=== PATIENT | male | born 1960 | race Caucasian/White ===

== ENCOUNTER 2017-08-21 12:56 | Observation (INO) | payer OTHER ==
[2017-08-21 13:23] LABS: Basophils % (A) 0 %; Eosinophils # (A) 0.1 k/uL (0-0.7); Eosinophils % (A) 1 %; HCT 38.6 % (39.0-53.0); HGB 12.7 gm/dL (13.0-17.5); Lymphocytes # (A) 1.1 k/uL (1.0-4.8); Lymphocytes % (A) 11 %; MCH 29.4 pg (25.0-35.0); MCHC 32.8 g/dL (31.0-37.0); MCV 89.6 fL (80.0-100.0); Mean Platelet Volume 7.3; Monocytes # (A) 0.5 k/uL (0-1.0); Monocytes % (A) 5 %; Neutrophils # (A) 7.8 k/uL (1.3-7.7); Neutrophils % (A) 81 %; Platelet Count 276 k/uL (150-450); RBC 4.31 m/uL (4.30-5.90); RDW 14.7 % (11.5-15.5); WBC 9.6 k/uL (3.8-10.6)
[2017-08-21 13:33] LABS: ALT 45 U/L (21-72); AST 25 U/L (17-59); Albumin 4.1 g/dL (3.5-5.0); Alkaline Phosphatase 114 U/L (38-126); Anion Gap 11 mmol/L; Blood Urea Nitrogen 10 mg/dL (9-20); Calcium 9.6 mg/dL (8.4-10.2); Carbon Dioxide 24 mmol/L (22-30); Chloride 95 mmol/L (98-107); Glucose 101 mg/dL (74-99); Lipase 78 U/L (23-300); Magnesium 1.8 mg/dL (1.6-2.3); Potassium 3.8 mmol/L (3.5-5.1); Sodium 130 mmol/L (137-145); Total Bilirubin 0.5 mg/dL (0.2-1.3); Total Protein 6.8 g/dL (6.3-8.2)
[2017-08-21 13:40] LABS: Partial Thromboplastin Time 24.8 sec (22.0-30.0); Prothrombin Time 9.8 sec (9.0-12.0)
[2017-08-21 13:42] LABS: Creatine Kinase 134 U/L (55-170)
[2017-08-21 13:55] LABS: Creatine Kinase MB 1.2 ng/mL (0.0-2.4); Troponin I <0.012 ng/mL (0.000-0.034)
--- NOTE | 2017-08-21 14:04 | XR ---
EXAMINATION TYPE: XR chest 2V DATE OF EXAM: 08/21/2017 COMPARISON: 12/06/2014 INDICATION: Chest pain TECHNIQUE: Frontal and lateral views of the chest are obtained. FINDINGS: The heart size is normal. The pulmonary vasculature is normal. The lungs are clear. There is an old lower left rib fracture. IMPRESSION: 1. No acute pulmonary process.
[2017-08-21] MEDS ORDERED: ASPIRIN 81 MG PO STA (14:38)
[2017-08-21] MEDS ORDERED: HEPARIN SODIUM,PORCINE 5,000 UNIT/ML 1 ML VIAL IV ONE (14:38)
[2017-08-21] MEDS ORDERED: NITROGLYCERIN SL TABS 0.4 MG TAB SUBLINGUAL PRN (14:38)
--- NOTE | 2017-08-21 14:41 | ED ---
General Adult HPI - General Chief complaint: Chest Pain Stated complaint: CHEST PAIN Time Seen by Provider: 08/21/17 12:57 Source: patient, EMS, RN notes reviewed, old records reviewed Mode of arrival: EMS Limitations: altered mental status - History of Present Illness Initial comments: -year-old male the ER for evasive chest pain. Patient states he's having chest pain just like prior heart attack. Patient admits to anterior heaviness and chest pain. Testing is pruritic. Patient has history of heart disease. Patient is denying any fever cough or congestion occasional shortness of breath shortness of breath with pain. No recent travel history no sick contacts - Related Data Home Medications Medication Instructions Recorded Confirmed Paliperidone IM [Invega Sustenna] 234 mg IM Q21D 01/20/16 08/21/17 Benztropine Mesylate [Cogentin] 1 mg PO BID 08/21/17 08/21/17 Ergocalciferol [Vitamin D2] 50,000 unit PO Q7D 08/21/17 08/21/17 Fluphenazine HCl [fluPHENAZine HCL] 2.5 mg PO BID 08/21/17 08/21/17 Lisinopril [Prinivil] 20 mg PO DAILY 08/21/17 08/21/17 clonazePAM [KlonoPIN] 0.5 mg PO DAILY PRN 08/21/17 08/21/17 clonazePAM [KlonoPIN] 2 mg PO HS 08/21/17 08/21/17 Previous Rx's Medication Instructions Recorded Atorvastatin [Lipitor] 10 mg PO DAILY #30 tab 01/27/16 Pantoprazole [Protonix] 40 mg PO AC-LUIS ALBERTOKFSPatito #30 tablet. 01/27/16 Allergies Allergy/AdvReac Type Severity Reaction Status Date / Time amoxicillin Allergy Unknown Verified 08/21/17 13:53 brompheniramine maleate Allergy Unknown Verified 08/21/17 13:53 [From Dimetapp Cold-Allergy (PE)] codeine Allergy Rash/Hives Verified 08/21/17 13:53 fluoxetine HCl [From Prozac] Allergy Unknown Verified 08/21/17 13:53 latex Allergy Unknown Verified 08/21/17 13:53 morphine Allergy Rash/Hives Verified 08/21/17 13:53 phenylephrine HCl Allergy Unknown Verified 08/21/17 13:53 [From Dimetapp Cold-Allergy (PE)] shellfish derived [Shellfish] Allergy Rash/Hives Verified 08/21/17 13:53 Review of Systems ROS Statement: Those systems with pertinent positive or pertinent negative responses have been documented in the HPI. ROS Other: All systems not noted in ROS Statement are negative. Past Medical History Past Medical History: COPD, Hyperlipidemia, Hypertension, Osteoarthritis (OA) Additional Past Medical History / Comment(s): prostate cancer, possible seizure disorder-last known seizure 12/07/14. History of Any Multi-Drug Resistant Organisms: None Reported Past Surgical History: Prostate Surgery Additional Past Surgical History / Comment(s): pt states he had prostate surgery , "eye surgery" and back surgery, pyloric stenosis as a child.. Past Anesthesia/Blood Transfusion Reactions: No Reported Reaction Past Psychological History: Bipolar, Depression, Schizophrenia Smoking Status: Never smoker Past Alcohol Use History: None Reported Past Drug Use History: None Reported - Past Family History Father Family Medical History: Cancer Additional Family Medical History / Comment(s): Father is alive at age 82 with history of prostate cancer. Mother Family Medical History: Cancer Additional Family Medical History / Comment(s): Mother at age 53 from bladder cancer Brother(s) Additional Family Medical History / Comment(s): Patient has 4 brothers and 2 sisters that are healthy with no major medical problems. Patient does not have any children. General Exam Limitations: altered mental status General appearance: alert, in no apparent distress Head exam: Present: atraumatic, normocephalic, normal inspection Eye exam: Present: normal appearance, PERRL, EOMI. Absent: scleral icterus, conjunctival injection, periorbital swelling ENT exam: Present: normal exam, mucous membranes moist Neck exam: Present: normal inspection. Absent: tenderness, meningismus, lymphadenopathy Respiratory exam: Present: normal lung sounds bilaterally. Absent: respiratory distress, wheezes, rales, rhonchi, stridor Cardiovascular Exam: Present: regular rate, normal rhythm, normal heart sounds. Absent: systolic murmur, diastolic murmur, rubs, gallop, clicks GI/Abdominal exam: Present: soft, normal bowel sounds. Absent: distended, tenderness, guarding, rebound, rigid Extremities exam: Present: normal inspection, full ROM, normal capillary refill. Absent: tenderness, pedal edema, joint swelling, calf tenderness Back exam: Present: normal inspection Neurological exam: Present: alert, oriented X3, CN II-XII intact Psychiatric exam: Present: normal affect, normal mood Skin exam: Present: warm, dry, intact, normal color. Absent: rash Course Vital Signs 08/21/17 13:05 Temperature 97 F L Pulse Rate 112 H Respiratory 16 Rate Blood Pressure 131/95 O2 Sat by Pulse 95 Oximetry - Reevaluation(s) Reevaluation #1: 08/21/17 14:40 Patient still has symptoms of chest pain Medical Decision Making - Medical Decision Making 57 male the ER prevention chest pain history of chest pain or heart disease. Patient will be admitted for cardiac observation - Lab Data Result diagrams: 08/21/17 13:10 08/21/17 13:10 Lab Results 08/21/17 08/21/17 08/21/17 Range/Units 13:10 13:10 13:10 WBC 9.6 (3.8-10.6) k/uL RBC 4.31 (4.30-5.90) m/uL Hgb 12.7 L (13.0-17.5) gm/dL Hct 38.6 L (39.0-53.0) % MCV 89.6 (80.0-100.0) fL MCH 29.4 (25.0-35.0) pg MCHC 32.8 (31.0-37.0) g/dL RDW 14.7 (11.5-15.5) % Plt Count 276 (150-450) k/uL Neutrophils % 81 % Lymphocytes % 11 % Monocytes % 5 % Eosinophils % 1 % Basophils % 0 % Neutrophils # 7.8 H (1.3-7.7) k/uL Lymphocytes # 1.1 (1.0-4.8) k/uL Monocytes # 0.5 (0-1.0) k/uL Eosinophils # 0.1 (0-0.7) k/uL Basophils # 0.0 (0-0.2) k/uL PT (9.0-12.0) sec INR (<1.2) APTT (22.0-30.0) sec Sodium 130 L (137-145) mmol/L Potassium 3.8 (3.5-5.1) mmol/L Chloride 95 L (98-107) mmol/L Carbon Dioxide 24 (22-30) mmol/L Anion Gap 11 mmol/L BUN 10 (9-20) mg/dL Creatinine 0.90 (0.66-1.25) mg/dL Est GFR (MDRD) Af Amer >60 (>60 ml/min/1.73 sqM) Est GFR (MDRD) Non-Af >60 (>60 ml/min/1.73 sqM) Glucose 101 H (74-99) mg/dL Calcium 9.6 (8.4-10.2) mg/dL Magnesium 1.8 (1.6-2.3) mg/dL Total Bilirubin 0.5 (0.2-1.3) mg/dL AST 25 (17-59) U/L ALT 45 (21-72) U/L Alkaline Phosphatase 114 (38-126) U/L Total Creatine Kinase 134 (55-170) U/L CK-MB (CK-2) 1.2 (0.0-2.4) ng/mL CK-MB (CK-2) Rel Index 0.9 Troponin I <0.012 (0.000-0.034) ng/mL Total Protein 6.8 (6.3-8.2) g/dL Albumin 4.1 (3.5-5.0) g/dL Lipase 78 (23-300) U/L 08/21/17 Range/Units 13:10 WBC (3.8-10.6) k/uL RBC (4.30-5.90) m/uL Hgb (13.0-17.5) gm/dL Hct (39.0-53.0) % MCV (80.0-100.0) fL MCH (25.0-35.0) pg MCHC (31.0-37.0) g/dL RDW (11.5-15.5) % Plt Count (150-450) k/uL Neutrophils % % Lymphocytes % % Monocytes % % Eosinophils % % Basophils % % Neutrophils # (1.3-7.7) k/uL Lymphocytes # (1.0-4.8) k/uL Monocytes # (0-1.0) k/uL Eosinophils # (0-0.7) k/uL Basophils # (0-0.2) k/uL PT 9.8 (9.0-12.0) sec INR 1.0 (<1.2) APTT 24.8 (22.0-30.0) sec Sodium (137-145) mmol/L Potassium (3.5-5.1) mmol/L Chloride (98-107) mmol/L Carbon Dioxide (22-30) mmol/L Anion Gap mmol/L BUN (9-20) mg/dL Creatinine (0.66-1.25) mg/dL Est GFR (MDRD) Af Amer (>60 ml/min/1.73 sqM) Est GFR (MDRD) Non-Af (>60 ml/min/1.73 sqM) Glucose (74-99) mg/dL Calcium (8.4-10.2) mg/dL Magnesium (1.6-2.3) mg/dL Total Bilirubin (0.2-1.3) mg/dL AST (17-59) U/L ALT (21-72) U/L Alkaline Phosphatase (38-126) U/L Total Creatine Kinase (55-170) U/L CK-MB (CK-2) (0.0-2.4) ng/mL CK-MB (CK-2) Rel Index Troponin I (0.000-0.034) ng/mL Total Protein (6.3-8.2) g/dL Albumin (3.5-5.0) g/dL Lipase (23-300) U/L - Radiology Data Radiology results: report reviewed (Chest x-rays negative), image reviewed Disposition Clinical Impression: Chest pain Disposition: ADMITTED IP TO THIS [facility] Condition: Undetermined Instructions: Chest Pain (ED) Referrals: Nathaniel Brooks DO [Primary Care Provider] - 1-2 days
[2017-08-21] MEDS ORDERED: HEPARIN SOD,PORK IN 0.45% NACL 25,000 UNIT in 0.45% NACL 1 500ML.BAG IV SCH (14:45)
[2017-08-21] MEDS ORDERED: clonazePAM 0.5 MG TAB PO PRN (17:42)
[2017-08-21] MEDS ORDERED: ERGOCALCIFEROL 50,000 UNIT CAP PO SCH (17:45)
[2017-08-21] MEDS: METOPROLOL TARTRATE 25 MG TAB PO SCH (20:20)
[2017-08-21] MEDS: BENZTROPINE MESYLATE 1 MG TAB PO SCH (20:20)
[2017-08-21] MEDS ORDERED: clonazePAM 1 MG TAB PO SCH (21:00)
[2017-08-21 21:30] LABS: Creatine Kinase 182 U/L (55-170)
[2017-08-21 21:43] LABS: Creatine Kinase MB 1.7 ng/mL (0.0-2.4); Troponin I <0.012 ng/mL (0.000-0.034)
[2017-08-21 22:32] VITALS: RESP 18
[2017-08-21] MEDS: HEPARIN SODIUM,PORCINE 5,000 UNIT/ML 1 ML VIAL IV PRN (22:32)
--- NOTE | 2017-08-21 23:01 | HP ---
HISTORY AND PHYSICAL DATE OF ADMISSION: August 21, 2017 PRESENTING COMPLAINT: Chest pain. HISTORY OF PRESENTING COMPLAINT: This is a pleasant 57 -year-old patient Dr. Nathaniel Brooks. Chronic stable medical conditions of GERD, hyperlipidemia, schizophrenia. Patient was having coffee in the morning, developed left anterior chest wall like a pressure, sharp pain there for about 10 minutes then went off, came back on again and went off again. The patient is very little short of breath if any. Denies any perspiration. No dizziness. No nausea. Symptoms did not come back subsequently. Patient did have a stress test at [facility] about 5 months ago, told it was negative. The patient normally able to get around the house. Denies any cardiac symptoms otherwise. No fever or cardiac history. REVIEW OF SYSTEMS: Constitutional: None. HEENT: None. Respiratory none. Cardiovascular as above. Gastrointestinal has heartburn. The patient felt the symptoms could be from his heartburn. Genitourinary none. Musculoskeletal none. Dermatologic, hematologic and lymphatics none. Psychiatry: Occasionally only hears voices. Otherwise symptoms controlled. Neurological none. PAST HISTORY: GERD, hyperlipidemia, schizophrenia, psychosis, some osteoarthritis, prostate cancer, PTSD. 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 SOCIAL HISTORY: Patient is disabled. Lives with his father. 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 No smoking. Drank alcohol in the past sometimes. FAMILY HISTORY: Father had prostate cancer. HOME MEDICATIONS: 1. Ventolin HFA 1 or 2 puffs q.6h p.r.n. 2. Klonopin 0.5 mg p.o. daily p.r.n. 3. Prinivil 20 mg p.o. daily. 4. Vitamin D2 50,000 units every 7 days. 5. Fluphenazine 2.5 p.o. b.i.d. 6. Lipitor 10 mg a day. 7. Klonopin 2 mg q.h.s. 8. Protonix 40 mg breakfast. 9. Invega 234 mg IM every 21 days. 10.Cogentin 1 mg p.o. b.i.d. ALLERGIES: TO AMOXICILLIN, DIMETAPP, CODEINE, PROZAC, LATEX, MORPHINE, SHELLFISH. PHYSICAL EXAMINATION: Temperature 97.6, pulse 102, respirations 16, blood pressure 130/85, pulse ox 95% on room air. General appearance: Well built, BMI 31.2, lying in bed. Comfortable. Eyes: Pupils equal. Conjunctivae normal. HEENT: Oral cavity normal. Neck: Short thick. JVD unable to assess. Mass not palpable. Respiratory effort normal. Lungs fair entry. Cardiovascular 1st and 2nd sounds normal. No edema. ABDOMEN: Soft, nontender. Liver and spleen not palpable. Lymphatics: No lymph nodes palpable in the neck and axillae. Psychiatry: Alert and oriented times three. Mood and affect slightly anxious- appearing. Neurological: Pupils equal. Cranial nerves grossly intact. Power and sensation grossly intact. INVESTIGATIONS: White count 9.6, hemoglobin 12.7, potassium 3.8, sodium 130, BUN 10, creatinine 0.90, troponin x2 less than 0.012. EKG shows sinus tachycardia 112 beats per minute, right ventricular hypertrophy. Chest x-ray reported nil acute. ASSESSMENT: 1. Left anterior chest wall pain with cardiac risk factors being obesity ex-smoker. No family history with some atypical features. The patient did have a stress test at [facility] five months ago. We will try to get the report for that. 2. We will check the patient's D-dimer and if positive, then proceed to do CT angio of the chest. 3. Gastroesophageal reflux disease. 4. Hyperlipidemia. 5. Obesity; BMI 31.2. 6. Schizophrenia controlled. PLAN: Home medications are resumed. Serial cardiac enzymes in place. D-dimer has been ordered. We will request stress test results from [facility] and consult Cardiology. Care was discussed with the patient. MMODL / IJN: [id number] /
[2017-08-22 03:59] LABS: Basophils % (A) 0 %; Eosinophils # (A) 0.2 k/uL (0-0.7); Eosinophils % (A) 2 %; HCT 39.1 % (39.0-53.0); HGB 12.7 gm/dL (13.0-17.5); Lymphocytes # (A) 1.2 k/uL (1.0-4.8); Lymphocytes % (A) 15 %; MCH 29.5 pg (25.0-35.0); MCHC 32.6 g/dL (31.0-37.0); MCV 90.5 fL (80.0-100.0); Monocytes # (A) 0.6 k/uL (0-1.0); Monocytes % (A) 8 %; Neutrophils # (A) 5.8 k/uL (1.3-7.7); Neutrophils % (A) 72 %; Platelet Count 270 k/uL (150-450); RBC 4.32 m/uL (4.30-5.90); RDW 13.6 % (11.5-15.5); WBC 8.1 k/uL (3.8-10.6)
[2017-08-22 04:24] LABS: Creatine Kinase 169 U/L (55-170)
[2017-08-22 04:37] LABS: Troponin I <0.012 ng/mL (0.000-0.034)
[2017-08-22 04:45] LABS: Creatine Kinase MB 1.5 ng/mL (0.0-2.4)
[2017-08-22 05:01] LABS: Anion Gap 10 mmol/L; Blood Urea Nitrogen 12 mg/dL (9-20); Calcium 9.8 mg/dL (8.4-10.2); Carbon Dioxide 28 mmol/L (22-30); Chloride 104 mmol/L (98-107); Cholesterol 141 mg/dL (<200); Glucose 115 mg/dL (74-99); HDL Cholesterol 71 mg/dL (40-60); LDL Cholesterol,Calculated 51 mg/dL (0-99); Potassium 4.7 mmol/L (3.5-5.1); Sodium 142 mmol/L (137-145); Triglycerides 95 mg/dL (<150)
[2017-08-22] MEDS: HEPARIN SODIUM,PORCINE 5,000 UNIT/ML 1 ML VIAL IV PRN (05:34)
[2017-08-22] MEDS: ALBUTEROL NEBULIZED 2.5 MG/3 ML INHALATION PRN ×2 (07:19→13:27)
[2017-08-22] MEDS ORDERED: PANTOPRAZOLE 40 MG TABLET PO SCH (07:30)
[2017-08-22] MEDS ORDERED: LISINOPRIL 20 MG TAB PO SCH (09:00)
[2017-08-22] MEDS ORDERED: ASPIRIN 325 MG TAB PO SCH (09:00)
[2017-08-22] MEDS ORDERED: ATORVASTATIN 10 MG TAB PO SCH (09:00)
--- NOTE | 2017-08-22 09:14 | P.CRDCN ---
History of Present Illness Consult date: 08/22/17 Chief complaint: Chest pain History of present illness: This is a pleasant 57-year-old gentleman with a past medical history significant for hypertension, dyslipidemia, and post traumatic stress disorder with possible schizophrenia as well, presented to the emergency room complaining of chest discomfort. He was in his usual state of health where he was at home yesterday drinking a cup of coffee when he started experiencing discomfort in the front of the chest as a dull kind of discomfort, without radiation to the arm or neck or shoulders and without any associated symptoms of shortness of breath. No sweating. No dizziness or lightheadedness. And no syncope. He is not aware of any prior cardiac history and never seen any process assistant in the past. No coronary artery disease or congestive heart failure or cardiac arrhythmia. The EKG showed sinus rhythm without any ST or T-wave abnormalities concerning for ischemia. 3 sets of cardiac enzymes were checked and came in to be unremarkable. The d-dimer came in to be normal. The chest x-ray did not show any acute abnormalities. The patient states that he underwent a stress test at [facility] about 3 months ago and that came in to be unremarkable. We are in process of getting a copy of the stress test from [facility]. Past Medical History Past Medical History: COPD, Hyperlipidemia, Hypertension, Osteoarthritis (OA) Additional Past Medical History / Comment(s): prostate cancer, possible seizure disorder-last known seizure 12/07/14.tinnitus, bipolar depression, ptsd, schizophrenia. 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 Smoking Status: Never smoker - Past Family History Father Family Medical History: Cancer Additional Family Medical History / Comment(s): Father is alive at age 82 with history of prostate cancer. Mother Family Medical History: Cancer Additional Family Medical History / Comment(s): Mother at age 53 from bladder cancer Brother(s) Additional Family Medical History / Comment(s): Patient has 4 brothers and 2 sisters that are healthy with no major medical problems. Patient does not have any children. Medications and Allergies Home Medications Medication Instructions Recorded Confirmed Type Paliperidone IM [Invega Sustenna] 234 mg IM Q21D 01/20/16 08/21/17 History Atorvastatin [Lipitor] 10 mg PO DAILY #30 tab 01/27/16 08/21/17 Rx Pantoprazole [Protonix] 40 mg PO AC-BRKFST #30 tablet. 01/27/16 08/21/17 Rx Albuterol Inhaler [Ventolin Hfa 1 - 2 puff INHALATION Q6HR PRN 08/21/17 History Inhaler] Benztropine Mesylate [Cogentin] 1 mg PO BID 08/21/17 08/21/17 History Ergocalciferol [Vitamin D2] 50,000 unit PO Q7D 08/21/17 08/21/17 History Fluphenazine HCl [fluPHENAZine HCL] 2.5 mg PO BID 08/21/17 08/21/17 History Lisinopril [Prinivil] 20 mg PO DAILY 08/21/17 08/21/17 History clonazePAM [KlonoPIN] 0.5 mg PO DAILY PRN 08/21/17 08/21/17 History clonazePAM [KlonoPIN] 2 mg PO HS 08/21/17 08/21/17 History Allergies Allergy/AdvReac Type Severity Reaction Status Date / Time amoxicillin Allergy Unknown Verified 08/21/17 13:53 brompheniramine maleate Allergy Unknown Verified 08/21/17 13:53 [From Dimetapp Cold-Allergy (PE)] codeine Allergy Rash/Hives Verified 08/21/17 13:53 fluoxetine HCl [From Prozac] Allergy Unknown Verified 08/21/17 13:53 latex Allergy Unknown Verified 08/21/17 13:53 morphine Allergy Rash/Hives Verified 08/21/17 13:53 phenylephrine HCl Allergy Unknown Verified 08/21/17 13:53 [From Dimetapp Cold-Allergy (PE)] shellfish derived [Shellfish] Allergy Rash/Hives Verified 08/21/17 13:53 Physical Exam Vitals: Vital Signs Temp Pulse Pulse Resp BP BP Pulse Ox 08/22/17 08:00 97.7 F 93 18 121/78 92 L 08/22/17 07:31 87 08/22/17 07:19 88 08/22/17 03:46 18 08/22/17 03:44 97.6 F 85 18 128/69 95 08/22/17 00:00 18 08/21/17 22:32 72 18 112/73 96 08/21/17 20:00 18 08/21/17 19:31 98.0 F 110 H 19 125/70 94 L 08/21/17 16:00 102 H 16 08/21/17 15:32 97.6 F 102 H 16 134/85 95 08/21/17 14:53 120 H 16 136/80 95 08/21/17 13:05 97 F L 112 H 16 131/95 95 Intake and Output 08/21/17 08/22/17 08/22/17 22:59 06:59 14:59 Intake Total 507.667 503.922 Balance 507.667 503.922 Intake: IV 315 0.9@20 140 Heparin Sod,Pork in 0.45% 175 NaCl 25,000 unit In 0.45 % NaCl 1 500ml.bag @ 9. 931 UNITS/KG/HR 20 mls/hr IV .Q24H [facility] Rx#: [id number] Intake, IV Titration 147.667 188.922 Amount Heparin Sod,Pork in 0.45% 147.667 188.922 NaCl 25,000 unit In 0.45 % NaCl 1 500ml.bag @ 9. 931 UNITS/KG/HR 20 mls/hr IV .Q24H [facility] Rx#: [id number] Oral 360 Other: Voiding Method Toilet Toilet # Voids 1 2 Weight 104.2 kg - Constitutional General appearance: no acute distress - Respiratory Respiratory: bilateral: CTA - Cardiovascular Rhythm: regular Heart sounds: normal: S1, S2 Results 08/22/17 03:43 08/22/17 03:43 Cardiac Enzymes 08/21/17 08/21/17 08/21/17 Range/Units 13:10 13:10 20:26 AST 25 (17-59) U/L CK-MB (CK-2) 1.2 1.7 (0.0-2.4) ng/mL Troponin I <0.012 <0.012 (0.000-0.034) ng/mL 08/22/17 Range/Units 03:43 AST (17-59) U/L CK-MB (CK-2) 1.5 (0.0-2.4) ng/mL Troponin I <0.012 (0.000-0.034) ng/mL Coagulation 08/21/17 08/21/17 08/22/17 Range/Units 13:10 20:26 03:43 PT 9.8 (9.0-12.0) sec APTT 24.8 29.7 36.1 H (22.0-30.0) sec Lipids 08/22/17 Range/Units 03:43 Triglycerides 95 (<150) mg/dL Cholesterol 141 (<200) mg/dL HDL Cholesterol 71 H (40-60) mg/dL CBC 08/21/17 08/22/17 Range/Units 13:10 03:43 WBC 9.6 8.1 (3.8-10.6) k/uL RBC 4.31 4.32 (4.30-5.90) m/uL Hgb 12.7 L 12.7 L (13.0-17.5) gm/dL Hct 38.6 L 39.1 (39.0-53.0) % Plt Count 276 270 (150-450) k/uL Comprehensive Metabolic Panel 08/21/17 08/22/17 Range/Units 13:10 03:43 Sodium 130 L 142 (137-145) mmol/L Potassium 3.8 4.7 (3.5-5.1) mmol/L Chloride 95 L 104 (98-107) mmol/L Carbon Dioxide 24 28 (22-30) mmol/L BUN 10 12 (9-20) mg/dL Creatinine 0.90 0.99 (0.66-1.25) mg/dL Glucose 101 H 115 H (74-99) mg/dL Calcium 9.6 9.8 (8.4-10.2) mg/dL AST 25 (17-59) U/L ALT 45 (21-72) U/L Alkaline Phosphatase 114 (38-126) U/L Total Protein 6.8 (6.3-8.2) g/dL Albumin 4.1 (3.5-5.0) g/dL Current Medications Generic Name Dose Route Start Last Admin Trade Name Freq PRN Reason Stop Dose Admin Albuterol Sulfate 2.5 mg 08/21/17 20:23 08/22/17 07:19 Ventolin Nebulized INHALATION 2.5 mg RT-Q6H PRN Administration Shortness Of Breath Aspirin 325 mg 08/22/17 09:00 Aspirin PO DAILY [facility] Atorvastatin Calcium 10 mg 08/22/17 09:00 Lipitor PO DAILY [facility] Benztropine Mesylate 1 mg 08/21/17 21:00 08/21/17 20:20 Cogentin PO 1 mg BID [facility] Administration Clonazepam 0.5 mg 08/21/17 17:42 Klonopin PO DAILY PRN Anxiety Clonazepam 2 mg 08/21/17 21:00 08/21/17 20:20 Klonopin PO 2 mg HS [facility] Administration Fluphenazine HCl 2.5 mg 08/21/17 21:00 08/21/17 20:21 Prolixin PO 2.5 mg BID [facility] Administration Heparin Sodium (Porcine) 0 unit 08/21/17 14:38 08/22/17 05:34 Heparin IV 4,000 unit Q6HR PRN Administration Low PTT Protocol Heparin Sodium/Sodium Chloride 500 mls @ 20 mls/hr 08/21/17 14:45 08/22/17 05 :31 25,000 unit/ Sodium Chloride IV 16.05 units/kg/hr .Q24H [facility] 32.32 mls/hr Protocol Titration 9.931 UNITS/KG/HR Lisinopril 20 mg 08/22/17 09:00 Zestril PO DAILY [facility] Metoprolol Tartrate 25 mg 08/21/17 21:00 08/21/17 20:20 Lopressor PO 25 mg BID [facility] Administration Nitroglycerin 0.4 mg 08/21/17 14:38 Nitrostat SUBLINGUAL Q5M PRN Chest Pain Paliperidone Palmitate 234 mg 08/30/17 09:00 Invega Sustenna IM Q21D [facility] Pantoprazole Sodium 40 mg 08/22/17 07:30 Protonix PO AC-BRKFST [facility] Intake and Output 08/21/17 08/22/17 08/22/17 22:59 06:59 14:59 Intake Total 507.667 503.922 Balance 507.667 503.922 Intake: IV 315 0.9@20 140 Heparin Sod,Pork in 0.45% 175 NaCl 25,000 unit In 0.45 % NaCl 1 500ml.bag @ 9. 931 UNITS/KG/HR 20 mls/hr IV .Q24H [facility] Rx#: [id number] Intake, IV Titration 147.667 188.922 Amount Heparin Sod,Pork in 0.45% 147.667 188.922 NaCl 25,000 unit In 0.45 % NaCl 1 500ml.bag @ 9. 931 UNITS/KG/HR 20 mls/hr IV .Q24H [facility] Rx#: [id number] Oral 360 Other: Voiding Method Toilet Toilet # Voids 1 2 Weight 104.2 kg 08/22/17 03:43 08/22/17 03:43 Assessment and Plan Assessment: Assessment #1 atypical chest discomfort #2 hypertension #3 dyslipidemia Plan #1 the patient was ruled out for acute coronary event #2 we will obtain a copy of the stress test from [facility] #3 further recommendation to follow that. Thank you for allowing us participate in his care
[2017-08-22] MEDS: BENZTROPINE MESYLATE 1 MG TAB PO SCH (10:33)
[2017-08-22] MEDS: METOPROLOL TARTRATE 25 MG TAB PO SCH (10:34)
[2017-08-22 11:49] VITALS: TEMP 97.5
[2017-08-22] MEDS: PNEUMOCOCCAL VACC-PNEUMOVAX 23 25 MCG/0.5 ML VIAL IM ONE ×2 (14:10→16:51)
[2017-08-22] MEDS: INFLUENZA VACCINE (6 MOS+) 60 MCG/0.5 ML SYRINGE IM ONE ×2 (14:10→16:53)
[2017-08-22 15:34] VITALS: BP 133/77; PULSE 94
--- NOTE | 2017-08-23 08:00 | DS ---
DISCHARGE SUMMARY DATE OF ADMISSION: August 21, 2017 DATE OF DISCHARGE: August 23, 2017. FINAL DIAGNOSES: 1. Left anterior chest wall pain could be musculoskeletal. 2. Gastroesophageal reflux disease. 3. Hyperlipidemia. 4. Obesity BMI 31.2. 5. Chronic schizophrenia. HOSPITAL COURSE: This patient presented with chest pain. Had a stress test 5 months ago at [facility]. The patient is seen by Dr. Lino from Cardiology, saw the patient, okay to be discharged. Will follow up the patient as an outpatient. Troponins were negative. EXAM: Lungs are clear. Cardiovascular 1st and 2nd sounds normal. DISCHARGE MEDICATIONS: 1. Invega Sustenna 234 mg IM every 21 days. 2. Lipitor 10 mg a day. 3. Protonix 40 mg p.o. daily. 4. Ventolin HFA 1 or 2 puffs q.6h p.r.n. 5. Cogentin 1 mg p.o. b.i.d. 6. Vitamin D2 50,000 units every 7 days. 7. Fluphenazine 2.5 mg p.o. b.i.d. 8. Prinivil 20 mg p.o. daily. 9. Klonopin 0.5 mg p.o. daily p.r.n. and 2 mg q.h.s. 10.Nitrostat 0.4 sublingual q.5 p.r[address]n. Follow with Dr. Lino in 2 weeks. Follow up with Dr. Nathaniel Brooks in 3 days. MMODL / IJN: [id number] /
[2017-08-30] MEDS ORDERED: PALIPERIDONE IM 234 MG/1.5 ML SYG IM SCH (09:00)
== END 2017-08-22 17:14 | disposition home or self-care (01) ==
LOC: EC 12:56 → 3OBS 14:38
PROVIDERS: ADMIT Hospitalist; ATTEND Hospitalist
DX: R07.89 Other chest pain (principal); K21.9 Gastro-esophageal reflux disease without esophagitis; I10 Essential (primary) hypertension; E78.5 Hyperlipidemia, unspecified; J44.9 Chronic obstructive pulmonary disease, unspecified; E66.9 Obesity, unspecified; M19.90 Unspecified osteoarthritis, unspecified site; Z68.31 Body mass index [BMI] 31.0-31.9, adult; F20.9 Schizophrenia, unspecified; F31.9 Bipolar disorder, unspecified; F43.10 Post-traumatic stress disorder, unspecified; Z23 Encounter for immunization; Z79.899 Other long term (current) drug therapy; Z91.040 Latex allergy status; Z88.0 Allergy status to penicillin; Z88.5 Allergy status to narcotic agent; Z88.8 Allergy status to other drugs, medicaments and biological substances; Z91.013 Allergy to seafood; Z85.46 Personal history of malignant neoplasm of prostate; Z80.52 Family history of malignant neoplasm of bladder
CPT/HCPCS: 99285 ×2; 96365 ×2; 96376 ×4; 96366 ×2; 36415; 94640 ×2; 93005; 85379; 80061; 80053; 80048; 82550 ×2; 82553 ×2; 83690; 83735; 84484 ×2; 85025 ×2; 85610; 85730 ×2; 71046; 90732; 90686; G0378 ×2; G0008; G0009; J1644 ×3

== ENCOUNTER 2017-10-08 06:46 | Inpatient (IN) | payer MEDICAID ==
[2017-10-08] MEDS ORDERED: ZIPRASIDONE 20 MG VIAL IM PRN (07:48)
[2017-10-08] MEDS ORDERED: MAGNESIUM HYDROXIDE 2,400 MG/10 ML CUP PO PRN (07:48)
[2017-10-08] MEDS ORDERED: MAG HYDROX/AL HYDROX/SIMETH 30 ML CUP PO PRN (07:48)
[2017-10-08] MEDS ORDERED: ACETAMINOPHEN TAB 325 MG TAB PO PRN (07:48)
[2017-10-08] MEDS ORDERED: LORazepam 1 MG TAB PO PRN (07:48)
[2017-10-08] MEDS ORDERED: LORazepam 2 MG/ML INJ IM PRN (07:51)
[2017-10-08] MEDS ORDERED: NITROGLYCERIN SL TABS 0.4 MG TAB SUBLINGUAL PRN (12:56)
[2017-10-08] MEDS ORDERED: clonazePAM 0.5 MG TAB PO PRN (12:56)
[2017-10-08] MEDS: NICOTINE 14MG/24HR PATCH TRANSDERM SCH (13:38)
--- NOTE | 2017-10-08 14:32 | P.HP ---
Psychiatric H&P - . H&P Date: 10/08/17 History & Physical: 10/08/17 14:26 IDENTIFYING DATA: 57-year-old single male patient HPI: Patient admitted to the inpatient psychiatric unit [facility] on a voluntary basis. He reports that he was feeling lonely and paranoid started to feel depressed and took 3 or 4 pills because he had some thoughts of suicide. He says that he call the ambulance himself. He went to [facility] was transferred to [facility] for psychiatric admission. He denies any really significant recent stressors. PAST PSYCHIATRIC HISTORY: He has had inpatient psychiatric admissions in the past. He currently sees a nurse practitioner through [facility]. He is most recently on Depakote 1000 more grams at bedtime, Klonopin 0.5 more grams daily when necessary, Klonopin 2 mg at at bedtime and Prolixin Decanoate every 2 weeks. He recently just got the Prolixin decanoate injection. He has history of schizoaffective disorder bipolar type. PMH: History of incontinence sometimes, hypertension, asthma, hypercholesterolemia ALLERGIES: amoxicillin, brompheniramine maleate, Prozac, latex, morphine, phenylephrine, shellfish MEDICATIONS: Tylenol when necessary, Maalox when necessary, Ventolin inhaler when necessary, Lipitor, Cogentin, Klonopin when necessary, Klonopin, Depakote, Prolixin decanoate, Zestril, Ativan when necessary, milk of magnesia when necessary, Habitrol patch, Nitrostat when necessary, Protonix, Geodon when necessary CHEMICAL DEPENDENCY HISTORY: None, alcohol in the past, some binge drinking. FAMILY PSYCHIATRIC HISTORY: Not known at this time. FAMILY CHEMICAL DEPENDENCY HISTORY: None known at this time. SOCIAL HISTORY: Currently lives by himself in a home. He has never been , no children. He has 3 brothers and 2 sisters. He is on disability. MENTAL STATUS EXAM: He is alert and cooperative with the interview. Speech is fluent, not rapid or pressured. His mood is described "up-and-down." He relays that his mood is leveling off. He denies any hallucinations. He denies any suicidal ideations and denies any thoughts of harm to others. I do not note any significant disorientation and memory disturbance. His insight Zydone , judgment shows evidence of recent impairment. STRENGTHS/WEAKNESSES: Strengths-seeking treatment; weaknesses- coping skills INTELLECTUAL FUNCTIONING: Average IMPRESSIONS: Schizoaffective disorder, bipolar type PLAN: Patient is admitted to the inpatient psychiatric unit [facility] on a voluntary basis. He will placed on SP 15 minute precautions. Baseline laboratory workup will be done the patient and medical consultation will be ordered. He'll participate in group and activity therapies. We will maintain Depakote 1000 norms at bedtime and get a Depakote level. We will maintain Klonopin and Cogentin as current. He just received a Prolixin Decanoate injection. We'll monitor for psychosis and mood symptoms. We'll continue to monitor regarding any suicidal ideations. We will look into any family supports. Estimated length of stay is 5-7 days. Prognosis is guarded.
--- NOTE | 2017-10-08 15:15 | P.CONS ---
History of Present Illness - Reason for Consult Hyponatremia - History of Present Illness Patient is a pleasant 57-year-old gentleman was admitted for schizophrenia and bipolar disorder transferred from [facility]. Patient denied any fever, chills, nausea, vomiting patient denied any excessive intake of water. Patient was hyponatremic I do not have much of the laboratory data available from [facility]. Will repeat basic metabolic profile here and if his sodium remains low further workup will be done accordingly. Review of Systems REVIEW OF SYSTEMS: CONSTITUTIONAL: No fever, no malaise, no fatigue. HEENT: No recent visual problems or hearing problems. Denied any sore throat. CARDIOVASCULAR: No chest pain, orthopnea, PND, no palpitations, no syncope. PULMONARY: No shortness of breath, no cough, no hemoptysis. GASTROINTESTINAL: No diarrhea, no nausea, no vomiting, no abdominal pain. Normoactive bowel sounds. NEUROLOGICAL: No headaches, no weakness, no numbness. HEMATOLOGICAL: Denies any bleeding or petechiae. GENITOURINARY: Denies any burning micturition, frequency, or urgency. MUSCULOSKELETAL/RHEUMATOLOGICAL: Denies any joint pain, swelling, or any muscle pain. ENDOCRINE: Denies any polyuria or polydipsia. The rest of the 14-point review of systems is negative. Past Medical History Past Medical History: COPD, Hyperlipidemia, Hypertension, Osteoarthritis (OA) Additional Past Medical History / Comment(s): prostate cancer, possible seizure disorder-last known seizure 12/07/14.tinnitus, bipolar depression, ptsd, schizophrenia. History of Any Multi-Drug Resistant Organisms: None Reported Past Surgical History: Prostate Surgery Additional Past Surgical History / Comment(s): protatectomy, "eye surgery to correct lazy eyes" and back surgery, Past Anesthesia/Blood Transfusion Reactions: Blood Transfusion Reaction Additional Past Anesthesia/Blood Transfusion Reaction / Comm: pt stated received blood in past and had a reaction to it-caused hives. Smoking Status: Never smoker - Past Family History Father Family Medical History: Cancer Additional Family Medical History / Comment(s): Father is alive at age 82 with history of prostate cancer. Mother Family Medical History: Cancer Additional Family Medical History / Comment(s): Mother at age 53 from bladder cancer Brother(s) Additional Family Medical History / Comment(s): Patient has 4 brothers and 2 sisters that are healthy with no major medical problems. Patient does not have any children. Medications and Allergies Home Medications Medication Instructions Recorded Confirmed Type Atorvastatin [Lipitor] 10 mg PO DAILY #30 tab 01/27/16 10/08/17 Rx Pantoprazole [Protonix] 40 mg PO AC-BRKFST #30 tablet. 01/27/16 10/08/17 Rx Albuterol Inhaler [Ventolin Hfa 1 - 2 puff INHALATION RT-Q6H PRN 08/21/17 History Inhaler] Benztropine Mesylate [Cogentin] 2 mg PO BID 08/21/17 10/08/17 History Lisinopril [Prinivil] 20 mg PO DAILY 08/21/17 10/08/17 History clonazePAM [KlonoPIN] 0.5 mg PO DAILY PRN 08/21/17 10/08/17 History clonazePAM [KlonoPIN] 2 mg PO HS 08/21/17 10/08/17 History Nitroglycerin Sl Tabs [Nitrostat] 0.4 mg SUBLINGUAL Q5M PRN #21 tab 08/22/17 Rx Divalproex Sodium [Depakote] 1,000 mg PO HS 10/08/17 10/08/17 History fluPHENAZine DECANOATE [Prolixin 25 mg IM [id number] 10/08/17 10/08/17 History Decanoate] Allergies Allergy/AdvReac Type Severity Reaction Status Date / Time amoxicillin Allergy Unknown Verified 10/08/17 12:35 brompheniramine maleate Allergy Unknown Verified 10/08/17 12:35 [From Dimetapp Cold-Allergy (PE)] codeine Allergy Rash/Hives Verified 10/08/17 12:35 fluoxetine HCl [From Prozac] Allergy Unknown Verified 10/08/17 12:35 latex Allergy Unknown Verified 10/08/17 12:35 morphine Allergy Rash/Hives Verified 10/08/17 12:35 phenylephrine HCl Allergy Unknown Verified 10/08/17 12:35 [From Dimetapp Cold-Allergy (PE)] shellfish derived [Shellfish] Allergy Rash/Hives Verified 10/08/17 12:35 Physical Exam Vitals: Vital Signs Temp Pulse Resp BP Pulse Ox 10/08/17 14:05 97.0 F L 97 18 133/80 97 Intake and Output 10/08/17 10/08/17 10/08/17 06:59 14:59 22:59 Other: Weight 104.02 kg PHYSICAL EXAMINATION: GENERAL: The patient is alert and oriented x3, not in any acute distress. Well developed, well nourished. HEENT: Pupils are round and equally reacting to light. EOMI. No scleral icterus. No conjunctival pallor. Normocephalic, atraumatic. No pharyngeal erythema. No thyromegaly. CARDIOVASCULAR: S1 and S2 present. No murmurs, rubs, or gallops. PULMONARY: Chest is clear to auscultation, no wheezing or crackles. ABDOMEN: Soft, nontender, nondistended, normoactive bowel sounds. No palpable organomegaly. MUSCULOSKELETAL: No joint swelling or deformity. EXTREMITIES: No cyanosis, clubbing, or pedal edema. NEUROLOGICAL: Gross neurological examination did not reveal any focal deficits. SKIN: No rashes. Assessment and Plan Plan: -Hyponatremia: Etiology is unknown we'll repeat sodium again depending on the serum sodium level will do further workup including serum muscularity urinalysis modality urinary random sodium urine random creatinine, TSH. -Schizophrenia and bipolar disorder: Management as per primary service -COPD without any acute exacerbation at 10-hyperlipidemia -Hypertension For above-mentioned chronic problems appropriate home medications were reviewed and reconciled
[2017-10-08 15:57] LABS: Anion Gap 13 mmol/L; Blood Urea Nitrogen 16 mg/dL (9-20); Calcium 9.7 mg/dL (8.4-10.2); Carbon Dioxide 25 mmol/L (22-30); Chloride 99 mmol/L (98-107); Glucose 108 mg/dL (74-99); Potassium 4.7 mmol/L (3.5-5.1); Sodium 137 mmol/L (137-145)
[2017-10-08 17:22] VITALS: BMI 31.1
[2017-10-08] MEDS: BENZTROPINE MESYLATE 1 MG TAB PO SCH (20:49)
[2017-10-08] MEDS: DIVALPROEX 500 MG TABLET.DR PO SCH (20:49)
[2017-10-08] MEDS: clonazePAM 1 MG TAB PO SCH (20:51)
[2017-10-08] MEDS: ALBUTEROL INHALER 60 PUFF/8 GM INHALER INHALATION PRN (21:51)
[2017-10-08 22:57] LABS: Hemoglobin A1C 5.8 % (4.0-6.0)
[2017-10-09] MEDS: LISINOPRIL 20 MG TAB PO SCH (08:13)
[2017-10-09] MEDS: ATORVASTATIN 10 MG TAB PO SCH (08:13)
[2017-10-09] MEDS: PANTOPRAZOLE 40 MG TABLET PO SCH (08:13)
[2017-10-09] MEDS: BENZTROPINE MESYLATE 1 MG TAB PO SCH ×2 (08:13→21:10)
[2017-10-09] MEDS: NICOTINE 14MG/24HR PATCH TRANSDERM SCH (08:14)
--- NOTE | 2017-10-09 08:58 | P.PN ---
Progress Note - Text Interval history: The patient is found at the manager service desk he follows me to an interview room. The admission note was reviewed. He has a long-standing diagnosis of schizoaffective disorder. The patient reportedly took 3 extra Depakote pills as he was feeling lonely and depressed. Afterwards he called for help and was brought to the hospital. The patient states he has been compliant with his psychotropic medications but he has been feeling lonely. Here he states he has been doing very well. He reports sleeping throughout the night staff recorded 6 hours. Appetite stable. He states that he showered yesterday. He reports attending groups. He has no questions or concerns regarding his medications. Depakote level was reviewed. Mental status exam: The patient is an overweight male dressed in his own clothing. Hygiene grooming adequate. He is pleasant and cooperative. He reports his mood is good today. He reports having no hopelessness thinking no suicidal ideation intent or plan. He is reporting auditory hallucinations but they are just mumbling and he cannot discern any words. He reports no command auditory hallucinations. He endorses no homicidal ideation. He feels safe here in the hospital. He demonstrates no psychomotor agitation or aggressiveness. Insight and judgment limited. Intellectually he may be lower than average. He is oriented to person place and date. Plan: The patient's seems to be stabilizing. We will continue his psychotropic medications as written. We will monitor him for another 24 hours. If he is clinically stable we will consider discharging him tomorrow. We will discuss his clinical progress during team meeting. It appears his sister would be the contact for a support meeting. We will monitor him for safety and encourage his participation in the milieu.
[2017-10-09] MEDS: ALBUTEROL INHALER 60 PUFF/8 GM INHALER INHALATION PRN (09:29)
[2017-10-09] MEDS: clonazePAM 1 MG TAB PO SCH (21:10)
[2017-10-09] MEDS: DIVALPROEX 500 MG TABLET.DR PO SCH (21:10)
[2017-10-10 06:33] VITALS: TEMP 97.8
[2017-10-10] MEDS: PANTOPRAZOLE 40 MG TABLET PO SCH (08:20)
[2017-10-10] MEDS: LISINOPRIL 20 MG TAB PO SCH (08:20)
[2017-10-10] MEDS: BENZTROPINE MESYLATE 1 MG TAB PO SCH (08:20)
[2017-10-10] MEDS: ATORVASTATIN 10 MG TAB PO SCH (08:20)
[2017-10-10] MEDS: NICOTINE 14MG/24HR PATCH TRANSDERM SCH (08:21)
[2017-10-10 09:46] VITALS: BP 123/70; PULSE 100; RESP 16
--- NOTE | 2017-10-10 10:17 | P.DS ---
Providers Date of admission: 10/08/17 09:10 Expected date of discharge: 10/10/17 Attending physician: Rick Castro Consults: 10/08/17 07:48 Consult Physician Routine Consulting Provider: Pallavi Cannon Consult Reason/Comments: follow up H & P Do you want consulting provider notified?: Yes Primary care physician: Nathaniel Brooks - Discharge Diagnosis(es) (1) Schizoaffective disorder Current Visit: Yes Status: Acute Priority: High Hospital Course: Brief summary of admission note: This patient is a 57-year-old single male who was admitted to the mental health unit from [facility]. He presented after he took 3 or 4 extra pills due to suicidal thoughts. He called the ambulance and was taken to [facility]. He was evaluated initially by Dr. Myers. The patient reported full compliance with his psychotropic medications. He felt he would do better being on the mental health unit in terms of getting help. For full details please refer to the psychiatric evaluation dated 10/08/2017. Summary of hospital course: The patient was admitted to the mental health unit voluntarily. His presenting symptoms were reviewed. He was continued on his psychotropic medications of Depakote Klonopin Cogentin. He had already been given his routine Prolixin Decanoate injection prior to the admission. The patient participated in groups. He demonstrated no agitated behavior. He reported a progressive improvement of symptoms while here. Basically it appears he responded to the milieu and supportive care. He was seen by internal medicine for routine history and physical exam. No changes to his other medicines were made. He feels that he has stabilized again and is appropriate for discharge back home. He wishes to continue following with [facility] upon discharge. Mental status exam: The patient is an overweight alert male appearing his stated age. His hair is thinning he wears eyeglasses. He seated calmly he' s pleasant and cooperative. He reports his mood is better he demonstrates a euthymic affect and demonstrates appropriate smiling and laughter. He is reporting no hopelessness thinking no suicidal or homicidal ideation intent or plan. He is reporting no visual hallucinations. He states he always has auditory hallucinations however they are mumbling and he cannot discern any specific words. He is endorsing no command auditory hallucinations. He reports feeling safe he describes having no paranoid or persecutory thoughts. He demonstrates no verbal or physical aggressiveness. Impressions 1. Schizoaffective disorder 2. Hyperlipidemia hypertension Plan: The patient will be discharged mental health unit he will return to his own residence. He will continue to follow with [facility] in [place]. He will continue on Depakote 1000 mg at bedtime, Klonopin 0.5 mg in the morning 2 mg at bedtime, Cogentin 2 mg twice daily, he is due for his next Prolixin Decanoate injection 25 mg tomorrow. There were no necessary changes that need to be made to his psychotropic medication. He indicates he has his medications at his home. There is no imminent safety risk is appropriate for transition back to outpatient care. He is instructed to return to the hospital with any acute safety concerns. Patient Condition at Discharge: Stable Plan - Discharge Summary Discharge Rx Participant: No New Discharge Prescriptions: Continue Atorvastatin [Lipitor] 10 mg PO DAILY #30 tab Pantoprazole [Protonix] 40 mg PO AC-BRKFST #30 tablet. clonazePAM [KlonoPIN] 0.5 mg PO DAILY PRN PRN Reason: Anxiety Lisinopril [Prinivil] 20 mg PO DAILY clonazePAM [KlonoPIN] 2 mg PO HS Benztropine Mesylate [Cogentin] 2 mg PO BID Albuterol Inhaler [Ventolin Hfa Inhaler] 1 - 2 puff INHALATION RT-Q6H PRN PRN Reason: Shortness Of Breath Nitroglycerin Sl Tabs [Nitrostat] 0.4 mg SUBLINGUAL Q5M PRN #21 tab PRN Reason: Chest Pain Divalproex Sodium [Depakote] 1,000 mg PO HS fluPHENAZine DECANOATE [Prolixin Decanoate] 25 mg IM [id number] #1 ml Discharge Medication List Atorvastatin [Lipitor] 10 mg PO DAILY #30 tab 01/27/16 [Rx] Pantoprazole [Protonix] 40 mg PO AC-BRKFST #30 tablet. 01/27/16 [Rx] Albuterol Inhaler [Ventolin Hfa Inhaler] 1 - 2 puff INHALATION RT-Q6H PRN [History] Benztropine Mesylate [Cogentin] 2 mg PO BID 08/21/17 [History] Lisinopril [Prinivil] 20 mg PO DAILY 08/21/17 [History] clonazePAM [KlonoPIN] 0.5 mg PO DAILY PRN 08/21/17 [History] clonazePAM [KlonoPIN] 2 mg PO HS 08/21/17 [History] Nitroglycerin Sl Tabs [Nitrostat] 0.4 mg SUBLINGUAL Q5M PRN #21 tab 08/22/17 [Rx ] Divalproex Sodium [Depakote] 1,000 mg PO HS 10/08/17 [History] fluPHENAZine DECANOATE [Prolixin Decanoate] 25 mg IM [id number] #1 ml 10/10/17 [Rx] Follow up Appointment(s)/Referral(s): [facility] [Outside] - 10/11/17 10:00 am (10-11-17 @ 10:[address] Rankin 10-11-17 with Nurses for [facility] box after Dr. Rankin 10-11-17 @ 11:30 with Sivakumar Ortega) Nathaniel Brooks, DO [Primary Care Provider] - As Needed Activity/Diet/Wound Care/Special Instructions: Activity and diet as tolerated. Avoid the use of street drugs and alcohol. Take all medications as prescribed. When you are in need of refills on your medications please contact your medical provider and/or outpatient psychiatrist to have this done. Please go to scheduled outpatient appointment for aftercare treatment. If symptoms return call the crisis line at and/or go to the nearest emergency room for an evaluation.
[2017-10-10] MEDS: ALBUTEROL INHALER 60 PUFF/8 GM INHALER INHALATION PRN (13:08)
[2017-10-22] MEDS ORDERED: fluPHENAZine DECANOATE 25 MG/ML 5ML MDV IM SCH (09:00)
== END 2017-10-10 13:42 | disposition home or self-care (01) | DRG 885 ==
LOC: 3MHU 09:10
PROVIDERS: ADMIT Psychiatry & Neurology Psychiatry; ATTEND Psychiatry & Neurology Psychiatry
DX: F25.0 Schizoaffective disorder, bipolar type (principal); E87.1 Hypo-osmolality and hyponatremia; R45.851 Suicidal ideations; E66.3 Overweight; E78.00 Pure hypercholesterolemia, unspecified; E78.5 Hyperlipidemia, unspecified; F43.10 Post-traumatic stress disorder, unspecified; I10 Essential (primary) hypertension; J44.9 Chronic obstructive pulmonary disease, unspecified; Z79.899 Other long term (current) drug therapy; Z80.52 Family history of malignant neoplasm of bladder; Z85.46 Personal history of malignant neoplasm of prostate; Z90.79 Acquired absence of other genital organ(s); Z80.42 Family history of malignant neoplasm of prostate; Z88.5 Allergy status to narcotic agent; Z88.0 Allergy status to penicillin; G40.909 Epilepsy, unspecified, not intractable, without status epilepticus
CPT/HCPCS: 80048; 80061; 80164; 83036; 84443; 94640

== ENCOUNTER 2018-11-23 19:35 | Inpatient (IN) | payer MEDICAID, OTHER ==
--- NOTE | 2018-11-23 20:09 | ED ---
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 Patient has known history of Schizophrenia and bipolar depression. He's been off his medication for approximately 3 weeks. He has been "ordered for psychiatric evaluation the emergency department. He has had previous admission for psychiatric evaluation and treatment. Patient denies any suicidal or homicidal ideation. He does state that his father is not feeling well and not understanding his current issue. He is unable to vocalize exactly what that issue is. He was ordered to stay at the [facility] but has refused. He was brought in by state police. Denies any physical complaints. - Related Data Home Medications Medication Instructions Recorded Confirmed Albuterol Inhaler [Ventolin Hfa 1 - 2 puff INHALATION RT-Q6H PRN 08/21/17 10/08/17 Inhaler] Benztropine Mesylate [Cogentin] 2 mg PO BID 08/21/17 10/08/17 Lisinopril [Prinivil] 20 mg PO DAILY 08/21/17 10/08/17 clonazePAM [KlonoPIN] 0.5 mg PO DAILY PRN 08/21/17 10/08/17 clonazePAM [KlonoPIN] 2 mg PO HS 08/21/17 10/08/17 Divalproex Sodium [Depakote] 1,000 mg PO HS 10/08/17 10/08/17 Previous Rx's Medication Instructions Recorded Atorvastatin [Lipitor] 10 mg PO DAILY #30 tab 01/27/16 Pantoprazole [Protonix] 40 mg PO AC-BRKFST #30 tablet. 01/27/16 Nitroglycerin Sl Tabs [Nitrostat] 0.4 mg SUBLINGUAL Q5M PRN #21 tab 08/22/17 fluPHENAZine DECANOATE [Prolixin 25 mg IM [id number] #1 ml 10/10/17 Decanoate] Allergies Allergy/AdvReac Type Severity Reaction Status Date / Time amoxicillin Allergy Unknown Verified 11/23/18 20:30 brompheniramine maleate Allergy Unknown Verified 11/23/18 20:30 [From Dimetapp Cold-Allergy (PE)] codeine Allergy Rash/Hives Verified 11/23/18 20:30 fluoxetine HCl [From Prozac] Allergy Unknown Verified 11/23/18 20:30 latex Allergy Unknown Verified 11/23/18 20:30 morphine Allergy Rash/Hives Verified 11/23/18 20:30 phenylephrine HCl Allergy Unknown Verified 11/23/18 20:30 [From Dimetapp Cold-Allergy (PE)] shellfish derived [Shellfish] Allergy Rash/Hives Verified 11/23/18 20:30 Review of Systems ROS Statement: Those systems with pertinent positive or pertinent negative responses have been documented in the HPI. ROS Other: All systems not noted in ROS Statement are negative. Past Medical History Past Medical History: COPD, Hyperlipidemia, Hypertension, Osteoarthritis (OA) Additional Past Medical History / Comment(s): prostate cancer, possible seizure disorder-last known seizure 12/07/14.tinnitus, bipolar depression, ptsd, schizophrenia. 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 Past Psychological History: Bipolar, Depression, PTSD, Schizophrenia Smoking Status: Never smoker Past Alcohol Use History: None Reported Past Drug Use History: None Reported - Past Family History Father Family Medical History: Cancer Additional Family Medical History / Comment(s): Father is alive at age 82 with history of prostate cancer. Mother Family Medical History: Cancer Additional Family Medical History / Comment(s): Mother at age 53 from bladder cancer Brother(s) Additional Family Medical History / Comment(s): Patient has 4 brothers and 2 sisters that are healthy with no major medical problems. Patient does not have any children. General Exam Limitations: no limitations General appearance: alert, in no apparent distress Head exam: Present: atraumatic, normocephalic Eye exam: Present: normal appearance, PERRL ENT exam: Present: normal exam Neck exam: Present: normal inspection. Absent: tenderness, meningismus Respiratory exam: Present: normal lung sounds bilaterally. Absent: respiratory distress, wheezes Cardiovascular Exam: Present: regular rate, normal rhythm GI/Abdominal exam: Present: soft. Absent: distended, tenderness Extremities exam: Present: normal inspection, normal capillary refill. Absent: pedal edema Back exam: Present: normal inspection Neurological exam: Present: alert. Absent: motor sensory deficit Psychiatric exam: Present: anxious, other (Paranoid, Delusional). Absent: homicidal ideation, suicidal ideation Skin exam: Present: warm, dry, intact. Absent: cyanosis, diaphoretic Course Vital Signs 11/23/18 19:41 Temperature 98.3 F Pulse Rate 106 H Respiratory 20 Rate Blood Pressure 133/75 O2 Sat by Pulse 96 Oximetry - Reevaluation(s) Reevaluation #1: 11/23/18 20:34 Patient medically cleared for psychiatric evaluation. Medical Decision Making - Medical Decision Making 58-year-old male presenting with paranoid schizophrenia and coronary petitioned for psychiatric evaluation. Patient is medically cleared emergency prompt. He was evaluated by EPS, will be admitted for further psychiatric evaluation and treatment. He will be admitted to this institution. I completed a clinical certification for this patient. - Lab Data Lab Results 11/23/18 Range/Units 19:59 Urine Opiates Screen Not Detected (NotDetected) Ur Oxycodone Screen Not Detected (NotDetected) Urine Methadone Screen Not Detected (NotDetected) Ur Propoxyphene Screen Not Detected (NotDetected) Ur Barbiturates Screen Not Detected (NotDetected) U Tricyclic Antidepress Not Detected (NotDetected) Ur Phencyclidine Scrn Not Detected (NotDetected) Ur Amphetamines Screen Not Detected (NotDetected) U Methamphetamines Scrn Not Detected (NotDetected) U Benzodiazepines Scrn Not Detected (NotDetected) Urine Cocaine Screen Not Detected (NotDetected) U Marijuana (THC) Screen Not Detected (NotDetected) Disposition Clinical Impression: Schizophrenia, Noncompliance by refusing service, Schizoaffective disorder Disposition: [facility] Condition: Stable Is patient prescribed a controlled substance at d/c from ED?: No Referrals: Nathaniel Brooks DO [Primary Care Provider] - 1-2 days Decision to Admit Reason: Admit from EC Decision Date: 11/23/18 Decision Time: 20:35
[2018-11-23 20:23] LABS: Amphetamine Screen,Urine Not Detected (NotDetected); Barbiturate Screen,Urine Not Detected (NotDetected); Benzodiazepines Screen,Urine Not Detected (NotDetected); Cocaine Screen,Urine Not Detected (NotDetected); Methadone Screen, Urine Not Detected (NotDetected); Opiate Screen,Urine Not Detected (NotDetected); Oxycodone Screen, Urine Not Detected (NotDetected); Phencyclidine Screen,Urine Not Detected (NotDetected); Tricyclic Antidepressant,Urine Not Detected (NotDetected); Urn Cannabinoid Scrn Not Detected (NotDetected)
[2018-11-23] MEDS ORDERED: ACETAMINOPHEN TAB 325 MG TAB PO STA (21:00)
[2018-11-23] MEDS ORDERED: MAGNESIUM HYDROXIDE 2,400 MG/10 ML CUP PO PRN (21:18)
[2018-11-23] MEDS ORDERED: NITROGLYCERIN SL TABS 0.4 MG TAB SUBLINGUAL PRN (21:23)
[2018-11-23] MEDS: LORazepam 1 MG TAB PO PRN (23:58)
--- NOTE | 2018-11-24 02:48 | P.HPMEDMHU ---
History of Present Illness H&P Date: 11/24/18 Chief Complaint: Consult for MHU HPI The patient is a 58-year-old male with a past medical history of schizophrenia, bipolar depression with PTSD, COPD essential hypertension who is admitted to the mental health unit after being brought in on a pickup order for noncompliance with his medications . Apparently has been off of them for about a week. Patient was apparently delusional, but denied any suicidal or homicidal ideation. The patient denies any chest pain denies any shortness of breath , does report a nonproductive cough and wheezes for the last week and reports that he does not have an inhaler. UDS performed in the ER is unremarkable, no other labs available Review of Systems Pertinent positives per HPI all other review of systems negative Past Medical History Past Medical History: COPD, Hyperlipidemia, Hypertension, Osteoarthritis (OA) Additional Past Medical History / Comment(s): prostate cancer, possible seizure disorder-last known seizure 12/07/14.tinnitus, bipolar depression, ptsd, schizophrenia. 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 Smoking Status: Never smoker - Past Family History Father Family Medical History: Cancer Additional Family Medical History / Comment(s): Father is alive at age 82 with history of prostate cancer. Mother Family Medical History: Cancer Additional Family Medical History / Comment(s): Mother at age 53 from bladder cancer Brother(s) Additional Family Medical History / Comment(s): Patient has 4 brothers and 2 sisters that are healthy with no major medical problems. Patient does not have any children. Medications and Allergies Home Medications Medication Instructions Recorded Confirmed Type Pantoprazole [Protonix] 40 mg PO SANGEETHA-BRKFST #30 tablet. 01/27/16 11/24/18 Rx Albuterol Inhaler [Ventolin Hfa 2 puff INHALATION RT-Q4H PRN 08/21/17 11/24/18 History Inhaler] Lisinopril [Prinivil] 20 mg PO DAILY 08/21/17 11/24/18 History clonazePAM [KlonoPIN] 0.5 mg PO BID 08/21/17 11/24/18 History Nitroglycerin Sl Tabs [Nitrostat] 0.4 mg SUBLINGUAL Q5M PRN #21 tab 08/22/17 11/24/18 Rx Divalproex Sodium [Depakote] 1,000 mg PO HS 10/08/17 11/24/18 History Atorvastatin [Lipitor] 10 mg PO HS 11/23/18 11/24/18 History Ergocalciferol (Vitamin D2) 50,000 unit PO Q7D 11/23/18 11/24/18 History [Vitamin D2] Ziprasidone [Geodon] 80 mg PO DAILY 11/23/18 11/24/18 History Allergies Allergy/AdvReac Type Severity Reaction Status Date / Time amoxicillin Allergy Unknown Verified 11/24/18 01:08 brompheniramine maleate Allergy Unknown Verified 11/24/18 01:08 [From Dimetapp Cold-Allergy (PE)] codeine Allergy Rash/Hives Verified 11/24/18 01:08 fluoxetine HCl [From Prozac] Allergy Unknown Verified 11/24/18 01:08 latex Allergy Unknown Verified 11/24/18 01:08 morphine Allergy Rash/Hives Verified 11/24/18 01:08 phenylephrine HCl Allergy Unknown Verified 11/24/18 01:08 [From Dimetapp Cold-Allergy (PE)] shellfish derived [Shellfish] Allergy Rash/Hives Verified 11/24/18 01:08 Physical Exam Vitals: Vital Signs Temp Pulse Pulse Resp BP BP Pulse Ox 11/24/18 00:27 97.6 F 92 16 107/65 11/23/18 21:30 97.1 F L 84 119/72 95 11/23/18 21:07 97.7 F 90 16 115/83 95 11/23/18 19:41 98.3 F 106 H 20 133/75 96 Intake and Output 11/23/18 11/23/18 11/24/18 14:59 22:59 06:59 Other: Weight 99.5 kg Constitutional: No acute distress, conversant, pleasant Eyes: Anicteric sclerae, moist conjunctiva, no lid-lag, PERRLA ENMT: NC/AT,Oropharynx clear, no erythema, exudates Neck:Supple, FROM, no masses, or JVD, No carotid bruits; No thyromegaly Lungs: Clear to auscultation, Clear to percussion, Normal respiratory effort, no accessory muscle use Cardiovascular: Heart regular in rate and rhythm, No murmurs, gallops, or rubs no peripheral edema Abdominal: Soft Nontender, nom distended, no guarding, no rebound or rigidity, Normoactive bowel sounds No hepatomegaly, No splenomegaly, No palpable mass No abdominal wall hernia noted Skin: Normal temperature, tone, texture, turgor, No induration No subcutaneous nodules, No rash, lesions, No ulcers Extremities:No digital cyanosis No clubbing, Pedal pulses intact and symmetrical Radial pulses intact and symmetrical Normal gait and station, No calf tenderness Psychiatric: Alert and oriented to person, place and time, appears calm and appropriate Neuro: Muscles Strength 5/5 in all 4 extremities, Sensation to light touch grossly present throughout, Cranial nerves II-XII grossly intact. No focal sensory deficits Cranial Nerve Examination - Cranial Nerves Cranial Nerve II- Optic: Intact Cranial Nerve III- Oculomotor: Intact Cranial Nerve IV- Trochlear: Intact Cranial Nerve V- Trigeminal: Intact Cranial Nerve - Abducens: Intact Cranial Nerve VII- Facial: Intact Cranial Nerve VIII- Auditory: Intact Cranial Nerve IX- Glossopharyngeal: Intact Cranial Nerve X- Vagus: Intact Cranial Nerve XI- Accessory: Intact Cranial Nerve XII- Hypoglossal: Intact Assessment and Plan (1) COPD (chronic obstructive pulmonary disease) Current Visit: Yes Status: Acute Code(s): J44.9 - CHRONIC OBSTRUCTIVE PULMONARY DISEASE, UNSPECIFIED SNOMED Code(s): 60381779 (2) Essential hypertension Current Visit: Yes Status: Acute Code(s): I10 - ESSENTIAL (PRIMARY) HYPERTENSION SNOMED Code(s): 68327023 (3) Hyperlipidemia Current Visit: Yes Status: Acute Code(s): E78.5 - HYPERLIPIDEMIA, UNSPECIFIED SNOMED Code(s): 69742110 (4) Schizoaffective disorder Current Visit: Yes Status: Acute Priority: High Code(s): F25.9 - SCHIZOAFFECTIVE DISORDER, UNSPECIFIED SNOMED Code(s): 03466059 Plan: The patient is admitted to the mental health unit we'll defer to patient's psychiatry team regarding ongoing psychotropic and cognitive behavioral therapy treatments. Clinically the patient is seen on echo stable he had complaints of cough and wheezes has a clear respiratory exam and is not in any acute COPD exacerbation of this time. We'll resume all his home nonpsychiatric medications. We'll plan to sign off pending normal admission labs. We appreciate this consult for further questions or concerns please not hesitate to contact us on inpatient team
[2018-11-24] MEDS: PANTOPRAZOLE 40 MG TABLET PO SCH (08:07)
[2018-11-24] MEDS: LISINOPRIL 20 MG TAB PO SCH (08:08)
[2018-11-24] MEDS: ALBUTEROL INHALER 60 PUFF/8 GM INHALER INHALATION PRN ×3 (08:56→16:34)
[2018-11-24 08:58] LABS: Basophils % (A) 0 %; Eosinophils # (A) 0.1 k/uL (0-0.7); Eosinophils % (A) 2 %; HCT 41.5 % (39.0-53.0); HGB 13.4 gm/dL (13.0-17.5); Lymphocytes # (A) 1.3 k/uL (1.0-4.8); Lymphocytes % (A) 22 %; MCH 29.1 pg (25.0-35.0); MCHC 32.3 g/dL (31.0-37.0); MCV 90.1 fL (80.0-100.0); Mean Platelet Volume 6.9; Monocytes # (A) 0.5 k/uL (0-1.0); Monocytes % (A) 7 %; Neutrophils % (A) 66 %; Platelet Count 290 k/uL (150-450); RBC 4.61 m/uL (4.30-5.90); RDW 13.5 % (11.5-15.5); WBC 6.1 k/uL (3.8-10.6)
[2018-11-24 08:59] LABS: ALT 51 U/L (21-72); AST 34 U/L (17-59); Albumin 4.2 g/dL (3.5-5.0); Alkaline Phosphatase 65 U/L (38-126); Anion Gap 12 mmol/L; Blood Urea Nitrogen 14 mg/dL (9-20); Calcium 9.8 mg/dL (8.4-10.2); Carbon Dioxide 25 mmol/L (22-30); Chloride 101 mmol/L (98-107); Cholesterol 115 mg/dL (<200); Glucose 147 mg/dL (74-99); HDL Cholesterol 53 mg/dL (40-60); LDL Cholesterol,Calculated 44 mg/dL (0-99); Potassium 4.2 mmol/L (3.5-5.1); Sodium 138 mmol/L (137-145); Total Bilirubin 0.9 mg/dL (0.2-1.3); Total Protein 6.7 g/dL (6.3-8.2); Triglycerides 92 mg/dL (<150)
[2018-11-24] MEDS: LORazepam 1 MG TAB PO PRN (15:24)
--- NOTE | 2018-11-24 17:53 | P.HP ---
Psychiatric H&P - . H&P Date: 11/24/18 History & Physical: Allergies Allergy/AdvReac Type Severity Reaction Status Date / Time amoxicillin Allergy Unknown Verified 11/24/18 01:08 brompheniramine maleate Allergy Unknown Verified 11/24/18 01:08 [From Dimetapp Cold-Allergy (PE)] codeine Allergy Rash/Hives Verified 11/24/18 01:08 fluoxetine HCl [From Prozac] Allergy Unknown Verified 11/24/18 01:08 latex Allergy Unknown Verified 11/24/18 01:08 morphine Allergy Rash/Hives Verified 11/24/18 01:08 phenylephrine HCl Allergy Unknown Verified 11/24/18 01:08 [From Dimetapp Cold-Allergy (PE)] shellfish derived [Shellfish] Allergy Rash/Hives Verified 11/24/18 01:08 Vital Signs Temp 97.6 F 11/24/18 00:27 Pulse 89 11/24/18 15:31 Resp 18 11/24/18 15:31 BP 111/68 11/24/18 15:31 Pulse Ox 95 11/23/18 21:30 Intake & Output 11/23/18 11/24/18 11/24/18 18:59 06:59 18:59 Weight 99.5 kg Laboratory Last Values WBC 6.1 k/uL (3.8-10.6) 11/24/18 08:28 RBC 4.61 m/uL (4.30-5.90) 11/24/18 08:28 Hgb 13.4 gm/dL (13.0-17.5) 11/24/18 08:28 Hct 41.5 % (39.0-53.0) 11/24/18 08:28 MCV 90.1 fL (80.0-100.0) 11/24/18 08:28 MCH 29.1 pg (25.0-35.0) 11/24/18 08:28 MCHC 32.3 g/dL (31.0-37.0) 11/24/18 08:28 RDW 13.5 % (11.5-15.5) 11/24/18 08:28 Plt Count 290 k/uL (150-450) 11/24/18 08:28 Neutrophils % 66 % 11/24/18 08:28 Lymphocytes % 22 % 11/24/18 08:28 Monocytes % 7 % 11/24/18 08:28 Eosinophils % 2 % 11/24/18 08:28 Basophils % 0 % 11/24/18 08:28 Neutrophils # 4.0 k/uL (1.3-7.7) 11/24/18 08:28 Lymphocytes # 1.3 k/uL (1.0-4.8) 11/24/18 08:28 Monocytes # 0.5 k/uL (0-1.0) 11/24/18 08:28 Eosinophils # 0.1 k/uL (0-0.7) 11/24/18 08:28 Basophils # 0.0 k/uL (0-0.2) 11/24/18 08:28 Sodium 138 mmol/L (137-145) 11/24/18 08:28 Potassium 4.2 mmol/L (3.5-5.1) 11/24/18 08:28 Chloride 101 mmol/L (98-107) 11/24/18 08:28 Carbon Dioxide 25 mmol/L (22-30) 11/24/18 08:28 Anion Gap 12 mmol/L 11/24/18 08:28 BUN 14 mg/dL (9-20) 11/24/18 08:28 Creatinine 0.90 mg/dL (0.66-1.25) 11/24/18 08:28 Est GFR (CKD-EPI)AfAm >90 (>60 ml/min/1.73 sqM) 11/24/18 08:28 Est GFR (CKD-EPI)NonAf >90 (>60 ml/min/1.73 sqM) 11/24/18 08:28 Glucose 147 mg/dL (74-99) H 11/24/18 08:28 Calcium 9.8 mg/dL (8.4-10.2) 11/24/18 08:28 Total Bilirubin 0.9 mg/dL (0.2-1.3) 11/24/18 08:28 AST 34 U/L (17-59) 11/24/18 08:28 ALT 51 U/L (21-72) 11/24/18 08:28 Alkaline Phosphatase 65 U/L (38-126) 11/24/18 08:28 Total Protein 6.7 g/dL (6.3-8.2) 11/24/18 08:28 Albumin 4.2 g/dL (3.5-5.0) 11/24/18 08:28 Triglycerides 92 mg/dL (<150) 11/24/18 08:28 Cholesterol 115 mg/dL (<200) 11/24/18 08:28 LDL Cholesterol, Calc 44 mg/dL (0-99) 11/24/18 08:28 HDL Cholesterol 53 mg/dL (40-60) 11/24/18 08:28 TSH 2.150 mIU/L (0.465-4.680) 11/24/18 08:28 Urine Opiates Screen Not Detected (NotDetected) 11/23/18 19:59 Ur Oxycodone Screen Not Detected (NotDetected) 11/23/18 19:59 Urine Methadone Screen Not Detected (NotDetected) 11/23/18 19:59 Ur Propoxyphene Screen Not Detected (NotDetected) 11/23/18 19:59 Ur Barbiturates Screen Not Detected (NotDetected) 11/23/18 19:59 U Tricyclic Antidepress Not Detected (NotDetected) 11/23/18 19:59 Ur Phencyclidine Scrn Not Detected (NotDetected) 11/23/18 19:59 Ur Amphetamines Screen Not Detected (NotDetected) 11/23/18 19:59 U Methamphetamines Scrn Not Detected (NotDetected) 11/23/18 19:59 U Benzodiazepines Scrn Not Detected (NotDetected) 11/23/18 19:59 Urine Cocaine Screen Not Detected (NotDetected) 11/23/18 19:59 U Marijuana (THC) Screen Not Detected (NotDetected) 11/23/18 19:59 11/24/18 17:48 Chief Complaint : Worsening psychoses HPI: Mr. Jac Santillan is 58 yo single male with h/o mod disorder, PTSD and psychoses admitted here secondary to worsening psychoses. Reportedly he has been off his medications for last one week. He was getting extremely paranoid delusional. He was holding wrench to protect his and his father assets. Past Medical Hx: Hypertension. past Psych Hx: Schizoaffective Disorder Allergies : see HPI Review of systems; Non contributory Mental status Exam : MSE: Alert, awake, oriented in all spheres. Poor eye contact. Some what guarded approach. Mood anxious and depressed with flat affect. Has suicidal ideation. Has psychoses. Insight and judgment limited A/P : Schizoaffective Disorder, Depressed type Will start Rexulti as he does not like taking geodon
[2018-11-24 18:19] LABS: Hemoglobin A1C 6.3 % (4.0-6.0)
[2018-11-24] MEDS: OLANZapine 5 MG TAB PO SCH (18:35)
[2018-11-24] MEDS: ATORVASTATIN 10 MG TAB PO SCH (20:58)
[2018-11-24] MEDS: DIVALPROEX 500 MG TABLET.DR PO SCH (20:58)
[2018-11-25] MEDS: LORazepam 1 MG TAB PO PRN ×2 (03:25→22:30)
[2018-11-25] MEDS: ALBUTEROL INHALER 60 PUFF/8 GM INHALER INHALATION PRN ×4 (07:34→21:19)
[2018-11-25] MEDS: OLANZapine 5 MG TAB PO SCH (07:58)
[2018-11-25] MEDS: PANTOPRAZOLE 40 MG TABLET PO SCH (07:58)
[2018-11-25] MEDS: LISINOPRIL 20 MG TAB PO SCH (07:58)
--- NOTE | 2018-11-25 14:19 | P.PN ---
Subjective Progress Note Date: 11/25/18 Principal diagnosis: Schizoaffective Disorder Found him still paranoid delusional. He is very anxious and wants to be back on Geodon though family states that it does not work for him. Did sleep better last night MSE: Alert, awake, oriented in all spheres. Poor eye contact. Some what guarded approach. Mood anxious and depressed with flat affect. Has suicidal ideation. Has psychoses. Insight and judgment limited A/P : Schizoaffective Disorder, Depressed type Will continue with Zyprexa Objective - Vital Signs Vital signs: Vital Signs Temp 97.7 F 11/25/18 06:00 Pulse 82 11/25/18 06:00 Resp 16 11/25/18 06:00 BP 114/59 11/25/18 06:00 Pulse Ox 95 11/23/18 21:30 Intake & Output 11/24/18 11/25/18 11/25/18 18:59 06:59 18:59 Weight 100.3 kg - Labs CBC & Chem 7: 11/24/18 08:28 11/24/18 08:28 Labs: Abnormal Lab Results - Last 24 Hours (Table) 11/24/18 Range/Units 08:28 Hemoglobin A1c 6.3 H (4.0-6.0) %
[2018-11-25] MEDS: DIVALPROEX 500 MG TABLET.DR PO SCH (20:02)
[2018-11-25] MEDS: ATORVASTATIN 10 MG TAB PO SCH (20:02)
[2018-11-25] MEDS: ACETAMINOPHEN TAB 325 MG TAB PO PRN (20:46)
[2018-11-26] MEDS: MAG HYDROX/AL HYDROX/SIMETH 30 ML CUP PO PRN ×3 (01:49→16:26)
[2018-11-26] MEDS: LISINOPRIL 20 MG TAB PO SCH (08:02)
[2018-11-26] MEDS: PANTOPRAZOLE 40 MG TABLET PO SCH (08:02)
[2018-11-26] MEDS: OLANZapine 5 MG TAB PO SCH (08:02)
[2018-11-26] MEDS ORDERED: ERGOCALCIFEROL 50,000 UNIT CAP PO SCH (09:00)
[2018-11-26] MEDS: LORazepam 1 MG TAB PO PRN (09:23)
[2018-11-26] MEDS: ALBUTEROL INHALER 60 PUFF/8 GM INHALER INHALATION PRN ×2 (09:26→13:47)
--- NOTE | 2018-11-26 14:09 | P.PN ---
Subjective Progress Note Date: 11/26/18 Principal diagnosis: Schizoaffective disorder bipolar type 11/26/2018: Willie reviewed, discussed with nursing staff this morning and discussed in detail and team meeting. Interview patient and he appears hypomanic and presentation and has tried numerous medications. Difficulty sleeping depressed manic and irritable. Still admits to some suicidal thoughts but no homicidal thoughts. He does have auditory hallucinations which are difficult for him to sleep as well as he has restless leg syndrome at night. Objective - Vital Signs Vital signs: Vital Signs Temp 97.7 F 11/26/18 01:16 Pulse 84 11/26/18 01:16 Resp 16 11/26/18 01:16 BP 119/58 11/26/18 01:16 Pulse Ox 97 11/25/18 20:04 Intake & Output 11/25/18 11/26/18 11/26/18 18:59 06:59 18:59 Weight 100.3 kg - Labs CBC & Chem 7: 11/24/18 08:28 11/24/18 08:28 Assessment and Plan Assessment: 58-year-old male presenting for psychiatric evaluation. Patient has known history of Schizophrenia and bipolar depression. He's been off his medication for approximately 3 weeks. He has been "ordered for psychiatric evaluation the emergency department. He has had previous admission for psychiatric evaluation and treatment. Patient denies any suicidal or homicidal ideation. He does state that his father is not feeling well and not understanding his current issue. He is unable to vocalize exactly what that issue is. He was ordered to stay at the [facility] but has refused. He was brought in by state police. Denies any physical complaints. - Related Data Home Medications Medication Instructions Recorded Confirmed Albuterol Inhaler [Ventolin Hfa 1 - 2 puff INHALATION RT-Q6H PRN 08/21/17 10/08/17 Inhaler] Benztropine Mesylate [Cogentin] 2 mg PO BID 08/21/17 10/08/17 Lisinopril [Prinivil] 20 mg PO DAILY 08/21/17 10/08/17 clonazePAM [KlonoPIN] 0.5 mg PO DAILY PRN 08/21/17 10/08/17 clonazePAM [KlonoPIN] 2 mg PO HS 08/21/17 10/08/17 Divalproex Sodium [Depakote] 1,000 mg PO HS 10/08/17 10/08/17 Previous Rx's Medication Instructions Recorded Atorvastatin [Lipitor] 10 mg PO DAILY #30 tab 01/27/16 Pantoprazole [Protonix] 40 mg PO AC-BRKFST #30 tablet. 01/27/16 Nitroglycerin Sl Tabs [Nitrostat] 0.4 mg SUBLINGUAL Q5M PRN #21 tab 08/22/17 fluPHENAZine DECANOATE [Prolixin 25 mg IM [id number] #1 ml 10/10/17 Decanoate] Allergies Allergy/AdvReac Type Severity Reaction Status Date / Time amoxicillin Allergy Unknown Verified 11/23/18 20:30 brompheniramine maleate Allergy Unknown Verified 11/23/18 20:30 [From Dimetapp Cold-Allergy (PE)] codeine Allergy Rash/Hives Verified 11/23/18 20:30 fluoxetine HCl [From Prozac] Allergy Unknown Verified 11/23/18 20:30 latex Allergy Unknown Verified 11/23/18 20:30 morphine Allergy Rash/Hives Verified 11/23/18 20:30 phenylephrine HCl Allergy Unknown Verified 11/23/18 20:30 [From Dimetapp Cold-Allergy (PE)] shellfish derived [Shellfish] Allergy Rash/Hives Verified 11/23/18 20:30 Past Medical History Past Medical History: COPD, Hyperlipidemia, Hypertension, Osteoarthritis (OA) Additional Past Medical History / Comment(s): prostate cancer, possible seizure disorder-last known seizure 12/07/14.tinnitus, bipolar depression, ptsd, schizophrenia. 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 Past Psychological History: Bipolar, Depression, PTSD, Schizophrenia Smoking Status: Never smoker Past Alcohol Use History: None Reported Past Drug Use History: None Reported - Past Family History Father Family Medical History: Cancer Additional Family Medical History / Comment(s): Father is alive at age 82 with history of prostate cancer. Mother Family Medical History: Cancer Additional Family Medical History / Comment(s): Mother at age 53 from bladder cancer Brother(s) Additional Family Medical History / Comment(s): Patient has 4 brothers and 2 sisters that are healthy with no major medical problems. Patient does not have any children. Mental status examination: This is a 58-year-old male who looks older than his stated age. Speech and language is rapid expressive loud. Attitude and behaviors cooperative. Mood is euphoric elated irritable. Affect is lively and labile. Orientation person place and time and situation. Thought content within normal. Risk factor he does admit to suicidal ideation. Perception does have auditory hallucinations. Thought process is concrete in nature. Concentration is impaired. Recent and remote memory within normal. Intelligence below average. Insight and judgment are poor. Plan: We'll increase his Geodon to 40 mg by mouth twice a day and add Mirapex 0.5 mg 3 times a day for his restless leg. Remain on 15 minute checks usual for [facility] and expect him to go to groups and interact in a positive manner while on the psychiatric unit. (1) Schizoaffective disorder Current Visit: Yes Status: Acute Priority: High Code(s): F25.9 - SCHIZOAFFECTIVE DISORDER, UNSPECIFIED SNOMED Code(s): 30818235 Time with Patient: Less than 30
[2018-11-26] MEDS: PRAMIPEXOLE 0.25 MG TAB PO SCH ×2 (16:25→21:08)
[2018-11-26] MEDS: ACETAMINOPHEN TAB 325 MG TAB PO PRN (18:36)
[2018-11-26] MEDS: DIVALPROEX 500 MG TABLET.DR PO SCH (21:08)
[2018-11-26] MEDS: ATORVASTATIN 10 MG TAB PO SCH (21:08)
[2018-11-26] MEDS: ZIPRASIDONE 40 MG CAP PO SCH (21:08)
[2018-11-27] MEDS: PANTOPRAZOLE 40 MG TABLET PO SCH (05:47)
[2018-11-27] MEDS: ZIPRASIDONE 40 MG CAP PO SCH ×3 (07:55→22:16)
[2018-11-27] MEDS: PRAMIPEXOLE 0.25 MG TAB PO SCH (07:55)
[2018-11-27] MEDS: LISINOPRIL 20 MG TAB PO SCH (07:55)
[2018-11-27] MEDS: ALBUTEROL INHALER 60 PUFF/8 GM INHALER INHALATION PRN ×2 (09:46→17:02)
--- NOTE | 2018-11-27 12:02 | P.PN ---
Subjective Progress Note Date: 11/27/18 Principal diagnosis: Schizoaffective disorder bipolar type 11/26/2018: Chart reviewed reviewed, discussed with nursing staff this morning and discussed in detail and team meeting. Interview patient and he appears hypomanic and presentation and has tried numerous medications. Difficulty sleeping depressed manic and irritable. Still admits to some suicidal thoughts but no homicidal thoughts. He does have auditory hallucinations which are difficult for him to sleep as well as he has restless leg syndrome at night. 11/27/2018: Chart reviewed, discussed with nursing staff and this morning's team meeting regarding patient and disposition and progress. Patient came to my office and we had an interview one-on-one. He was confused daily thought it was only getting once a day Geodon and explained to him yesterday we just started the twice a day in the afternoon and he would miss the morning dose. He is getting it 9 AM and 8 PM daily. Denies any suicidal or homicidal ideation sleep is a major factor for him and agitation. Objective - Vital Signs Vital signs: Vital Signs Temp 97.7 F 11/26/18 01:16 Pulse 92 11/27/18 04:33 Resp 18 11/27/18 04:33 BP 155/78 11/27/18 04:33 Pulse Ox 97 11/25/18 20:04 - Labs CBC & Chem 7: 11/24/18 08:28 11/24/18 08:28 Assessment and Plan Assessment: 58-year-old male presenting for psychiatric evaluation. Patient has known history of Schizophrenia and bipolar depression. He's been off his medication for approximately 3 weeks. He has been "ordered for psychiatric evaluation the emergency department. He has had previous admission for psychiatric evaluation and treatment. Patient denies any suicidal or homicidal ideation. He does state that his father is not feeling well and not understanding his current iss ue. He is unable to vocalize exactly what that issue is. He was ordered to stay at the [facility] but has refused. He was brought in by state police. Denies any physical complaints. - Related Data Home Medications Medication Instructions Recorded Confirmed Albuterol Inhaler [Ventolin Hfa 1 - 2 puff INHALATION RT-Q6H PRN 08/21/17 10/08/17 Inhaler] Benztropine Mesylate [Cogentin] 2 mg PO BID 08/21/17 10/08/17 Lisinopril [Prinivil] 20 mg PO DAILY 08/21/17 10/08/17 clonazePAM [KlonoPIN] 0.5 mg PO DAILY PRN 08/21/17 10/08/17 clonazePAM [KlonoPIN] 2 mg PO HS 08/21/17 10/08/17 Divalproex Sodium [Depakote] 1,000 mg PO HS 10/08/17 10/08/17 Previous Rx's Medication Instructions Recorded Atorvastatin [Lipitor] 10 mg PO DAILY #30 tab 01/27/16 Pantoprazole [Protonix] 40 mg PO AC-BRKFST #30 tablet. 01/27/16 Nitroglycerin Sl Tabs [Nitrostat] 0.4 mg SUBLINGUAL Q5M PRN #21 tab 08/22/17 fluPHENAZine DECANOATE [Prolixin 25 mg IM [id number] #1 ml 10/10/17 Decanoate] Allergies Allergy/AdvReac Type Severity Reaction Status Date / Time amoxicillin Allergy Unknown Verified 11/23/18 20:30 brompheniramine maleate Allergy Unknown Verified 11/23/18 20:30 [From Dimetapp Cold-Allergy (PE)] codeine Allergy Rash/Hives Verified 11/23/18 20:30 fluoxetine HCl [From Prozac] Allergy Unknown Verified 11/23/18 20:30 latex Allergy Unknown Verified 11/23/18 20:30 morphine Allergy Rash/Hives Verified 11/23/18 20:30 phenylephrine HCl Allergy Unknown Verified 11/23/18 20:30 [From Dimetapp Cold-Allergy (PE)] shellfish derived [Shellfish] Allergy Rash/Hives Verified 11/23/18 20:30 Past Medical History Past Medical History: COPD, Hyperlipidemia, Hypertension, Osteoarthritis (OA) Additional Past Medical History / Comment(s): prostate cancer, possible seizure disorder-last known seizure 12/07/14.tinnitus, bipolar depression, ptsd, schizophrenia. 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 Past Psychological History: Bipolar, Depression, PTSD, Schizophrenia Smoking Status: Never smoker Past Alcohol Use History: None Reported Past Drug Use History: None Reported - Past Family History Father Family Medical History: Cancer Additional Family Medical History / Comment(s): Father is alive at age 82 with history of prostate cancer. Mother Family Medical History: Cancer Additional Family Medical History / Comment(s): Mother at age 53 from bladder cancer Brother(s) Additional Family Medical History / Comment(s): Patient has 4 brothers and 2 sisters that are healthy with no major medical problems. Patient does not have any children. Mental status examination: This is a 58-year-old male who looks older than his stated age. Speech and language is rapid expressive loud. Attitude and behaviors cooperative. Mood is euphoric elated irritable. Affect is lively and labile. Orientation person place and time and situation. Thought content within normal. Risk factor he does admit to suicidal ideation. Perception does have auditory hallucinations. Thought process is concrete in nature. Concentration is impaired. Recent and remote memory within normal. Intelligence below average. Insight and judgment are poor. Plan: We'll increase his Geodon to 40 mg by mouth twice a day and add Mirapex 0.5 mg 3 times a day for his restless leg. Remain on 15 minute checks usual for [facility] and expect him to go to groups and interact in a positive manner while on the psychiatric unit. 11/27/2018: We'll increase his Mirapex to 1 mg 3 times a day for his restless leg. Geodon instead 40 mg twice a day with Depakote thousand milligrams a day. He'll remain on 15 minute checks. He is integrated within the [facility] and attend groups and take his medications. (1) Schizoaffective disorder Current Visit: Yes Status: Acute Priority: Medium Code(s): F25.9 - SCHIZ OAFFECTIVE DISORDER, UNSPECIFIED SNOMED Code(s): 19916972 Time with Patient: Less than 30
[2018-11-27] MEDS ORDERED: clonazePAM 0.5 MG TAB PO SCH ×2 (18:30→22:00)
[2018-11-27] MEDS: PRAMIPEXOLE 1 MG TAB PO SCH ×2 (18:43→20:59)
[2018-11-27] MEDS: clonazePAM 0.5 MG TAB PO SCH ×2 (18:49→22:16)
[2018-11-27] MEDS: DIVALPROEX ER 500 MG TAB.ER.24H PO SCH (21:01)
[2018-11-27] MEDS: ATORVASTATIN 10 MG TAB PO SCH (21:02)
[2018-11-27] MEDS ORDERED: ZIPRASIDONE 40 MG CAP PO SCH (22:00)
[2018-11-28] MEDS: ZIPRASIDONE 20 MG VIAL IM PRN ×2 (03:54→10:20)
[2018-11-28] MEDS: PANTOPRAZOLE 40 MG TABLET PO SCH (07:55)
[2018-11-28] MEDS: PRAMIPEXOLE 1 MG TAB PO SCH ×3 (07:55→21:00)
[2018-11-28] MEDS: clonazePAM 0.5 MG TAB PO SCH ×3 (07:55→21:00)
[2018-11-28] MEDS: LISINOPRIL 20 MG TAB PO SCH (07:55)
[2018-11-28] MEDS: ALBUTEROL INHALER 60 PUFF/8 GM INHALER INHALATION PRN ×2 (09:01→18:56)
[2018-11-28] MEDS: ZIPRASIDONE 40 MG CAP PO SCH ×3 (09:29→21:00)
[2018-11-28] MEDS ORDERED: diphenhydrAMINE 50 MG/ML 1 ML VIAL IM STA (10:14)
[2018-11-28] MEDS ORDERED: BENZTROPINE 2 MG/2 ML AMP IM SCH (10:15)
--- NOTE | 2018-11-28 11:26 | P.PN ---
Subjective Progress Note Date: 11/28/18 Principal diagnosis: Schizoaffective disorder bipolar type 11/26/2018: Chart reviewed reviewed, discussed with nursing staff this morning and discussed in detail and team meeting. Interview patient and he appears hypomanic and presentation and has tried numerous medications. Difficulty sleeping depressed manic and irritable. Still admits to some suicidal thoughts but no homicidal thoughts. He does have auditory hallucinations which are difficult for him to sleep as well as he has restless leg syndrome at night. 11/27/2018: Chart reviewed, discussed with nursing staff and this morning's team meeting regarding patient and disposition and progress. Patient came to my office and we had an interview one-on-one. He was confused daily thought it was only getting once a day Geodon and explained to him yesterday we just started the twice a day in the afternoon and he would miss the morning dose. He is getting it 9 AM and 8 PM daily. Denies any suicidal or homicidal ideation sleep is a major factor for him and agitation. 11/28/2018: Chart reviewed and discussed with nursing staff were concerned that the patient was anxious irritable and so the patient immediately. He looks like he is responding to antipsychotics with tardive dyskinesia and ordered Cogentin and Benadryl. States he had bad sausages morning and started go tangential tho ught and redirected him towards his anxiety and reaction to the Geodon. Denies any suicidal homicidal ideation he remains on 15 minute checks. Objective - Vital Signs Vital signs: Vital Signs Temp 97.9 F 11/28/18 00:10 Pulse 126 H 11/28/18 10:09 Resp 18 11/28/18 00:10 BP 148/87 11/28/18 10:09 Pulse Ox 94 L 11/28/18 10:09 - Labs CBC & Chem 7: 11/24/18 08:28 11/24/18 08:28 Assessment and Plan Assessment: 58-year-old male presenting for psychiatric evaluation. Patient has known history of Schizophrenia and bipolar depression. He's been off his medication for approximately 3 weeks. He has been "ordered for psychiatric evaluation the emergency department. He has had previous admission for psychiatric evaluation and treatment. Patient denies any suicidal or homicidal ideation. He does state that his father is not feeling well and not understanding his current issue. He is unable to vocalize exactly what that issue is. He was ordered to stay at the [facility] but has refused. He was brought in by state police. Denies any physical complaints. - Related Data Home Medications Medication Instructions Recorded Confirmed Albuterol Inhaler [Ventolin Hfa 1 - 2 puff INHALATION RT-Q6H PRN 08/21/17 10/08/17 Inhaler] Benztropine Mesylate [Cogentin] 2 mg PO BID 08/21/17 10/08/17 Lisinopril [Prinivil] 20 mg PO DAILY 08/21/17 10/08/17 clonazePAM [KlonoPIN] 0.5 mg PO DAILY PRN 08/21/17 10/08/17 clonazePAM [KlonoPIN] 2 mg PO HS 08/21/17 10/08/17 Divalproex Sodium [Depakote] 1,000 mg PO HS 10/08/17 10/08/17 Previous Rx's Medication Instructions Recorded Atorvastatin [Lipitor] 10 mg PO DAILY #30 tab 01/27/16 Pantoprazole [Protonix] 40 mg PO AC-BRKFST #30 tablet. 01/27/16 Nitroglycerin Sl Tabs [Nitrostat] 0.4 mg SUBLINGUAL Q5M PRN #21 tab 08/22/17 fluPHENAZine DECANOATE [Prolixin 25 mg IM [id number] #1 ml 10/10/17 Decanoate] Allergies Allergy/AdvReac Type Severity Reaction Status Date / Time amoxicillin Allergy Unknown Verified 11/23/18 20:30 brompheniramine maleate Allergy Unknown Verified 11/23/18 20:30 [From Dimetapp Cold-Allergy (PE)] codeine Allergy Rash/Hives Verified 11/23/18 20:30 fluoxetine HCl [From Prozac] Allergy Unknown Verified 11/23/18 20:30 latex Allergy Unknown Verified 11/23/18 20:30 morphine Allergy Rash/Hives Verified 11/23/18 20:30 phenylephrine HCl Allergy Unknown Verified 11/23/18 20:30 [From Dimetapp Cold-Allergy (PE)] shellfish derived [Shellfish] Allergy Rash/Hives Verified 11/23/18 20:30 Past Medical History Past Medical History: COPD, Hyperlipidemia, Hypertension, Osteoarthritis (OA) Additional Past Medical History / Comment(s): prostate cancer, possible seizure disorder-last known seizure 12/07/14.tinnitus, bipolar depression, ptsd, schizophrenia. 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 Past Psychological History: Bipolar, Depression, PTSD, Schizophrenia Smoking Status: Never smoker Past Alcohol Use History: None Reported Past Drug Use History: None Reported - Past Family History Father Family Medical History: Cancer Additional Family Medical History / Comment(s): Father is alive at age 82 with history of prostate cancer. Mother Family Medical History: Cancer Additional Family Medical History / Comment(s): Mother at age 53 from bladder cancer Brother(s) Additional Family Medical History / Comment(s): Patient has 4 brothers and 2 sisters that are healthy with no major medical problems. Patient does not have any children. Mental status examination: This is a 58-year-old male who looks older than his stated age. Speech and language is rapid expressive loud. Attitude and behaviors cooperative. Mood is euphoric elated irritable. Affect is lively and labile. Orientation person place and time and situation. Thought content within normal. Risk factor he does admit to suicidal ideation. Perception does have auditory hallucinations. Thought process is concrete in nature. Concentration is impaired. Recent and remote memory within normal. Intelligence below average. Insight and judgment are poor. Plan: We'll increase his Geodon to 40 mg by mouth twice a day and add Mirapex 0.5 mg 3 times a day for his restless leg. Remain on 15 minute checks usual for [facility] and expect him to go to groups and interact in a positive manner while on the psychiatric unit. 11/27/2018: We'll increase his Mirapex to 1 mg 3 times a day for his restless leg. Geodon instead 40 mg twice a day with Depakote thousand milligrams a day. He'll remain on 15 minute checks. He is integrated within the [facility] and attend groups and take his medications. 11/28/2018: He was anxious today and was honest 15 minute checks when the nurse noticed that it was intense irritable and agitated and didn't believe that he was having anxiety which in reality looked to be tardive dyskinesia nature. He is given 2 mg Cogentin IM along with 25 mg of Benadryl IM. (1) Schizoaffective disorder Current Visit: Yes Status: Acute Priority: Medium Code(s): F25.9 - SCHIZOAFFECTIVE DISORDER, UNSPECIFIED SNOMED Code(s): 93291803 Time with Patient: Less than 30
[2018-11-28] MEDS: MAG HYDROX/AL HYDROX/SIMETH 30 ML CUP PO PRN (14:38)
[2018-11-28] MEDS: BENZTROPINE MESYLATE 1 MG TAB PO SCH (21:00)
[2018-11-28] MEDS: ATORVASTATIN 10 MG TAB PO SCH (21:00)
[2018-11-28] MEDS: DIVALPROEX ER 500 MG TAB.ER.24H PO SCH (21:00)
[2018-11-29] MEDS: PANTOPRAZOLE 40 MG TABLET PO SCH (08:45)
[2018-11-29] MEDS: BENZTROPINE MESYLATE 1 MG TAB PO SCH ×2 (08:45→20:39)
[2018-11-29] MEDS: clonazePAM 0.5 MG TAB PO SCH ×3 (08:45→20:38)
[2018-11-29] MEDS: PRAMIPEXOLE 1 MG TAB PO SCH ×3 (08:46→20:39)
[2018-11-29] MEDS: LISINOPRIL 20 MG TAB PO SCH (08:46)
[2018-11-29] MEDS: ZIPRASIDONE 40 MG CAP PO SCH ×3 (08:47→20:39)
[2018-11-29] MEDS: ALBUTEROL INHALER 60 PUFF/8 GM INHALER INHALATION PRN (09:15)
--- NOTE | 2018-11-29 09:59 | US ---
EXAMINATION TYPE: US abdomen limited DATE OF EXAM: 11/29/2018 COMPARISON: None CLINICAL HISTORY: 58-year-old male right upper quadrant pain, eval for gallstones. TECHNIQUE: Multiple sonographic images of the right upper quadrant are obtained. FINDINGS: EXAM MEASUREMENTS: Liver Length: 13.2 cm Gallbladder Wall: 0.2 cm CBD: 0.5 cm Right Kidney: 10.7 x 4.1 x 5.2 cm WHEEL BORER NOTES: Severe overlying midline bowel gas making exam technically difficult. Pancreas: Obscured by bowel gas Liver echogenic with slightly coarsened echotexture. No focal lesion seen. Gallbladder: portions visualized wnl, fundal portion obscured by bowel gas. Evidence for sonographic Tee's sign: No CBD: wnl as seen, very limited visualization Right Kidney: Inferior portion obscured by overlying bowel gas . No hydronephrosis. IMPRESSION: Technically limited exam due to extensive overlying bowel gas. Suspect underlying hepatic steatosis. The fundal portion of the gallbladder is obscured. No visualized gallstones.
--- NOTE | 2018-11-29 12:23 | P.PN ---
Subjective Progress Note Date: 11/29/18 Principal diagnosis: Schizoaffective disorder bipolar type 11/26/2018: Chart reviewed reviewed, discussed with nursing staff this morning and discussed in detail and team meeting. Interview patient and he appears hypomanic and presentation and has tried numerous medications. Difficulty sleeping depressed manic and irritable. Still admits to some suicidal thoughts but no homicidal thoughts. He does have auditory hallucinations which are difficult for him to sleep as well as he has restless leg syndrome at night. 11/27/2018: Chart reviewed, discussed with nursing staff and this morning's team meeting regarding patient and disposition and progress. Patient came to my office and we had an interview one-on-one. He was confused daily thought it was only getting once a day Geodon and explained to him yesterday we just started the twice a day in the afternoon and he would miss the morning dose. He is getting it 9 AM and 8 PM daily. Denies any suicidal or homicidal ideation sleep is a major factor for him and agitation. 11/28/2018: Chart reviewed and discussed with nursing staff were concerned that the patient was anxious irritable and so the patient immediately. He looks like he is responding to antipsychotics with tardive dyskinesia and ordered Cogentin and Benadryl. States he had bad sausages morning and started go tangential tho ught and redirected him towards his anxiety and reaction to the Geodon. Denies any suicidal homicidal ideation he remains on 15 minute checks. 11/29/2018: Chart reviewed and discussed with nursing staff. He seems less irritable and anxious today has somewhat pressured speech but able to communica te without any hysterics. Denies any suicidal homicidal ideation. He denies any auditory hallucinations. Objective - Vital Signs Vital signs: Vital Signs Temp 97.9 F 11/29/18 05:10 Pulse 81 11/29/18 05:10 Resp 17 11/29/18 05:10 BP 116/69 11/29/18 05:10 Pulse Ox 94 L 11/28/18 10:09 - Labs CBC & Chem 7: 11/24/18 08:28 11/24/18 08:28 Assessment and Plan Assessment: 58-year-old male presenting for psychiatric evaluation. Patient has known history of Schizophrenia and bipolar depression. He's been off his medication for approximately 3 weeks. He has been "ordered for psychiatric evaluation the emergency department. He has had previous admission for psychiatric evaluation and treatment. Patient denies any suicidal or homicidal ideation. He does state that his father is not feeling well and not understanding his current issue. He is unable to vocalize exactly what that issue is. He was ordered to stay at the [facility] but has refused. He was brought in by state police. Denies any physical complaints. - Related Data Home Medications Medication Instructions Recorded Confirmed Albuterol Inhaler [Ventolin Hfa 1 - 2 puff INHALATION RT-Q6H PRN 08/21/17 10/08/17 Inhaler] Benztropine Mesylate [Cogentin] 2 mg PO BID 08/21/17 10/08/17 Lisinopril [Prinivil] 20 mg PO DAILY 08/21/17 10/08/17 clonazePAM [KlonoPIN] 0.5 mg PO DAILY PRN 08/21/17 10/08/17 clonazePAM [KlonoPIN] 2 mg PO HS 08/21/17 10/08/17 Divalproex Sodium [Depakote] 1,000 mg PO HS 10/08/17 10/08/17 Previous Rx's Medication Instructions Recorded Atorvastatin [Lipitor] 10 mg PO DAILY #30 tab 01/27/16 Pantoprazole [Protonix] 40 mg PO AC-BRKFST #30 tablet. 01/27/16 Nitroglycerin Sl Tabs [Nitrostat] 0.4 mg SUBLINGUAL Q5M PRN #21 tab 08/22/17 fluPHENAZine DECANOATE [Prolixin 25 mg IM [id number] #1 ml 10/10/17 Decanoate] Allergies Allergy/AdvReac Type Severity Reaction Status Date / Time amoxicillin Allergy Unknown Verified 11/23/18 20:30 brompheniramine maleate Allergy Unknown Verified 11/23/18 20:30 [From Dimetapp Cold-Allergy (PE)] codeine Allergy Rash/Hives Verified 11/23/18 20:30 fluoxetine HCl [From Prozac] Allergy Unknown Verified 11/23/18 20:30 latex Allergy Unknown Verified 11/23/18 20:30 morphine Allergy Rash/Hives Verified 11/23/18 20:30 phenylephrine HCl Allergy Unknown Verified 11/23/18 20:30 [From Dimetapp Cold-Allergy (PE)] shellfish derived [Shellfish] Allergy Rash/Hives Verified 11/23/18 20:30 Past Medical History Past Medical History: COPD, Hyperlipidemia, Hypertension, Osteoarthritis (OA) Additional Past Medical History / Comment(s): prostate cancer, possible seizure disorder-last known seizure 12/07/14.tinnitus, bipolar depression, ptsd, schizophrenia. 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 Past Psychological History: Bipolar, Depression, PTSD, Schizophrenia Smoking Status: Never smoker Past Alcohol Use History: None Reported Past Drug Use History: None Reported - Past Family History Father Family Medical History: Cancer Additional Family Medical History / Comment(s): Father is alive at age 82 with history of prostate cancer. Mother Family Medical History: Cancer Additional Family Medical History / Comment(s): Mother at age 53 from bladder cancer Brother(s) Additional Family Medical History / Comment(s): Patient has 4 brothers and 2 sisters that are healthy with no major medical problems. Patient does not have any children. Mental status examination: This is a 58-year-old male who looks older than his stated age. Speech and language is rapid expressive loud. Attitude and behaviors cooperative. Mood is euphoric elated irritable. Affect is lively and labile. Orientation person place and time and situation. Thought content within normal. Risk factor he does admit to suicidal ideation. Perception does have auditory hallucinations. Thought process is concrete in nature. Concentration is impaired. Recent and remote memory within normal. Intelligence below average. Insight and judgment are poor. Plan: We'll increase his Geodon to 40 mg by mouth twice a day and add Mirapex 0.5 mg 3 times a day for his restless leg. Remain on 15 minute checks usual for [facility] and expect him to go to groups and interact in a positive manner while on the psychiatric unit. 11/27/2018: We'll increase his Mirapex to 1 mg 3 times a day for his restless leg. Geodon instead 40 mg twice a day with Depakote thousand milligrams a day. He'll remain on 15 minute checks. He is integrated within the [facility] and attend groups and take his medications. 11/28/2018: He was anxious today and was honest 15 minute checks when the nurse noticed that it was intense irritable and agitated and didn't believe that he was having anxiety which in reality looked to be tardive dyskinesia nature. He is given 2 mg Cogentin IM along with 25 mg of Benadryl IM. 11/29/2018: He is less anxious today and was able to talk about the goals of treatment which is to be decreases dependence and Klonopin and more stable on Depakote and Geodon. He remains on 15 minute checks while he is on the unit. He feels that his tardive dyskinesias extremely less and still complains of some sleep difficulty. (1) Schizoaffective disorder Current Visit: Yes Status: Acute Priority: Medium Code(s): F25.9 - SCHIZOAFFECTIVE DISORDER, UNSPECIFIED SNOMED Code(s): 13871486 Time with Patient: Less than 30
[2018-11-29 14:57] VITALS: BMI 29.7
[2018-11-29] MEDS: ATORVASTATIN 10 MG TAB PO SCH (20:39)
[2018-11-29] MEDS: DIVALPROEX ER 500 MG TAB.ER.24H PO SCH (20:39)
[2018-11-30] MEDS: PANTOPRAZOLE 40 MG TABLET PO SCH (07:30)
[2018-11-30] MEDS: ALBUTEROL INHALER 60 PUFF/8 GM INHALER INHALATION PRN ×3 (08:16→19:40)
[2018-11-30] MEDS: PRAMIPEXOLE 1 MG TAB PO SCH ×3 (08:41→21:35)
[2018-11-30] MEDS: ZIPRASIDONE 40 MG CAP PO SCH ×3 (08:42→21:35)
[2018-11-30] MEDS: LISINOPRIL 20 MG TAB PO SCH (08:42)
[2018-11-30] MEDS: BENZTROPINE MESYLATE 1 MG TAB PO SCH ×2 (08:42→21:35)
[2018-11-30] MEDS: clonazePAM 0.5 MG TAB PO SCH ×3 (08:42→21:34)
--- NOTE | 2018-11-30 11:24 | P.DS ---
Providers Date of admission: 11/23/18 21:04 Expected date of discharge: 11/30/18 Attending physician: Ike Decker DO Consults: 11/23/18 21:18 Consult Physician Routine Consulting Provider: Maury Benoit Consult Reason/Comments: medical management Do you want consulting provider notified?: Yes Primary care physician: Nathaniel Brooks - Discharge Diagnosis(es) (1) Schizoaffective disorder 58-year-old male presenting for psychiatric evaluation. Patient has known history of Schizophrenia and bipolar depression. He's been off his medication for approximately 3 weeks. He has been "ordered for psychiatric evaluation the emergency department. He has had previous admission for psychiatric evaluation and treatment. Patient denies any suicidal or homicidal ideation. He does state that his father is not feeling well and not understanding his current issue. He is unable to vocalize exactly what that issue is. He was ordered to stay at the [facility] but has refused. He was brought in by state police. Denies any physical complaints. - Related Data Home Medications Medication Instructions Recorded Confirmed Albuterol Inhaler [Ventolin Hfa 1 - 2 puff INHALATION RT-Q6H PRN 08/21/17 10/08/17 Inhaler] Benztropine Mesylate [Cogentin] 2 mg PO BID 08/21/17 10/08/17 Lisinopril [Prinivil] 20 mg PO DAILY 08/21/17 10/08/17 clonazePAM [KlonoPIN] 0.5 mg PO DAILY PRN 08/21/17 10/08/17 clonazePAM [KlonoPIN] 2 mg PO HS 08/21/17 10/08/17 Divalproex Sodium [Depakote] 1,000 mg PO HS 10/08/17 10/08/17 Previous Rx's Medication Instructions Recorded Atorvastatin [Lipitor] 10 mg PO DAILY #30 tab 01/27/16 Pantoprazole [Protonix] 40 mg PO AC-BRKFST #30 tablet. 01/27/16 Nitroglycerin Sl Tabs [Nitrostat] 0.4 mg SUBLINGUAL Q5M PRN #21 tab 08/22/17 fluPHENAZine DECANOATE [Prolixin 25 mg IM [id number] #1 ml 10/10/17 Decanoate] Allergies Allergy/AdvReac Type Severity Reaction Status Date / Time amoxicillin Allergy Unknown Verified 05/03/19 20:30 brompheniramine maleate Allergy Unknown Verified 11/23/18 20:30 [From Dimetapp Cold-Allergy (PE)] codeine Allergy Rash/Hives Verified 11/23/18 20:30 fluoxetine HCl [From Prozac] Allergy Unknown Verified 11/23/18 20:30 latex Allergy Unknown Verified 11/23/18 20:30 morphine Allergy Rash/Hives Verified 11/23/18 20:30 phenylephrine HCl Allergy Unknown Verified 11/23/18 20:30 [From Dimetapp Cold-Allergy (PE)] shellfish derived [Shellfish] Allergy Rash/Hives Verified 11/23/18 20:30 Intake & Output 11/23/18 11/24/18 11/24/18 18:59 06:59 18:59 Weight 99.5 kg Laboratory Last Values WBC 6.1 k/uL (3.8-10.6) 11/24/18 08:28 RBC 4.61 m/uL (4.30-5.90) 11/24/18 08:28 Hgb 13.4 gm/dL (13.0-17.5) 11/24/18 08:28 Hct 41.5 % (39.0-53.0) 11/24/18 08:28 MCV 90.1 fL (80.0-100.0) 11/24/18 08:28 MCH 29.1 pg (25.0-35.0) 11/24/18 08:28 MCHC 32.3 g/dL (31.0-37.0) 11/24/18 08:28 RDW 13.5 % (11.5-15.5) 11/24/18 08:28 Plt Count 290 k/uL (150-450) 11/24/18 08:28 Neutrophils % 66 % 11/24/18 08:28 Lymphocytes % 22 % 11/24/18 08:28 Monocytes % 7 % 11/24/18 08:28 Eosinophils % 2 % 11/24/18 08:28 Basophils % 0 % 11/24/18 08:28 Neutrophils # 4.0 k/uL (1.3-7.7) 11/24/18 08:28 Lymphocytes # 1.3 k/uL (1.0-4.8) 11/24/18 08:28 Monocytes # 0.5 k/uL (0-1.0) 11/24/18 08:28 Eosinophils # 0.1 k/uL (0-0.7) 11/24/18 08:28 Basophils # 0.0 k/uL (0-0.2) 11/24/18 08:28 Sodium 138 mmol/L (137-145) 11/24/18 08:28 Potassium 4.2 mmol/L (3.5-5.1) 11/24/18 08:28 Chloride 101 mmol/L (98-107) 11/24/18 08:28 Carbon Dioxide 25 mmol/L (22-30) 11/24/18 08:28 Anion Gap 12 mmol/L 11/24/18 08:28 BUN 14 mg/dL (9-20) 11/24/18 08:28 Creatinine 0.90 mg/dL (0.66-1.25) 11/24/18 08:28 Est GFR (CKD-EPI)AfAm >90 (>60 ml/min/1.73 sqM) 11/24/18 08:28 Est GFR (CKD-EPI)NonAf >90 (>60 ml/min/1.73 sqM) 11/24/18 08:28 Glucose 147 mg/dL (74-99) H 11/24/18 08:28 Calcium 9.8 mg/dL (8.4-10.2) 11/24/18 08:28 Total Bilirubin 0.9 mg/dL (0.2-1.3) 11/24/18 08:28 AST 34 U/L (17-59) 11/24/18 08:28 ALT 51 U/L (21-72) 11/24/18 08:28 Alkaline Phosphatase 65 U/L (38-126) 11/24/18 08:28 Total Protein 6.7 g/dL (6.3-8.2) 11/24/18 08:28 Albumin 4.2 g/dL (3.5-5.0) 11/24/18 08:28 Triglycerides 92 mg/dL (<150) 11/24/18 08:28 Cholesterol 115 mg/dL (<200) 11/24/18 08:28 LDL Cholesterol, Calc 44 mg/dL (0-99) 11/24/18 08:28 HDL Cholesterol 53 mg/dL (40-60) 11/24/18 08:28 TSH 2.150 mIU/L (0.465-4.680) 11/24/18 08:28 Urine Opiates Screen Not Detected (NotDetected) 11/23/18 19:59 Ur Oxycodone Screen Not Detected (NotDetected) 11/23/18 19:59 Urine Methadone Screen Not Detected (NotDetected) 11/23/18 19:59 Ur Propoxyphene Screen Not Detected (NotDetected) 11/23/18 19:59 Ur Barbiturates Screen Not Detected (NotDetected) 11/23/18 19:59 U Tricyclic Antidepress Not Detected (NotDetected) 11/23/18 19:59 Ur Phencyclidine Scrn Not Detected (NotDetected) 11/23/18 19:59 Ur Amphetamines Screen Not Detected (NotDetected) 11/23/18 19:59 U Methamphetamines Scrn Not Detected (NotDetected) 11/23/18 19:59 U Benzodiazepines Scrn Not Detected (NotDetected) 11/23/18 19:59 Urine Cocaine Screen Not Detected (NotDetected) 11/23/18 19:59 U Marijuana (THC) Screen Not Detected (NotDetected) 11/23/18 19:59 Past Medical History Past Medical History: COPD, Hyperlipidemia, Hypertension, Osteoarthritis (OA) Additional Past Medical History / Comment(s): prostate cancer, possible seizure disorder-last known seizure 12/07/14.tinnitus, bipolar depression, ptsd, schizophrenia. 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 Past Psychological History: Bipolar, Depression, PTSD, Schizophrenia Smoking Status: Never smoker Past Alcohol Use History: None Reported Past Drug Use History: None Reported - Past Family History Father Family Medical History: Cancer Additional Family Medical History / Comment(s): Father is alive at age 82 with history of prostate cancer. Mother Family Medical History: Cancer Additional Family Medical History / Comment(s): Mother at age 53 from bladder cancer Brother(s) Additional Family Medical History / Comment(s): Patient has 4 brothers and 2 sisters that are healthy with no major medical problems. Patient does not have any children. Mental status examination: This is a 58-year-old male who looks older than his stated age. Speech and language is rapid expressive loud. Attitude and behaviors cooperative. Mood is euphoric elated irritable. Affect is lively and labile. Orientation person place and time and situation. Thought content within normal. Risk factor he does admit to suicidal ideation. Perception does have auditory hallucinations. Thought process is concrete in nature. Concentration is impaired. Recent and remote memory within normal. Intelligence below average. Insight and judgment are poor. Current Visit: Yes Status: Acute Priority: Low Hospital Course: Plan: We'll increase his Geodon to 40 mg by mouth twice a day and add Mirapex 0.5 mg 3 times a day for his restless leg. Remain on 15 minute checks usual for [facility] and expect him to go to groups and interact in a positive manner while on the psychiatric unit. 11/27/2018: We'll increase his Mirapex to 1 mg 3 times a day for his restless leg. Geodon instead 40 mg twice a day with Depakote thousand milligrams a day. He'll remain on 15 minute checks. He is integrated within the [facility] and attend groups and take his medications. 11/28/2018: He was anxious today and was honest 15 minute checks when the nurse noticed that it was intense irritable and agitated and didn't believe that he was having anxiety which in reality looked to be tardive dyskinesia nature. He is given 2 mg Cogentin IM along with 25 mg of Benadryl IM. 11/29/2018: He is less anxious today and was able to talk about the goals of treatment which is to be decreases dependence and Klonopin and more stable on Depakote and Geodon. He remains on 15 minute checks while he is on the unit. He feels that his tardive dyskinesias extremely less and still complains of some sleep difficulty. Mental status examination time of discharge 11/30/2018 11:23 AM The patient presents alert, pleasant, and cooperative. There calmly seated without any agitated behavior. [He] reports that [his] mood is good. Affect is congruent and euthymic. [He] deny having any suicidal or homicidal ideation intent or plan. [He] denies any auditory or visual hallucinations. There is no evidence of any delusional thought content. [His] thought process is linear and goal-directed. [His] speech is fluent and nonpressured. [His] memory and concentration is grossly intact for the purposes of this session. Patient Condition at Discharge: Stable Plan - Discharge Summary Discharge Rx Participant: Yes New Discharge Prescriptions: New Benztropine Mesylate [Cogentin] 1 mg PO BID 30 Days #60 tab Divalproex ER [Depakote ER] 1,500 mg PO 2100 30 Days #90 tab.er.24h Ziprasidone [Geodon] 40 mg PO TID 30 Days #90 cap Pramipexole [Mirapex] 1 mg PO TID 30 Days #90 tab Acetaminophen Tab [Tylenol] 650 mg PO Q4HR PRN tab PRN Reason: Pain/Discomfort Continue Pantoprazole [Protonix] 40 mg PO AC-BRKFST #30 tablet. Ergocalciferol (Vitamin D2) [Vitamin D2] 50,000 unit PO Q7D Atorvastatin [Lipitor] 10 mg PO HS 30 Days #30 tab Nitroglycerin Sl Tabs [Nitrostat] 0.4 mg SUBLINGUAL Q5M PRN #21 tab PRN Reason: Chest Pain Lisinopril [Prinivil] 20 mg PO DAILY 30 Days #30 tablet Albuterol Inhaler [Ventolin Hfa Inhaler] 2 puff INHALATION RT-Q4H PRN 30 Days #1 puff PRN Reason: Shortness Of Breath Discontinued clonazePAM [KlonoPIN] 0.5 mg PO BID Divalproex Sodium [Depakote] 1,000 mg PO HS Ziprasidone [Geodon] 80 mg PO DAILY Discharge Medication List Pantoprazole [Protonix] 40 mg PO AC-BRKFST #30 tablet. 01/27/16 [Rx] Ergocalciferol (Vitamin D2) [Vitamin D2] 50,000 unit PO Q7D 11/23/18 [History] Acetaminophen Tab [Tylenol] 650 mg PO Q4HR PRN tab 11/30/18 [Rx] Albuterol Inhaler [Ventolin Hfa Inhaler] 2 puff INHALATION RT-Q4H PRN 30 Days #1 puff 11/30/18 [Rx] Atorvastatin [Lipitor] 10 mg PO HS 30 Days #30 tab 11/30/18 [Rx] Benztropine Mesylate [Cogentin] 1 mg PO BID 30 Days #60 tab 11/30/18 [Rx] Divalproex ER [Depakote ER] 1,500 mg PO 2100 30 Days #90 tab.er.24h 11/30/18 [Rx] Lisinopril [Prinivil] 20 mg PO DAILY 30 Days #30 tablet 11/30/18 [Rx] Nitroglycerin Sl Tabs [Nitrostat] 0.4 mg SUBLINGUAL Q5M PRN #21 tab 11/30/18 [Rx] Pramipexole [Mirapex] 1 mg PO TID 30 Days #90 tab 11/30/18 [Rx] Ziprasidone [Geodon] 40 mg PO TID 30 Days #90 cap 11/30/18 [Rx] Follow up Appointment(s)/Referral(s): Nathaniel Brooks DO [Primary Care Provider] - 1-2 days Patient Instructions/Handouts: Schizophrenia (DC) Activity/Diet/Wound Care/Special Instructions: Activity and Diet as tolerated. Avoid the use of street drugs and alcohol. Take all medications as prescribed, when you are in need of refills contact your medical doctor or psychiatrist. Please go to all scheduled outpatient appointments for aftercare treatment. If symptoms return or worsen you can call the crisis line @ and/or return to the nearest emergency room for evaluation. Discharge Disposition: HOME SELF-CARE
[2018-11-30] MEDS: ACETAMINOPHEN TAB 325 MG TAB PO PRN (19:03)
[2018-11-30] MEDS: DIVALPROEX ER 500 MG TAB.ER.24H PO SCH (21:35)
[2018-11-30] MEDS: ATORVASTATIN 10 MG TAB PO SCH (21:35)
[2018-12-01 07:17] VITALS: BP 107/67; PULSE 78; RESP 16; TEMP 97.7
[2018-12-01] MEDS: clonazePAM 0.5 MG TAB PO SCH (08:42)
[2018-12-01] MEDS: BENZTROPINE MESYLATE 1 MG TAB PO SCH (08:42)
[2018-12-01] MEDS: LISINOPRIL 20 MG TAB PO SCH (08:42)
[2018-12-01] MEDS: PANTOPRAZOLE 40 MG TABLET PO SCH (08:42)
[2018-12-01] MEDS: PRAMIPEXOLE 1 MG TAB PO SCH (08:42)
[2018-12-01] MEDS: ZIPRASIDONE 40 MG CAP PO SCH (08:42)
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
== END 2018-12-01 11:03 | disposition home or self-care (01) | DRG 885 ==
LOC: EC 19:35 → 3MHU 21:04
PROVIDERS: ADMIT Psychiatry & Neurology Psychiatry; ATTEND Psychiatry & Neurology Psychiatry
DX: F20.0 Paranoid schizophrenia (principal); R45.851 Suicidal ideations; E78.5 Hyperlipidemia, unspecified; F43.10 Post-traumatic stress disorder, unspecified; F31.9 Bipolar disorder, unspecified; J44.9 Chronic obstructive pulmonary disease, unspecified; I10 Essential (primary) hypertension; M19.90 Unspecified osteoarthritis, unspecified site; G25.81 Restless legs syndrome; G24.01 Drug induced subacute dyskinesia; Z88.5 Allergy status to narcotic agent; Z91.040 Latex allergy status; Z88.8 Allergy status to other drugs, medicaments and biological substances; Z91.013 Allergy to seafood; Z85.46 Personal history of malignant neoplasm of prostate; Z98.890 Other specified postprocedural states; Z80.52 Family history of malignant neoplasm of bladder; Z80.42 Family history of malignant neoplasm of prostate; Z88.0 Allergy status to penicillin; Z79.899 Other long term (current) drug therapy; Z91.19 Patient's noncompliance with other medical treatment and regimen; Z86.69 Personal history of other diseases of the nervous system and sense organs
CPT/HCPCS: 76705; 80053; 80061; 80164; 80165; 80306; 83036; 84443; 85025; 94640; 99285

== ENCOUNTER 2018-12-10 15:23 | Inpatient (IN) | payer MEDICAID, OTHER ==
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
[2018-12-10 17:20] LABS: Amphetamine Screen,Urine Not Detected (NotDetected); Barbiturate Screen,Urine Not Detected (NotDetected); Benzodiazepines Screen,Urine Not Detected (NotDetected); Cocaine Screen,Urine Not Detected (NotDetected); Methadone Screen, Urine Not Detected (NotDetected); Opiate Screen,Urine Not Detected (NotDetected); Oxycodone Screen, Urine Not Detected (NotDetected); Phencyclidine Screen,Urine Not Detected (NotDetected); Tricyclic Antidepressant,Urine Not Detected (NotDetected); Urn Cannabinoid Scrn Not Detected (NotDetected)
[2018-12-10] MEDS ORDERED: ALBUTEROL INHALER 60 PUFF/8 GM INHALER INHALATION PRN (18:15)
[2018-12-10] MEDS ORDERED: NITROGLYCERIN SL TABS 0.4 MG TAB SUBLINGUAL PRN (18:15)
[2018-12-10] MEDS ORDERED: MAGNESIUM HYDROXIDE 2,400 MG/10 ML CUP PO PRN (18:17)
[2018-12-10] MEDS ORDERED: LORazepam 1 MG TAB PO PRN (18:17)
[2018-12-10] MEDS ORDERED: LORazepam 2 MG/ML INJ IM PRN (18:20)
[2018-12-10] MEDS: BENZTROPINE MESYLATE 1 MG TAB PO SCH (20:00)
[2018-12-10] MEDS: PRAMIPEXOLE 1 MG TAB PO SCH (20:00)
[2018-12-10] MEDS: DIVALPROEX 500 MG TABLET.DR PO SCH (20:00)
[2018-12-10] MEDS: ZIPRASIDONE 60 MG CAP PO SCH (20:00)
[2018-12-10] MEDS: ATORVASTATIN 10 MG TAB PO SCH (20:00)
[2018-12-11 05:12] LABS: Appearance,Urine Clear (Clear); Bilirubin,Urine Negative (Negative); Blood,Urine Negative (Negative); Color,Urine Yellow; Glucose,Urine (UA) Negative (Negative); Ketones,Urine Trace (Negative); Leukocyte Esterase,Urine Negative (Negative); Nitrite,Urine Negative (Negative); Protein,Urine Negative (Negative); Specific Gravity,Urine 1.011 (1.001-1.035); Urobilinogen,Urine <2.0 mg/dL (<2.0)
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
[2018-12-11] MEDS: PANTOPRAZOLE 40 MG TABLET PO SCH (08:27)
[2018-12-11] MEDS: ERGOCALCIFEROL 50,000 UNIT CAP PO SCH (08:28)
[2018-12-11] MEDS: ZIPRASIDONE 60 MG CAP PO SCH ×2 (08:28→20:43)
[2018-12-11] MEDS: BENZTROPINE MESYLATE 1 MG TAB PO SCH ×2 (08:28→20:43)
[2018-12-11] MEDS: PRAMIPEXOLE 1 MG TAB PO SCH ×3 (08:28→20:43)
[2018-12-11] MEDS: LISINOPRIL 20 MG TAB PO SCH (08:28)
[2018-12-11 09:39] LABS: Basophils % (A) 0 %; Eosinophils # (A) 0.1 k/uL (0-0.7); Eosinophils % (A) 1 %; HCT 41.2 % (39.0-53.0); HGB 13.1 gm/dL (13.0-17.5); Lymphocytes # (A) 1.6 k/uL (1.0-4.8); Lymphocytes % (A) 19 %; MCH 28.3 pg (25.0-35.0); MCHC 31.8 g/dL (31.0-37.0); MCV 88.8 fL (80.0-100.0); Mean Platelet Volume 6.9; Monocytes # (A) 0.5 k/uL (0-1.0); Monocytes % (A) 6 %; Neutrophils # (A) 5.9 k/uL (1.3-7.7); Neutrophils % (A) 72 %; Platelet Count 259 k/uL (150-450); RBC 4.64 m/uL (4.30-5.90); RDW 14.3 % (11.5-15.5); WBC 8.2 k/uL (3.8-10.6)
[2018-12-11 09:50] LABS: ALT 43 U/L (21-72); AST 28 U/L (17-59); Albumin 4.3 g/dL (3.5-5.0); Alkaline Phosphatase 76 U/L (38-126); Anion Gap 9 mmol/L; Blood Urea Nitrogen 13 mg/dL (9-20); Calcium 9.5 mg/dL (8.4-10.2); Carbon Dioxide 29 mmol/L (22-30); Chloride 99 mmol/L (98-107); Cholesterol 151 mg/dL (<200); Glucose 102 mg/dL (74-99); HDL Cholesterol 44 mg/dL (40-60); LDL Cholesterol,Calculated 73 mg/dL (0-99); Potassium 4.6 mmol/L (3.5-5.1); Sodium 137 mmol/L (137-145); Total Bilirubin 0.8 mg/dL (0.2-1.3); Triglycerides 169 mg/dL (<150)
[2018-12-11 10:59] LABS: Valproic Acid (Depakene) 62.2 ug/mL
--- NOTE | 2018-12-11 11:22 | P.HP ---
Psychiatric H&P - . H&P Date: 12/11/18 History & Physical: Allergies Allergy/AdvReac Type Severity Reaction Status Date / Time amoxicillin Allergy Unknown Verified 12/10/18 15:55 brompheniramine maleate Allergy Unknown Verified 12/10/18 15:55 [From Dimetapp Cold-Allergy (PE)] codeine Allergy Rash/Hives Verified 12/10/18 15:55 fluoxetine HCl [From Prozac] Allergy Unknown Verified 12/10/18 15:55 latex Allergy Unknown Verified 12/10/18 15:55 morphine Allergy Rash/Hives Verified 12/10/18 15:55 phenylephrine HCl Allergy Unknown Verified 12/10/18 15:55 [From Dimetapp Cold-Allergy (PE)] shellfish derived [Shellfish] Allergy Rash/Hives Verified 12/10/18 15:55 Vital Signs Temp 97.9 F 12/11/18 01:20 Pulse 75 12/11/18 01:20 Resp 12 12/11/18 01:20 BP 116/57 12/11/18 01:20 Pulse Ox 98 12/10/18 18:45 Intake & Output 12/10/18 12/11/18 12/11/18 18:59 06:59 18:59 Weight 102.965 kg 97.3 kg Laboratory Last Values WBC 8.2 k/uL (3.8-10.6) 12/11/18 09:10 RBC 4.64 m/uL (4.30-5.90) 12/11/18 09:10 Hgb 13.1 gm/dL (13.0-17.5) 12/11/18 09:10 Hct 41.2 % (39.0-53.0) 12/11/18 09:10 MCV 88.8 fL (80.0-100.0) 12/11/18 09:10 MCH 28.3 pg (25.0-35.0) 12/11/18 09:10 MCHC 31.8 g/dL (31.0-37.0) 12/11/18 09:10 RDW 14.3 % (11.5-15.5) 12/11/18 09:10 Plt Count 259 k/uL (150-450) 12/11/18 09:10 Neutrophils % 72 % 12/11/18 09:10 Lymphocytes % 19 % 12/11/18 09:10 Monocytes % 6 % 12/11/18 09:10 Eosinophils % 1 % 12/11/18 09:10 Basophils % 0 % 12/11/18 09:10 Neutrophils # 5.9 k/uL (1.3-7.7) 12/11/18 09:10 Lymphocytes # 1.6 k/uL (1.0-4.8) 12/11/18 09:10 Monocytes # 0.5 k/uL (0-1.0) 12/11/18 09:10 Eosinophils # 0.1 k/uL (0-0.7) 12/11/18 09:10 Basophils # 0.0 k/uL (0-0.2) 12/11/18 09:10 Urine Color Yellow 12/11/18 05:00 Urine Appearance Clear (Clear) 12/11/18 05:00 Urine pH 6.0 (5.0-8.0) 12/11/18 05:00 Ur Specific [place] 1.011 (1.001-1.035) 12/11/18 05:00 Urine Protein Negative (Negative) 12/11/18 05:00 Urine Glucose (UA) Negative (Negative) 12/11/18 05:00 Urine Ketones Trace (Negative) H 12/11/18 05:00 Urine Blood Negative (Negative) 12/11/18 05:00 Urine Nitrite Negative (Negative) 12/11/18 05:00 Urine Bilirubin Negative (Negative) 12/11/18 05:00 Urine Urobilinogen <2.0 mg/dL (<2.0) 12/11/18 05:00 Ur Leukocyte Esterase Negative (Negative) 12/11/18 05:00 Urine Opiates Screen Not Detected (NotDetected) 12/10/18 17:05 Ur Oxycodone Screen Not Detected (NotDetected) 12/10/18 17:05 Urine Methadone Screen Not Detected (NotDetected) 12/10/18 17:05 Ur Propoxyphene Screen Not Detected (NotDetected) 12/10/18 17:05 Ur Barbiturates Screen Not Detected (NotDetected) 12/10/18 17:05 U Tricyclic Antidepress Not Detected (NotDetected) 12/10/18 17:05 Ur Phencyclidine Scrn Not Detected (NotDetected) 12/10/18 17:05 Ur Amphetamines Screen Not Detected (NotDetected) 12/10/18 17:05 U Methamphetamines Scrn Not Detected (NotDetected) 12/10/18 17:05 U Benzodiazepines Scrn Not Detected (NotDetected) 12/10/18 17:05 Urine Cocaine Screen Not Detected (NotDetected) 12/10/18 17:05 U Marijuana (THC) Screen Not Detected (NotDetected) 12/10/18 17:05 Assessment and Plan (1) Schizoaffective disorder Narrative/Plan: He patient is a 58 yo M with a PMH of schizophrenia, HLD, HTN, and COPD who was brought in to the ED for a court ordered psychiatric treatment. The patient notes that earlier today his water heater leaked in his home and that his eyes feel somewhat watery. He otherwise denied any additional complaints. He had expressed some homicidal ideation while in the ED though currently denying any homicidal or suicidal ideation. He is denying chest pain, SOB, nausea, vomiting, diaphoresis, or palpitations. Further denying fever, chills, cough, abdominal pain, or diarrhea. Past Medical History Past Medical History: COPD, Hyperlipidemia, Hypertension, Osteoarthritis (OA) Additional Past Medical History / Comment(s): prostate cancer, possible seizure disorder-last known seizure 12/07/14.tinnitus, bipolar depression, ptsd, schizophrenia. History of Any Multi-Drug Resistant Organisms: None Reported Past Surgical History: Prostate Surgery Additional Past Surgical History / Comment(s): protatectomy, "eye surgery to correct lazy eyes" and back surgery, Past Anesthesia/Blood Transfusion Reactions: Blood Transfusion Reaction Additional Past Anesthesia/Blood Transfusion Reaction / Comm: pt stated received blood in past and had a reaction to it-caused hives. Smoking Status: Never smoker - Past Family History Father Family Medical History: Cancer Additional Family Medical History / Comment(s): Father is alive at age 82 with history of prostate cancer. Mother Family Medical History: Cancer Additional Family Medical History / Comment(s): Mother at age 53 from bladder cancer Brother(s) Additional Family Medical History / Comment(s): Patient has 4 brothers and 2 sisters that are healthy with no major medical problems. Patient does not have any children. Medications and Allergies Home Medications Medication Instructions Recorded Confirmed Type Pantoprazole [Protonix] 40 mg PO AC-BRKFST #30 tablet. 01/27/16 12/10/18 Rx Ergocalciferol (Vitamin D2) 50,000 unit PO Q7D 11/23/18 12/10/18 History [Vitamin D2] Acetaminophen Tab [Tylenol] 650 mg PO Q4HR PRN tab 11/30/18 12/10/18 Rx Albuterol Inhaler [Ventolin Hfa 2 puff INHALATION RT-Q4H PRN 30 11/30/18 12/10/18 Rx Inhaler] Days #1 puff Atorvastatin [Lipitor] 10 mg PO HS 30 Days #30 tab 11/30/18 12/10/18 Rx Benztropine Mesylate [Cogentin] 1 mg PO BID 30 Days #60 tab 11/30/18 12/10/18 Rx Lisinopril [Prinivil] 20 mg PO DAILY 30 Days #30 tablet 11/30/18 12/10/18 Rx Nitroglycerin Sl Tabs [Nitrostat] 0.4 mg SUBLINGUAL Q5M PRN #21 tab 11/30/18 12/10/18 Rx Pramipexole [Mirapex] 1 mg PO TID 30 Days #90 tab 11/30/18 12/10/18 Rx Divalproex Sodium [Depakote] 1,000 mg PO HS 12/10/18 12/10/18 History Ziprasidone [Geodon] 60 mg PO BID 12/10/18 12/10/18 History Allergies Allergy/AdvReac Type Severity Reaction Status Date / Time amoxicillin Allergy Unknown Verified 12/10/18 15:55 brompheniramine maleate Allergy Unknown Verified 12/10/18 15:55 [From Dimetapp Cold-Allergy (PE)] codeine Allergy Rash/Hives Verified 12/10/18 15:55 fluoxetine HCl [From Prozac] Allergy Unknown Verified 12/10/18 15:55 latex Allergy Unknown Verified 12/10/18 15:55 morphine Allergy Rash/Hives Verified 12/10/18 15:55 phenylephrine HCl Allergy Unknown Verified 12/10/18 15:55 [From Dimetapp Cold-Allergy (PE)] shellfish derived [Shellfish] Allergy Rash/Hives Verified 12/10/18 15:55 Mental status examination: This is a 58-year-old male who looks older than his stated age. Speech and language is rapid expressive loud. Attitude and behaviors cooperative. Mood is euphoric elated irritable. Affect is lively and labile. Orientation person place and time and situation. Thought content within normal. Risk factor he does admit to suicidal ideation. Perception does have auditory hallucinations. Thought process is concrete in nature. Concentration is impaired. Recent and remote memory within normal. Intelligence below average. Insight and judgment are poor. Plan: We'll increase his Geodon to 40 mg by mouth twice a day and add Mirapex 0.5 mg 3 times a day for his restless leg. Remain on 15 minute checks usual for [facility] and expect him to go to groups and interact in a positive manner while on the psychiatric unit. Current Visit: Yes Status: Acute Priority: Low Code(s): F25.9 - SCHIZOAFFECTIVE DISORDER, UNSPECIFIED SNOMED Code(s): 44852201
[2018-12-11 15:55] LABS: Hemoglobin A1C 6.3 % (4.0-6.0)
[2018-12-11] MEDS: DIVALPROEX 500 MG TABLET.DR PO SCH (20:43)
[2018-12-11] MEDS: ATORVASTATIN 10 MG TAB PO SCH (20:43)
[2018-12-12] MEDS: ZIPRASIDONE 60 MG CAP PO SCH ×2 (08:46→21:31)
[2018-12-12] MEDS: BENZTROPINE MESYLATE 1 MG TAB PO SCH ×2 (08:46→21:31)
[2018-12-12] MEDS: LISINOPRIL 20 MG TAB PO SCH (08:46)
[2018-12-12] MEDS: PRAMIPEXOLE 1 MG TAB PO SCH ×3 (08:46→21:31)
[2018-12-12] MEDS: PANTOPRAZOLE 40 MG TABLET PO SCH (08:46)
--- NOTE | 2018-12-12 12:11 | P.PN ---
Subjective Progress Note Date: 12/12/18 Principal diagnosis: schizoaffective 12/12/2018: Chart reviewed and discussed nursing staff and team this morning discussing disposition and discharge. He does not claim to be suicidal homicidal, has not auditory visual hallucinations. He is interacting appropriately in groups in [facility]. Objective - Vital Signs Vital signs: Vital Signs Temp 97.8 F 12/12/18 06:34 Pulse 90 12/12/18 06:34 Resp 16 12/12/18 06:34 BP 137/67 12/12/18 06:34 Pulse Ox 98 12/10/18 18:45 - Labs CBC & Chem 7: 12/11/18 09:10 12/11/18 09:10 Labs: Abnormal Lab Results - Last 24 Hours (Table) 12/11/18 Range/Units 09:10 Hemoglobin A1c 6.3 H (4.0-6.0) % Assessment and Plan (1) Schizoaffective disorder Narrative/Plan: He patient is a 58 yo M with a PMH of schizophrenia, HLD, HTN, and COPD who was brought in to the ED for a court ordered psychiatric treatment. The patient notes that earlier today his water heater leaked in his home and that his eyes feel somewhat watery. He otherwise denied any additional complaints. He had expressed some homicidal ideation while in the ED though currently denying any homicidal or suicidal ideation. He is denying chest pain, SOB, nausea, vomiting, diaphoresis, or palpitations. Further denying fever, chills, cough, abdominal pain, or diarrhea. Past Medical History Past Medical History: COPD, Hyperlipidemia, Hypertension, Osteoarthritis (OA) Additional Past Medical History / Comment(s): prostate cancer, possible seizure disorder-last known seizure 12/07/14.tinnitus, bipolar depression, ptsd, schizophrenia. History of Any Multi-Drug Resistant Organisms: None Reported Past Surgical History: Prostate Surgery Additional Past Surgical History / Comment(s): protatectomy, "eye surgery to correct lazy eyes" and back surgery, Past Anesthesia/Blood Transfusion Reactions: Blood Transfusion Reaction Additional Past Anesthesia/Blood Transfusion Reaction / Comm: pt stated received blood in past and had a reaction to it-caused hives. Smoking Status: Never smoker - Past Family History Father Family Medical History: Cancer Additional Family Medical History / Comment(s): Father is alive at age 82 with history of prostate cancer. Mother Family Medical History: Cancer Additional Family Medical History / Comment(s): Mother at age 53 from b ladder cancer Brother(s) Additional Family Medical History / Comment(s): Patient has 4 brothers and 2 sisters that are healthy with no major medical problems. Patient does not have any children. Medications and Allergies Home Medications Medication Instructions Recorded Confirmed Type Pantoprazole [Protonix] 40 mg PO AC-BRKFST #30 tablet. 01/27/16 12/10/18 Rx Ergocalciferol (Vitamin D2) 50,000 unit PO Q7D 11/23/18 12/10/18 History [Vitamin D2] Acetaminophen Tab [Tylenol] 650 mg PO Q4HR PRN tab 11/30/18 12/10/18 Rx Albuterol Inhaler [Ventolin Hfa 2 puff INHALATION RT-Q4H PRN 30 11/30/18 12/10/18 Rx Inhaler] Days #1 puff Atorvastatin [Lipitor] 10 mg PO HS 30 Days #30 tab 11/30/18 12/10/18 Rx Benztropine Mesylate [Cogentin] 1 mg PO BID 30 Days #60 tab 11/30/18 12/10/18 Rx Lisinopril [Prinivil] 20 mg PO DAILY 30 Days #30 tablet 11/30/18 12/10/18 Rx Nitroglycerin Sl Tabs [Nitrostat] 0.4 mg SUBLINGUAL Q5M PRN #21 tab 11/30/18 12/10/18 Rx Pramipexole [Mirapex] 1 mg PO TID 30 Days #90 tab 11/30/18 12/10/18 Rx Divalproex Sodium [Depakote] 1,000 mg PO HS 12/10/18 12/10/18 History Ziprasidone [Geodon] 60 mg PO BID 12/10/18 12/10/18 History Allergies Allergy/AdvReac Type Severity Reaction Status Date / Time amoxicillin Allergy Unknown Verified 12/10/18 15:55 brompheniramine maleate Allergy Unknown Verified 12/10/18 15:55 [From Dimetapp Cold-Allergy (PE)] codeine Allergy Rash/Hives Verified 12/10/18 15:55 fluoxetine HCl [From Prozac] Allergy Unknown Verified 05/20/19 15:55 latex Allergy Unknown Verified 12/10/18 15:55 morphine Allergy Rash/Hives Verified 12/10/18 15:55 phenylephrine HCl Allergy Unknown Verified 12/10/18 15:55 [From Dimetapp Cold-Allergy (PE)] shellfish derived [Shellfish] Allergy Rash/Hives Verified 12/10/18 15:55 Mental status examination: This is a 58-year-old male who looks older than his stated age. Speech and language is rapid expressive loud. Attitude and behaviors cooperative. Mood is euphoric elated irritable. Affect is lively and labile. Orientation person place and time and situation. Thought content within normal. Risk factor he does admit to suicidal ideation. Perception does have auditory hallucinations. Thought process is concrete in nature. Concentration is impaired. Recent and remote memory within normal. Intelligence below average. Insight and judgment are poor. Plan: We'll increase his Geodon to 40 mg by mouth twice a day and add Mirapex 0.5 mg 3 times a day for his restless leg. Remain on 15 minute checks usual for [facility] and expect him to go to groups and interact in a positive manner while on the psychiatric unit. 12/12/2018: He remains on the above medications without any altercations on the unit with either staff or peers. He will remain on 15 minute checks. Current Visit: Yes Status: Acute Priority: Low Code(s): F25.9 - SCHIZOAFFECTIVE DISORDER, UNSPECIFIED SNOMED Code(s): 91722690
[2018-12-12] MEDS: ACETAMINOPHEN TAB 325 MG TAB PO PRN (12:52)
[2018-12-12] MEDS: ATORVASTATIN 10 MG TAB PO SCH (21:31)
[2018-12-12] MEDS: DIVALPROEX 500 MG TABLET.DR PO SCH (21:31)
[2018-12-13] MEDS: ACETAMINOPHEN TAB 325 MG TAB PO PRN (08:33)
[2018-12-13] MEDS: PRAMIPEXOLE 1 MG TAB PO SCH ×3 (08:34→20:44)
[2018-12-13] MEDS: BENZTROPINE MESYLATE 1 MG TAB PO SCH ×2 (08:34→20:44)
[2018-12-13] MEDS: PANTOPRAZOLE 40 MG TABLET PO SCH (08:34)
[2018-12-13] MEDS: ZIPRASIDONE 60 MG CAP PO SCH ×2 (08:34→20:44)
[2018-12-13] MEDS: LISINOPRIL 20 MG TAB PO SCH (08:34)
--- NOTE | 2018-12-13 14:13 | P.PN ---
Subjective Progress Note Date: 12/13/18 Principal diagnosis: schizoaffective 12/12/2018: Chart reviewed and discussed nursing staff and team this morning discussing disposition and discharge. He does not claim to be suicidal homicidal, has not auditory visual hallucinations. He is interacting appropriately in groups in [facility]. 12/13/2018: Chart reviewed and discussed with nursing staff, and team meeting regarding disposition and discharge. I attempted to call the father on the phone was not answered. The patient denies any suicidal or homicidal ideation. Denies any auditory or visual hallucinations at the current time. He does like talking about going home and he is not at all wanting to go to a halfway because he does not feel safe there. When interviewed he is moving constantly in his chair and his feet and is able to list her direct discussion to wanting to go home numerous times during the interview. Objective - Vital Signs Vital signs: Vital Signs Temp 98 F 12/13/18 06:50 Pulse 98 12/13/18 06:50 Resp 16 12/13/18 06:50 BP 127/71 12/13/18 06:50 Pulse Ox 98 12/10/18 18:45 - Labs CBC & Chem 7: 12/11/18 09:10 12/11/18 09:10 Assessment and Plan (1) Schizoaffective disorder Narrative/Plan: He patient is a 58 yo M with a PMH of schizophrenia, HLD, HTN, and COPD who was brought in to the ED for a court ordered psychiatric treatment. The patient notes that earlier today his water heater leaked in his home and that his eyes feel somewhat watery. He otherwise denied any additional complaints. He had expressed some homicidal ideation while in the ED though currently denying any homicidal or suicidal ideation. He is denying chest pain, SOB, nausea, vomiting, diaphoresis, or palpitations. Further denying fever, chills, cough, abdominal pain, or diarrhea. Past Medical History Past Medical History: COPD, Hyperlipidemia, Hypertension, Osteoarthritis (OA) Additional Past Medical History / Comment(s): prostate cancer, possible seizure disorder-last known seizure 12/07/14.tinnitus, bipolar depression, ptsd, schizophrenia. History of Any Multi-Drug Resistant Organisms: None Reported Past Surgical History: Prostate Surgery Additional Past Surgical History / Comment(s): protatectomy, "eye surgery to correct lazy eyes" and back surgery, Past Anesthesia/Blood Transfusion Reactions: Blood Transfusion Reaction Additional Past Anesthesia/Blood Transfusion Reaction / Comm: pt stated received blood in past and had a reaction to it-caused hives. Smoking Status: Never smoker - Past Family History Father Family Medical History: Cancer Additional Family Medical History / Comment(s): Father is alive at age 82 with history of prostate cancer. Mother Family Medical History: Cancer Additional Family Medical History / Comment(s): Mother at age 53 from bladder cancer Brother(s) Additional Family Medical History / Comment(s): Patient has 4 brothers and 2 sisters that are healthy with no major medical problems. Patient does not have any children. Medications and Allergies Home Medications Medication Instructions Recorded Confirmed Type Pantoprazole [Protonix] 40 mg PO SANGEETHA-MALFSPatito #30 tablet. 01/27/16 12/10/18 Rx Ergocalciferol (Vitamin D2) 50,000 unit PO Q7D 11/23/18 12/10/18 History [Vitamin D2] Acetaminophen Tab [Tylenol] 650 mg PO Q4HR PRN tab 11/30/18 12/10/18 Rx Albuterol Inhaler [Ventolin Hfa 2 puff INHALATION RT-Q4H PRN 30 11/30/18 12/10/18 Rx Inhaler] Days #1 puff Atorvastatin [Lipitor] 10 mg PO HS 30 Days #30 tab 11/30/18 12/10/18 Rx Benztropine Mesylate [Cogentin] 1 mg PO BID 30 Days #60 tab 11/30/18 12/10/18 Rx Lisinopril [Prinivil] 20 mg PO DAILY 30 Days #30 tablet 11/30/18 12/10/18 Rx Nitroglycerin Sl Tabs [Nitrostat] 0.4 mg SUBLINGUAL Q5M PRN #21 tab 11/30/18 12/10/18 Rx Pramipexole [Mirapex] 1 mg PO TID 30 Days #90 tab 11/30/18 12/10/18 Rx Divalproex Sodium [Depakote] 1,000 mg PO HS 12/10/18 12/10/18 History Ziprasidone [Geodon] 60 mg PO BID 12/10/18 12/10/18 History Allergies Allergy/AdvReac Type Severity Reaction Status Date / Time amoxicillin Allergy Unknown Verified 12/10/18 15:55 brompheniramine maleate Allergy Unknown Verified 12/10/18 15:55 [From Dimetapp Cold-Allergy (PE)] codeine Allergy Rash/Hives Verified 12/10/18 15:55 fluoxetine HCl [From Prozac] Allergy Unknown Verified 12/10/18 15:55 latex Allergy Unknown Verified 12/10/18 15:55 morphine Allergy Rash/Hives Verified 12/10/18 15:55 phenylephrine HCl Allergy Unknown Verified 12/10/18 15:55 [From Dimetapp Cold-Allergy (PE)] shellfish derived [Shellfish] Allergy Rash/Hives Verified 12/10/18 15:55 Mental status examination: This is a 58-year-old male who looks older than his stated age. Speech and language is rapid expressive loud. Attitude and behaviors cooperative. Mood is euphoric elated irritable. Affect is lively and labile. Orientation person place and time and situation. Thought content within normal. Risk factor he does admit to suicidal ideation. Perception does have auditory hallucinations. Thought process is concrete in nature. Concentration is impaired. Recent and remote memory within normal. Intelligence below average. Insight and judgment are poor. Plan: We'll increase his Geodon to 40 mg by mouth twice a day and add Mirapex 0.5 mg 3 times a day for his restless leg. Remain on 15 minute checks usual for [facility] and expect him to go to groups and interact in a positive manner while on the psychiatric unit. 12/12/2018: He remains on the above medications without any altercations on the unit with either staff or peers. He will remain on 15 minute checks. 12/13/2018: He remains on the above medications without any further adjustments. He remains on 15 minute checks for safety protocol on the [address] [place] [address]. He is tolerating the Geodon by mouth twice a day and remains on Mirapex 3 times a day for his restless leg. Discharge planning in process when available to talk to sister or father regarding discharge. In team this morning and discussed that the ACT team will be involved upon discharge. He is denying any auditory or visual hallucinations, denies suicidal or homicidal ideation but ruminates about going home Current Visit: Yes Status: Acute Priority: Low Code(s): F25.9 - S CHIZOAFFECTIVE DISORDER, UNSPECIFIED SNOMED Code(s): 13305521 Time with Patient: Less than 30
[2018-12-13] MEDS: DIVALPROEX 500 MG TABLET.DR PO SCH (20:44)
[2018-12-13] MEDS: ATORVASTATIN 10 MG TAB PO SCH (20:44)
[2018-12-14] MEDS: BENZTROPINE MESYLATE 1 MG TAB PO SCH ×2 (08:33→21:03)
[2018-12-14] MEDS: PANTOPRAZOLE 40 MG TABLET PO SCH (08:33)
[2018-12-14] MEDS: ZIPRASIDONE 60 MG CAP PO SCH ×2 (08:33→21:03)
[2018-12-14] MEDS: LISINOPRIL 20 MG TAB PO SCH (08:33)
[2018-12-14] MEDS: PRAMIPEXOLE 1 MG TAB PO SCH (08:33)
[2018-12-14] MEDS: PRAMIPEXOLE 0.5 MG TAB PO SCH ×2 (15:59→21:03)
[2018-12-14] MEDS: ATORVASTATIN 10 MG TAB PO SCH (21:03)
[2018-12-14] MEDS: DIVALPROEX 500 MG TABLET.DR PO SCH (21:03)
--- NOTE | 2018-12-14 22:31 | PN ---
PROGRESS NOTE DATE OF SERVICE: 12/14/2018 CHIEF COMPLAINT: The patient was admitted on court-ordered treatment. He apparently was delusional in making some statements of harm towards others. INTERVAL HISTORY: Patient has been doing fair. He had a quiet evening last night. He attended groups yesterday. He slept fairly well. Today he has been up. He comes out in the day area, tends to wander about the unit. He will interact with others. He attends groups. He has been appropriate in groups. He minimizes any problems that he has been having. He talked at length about how the documentation for his problems is inaccurate. He has been cooperative with care. He has been taking his medication. He reports no problems or side effects relating to his medications. MENTAL STATUS: Patient gave good eye contact. He was fairly restless. He answered questions with brief responses. He often would veer off into tangential comments. He was somewhat hyperverbal at times. He had a broad if not intense affect. He would smile some in a superficial way. He tended to minimize any problems. His mood was reserved. It was difficult to assess if he was distressed in any way. It was difficult to make a clear assessment of thought disorder. Cognition was clear. ASSESSMENT: I will continue the current diagnosis and treatment plan. I will continue psychotropic medications the same. The patient will continue Depakote 1000 mg a day, Geodon 60 mg twice a day and Cogentin 1 mg twice a day. I reviewed medications issues with the patient in regards to indications, side effects and potential of metabolics. We will continue to focus on stabilization and discharge planning. ARMANDO / JTN: [id number] /
[2018-12-15] MEDS: PRAMIPEXOLE 0.5 MG TAB PO SCH ×3 (08:25→20:43)
[2018-12-15] MEDS: ZIPRASIDONE 60 MG CAP PO SCH ×2 (08:25→20:43)
[2018-12-15] MEDS: PANTOPRAZOLE 40 MG TABLET PO SCH (08:25)
[2018-12-15] MEDS: BENZTROPINE MESYLATE 1 MG TAB PO SCH ×2 (08:25→17:55)
[2018-12-15] MEDS: LISINOPRIL 20 MG TAB PO SCH (08:25)
--- NOTE | 2018-12-15 12:02 | PN ---
PROGRESS NOTE DATE OF SERVICE: 12/15/2018 CHIEF COMPLAINT: The patient was admitted on court-ordered treatment. He apparently was making delusional statements, statements of harm toward others. INTERVAL HISTORY: Patient has been doing fairly well fairly well. He had a quiet evening last night. He attended groups. He comes out in the day area. He generally is social. He said he slept fair last night. He says he wakes up frequently because he hears movement and noise on the unit. Today he has been up. He attended groups. He has been appropriate. He has been cooperative with care. He says that he continues to have some tremors, especially in his feet. He notices it all day, though it is more bothersome towards the evening time when he is going to bed. He continues to make delusional statements, including an idea that he believes Dr. Torrez, whom he sees at [facility], was coming into his house and turning his faucet on and off. When I challenged him on this notion, he did seem to back away from the idea and suggested maybe it was more of a coincidence than anything else. He was able to discuss issues relating to his home situation. My understanding is that there may be family encouragement towards father moving out of the house because the father is 88 and it is not clear how well he is able to manage in that home. The patient said he was unaware of any of those issues but was willing to talk about it. He understands that on Monday, Mental Health would be working with him on some discharge planning which might include moving to a different living situation. He appears to tolerate his psychotropic medication. When I talked him about a possible sleep aid, he said that he had a problem in the past with trazodone, which caused a rash on his back, and also problems with Remeron. MENTAL STATUS: Patient gave fairly good eye contact. He was somewhat restless. He moved his feet and legs some. He answered questions appropriately. His thoughts were clear, coherent and goal-directed. His affect was in a reasonable range. He smiled some. He had a friendly manner. His mood was somewhat elevated. He did not appear to be distressed. He continues to show signs of paranoid delusions. Cognition was clear. ASSESSMENT: I will continue the current diagnosis and treatment plan. I will increase Cogentin to 1 mg in the morning and 2 mg at 6 p.m. I will add Tofranil 25 mg at bedtime, targeting sleep. I reviewed discharge planning issues. We will continue to focus on stabilization and discharge planning. ARMANDO / JTN: [id number] / MTDD
[2018-12-15] MEDS: IMIPRAMINE 25 MG TAB PO SCH (20:43)
[2018-12-15] MEDS: ATORVASTATIN 10 MG TAB PO SCH (20:43)
[2018-12-15] MEDS: DIVALPROEX SPRINKLE 125 MG CAP.SPRINK PO SCH (20:43)
[2018-12-15] MEDS ORDERED: BENZTROPINE MESYLATE 1 MG TAB PO SCH (21:00)
[2018-12-16] MEDS: ACETAMINOPHEN TAB 325 MG TAB PO PRN (06:26)
[2018-12-16] MEDS: LISINOPRIL 20 MG TAB PO SCH (08:55)
[2018-12-16] MEDS: BENZTROPINE MESYLATE 1 MG TAB PO SCH ×2 (08:55→18:42)
[2018-12-16] MEDS: PANTOPRAZOLE 40 MG TABLET PO SCH (08:55)
[2018-12-16] MEDS: ZIPRASIDONE 60 MG CAP PO SCH ×2 (08:56→21:28)
[2018-12-16] MEDS ORDERED: BENZTROPINE MESYLATE 1 MG TAB PO SCH (09:00)
[2018-12-16] MEDS: PRAMIPEXOLE 0.5 MG TAB PO SCH ×3 (09:40→23:38)
--- NOTE | 2018-12-16 20:52 | PN ---
PROGRESS NOTE DATE OF SERVICE: 12/16/2018 CHIEF COMPLAINT: The patient was admitted on court-ordered treatment. He apparently was making delusional statements including statements of harm towards others. INTERVAL HISTORY: Patient has been doing fair. He had a quiet evening last night. He comes out in the day area. He will wonder about the unit. He interacts some with others. He slept well last night. Today he has been up. He continues to be out in the day area. He attends groups. It is noteworthy that in group settings he seems to be fairly appropriate in how he interacts. His thinking is noted to be concrete, though he seems to make an effort to engage appropriately in the activities. He talks some about his family situation. There were some issues raised about the idea that his father might not be able to live independently in his current home situation. His sister may also have suggested that it may be problematic for the patient himself to return to live with the father. When I discussed this with the patient he did not seem to have any clear ideas about it one way or another. He did make comments that his sister can tend to take too much control of family issues. The patient's thinking seems to be a little clearer overall though he can show regressions into delusional thinking. He tolerates his psychotropic medications. MENTAL STATUS: Patient gave fair eye contact. Psychomotor activity was a little restless. He answered questions appropriately. His thoughts were clear for the most part. Some of the time he would veer off from the subject at hand. He might make comments about some of his abilities that outweigh abilities of others. He can be tangential at times. His affect was in the reasonable range. His mood was reserved. He did not appear to be significantly distressed. He continues to show signs of disorganized thoughts and possibly grandiose and delusional thoughts. His cognition was clear. ASSESSMENT: I will continue the current diagnosis and treatment plan. He will continue psychotropic medications the same. Patient appears to be making progress. I will order a Depakote level for Monday. We will focus on stabilization and discharge planning. ARMANDO / CLINT: [id number] /
[2018-12-16] MEDS: IMIPRAMINE 25 MG TAB PO SCH (21:28)
[2018-12-16] MEDS: ATORVASTATIN 10 MG TAB PO SCH (21:28)
[2018-12-16] MEDS: DIVALPROEX SPRINKLE 125 MG CAP.SPRINK PO SCH (23:38)
[2018-12-17] MEDS: ZIPRASIDONE 60 MG CAP PO SCH ×2 (08:42→19:39)
[2018-12-17] MEDS: PANTOPRAZOLE 40 MG TABLET PO SCH (08:42)
[2018-12-17] MEDS: PRAMIPEXOLE 0.5 MG TAB PO SCH ×3 (08:42→19:39)
[2018-12-17] MEDS: BENZTROPINE MESYLATE 1 MG TAB PO SCH ×2 (08:43→17:20)
[2018-12-17] MEDS: LISINOPRIL 20 MG TAB PO SCH (08:43)
[2018-12-17] MEDS: IMIPRAMINE 25 MG TAB PO SCH (19:39)
[2018-12-17] MEDS: ATORVASTATIN 10 MG TAB PO SCH (19:39)
[2018-12-17] MEDS: DIVALPROEX ER 500 MG TAB.ER.24H PO SCH (19:39)
[2018-12-18 04:12] LABS: Glucose,Whole Blood 119 mg/dL (75-99)
[2018-12-18] MEDS ORDERED: LORazepam 1 MG TAB PO STA (04:18)
[2018-12-18 08:35] LABS: Anion Gap 8 mmol/L; Blood Urea Nitrogen 20 mg/dL (9-20); Calcium 9.8 mg/dL (8.4-10.2); Carbon Dioxide 29 mmol/L (22-30); Chloride 100 mmol/L (98-107); Glucose 103 mg/dL (74-99); Potassium 5.2 mmol/L (3.5-5.1); Sodium 137 mmol/L (137-145)
[2018-12-18] MEDS: LISINOPRIL 20 MG TAB PO SCH (10:32)
[2018-12-18] MEDS: PANTOPRAZOLE 40 MG TABLET PO SCH (10:32)
[2018-12-18] MEDS: ZIPRASIDONE 60 MG CAP PO SCH ×2 (10:32→20:00)
[2018-12-18] MEDS: ERGOCALCIFEROL 50,000 UNIT CAP PO SCH (10:33)
[2018-12-18] MEDS: BENZTROPINE MESYLATE 1 MG TAB PO SCH ×2 (10:33→17:55)
[2018-12-18] MEDS: PRAMIPEXOLE 0.5 MG TAB PO SCH ×3 (10:33→21:17)
--- NOTE | 2018-12-18 14:19 | P.PN ---
Subjective Progress Note Date: 12/18/18 Principal diagnosis: schizoaffective 12/12/2018: Chart reviewed and discussed nursing staff and team this morning discussing disposition and discharge. He does not claim to be suicidal homicidal, has not auditory visual hallucinations. He is interacting appropriately in groups in [facility]. 12/13/2018: Chart reviewed and discussed with nursing staff, and team meeting regarding disposition and discharge. I attempted to call the father on the phone was not answered. The patient denies any suicidal or homicidal ideation. Denies any auditory or visual hallucinations at the current time. He does like talking about going home and he is not at all wanting to go to a long-term because he does not feel safe there. When interviewed he is moving constantly in his chair and his feet and is able to list her direct discussion to wanting to go home numerous times during the interview. 12/18/2018: Chart reviewed, discussed in treatment team and with any mental health. He does not want to go to long-term. He does not want to take his Invega. He is currently on Geodon 60 mg twice a day. He is going to get a guardian 12/26/2018. Patient is very childlike and is difficult to redirect. He denies suicidal or homicidal ideation. He is tense irritable and agitated with inappropriate responses. He refused taking his Invega. Objective - Vital Signs Vital signs: Vital Signs Temp 97.6 F 12/18/18 04:10 Pulse 112 H 12/18/18 10:36 Resp 18 12/18/18 10:36 BP 103/70 12/18/18 10:36 Pulse Ox 96 12/18/18 04:10 - Labs CBC & Chem 7: 12/11/18 09:10 12/18/18 07:35 Labs: Abnormal Lab Results - Last 24 Hours (Table) 12/18/18 12/18/18 Range/Units 04:10 07:35 Potassium 5.2 H (3.5-5.1) mmol/L Glucose 103 H (74-99) mg/dL POC Glucose (mg/dL) 119 H (75-99) mg/dL Assessment and Plan (1) Schizoaffective disorder Narrative/Plan: He patient is a 58 yo M with a PMH of schizophrenia, HLD, HTN, and COPD who was brought in to the ED for a court ordered psychiatric treatment. The patient notes that earlier today his water heater leaked in his home and that his eyes feel somewhat watery. He otherwise denied any additional complaints. He had expressed some homicidal ideation while in the ED though currently denying any homicidal or suicidal ideation. He is denying chest pain, SOB, nausea, vomiting, diaphoresis, or palpitations. Further denying fever, chills, cough, abdominal pain, or diarrhea. Past Medical History Past Medical History: COPD, Hyperlipidemia, Hypertension, Osteoarthritis (OA) Additional Past Medical History / Comment(s): prostate cancer, possible seizure disorder-last known seizure 12/07/14.tinnitus, bipolar depression, ptsd, schizophrenia. History of Any Multi-Drug Resistant Organisms: None Reported Past Surgical History: Prostate Surgery Additional Past Surgical History / Comment(s): protatectomy, "eye surgery to correct lazy eyes" and back surgery, Past Anesthesia/Blood Transfusion Reactions: Blood Transfusion Reaction Additional Past Anesthesia/Blood Transfusion Reaction / Comm: pt stated received blood in past and had a reaction to it-caused hives. Smoking Status: Never smoker - Past Family History Father Family Medical History: Cancer Additional Family Medical History / Comment(s): Father is alive at age 82 with history of prostate cancer. Mother Family Medical History: Cancer Additional Family Medical History / Comment(s): Mother at age 53 from bladder cancer Brother(s) Additional Family Medical History / Comment(s): Patient has 4 brothers and 2 sisters that are healthy with no major medical problems. Patient does not have any children. Medications and Allergies Home Medications Medication Instructions Recorded Confirmed Type Pantoprazole [Protonix] 40 mg PO SANGEETHA-BRKFST #30 tablet. 01/27/16 12/10/18 Rx Ergocalciferol (Vitamin D2) 50,000 unit PO Q7D 11/23/18 12/10/18 History [Vitamin D2] Acetaminophen Tab [Tylenol] 650 mg PO Q4HR PRN tab 11/30/18 12/10/18 Rx Albuterol Inhaler [Ventolin Hfa 2 puff INHALATION RT-Q4H PRN 30 11/30/18 12/10/18 Rx Inhaler] Days #1 puff Atorvastatin [Lipitor] 10 mg PO HS 30 Days #30 tab 11/30/18 12/10/18 Rx Benztropine Mesylate [Cogentin] 1 mg PO BID 30 Days #60 tab 11/30/18 12/10/18 Rx Lisinopril [Prinivil] 20 mg PO DAILY 30 Days #30 tablet 11/30/18 12/10/18 Rx Nitroglycerin Sl Tabs [Nitrostat] 0.4 mg SUBLINGUAL Q5M PRN #21 tab 11/30/18 12/10/18 Rx Pramipexole [Mirapex] 1 mg PO TID 30 Days #90 tab 11/30/18 12/10/18 Rx Divalproex Sodium [Depakote] 1,000 mg PO HS 12/10/18 12/10/18 History Ziprasidone [Geodon] 60 mg PO BID 12/10/18 12/10/18 History Allergies Allergy/AdvReac Type Severity Reaction Status Date / Time amoxicillin Allergy Unknown Verified 12/10/18 15:55 brompheniramine maleate Allergy Unknown Verified 12/10/18 15:55 [From Dimetapp Cold-Allergy (PE)] codeine Allergy Rash/Hives Verified 12/10/18 15:55 fluoxetine HCl [From Prozac] Allergy Unknown Verified 12/10/18 15:55 latex Allergy Unknown Verified 12/10/18 15:55 morphine Allergy Rash/Hives Verified 12/10/18 15:55 phenylephrine HCl Allergy Unknown Verified 12/10/18 15:55 [From Dimetapp Cold-Allergy (PE)] shellfish derived [Shellfish] Allergy Rash/Hives Verified 12/10/18 15:55 Mental status examination: This is a 58-year-old male who looks older than his stated age. Speech and language is rapid expressive loud. Attitude and behaviors cooperative. Mood is euphoric elated irritable. Affect is lively and labile. Orientation person place and time and situation. Thought content within normal. Risk factor he does admit to suicidal ideation. Perception does have auditory hallucinations. Thought process is concrete in nature. Concentration is impaired. Recent and remote memory within normal. Intelligence below average. Insight and judgment are poor. Plan: We'll increase his Geodon to 40 mg by mouth twice a day and add Mirapex 0.5 mg 3 times a day for his restless leg. Remain on 15 minute checks usual for [facility] and expect him to go to groups and interact in a positive manner while on the psychiatric unit. 12/12/2018: He remains on the above medications without any altercations on the unit with either staff or peers. He will remain on 15 minute checks. 12/13/2018: He remains on the above medications without any further adjustments. He remains on 15 minute checks for safety protocol on the [address] [place] [address]. He is tolerating the Geodon by mouth twice a day and remains on Mirapex 3 times a day for his restless leg. Discharge planning in process when available to talk to sister or father regarding discharge. In team this morning and discussed that the ACT team will be involved upon discharge. He is denying any auditory or visual hallucinations, denies suicidal or homicidal ideation but ruminates about going home 12/18/2018: He remains on above medications without any further adjustments. He did complain to the on-call doctor and was Tofranil for sleep. He remains on 15 minute checks her safety. Awaiting placement and guardianship. Current Visit: Yes Status: Acute Priority: Low Code(s): F25.9 - SCHIZOAFFECTIVE DISORDER, UNSPECIFIED SNOMED Code(s): 76718003 Time with Patient: Less than 30
[2018-12-18] MEDS: ATORVASTATIN 10 MG TAB PO SCH (20:00)
[2018-12-18] MEDS: DIVALPROEX ER 500 MG TAB.ER.24H PO SCH (20:00)
[2018-12-18] MEDS: IMIPRAMINE 25 MG TAB PO SCH (20:00)
[2018-12-19] MEDS: PANTOPRAZOLE 40 MG TABLET PO SCH (08:30)
[2018-12-19] MEDS: BENZTROPINE MESYLATE 1 MG TAB PO SCH ×2 (08:30→20:59)
[2018-12-19] MEDS: PRAMIPEXOLE 0.5 MG TAB PO SCH ×3 (08:30→21:00)
[2018-12-19] MEDS: ZIPRASIDONE 60 MG CAP PO SCH ×2 (08:30→21:00)
[2018-12-19] MEDS: LISINOPRIL 20 MG TAB PO SCH (08:30)
--- NOTE | 2018-12-19 14:46 | P.PN ---
Subjective Progress Note Date: 12/19/18 Principal diagnosis: schizoaffective 12/12/2018: Chart reviewed and discussed nursing staff and team this morning discussing disposition and discharge. He does not claim to be suicidal homicidal, has not auditory visual hallucinations. He is interacting appropriately in groups in [facility]. 12/13/2018: Chart reviewed and discussed with nursing staff, and team meeting regarding disposition and discharge. I attempted to call the father on the phone was not answered. The patient denies any suicidal or homicidal ideation. Denies any auditory or visual hallucinations at the current time. He does like talking about going home and he is not at all wanting to go to a nursing home because he does not feel safe there. When interviewed he is moving constantly in his chair and his feet and is able to list her direct discussion to wanting to go home numerous times during the interview. 12/18/2018: Chart reviewed, discussed in treatment team and with any mental health. He does not want to go to nursing home. He is going to get a guardian 12/26/2018. Patient is very childlike and is difficult to redirect. He denies suicidal or homicidal ideation. He is tense irritable and agitated with inappropriate responses. 12/19/2018: Chart reviewed and discussed in treatment team and disposition will be a guardian 12/26/2018. He remains on his medication and stable and no altercation with staff or other peers. He deny suicidal homicidal ideation. He has no apparent psychosis at this time but is childlike in presentation. He states that his depression is stable and has anxiety but is able to cope with the anxiety. Objective - Vital Signs Vital signs: Vital Signs Temp 98.8 F 12/19/18 05:53 Pulse 87 12/19/18 08:30 Resp 18 12/19/18 05:53 BP 121/63 12/19/18 08:30 Pulse Ox 94 L 12/19/18 05:53 - Labs CBC & Chem 7: 12/11/18 09:10 12/18/18 07:35 Assessment and Plan (1) Schizoaffective disorder Narrative/Plan: He patient is a 58 yo M with a PMH of schizophrenia, HLD, HTN, and COPD who was brought in to the ED for a court ordered psychiatric treatment. The patient notes that earlier today his water heater leaked in his home and that his eyes f eel somewhat watery. He otherwise denied any additional complaints. He had expressed some homicidal ideation while in the ED though currently denying any homicidal or suicidal ideation. He is denying chest pain, SOB, nausea, vomiting, diaphoresis, or palpitations. Further denying fever, chills, cough, abdominal pain, or diarrhea. Past Medical History Past Medical History: COPD, Hyperlipidemia, Hypertension, Osteoarthritis (OA) Additional Past Medical History / Comment(s): prostate cancer, possible seizure disorder-last known seizure 12/07/14.tinnitus, bipolar depression, ptsd, schizophrenia. History of Any Multi-Drug Resistant Organisms: None Reported Past Surgical History: Prostate Surgery Additional Past Surgical History / Comment(s): protatectomy, "eye surgery to correct lazy eyes" and back surgery, Past Anesthesia/Blood Transfusion Reactions: Blood Transfusion Reaction Additional Past Anesthesia/Blood Transfusion Reaction / Comm: pt stated received blood in past and had a reaction to it-caused hives. Smoking Status: Never smoker - Past Family History Father Family Medical History: Cancer Additional Family Medical History / Comment(s): Father is alive at age 82 with history of prostate cancer. Mother Family Medical History: Cancer Additional Family Medical History / Comment(s): Mother at age 53 from bladder cancer Brother(s) Additional Family Medical History / Comment(s): Patient has 4 brothers and 2 sisters that are healthy with no major medical problems. Patient does not have any children. Medications and Allergies Home Medications Medication Instructions Recorded Confirmed Type Pantoprazole [Protonix] 40 mg PO AC-BRKFST #30 tablet. 01/27/16 12/10/18 Rx Ergocalciferol (Vitamin D2) 50,000 unit PO Q7D 11/23/18 12/10/18 History [Vitamin D2] Acetaminophen Tab [Tylenol] 650 mg PO Q4HR PRN tab 11/30/18 12/10/18 Rx Albuterol Inhaler [Ventolin Hfa 2 puff INHALATION RT-Q4H PRN 30 11/30/18 12/10/18 Rx Inhaler] Days #1 puff Atorvastatin [Lipitor] 10 mg PO HS 30 Days #30 tab 11/30/18 12/10/18 Rx Benztropine Mesylate [Cogentin] 1 mg PO BID 30 Days #60 tab 11/30/18 12/10/18 Rx Lisinopril [Prinivil] 20 mg PO DAILY 30 Days #30 tablet 11/30/18 12/10/18 Rx Nitroglycerin Sl Tabs [Nitrostat] 0.4 mg SUBLINGUAL Q5M PRN #21 tab 11/30/18 12/10/18 Rx Pramipexole [Mirapex] 1 mg PO TID 30 Days #90 tab 11/30/18 12/10/18 Rx Divalproex Sodium [Depakote] 1,000 mg PO HS 12/10/18 12/10/18 History Ziprasidone [Geodon] 60 mg PO BID 12/10/18 12/10/18 History Allergies Allergy/AdvReac Type Severity Reaction Status Date / Time amoxicillin Allergy Unknown Verified 12/10/18 15:55 brompheniramine maleate Allergy Unknown Verified 12/10/18 15:55 [From Dimetapp Cold-Allergy (PE)] codeine Allergy Rash/Hives Verified 12/10/18 15:55 fluoxetine HCl [From Prozac] Allergy Unknown Verified 12/10/18 15:55 latex Allergy Unknown Verified 12/10/18 15:55 morphine Allergy Rash/Hives Verified 12/10/18 15:55 phenylephrine HCl Allergy Unknown Verified 12/10/18 15:55 [From Dimetapp Cold-Allergy (PE)] shellfish derived [Shellfish] Allergy Rash/Hives Verified 12/10/18 15:55 Mental status examination: This is a 58-year-old male who looks older than his stated age. Speech and language is rapid expressive loud. Attitude and behaviors cooperative. Mood is euphoric elated irritable. Affect is lively and labile. Orientation person place and time and situation. Thought content within normal. Risk factor he does admit to suicidal ideation. Perception does have auditory hallucinations. Thought process is concrete in nature. Concentration is impaired. Recent and remote memory within normal. Intelligence below average. Insight and judgment are poor. Plan: We'll increase his Geodon to 40 mg by mouth twice a day and add Mirapex 0.5 mg 3 times a day for his restless leg. Remain on 15 minute checks usual for [facility] and expect him to go to groups and interact in a positive manner while on the psychiatric unit. 12/12/2018: He remains on the above medications without any altercations on the unit with either staff or peers. He will remain on 15 minute checks. 12/13/2018: He remains on the above medications without any further adjustments. He remains on 15 minute checks for safety protocol on the [address] [place] [address] Shayan Romo. He is tolerating the Geodon by mouth twice a day and remains on Mirapex 3 times a day for his restless leg. Discharge planning in process when available to talk to sister or father regarding discharge. In team this morning and discussed that the ACT team will be involved upon discharge. He is denying any auditory or visual hallucinations, denies suicidal or homicidal ideation but ruminates about going home 12/18/2018: He remains on above medications without any further adjustments. He did complain to the on-call doctor and was Tofranil for sleep. He remains on 15 minute checks her safety. Awaiting placement and guardianship. 12/19/2018 remains on the medications without any further adjustments. He is on 15 minute observation for safety. I increased his Cogentin to 2 mg twice a day for extrapyramidal side effects. He denied any suicidal homicidal ideation, denies any auditory or visual hallucinations, and is coping well with the situation of awaiting for a guardian. Current Visit: Yes Status: Acute Priority: Low Code(s): F25.9 - SCHIZOAFFECTIVE DISORDER, UNSPECIFIED SNOMED Code(s): 63895997 Time with Patient: Less than 30
[2018-12-19] MEDS: DIVALPROEX ER 500 MG TAB.ER.24H PO SCH (20:59)
[2018-12-19] MEDS: ATORVASTATIN 10 MG TAB PO SCH (20:59)
[2018-12-19] MEDS: IMIPRAMINE 25 MG TAB PO SCH (21:00)
[2018-12-20] MEDS: MAG HYDROX/AL HYDROX/SIMETH 30 ML CUP PO PRN (06:24)
[2018-12-20] MEDS: ZIPRASIDONE 60 MG CAP PO SCH ×2 (08:44→21:00)
[2018-12-20] MEDS: LISINOPRIL 20 MG TAB PO SCH (08:44)
[2018-12-20] MEDS: PANTOPRAZOLE 40 MG TABLET PO SCH (08:44)
[2018-12-20] MEDS: PRAMIPEXOLE 0.5 MG TAB PO SCH ×3 (08:44→21:00)
[2018-12-20] MEDS: BENZTROPINE MESYLATE 1 MG TAB PO SCH ×2 (08:46→21:00)
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
[2018-12-20] MEDS: DIVALPROEX ER 500 MG TAB.ER.24H PO SCH (21:00)
[2018-12-20] MEDS: IMIPRAMINE 25 MG TAB PO SCH (21:00)
[2018-12-20] MEDS: ATORVASTATIN 10 MG TAB PO SCH (21:00)
[2018-12-21] MEDS: PANTOPRAZOLE 40 MG TABLET PO SCH (07:51)
[2018-12-21] MEDS: LISINOPRIL 20 MG TAB PO SCH (08:43)
[2018-12-21] MEDS: ZIPRASIDONE 60 MG CAP PO SCH ×2 (08:43→20:11)
[2018-12-21] MEDS: BENZTROPINE MESYLATE 1 MG TAB PO SCH ×2 (08:43→20:11)
[2018-12-21] MEDS: PRAMIPEXOLE 0.5 MG TAB PO SCH ×3 (10:32→20:11)
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
[2018-12-21] MEDS: DIVALPROEX ER 500 MG TAB.ER.24H PO SCH (20:11)
[2018-12-21] MEDS: IMIPRAMINE 25 MG TAB PO SCH (20:11)
[2018-12-21] MEDS: ATORVASTATIN 10 MG TAB PO SCH (20:11)
[2018-12-22] MEDS: ACETAMINOPHEN TAB 325 MG TAB PO PRN ×2 (06:04→22:53)
[2018-12-22] MEDS: PANTOPRAZOLE 40 MG TABLET PO SCH (07:47)
[2018-12-22] MEDS: PRAMIPEXOLE 0.5 MG TAB PO SCH ×2 (08:42→16:20)
[2018-12-22] MEDS: BENZTROPINE MESYLATE 1 MG TAB PO SCH ×2 (08:43→20:49)
[2018-12-22] MEDS: LISINOPRIL 20 MG TAB PO SCH (08:43)
[2018-12-22] MEDS: ZIPRASIDONE 60 MG CAP PO SCH ×2 (08:43→20:50)
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
[2018-12-22] MEDS: ATORVASTATIN 10 MG TAB PO SCH (20:49)
[2018-12-22] MEDS: IMIPRAMINE 25 MG TAB PO SCH (20:50)
[2018-12-22] MEDS: DIVALPROEX ER 500 MG TAB.ER.24H PO SCH (20:50)
[2018-12-23] MEDS: BENZTROPINE MESYLATE 1 MG TAB PO SCH (08:30)
[2018-12-23] MEDS: ZIPRASIDONE 60 MG CAP PO SCH ×2 (08:30→20:55)
[2018-12-23] MEDS: LISINOPRIL 20 MG TAB PO SCH (08:30)
[2018-12-23] MEDS: PANTOPRAZOLE 40 MG TABLET PO SCH (08:30)
[2018-12-23] MEDS: ACETAMINOPHEN TAB 325 MG TAB PO PRN (11:17)
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
[2018-12-23] MEDS: ATORVASTATIN 10 MG TAB PO SCH (20:55)
[2018-12-23] MEDS: IMIPRAMINE 25 MG TAB PO SCH (20:55)
[2018-12-23] MEDS: DIVALPROEX ER 500 MG TAB.ER.24H PO SCH (20:56)
[2018-12-24] MEDS: PANTOPRAZOLE 40 MG TABLET PO SCH (06:50)
[2018-12-24] MEDS: ACETAMINOPHEN TAB 325 MG TAB PO PRN ×2 (06:50→14:35)
[2018-12-24] MEDS: LISINOPRIL 20 MG TAB PO SCH (09:22)
[2018-12-24] MEDS: ZIPRASIDONE 60 MG CAP PO SCH ×2 (09:22→20:59)
--- NOTE | 2018-12-24 14:57 | P.PN ---
Progress Note - Text Progress Note Date: 12/24/18 Interval History: Patient is a 58-year-old male who is being seen, patient reports that he is been doing fine and states that he is sleeping and eating well. He states he's been attending groups and activities. He discussed his wish to not go to a penitentiary after discharge because he has been in them in the past and he disliked the people he was with as well as the fact that he had nothing to do. Patient states he understands there is a guardianship hearing on Monday. Patient reports no side effects from his current medications. Mental Status: Appearance/Attitude: Patient is appropriately and neatly dressed and makes intermittent eye contact and was cooperative. Behavior: Patient did not exhibit any psychomotor agitation or retardation. Speech/Language: Patient's speech was spontaneous of normal volume and rhythm and he was coherent. Thought Process: Patient was goal-directed no evidence of loose association or flight of ideas. Thought Content: She denied any auditory or visual hallucinations and no delusions or paranoid ideation were elicited. Patient continued to voice his dislike of group homes and not wishing to go to live in one after discharge, wanting instead to return home. Patient was aware of the guardianship hearing on Monday. Patient reported no side effects from his medicine but does state that he still continues to have some involuntary movement of his feet and states that medication that he was on for this was not helpful. Suicidal/Homicidal Ideation: Patient denies any current suicidal or homicidal ideation Sensorium/Cognition: Patient is alert and oriented to person, place and time Mood/Affect: Patient's mood was pleasant and his affect was appropriate Insight/Judgment: Insight and judgment are limited Assessment: Patient presents stating that he wishes to return home and not go to a penitentiary as he has been on them in the past and disliked his peers. He added some understanding of guardianship, stating that he knows that this will affect his discharge placement. Patient states that he hadn't been taking his medications as prescribed because they had been changed and he got frustrated with the changes in his medication as well as with his Klonopin being discontinued. Patient has been attending groups and activities and states that he is not having any side effects from his medications. Plan: Patient will continue on Depakote 1000 mg extended release at bedtime, Tofranil 25 mg at bedtime and Geodon 60 mg twice a day. A Depakote level will be obtained tomorrow morning. Patient is awaiting a guardianship hearing on Monday. Discharge plans are for a penitentiary.
[2018-12-24 15:05] VITALS: BMI 30.1
[2018-12-24] MEDS: DIVALPROEX ER 500 MG TAB.ER.24H PO SCH (20:59)
[2018-12-24] MEDS: IMIPRAMINE 25 MG TAB PO SCH (20:59)
[2018-12-24] MEDS: ATORVASTATIN 10 MG TAB PO SCH (20:59)
[2018-12-25] MEDS: LISINOPRIL 20 MG TAB PO SCH (07:59)
[2018-12-25] MEDS: ERGOCALCIFEROL 50,000 UNIT CAP PO SCH (07:59)
[2018-12-25] MEDS: ZIPRASIDONE 60 MG CAP PO SCH ×2 (07:59→21:05)
[2018-12-25] MEDS: PANTOPRAZOLE 40 MG TABLET PO SCH (07:59)
--- NOTE | 2018-12-25 14:10 | P.PN ---
Progress Note - Text Progress Note Date: 12/25/18 Interval History: Patient is a 58-year-old male who was seen today after being admitted for psychotic symptoms and him being unable to care for himself. Patient states that he is anxious about the hearing tomorrow, states that he still not happy about going to a assisted. He reports that he has been sleeping and eating well and attending groups. He reported no side effects from medication. Mental Status: Appearance/Attitude: Patient is appropriately dressed, makes intermittent eye contact and was cooperative Behavior: Patient did not display any psychomotor agitation or retardation. Speech/Language: Patient responded to questions, spoke in a normal volume and rhythm and was coherent Thought Process: Patient was goal-directed there is no evidence of loose association or flight of ideas Thought Content: Patient denied any auditory or visual hallucinations and no delusions or paranoid ideation were elicited. Patient states that he would prefer to go back home versus going to a assisted after discharge. Patient states that he is slightly anxious about the hearing and wonders when his energy attorney will come to speak with him. He states that he is sleeping and eating well. Suicidal/Homicidal Ideation: Patient denied any current suicidal or homicidal ideation. Sensorium/Cognition: Patient is alert and oriented to person, place and time and further cognitive testing was not performed Mood/Affect: Patient's mood is pleasant and his affect is slightly blunted Insight/Judgment: Patient's insight and judgment are limited Assessment: Patient continues to be concerned about being discharged to a assisted but voiced a group therapy today that he is coming to terms with that to some degree. Patient reported to me that he slightly anxious about his guardianship hearing tomorrow. He reported no side effects from his medication and states that he is eating and sleeping well. No psychotic symptoms were elicited from the patient. He is not reporting any side effects from the medication. Patient's Depakote level was 71.5 on a dosage of 1000 mg at bedtime. Plan: Patient will continue on Depakote 1000 mg daily at bedtime, Tofranil 25 mg daily at bedtime and Geodon 60 mg twice a day. Patient is to have guardianship hearing tomorrow with a plan to arrange for discharge to a assisted. Patient continues to require hospitalization to achieve the guardianship as well as placement in a assisted.
[2018-12-25] MEDS: ACETAMINOPHEN TAB 325 MG TAB PO PRN (16:31)
[2018-12-25] MEDS: DIVALPROEX ER 500 MG TAB.ER.24H PO SCH (21:05)
[2018-12-25] MEDS: ATORVASTATIN 10 MG TAB PO SCH (21:05)
[2018-12-25] MEDS: IMIPRAMINE 25 MG TAB PO SCH (21:05)
[2018-12-26] MEDS: MAG HYDROX/AL HYDROX/SIMETH 30 ML CUP PO PRN ×2 (00:13→08:41)
[2018-12-26] MEDS: ACETAMINOPHEN TAB 325 MG TAB PO PRN (00:13)
[2018-12-26] MEDS: ZIPRASIDONE 60 MG CAP PO SCH ×2 (07:59→21:19)
[2018-12-26] MEDS: LISINOPRIL 20 MG TAB PO SCH (07:59)
[2018-12-26] MEDS: PANTOPRAZOLE 40 MG TABLET PO SCH (07:59)
--- NOTE | 2018-12-26 12:56 | P.PN ---
Progress Note - Text Progress Note Date: 12/26/18 Interval History: Patient is a 58-year-old male who was seen today and he states that he is worried about going to custodial as he would prefer to go home because he is a private person. He has declined going to the hearing and states that he spoke with the seating and mobility technologist who did answer his questions but states that he was still anxious last night about the hearing today. Patient reported that his stomach was upset this morning after eating some pineapple. He states that he is not having any side effects from the medication. Patient has been attending groups and activities. Mental Status: Appearance/Attitude: Patient is neatly dressed, makes intermittent eye contact and was cooperative Behavior: Patient did not display any psychomotor agitation or retardation. Speech/Language: Patient's speech was spontaneous with encouragement, normal volume and rhythm and he was coherent Thought Process: Patient was goal-directed there is no evidence of loose association or flight of ideas Thought Content: Patient denied any auditory or visual hallucinations no delusions or paranoid ideation were elicited. Patient states that he is anxious about the hearing today, does not want to go to a custodial because he states that he wants to live in his own home in his own room and have privacy. Patient states that he didn't sleep well last night because he was anxious about the hearing. Suicidal/Homicidal Ideation: Patient denies any current suicidal or homicidal ideation Sensorium/Cognition: Patient is alert and oriented to person, place, and time and his recent and remote memory are grossly intact Mood/Affect: Patient's mood is stable and his affect is slightly blunted Insight/Judgment: Patient's insight and judgment are limited Assessment: patient has been cooperative on the unit, attending groups and activities and compliant with his medications. Patient expressed his anxiety a bout the hearing today as well as his continued dislike of group homes due to the lack of privacy and wish to return to his own home. Patient's hearing is today at 11 AM and he has declined to attend the hearing. Patient reports no side effects from the medication, did state that he was slightly anxious and didn't sleep as well last evening. Plan: patient will continue on Tofranil 25 mg at bedtime, Geodon 60 mg twice a day and Depakote 1000 mg extended release to target his mood and psychotic symptoms. Patient's hearing is today for appointment of a public guardian and in the team treatment meeting his discharge plans were discussed which would be to a custodial when an opening is available. Patient will remain in the hospital until appropriate discharge plans have been arranged and at that time he will be discharged.
[2018-12-26] MEDS ORDERED: LORazepam 1 MG TAB PO STA (15:50)
[2018-12-26] MEDS: DIVALPROEX ER 500 MG TAB.ER.24H PO SCH (21:19)
[2018-12-26] MEDS: IMIPRAMINE 25 MG TAB PO SCH (21:19)
[2018-12-26] MEDS: ATORVASTATIN 10 MG TAB PO SCH (21:19)
[2018-12-27] MEDS: ACETAMINOPHEN TAB 325 MG TAB PO PRN ×2 (00:55→13:57)
[2018-12-27 06:34] VITALS: BP 120/64; PULSE 73; RESP 16; TEMP 97.6
[2018-12-27] MEDS: PANTOPRAZOLE 40 MG TABLET PO SCH (08:04)
[2018-12-27] MEDS: ZIPRASIDONE 60 MG CAP PO SCH (08:04)
[2018-12-27] MEDS: LISINOPRIL 20 MG TAB PO SCH (08:04)
[2018-12-27] MEDS: MAG HYDROX/AL HYDROX/SIMETH 30 ML CUP PO PRN (08:05)
[2018-12-27] MEDS ORDERED: LORazepam 1 MG TAB PO STA (13:59)
--- NOTE | 2018-12-27 15:41 | P.DS ---
Providers Date of admission: 12/10/18 17:57 Expected date of discharge: 12/27/18 Attending physician: Ike Decker DO Consults: 12/10/18 18:17 Consult Physician Routine Consulting Provider: Maury Benoit Consult Reason/Comments: H&P and medical Do you want consulting provider notified?: Yes Primary care physician: [facility] [facility] Course: Discharge Diagnosis: Schizoaffective disorder, bipolar type Reason for Admission: patient is a 58 yo M with a PMH of schizophrenia, HLD, HTN, and COPD who was brought in to the ED. The patient notes that earlier today his water heater leaked in his home and that his eyes feel somewhat watery. He otherwise denied any additional complaints. He had expressed some homicidal ideation while in the ED though currently denying any homicidal or suicidal ideation. He is denying chest pain, SOB, nausea, vomiting, diaphoresis, or palpitations. Further denying fever, chills, cough, abdominal pain, or diarrhea. Patient had recently been discharged from a prior admission in November 2018. Mental status examination on admission: This is a 58-year-old male who looks older than his stated age. Speech and language is rapid expressive loud. Attitude and behaviors cooperative. Mood is euphoric elated irritable. Affect is lively and labile. Orientation person place and time and situation. Thought content within normal. Risk factor he does admit to suicidal ideation. Perception does have auditory hallucinations. Thought process is concrete in nature. Concentration is impaired. Recent and remote memory within normal. Intelligence below average. Insight and judgment are poor. Hospital Course: Patient was admitted on a voluntary basis, routine observation was ordered as well as group and activity therapy. Patient had a medical consultation and routine laboratory studies were also performed. Patient was continued on his medications of proton X, Nitrostat lisinopril vitamin D and Lipitor. Patient was also continued on his Ventolin inhaler. Patient's Geodon was adjusted to a dose of 60 mg twice a day during his hospital stay, patient's Depakote was maintained at 1000 mg at bedtime. Patient's Mirapex was discontinued and the patient was placed on Tofranil 25 mg at bedtime to assist with sleep. Patient on medication continued to improve, was cooperative on the unit, sleeping and eating well and attending groups and activities. While the patient was in the hospital it was decided to apply for guardianship and guardianship hearing was held on December 26 and the patient now has a public [facility] rdian. It was felt that the patient would be better served by being placed in a halfway rather than returning to his home. Patient was ready for discharge when a bed became available at [facility] and his guardian approved the plan. Patient's Depakote level was within the therapeutic range. Patient was reluctant to go to a halfway but he was encouraged to be more positive in his outlook. He did not report any psychotic symptoms and there were no current suicidal or homicidal ideation. Patient had been cooperative on the unit and was felt to be ready for discharge. Allergies amoxicillin Allergy (Verified 12/10/18 15:55) Unknown brompheniramine maleate [From Dimetapp Cold-Allergy (PE)] Allergy (Verified 12/10/18 15:55) Unknown codeine Allergy (Verified 12/10/18 15:55) Rash/Hives fluoxetine HCl [From Prozac] Allergy (Verified 12/10/18 15:55) Unknown latex Allergy (Verified 12/10/18 15:55) Unknown morphine Allergy (Verified 12/10/18 15:55) Rash/Hives phenylephrine HCl [From Dimetapp Cold-Allergy (PE)] Allergy (Verified 12/10/18 15:55) Unknown shellfish derived [Shellfish] Allergy (Verified 12/10/18 15:55) Rash/Hives Laboratory Last Values WBC 8.2 k/uL (3.8-10.6) 12/11/18 09:10 RBC 4.64 m/uL (4.30-5.90) 12/11/18 09:10 Hgb 13.1 gm/dL (13.0-17.5) 12/11/18 09:10 Hct 41.2 % (39.0-53.0) 12/11/18 09:10 MCV 88.8 fL (80.0-100.0) 12/11/18 09:10 MCH 28.3 pg (25.0-35.0) 12/11/18 09:10 MCHC 31.8 g/dL (31.0-37.0) 12/11/18 09:10 RDW 14.3 % (11.5-15.5) 12/11/18 09:10 Plt Count 259 k/uL (150-450) 12/11/18 09:10 Neutrophils % 72 % 12/11/18 09:10 Lymphocytes % 19 % 12/11/18 09:10 Monocytes % 6 % 12/11/18 09:10 Eosinophils % 1 % 12/11/18 09:10 Basophils % 0 % 12/11/18 09:10 Neutrophils # 5.9 k/uL (1.3-7.7) 12/11/18 09:10 Lymphocytes # 1.6 k/uL (1.0-4.8) 12/11/18 09:10 Monocytes # 0.5 k/uL (0-1.0) 12/11/18 09:10 Eosinophils # 0.1 k/uL (0-0.7) 12/11/18 09:10 Basophils # 0.0 k/uL (0-0.2) 12/11/18 09:10 Sodium 137 mmol/L (137-145) 12/18/18 07:35 Potassium 5.2 mmol/L (3.5-5.1) H 12/18/18 07:35 Chloride 100 mmol/L (98-107) 12/18/18 07:35 Carbon Dioxide 29 mmol/L (22-30) 12/18/18 07:35 Anion Gap 8 mmol/L 12/18/18 07:35 BUN 20 mg/dL (9-20) 12/18/18 07:35 Creatinine 1.01 mg/dL (0.66-1.25) 12/18/18 07:35 Est GFR (CKD-EPI)AfAm >90 (>60 ml/min/1.73 sqM) 12/18/18 07:35 Est GFR (CKD-EPI)NonAf 83 (>60 ml/min/1.73 sqM) 12/18/18 07:35 Glucose 103 mg/dL (74-99) H 12/18/18 07:35 POC Glucose (mg/dL) 119 mg/dL (75-99) H 12/18/18 04:10 POC Glu Research Staff Member ID Martin Masterson 12/18/18 04:[address] Glu mg/dL 134 12/11/18 09:10 Hemoglobin A1c 6.3 % (4.0-6.0) H 12/11/18 09:10 Calcium 9.8 mg/dL (8.4-10.2) 12/18/18 07:35 Total Bilirubin 0.8 mg/dL (0.2-1.3) 12/11/18 09:10 AST 28 U/L (17-59) 12/11/18 09:10 ALT 43 U/L (21-72) 12/11/18 09:10 Alkaline Phosphatase 76 U/L (38-126) 12/11/18 09:10 Total Protein 7.0 g/dL (6.3-8.2) 12/11/18 09:10 Albumin 4.3 g/dL (3.5-5.0) 12/11/18 09:10 Triglycerides 169 mg/dL (<150) H 12/11/18 09:10 Cholesterol 151 mg/dL (<200) 12/11/18 09:10 LDL Cholesterol, Calc 73 mg/dL (0-99) 12/11/18 09:10 HDL Cholesterol 44 mg/dL (40-60) 12/11/18 09:10 TSH 1.390 mIU/L (0.465-4.680) 12/11/18 09:10 Urine Color Yellow 12/11/18 05:00 Urine Appearance Clear (Clear) 12/11/18 05:00 Urine pH 6.0 (5.0-8.0) 12/11/18 05:00 Ur Specific Kramer 1.011 (1.001-1.035) 12/11/18 05:00 Urine Protein Negative (Negative) 12/11/18 05:00 Urine Glucose (UA) Negative (Negative) 12/11/18 05:00 Urine Ketones Trace (Negative) H 12/11/18 05:00 Urine Blood Negative (Negative) 12/11/18 05:00 Urine Nitrite Negative (Negative) 12/11/18 05:00 Urine Bilirubin Negative (Negative) 12/11/18 05:00 Urine Urobilinogen <2.0 mg/dL (<2.0) 12/11/18 05:00 Ur Leukocyte Esterase Negative (Negative) 12/11/18 05:00 Urine Opiates Screen Not Detected (NotDetected) 12/10/18 17:05 Ur Oxycodone Screen Not Detected (NotDetected) 12/10/18 17:05 Urine Methadone Screen Not Detected (NotDetected) 12/10/18 17:05 Ur Propoxyphene Screen Not Detected (NotDetected) 12/10/18 17:05 Ur Barbiturates Screen Not Detected (NotDetected) 12/10/18 17:05 Valproic Acid 71.5 ug/mL 12/25/18 08:33 Free Valproic Acid 3.1 mg/L (4.8-17.3) L 12/18/18 07:35 U Tricyclic Antidepress Not Detected (NotDetected) 12/10/18 17:05 Ur Phencyclidine Scrn Not Detected (NotDetected) 12/10/18 17:05 Ur Amphetamines Screen Not Detected (NotDetected) 12/10/18 17:05 U Methamphetamines Scrn Not Detected (NotDetected) 12/10/18 17:05 U Benzodiazepines Scrn Not Detected (NotDetected) 12/10/18 17:05 Urine Cocaine Screen Not Detected (NotDetected) 12/10/18 17:05 U Marijuana (THC) Screen Not Detected (NotDetected) 12/10/18 17:05 Discharge Mental Status: Appearance/Attitude: Patient is neatly dressed and groomed, makes intermittent eye contact and is cooperative. Behavior: Patient does not exhibit any psychomotor agitation or retardation. Speech/Language: Patient responds to questions, needs encouragement to elaborate and is coherent and speaks in a normal volume and rhythm. Thought Process: Patient is goal-directed there is no evidence of loose association or flight of ideas Thought Content: Patient denies any auditory or visual hallucinations no delusions or paranoid ideation were elicited. Patient states he is sleeping and eating well although reluctant to go to a halfway he is cooperative with placement. Patient states that his mood is stable and he is sleeping and eating well. Suicidal/Homicidal Ideation: Patient denied any current suicidal or homicidal ideation Sensorium/Cognition: Patient is alert and oriented to person, place, and time and his recent and remote memory are grossly intact Mood/Affect: Patient's mood is stable and his affect is slightly blunted Insight/Judgment: Patient's insight and judgment are limited Risk Assessment: Patient's risk for readmission is moderate should he not be compliant with medication, placement Discharge Plan: Patient will be discharged to [facility], he now has a public guardian and the patient will continue on a Ventolin inhaler 2 puffs every 4 hours as needed, Lipitor 10 mg at bedtime, Depakote extended release 1000 mg at bedtime, vitamin D2 50,000 units every 7 days, Tofranil 25 mg at bedtime, Zestril 20 mg in the morning, Nitrostat 0.4 mg sublingually every 5 minutes when necessary for chest pain, Protonix 40 mg before breakfast and Geodon 60 mg twice a day. Patient will be given prescriptions for all of these medications. Patient was encouraged to be compliant with medication and appointments. Patient Condition at Discharge: Stable Plan - Discharge Summary Discharge Rx Participant: No New Discharge Prescriptions: New Divalproex ER [Depakote ER] 1,000 mg PO HS #56 tab.er.24h Imipramine [Tofranil] 25 mg PO HS #28 tab Continue Acetaminophen Tab [Tylenol] 650 mg PO Q4HR PRN tab PRN Reason: Pain/Discomfort Ziprasidone [Geodon] 60 mg PO BID #56 cap Atorvastatin [Lipitor] 10 mg PO HS #28 tab Nitroglycerin Sl Tabs [Nitrostat] 0.4 mg SUBLINGUAL Q5M PRN #21 tab PRN Reason: Chest Pain Lisinopril [Prinivil] 20 mg PO DAILY #28 tablet Pantoprazole [Protonix] 40 mg PO AC-BRKFST #28 tablet. Albuterol Inhaler [Ventolin Hfa Inhaler] 2 puff INHALATION RT-Q4H PRN #1 puff PRN Reason: Shortness Of Breath Ergocalciferol (Vitamin D2) [Vitamin D2] 50,000 unit PO Q7D #4 capsule Discontinued Benztropine Mesylate [Cogentin] 1 mg PO BID 30 Days #60 tab Pramipexole [Mirapex] 1 mg PO TID 30 Days #90 tab Divalproex Sodium [Depakote] 1,000 mg PO HS Discharge Medication List Acetaminophen Tab [Tylenol] 650 mg PO Q4HR PRN tab 11/30/18 [Rx] Albuterol Inhaler [Ventolin Hfa Inhaler] 2 puff INHALATION RT-Q4H PRN #1 puff 12/27/18 [Rx] Atorvastatin [Lipitor] 10 mg PO HS #28 tab 12/27/18 [Rx] Divalproex ER [Depakote ER] 1,000 mg PO HS #56 tab.er.24h 12/27/18 [Rx] Ergocalciferol (Vitamin D2) [Vitamin D2] 50,000 unit PO Q7D #4 capsule 12/27/18 [Rx] Imipramine [Tofranil] 25 mg PO HS #28 tab 12/27/18 [Rx] Lisinopril [Prinivil] 20 mg PO DAILY #28 tablet 12/27/18 [Rx] Nitroglycerin Sl Tabs [Nitrostat] 0.4 mg SUBLINGUAL Q5M PRN #21 tab 12/27/18 [Rx] Pantoprazole [Protonix] 40 mg PO AC-BRKFST #28 tablet. 12/27/18 [Rx] Ziprasidone [Geodon] 60 mg PO BID #56 cap 12/27/18 [Rx] Follow up Appointment(s)/Referral(s): [facility] [Outside] - 01/03/19 1:00 pm (01-03-19 @ 1:[address] Torrez) Nathaniel Brooks, [Primary Care Provider] - 1-2 days Patient Instructions/Handouts: Depression (DC), Schizoaffective Disorder (DC), Help Prevent Suicide (DC), Psychotic Disorder (DC) Activity/Diet/Wound Care/Special Instructions: Activity and diet as tolerated. No guns or weapons in the home. Take all medications as prescribed and attend all follow up appointments as scheduled. Refrain from alcohol and street drugs not prescribed by your physician. If in need of of medication refills, please go to your primary care physician or to your outpatient psychiatric provider. If in crisis please call , or go to the nearest . Discharge Disposition: OTHER INSTITUTION NOT DEFINED
== END 2018-12-27 17:05 | disposition home or self-care (01) | DRG 885 ==
LOC: EC 15:23 → 3MHU 17:57
PROVIDERS: ADMIT Psychiatry & Neurology Psychiatry; ATTEND Psychiatry & Neurology Psychiatry
DX: F25.0 Schizoaffective disorder, bipolar type (principal); R45.851 Suicidal ideations; R45.850 Homicidal ideations; E78.5 Hyperlipidemia, unspecified; I10 Essential (primary) hypertension; H93.19 Tinnitus, unspecified ear; F43.10 Post-traumatic stress disorder, unspecified; G25.81 Restless legs syndrome; J44.9 Chronic obstructive pulmonary disease, unspecified; M19.90 Unspecified osteoarthritis, unspecified site; M54.9 Dorsalgia, unspecified; M54.2 Cervicalgia; Z79.899 Other long term (current) drug therapy; Z85.46 Personal history of malignant neoplasm of prostate; Z90.79 Acquired absence of other genital organ(s); Z98.890 Other specified postprocedural states; Z88.8 Allergy status to other drugs, medicaments and biological substances; Z91.040 Latex allergy status; Z88.0 Allergy status to penicillin; Z91.013 Allergy to seafood; Z80.52 Family history of malignant neoplasm of bladder; Z80.42 Family history of malignant neoplasm of prostate
CPT/HCPCS: 80048; 80053; 80061; 80164; 80165; 80306; 81003; 82075; 83036; 84443; 85025; 99285

== ENCOUNTER 2019-12-30 12:13 | Emergency (ER) | payer OTHER ==
[2019-12-30 12:32] VITALS: RESP 18; TEMP 97.7
--- NOTE | 2019-12-30 13:09 | ED ---
Psych HPI - General Chief Complaint: Psychiatric Symptoms Stated Complaint: EPS eval Time Seen by Provider: 12/30/19 12:34 Source: patient Mode of arrival: ambulatory - History of Present Illness Initial Comments: Patient is a 59-year-old male presenting to the emergency department for psychiatric evaluation. Patient is accompanied by the fertilizer supervisor which patient lives stating that patient has been hearing voices and seeing things/able outside of his window. He denies any suicidal or homicidal thoughts. He does have a history of schizophrenia. The coiled tubing supervisor is not sure if patient has been taking his medications. Patient is not complaining of anything else at this time. There has been no recent fever or chills. He denies any alcohol or drug use. There are no further complaints at this time. - Related Data Home Medications Medication Instructions Recorded Confirmed Albuterol Inhaler [Ventolin Hfa 2 puff INHALATION RT-Q4H PRN 12/30/19 12/30/19 Inhaler] Atorvastatin [Lipitor] 10 mg PO HS@199912/30/19 12/30/19 Divalproex ER [Depakote ER] 1,000 mg PO HS@199912/30/19 12/30/19 Ibuprofen 800 mg PO Q8H PRN 12/30/19 12/30/19 Lisinopril [Prinivil] 20 mg PO DAILY@59912/30/19 12/30/19 Pantoprazole [Protonix] 40 mg PO DAILY@59912/30/19 12/30/19 Promethazine 6.25MG/5Ml [Phenergan 6.25 mg PO BID PRN 12/30/19 12/30/19 Syrup] Ziprasidone HCl [Geodon] 80 mg PO HS@199912/30/19 12/30/19 Ziprasidone [Geodon] 60 mg PO DAILY@59912/30/19 12/30/19 diphenhydrAMINE [Benadryl] 25 mg PO BID@12/30/19 12/30/19 guaiFENesin SYRUP 100MG/5ML 100 - 200 mg PO Q4H PRN 12/30/19 12/30/19 [Robitussin] Previous Rx's Medication Instructions Recorded Ergocalciferol (Vitamin D2) 50,000 unit PO Q7D #4 capsule 12/27/18 [Vitamin D2] Nitroglycerin Sl Tabs [Nitrostat] 0.4 mg SUBLINGUAL Q5M PRN #21 tab 12/27/18 Allergies Allergy/AdvReac Type Severity Reaction Status Date / Time amoxicillin Allergy Unknown Verified 12/30/19 13:41 brompheniramine maleate Allergy Unknown Verified 12/30/19 13:41 [From Dimetapp Cold-Allergy (PE)] codeine Allergy Rash/Hives Verified 12/30/19 13:41 fluoxetine HCl [From Prozac] Allergy Unknown Verified 12/30/19 13:41 latex Allergy Unknown Verified 12/30/19 13:41 morphine Allergy Rash/Hives Verified 12/30/19 13:41 phenylephrine HCl Allergy Unknown Verified 12/30/19 13:41 [From Dimetapp Cold-Allergy (PE)] shellfish derived [Shellfish] Allergy Rash/Hives Verified 12/30/19 13:41 Review of Systems ROS Statement: Those systems with pertinent positive or pertinent negative responses have been documented in the HPI. ROS Other: All systems not noted in ROS Statement are negative. Past Medical History Past Medical History: COPD, Hyperlipidemia, Hypertension, Osteoarthritis (OA) Additional Past Medical History / Comment(s): prostate cancer, possible seizure disorder-last known seizure 12/07/14.tinnitus, bipolar depression, ptsd, schizophrenia. 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 Past Psychological History: Bipolar, Depression, PTSD, Schizophrenia Smoking Status: Never smoker - Past Family History Father Family Medical History: Cancer Additional Family Medical History / Comment(s): Father is alive at age 82 with history of prostate cancer. Mother Family Medical History: Cancer Additional Family Medical History / Comment(s): Mother at age 53 from bladder cancer Brother(s) Additional Family Medical History / Comment(s): Patient has 4 brothers and 2 sisters that are healthy with no major medical problems. Patient does not have any children. General Exam - General Exam Comments Initial Comments: GENERAL: Well-appearing, well-nourished and in no acute distress. HEAD: Atraumatic, normocephalic. EYES: Pupils equal round and reactive to light, extraocular movements intact, sclera anicteric, conjunctiva are normal. ENT: TMs normal, nares patent, oropharynx clear without exudates. Moist mucous membranes. NECK: Normal range of motion, supple without lymphadenopathy or JVD. LUNGS: Breath sounds clear to auscultation bilaterally and equal. No wheezes rales or rhonchi. HEART: Regular rate and rhythm without murmurs, rubs or gallops. ABDOMEN: Soft, nontender, normoactive bowel sounds. No guarding, no rebound. No masses appreciated. : Deferred EXTREMITIES: Normal range of motion, no pitting or edema. No clubbing or cyanosis. NEUROLOGICAL: Cranial nerves II through XII grossly intact. Normal speech, normal gait. PSYCH: Normal mood, normal affect. SKIN: Warm, Dry, normal turgor, no rashes or lesions noted. Limitations: no limitations Course Vital Signs 12/30/19 12/30/19 12:27 14:35 Temperature 97.7 F 97.7 F Pulse Rate 97 87 Respiratory 18 18 Rate Blood Pressure 135/83 122/78 O2 Sat by Pulse 97 97 Oximetry Medical Decision Making - Medical Decision Making Patient is a 59-year-old male here for psychiatric evaluation. Jack Spinner from [facility] is providing history and stating he is hearing voices and people also out of his window that are not there. He does have history of schizophrenia. Vitals are stable, patient is cleared for EPS evaluation. Patient was evaluated by EPS and will be discharged home. He has been taking his medications and will continue do so. Jack Spinner of the [facility] is also agreement with this. Return parameters were discussed with the coiled tubing supervisor and the patient and they verbalized understanding. Case discussed with Dr. Palomares. - Lab Data Lab Results 12/30/19 Range/Units 12:55 Urine Opiates Screen Not Detected (NotDetected) Ur Oxycodone Screen Not Detected (NotDetected) Urine Methadone Screen Not Detected (NotDetected) Ur Propoxyphene Screen Not Detected (NotDetected) Ur Barbiturates Screen Not Detected (NotDetected) U Tricyclic Antidepress Not Detected (NotDetected) Ur Phencyclidine Scrn Not Detected (NotDetected) Ur Amphetamines Screen Not Detected (NotDetected) U Methamphetamines Scrn Not Detected (NotDetected) U Benzodiazepines Scrn Not Detected (NotDetected) Urine Cocaine Screen Not Detected (NotDetected) U Marijuana (THC) Screen Not Detected (NotDetected) Disposition Clinical Impression: Chronic schizophrenia Disposition: HOME SELF-CARE Condition: Stable Instructions (If sedation given, give patient instructions): Normal Exam (ED) Additional Instructions: Please return to the Emergency Department if symptoms worsen or any other concerns. Continue with regular medications. Is patient prescribed a controlled substance at d/c from ED?: No Referrals: Nathaniel Brooks DO [Primary Care Provider] - 1-2 days
[2019-12-30 13:20] LABS: Amphetamine Screen,Urine Not Detected (NotDetected); Barbiturate Screen,Urine Not Detected (NotDetected); Benzodiazepines Screen,Urine Not Detected (NotDetected); Cocaine Screen,Urine Not Detected (NotDetected); Methadone Screen, Urine Not Detected (NotDetected); Opiate Screen,Urine Not Detected (NotDetected); Oxycodone Screen, Urine Not Detected (NotDetected); Phencyclidine Screen,Urine Not Detected (NotDetected); Tricyclic Antidepressant,Urine Not Detected (NotDetected); Urn Cannabinoid Scrn Not Detected (NotDetected)
[2019-12-30 14:54] VITALS: BP 122/78; PULSE 87
== END 2019-12-30 14:35 | disposition home or self-care (01) ==
LOC: EEVIPCON 12:13 → EC 12:13
DX: F20.9 Schizophrenia, unspecified (principal); I10 Essential (primary) hypertension; E78.5 Hyperlipidemia, unspecified; J44.9 Chronic obstructive pulmonary disease, unspecified; Z79.899 Other long term (current) drug therapy; Z88.0 Allergy status to penicillin; Z88.8 Allergy status to other drugs, medicaments and biological substances; Z88.5 Allergy status to narcotic agent; Z91.040 Latex allergy status; Z91.013 Allergy to seafood; Z85.46 Personal history of malignant neoplasm of prostate
CPT/HCPCS: 80306; 82075; 99285

== ENCOUNTER 2019-12-31 01:00 | Inpatient (IN) | payer MEDICAID, OTHER ==
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
[2019-12-31] MEDS ORDERED: LORazepam 2 MG/ML INJ IV STA (01:51)
[2019-12-31] MEDS ORDERED: SODIUM CHLORIDE 0.9% 500 ML 500 ML IV STA (01:51)
[2019-12-31 02:52] LABS: Basophils % (A) 0 %; Eosinophils # (A) 0.1 k/uL (0-0.7); Eosinophils % (A) 0 %; HCT 43.8 % (39.0-53.0); HGB 14.2 gm/dL (13.0-17.5); Lymphocytes # (A) 0.9 k/uL (1.0-4.8); Lymphocytes % (A) 6 %; MCH 29.6 pg (25.0-35.0); MCHC 32.3 g/dL (31.0-37.0); MCV 91.6 fL (80.0-100.0); Mean Platelet Volume 7.3; Monocytes # (A) 0.9 k/uL (0-1.0); Monocytes % (A) 6 %; Neutrophils # (A) 13.2 k/uL (1.3-7.7); Neutrophils % (A) 86 %; Platelet Count 297 k/uL (150-450); RBC 4.78 m/uL (4.30-5.90); RDW 13.2 % (11.5-15.5); WBC 15.3 k/uL (3.8-10.6)
[2019-12-31 02:56] LABS: Potassium 4.4 mmol/L (3.5-5.1)
[2019-12-31 02:57] LABS: ALT 43 U/L (4-49); AST 28 U/L (17-59); Acetaminophen <10.0 ug/mL; African American GFR (CKD) 77 (>60 ml/min/1.73 sqM); Albumin 4.6 g/dL (3.5-5.0); Alcohol <10 mg/dL; Alkaline Phosphatase 83 U/L (38-126); Anion Gap 10 mmol/L; Blood Urea Nitrogen 24 mg/dL (9-20); Calcium 9.9 mg/dL (8.4-10.2); Carbon Dioxide 24 mmol/L (22-30); Chloride 103 mmol/L (98-107); Glucose 197 mg/dL (74-99); Non-African American GFR(CKD) 66 (>60 ml/min/1.73 sqM); Sodium 137 mmol/L (137-145); Total Bilirubin 0.6 mg/dL (0.2-1.3); Total Protein 7.6 g/dL (6.3-8.2)
--- NOTE | 2019-12-31 04:23 | XR ---
EXAMINATION TYPE: XR chest 2V DATE OF EXAM: 12/31/2019 COMPARISON: 08/21/2017 HISTORY: Altered mental status. Fever. TECHNIQUE: 2 views FINDINGS: There is no heart failure nor confluent pneumonic infiltrate. There is old left-sided heale d rib fracture. Costophrenic angles are clear. There are chest leads. Exam limited by patient's size. Bony thorax is intact. IMPRESSION: No active cardiopulmonary disease. No significant change.
[2019-12-31 04:24] LABS: Appearance,Urine Clear (Clear); Bilirubin,Urine Negative (Negative); Blood,Urine Negative (Negative); Color,Urine Yellow; Glucose,Urine (UA) Trace (Negative); Hyaline Casts,Urine 8 /lpf (0-2); Ketones,Urine 2+ (Negative); Leukocyte Esterase,Urine Negative (Negative); Mucus,Urine Occasional /hpf; Nitrite,Urine Negative (Negative); PH, Urine 5.5 (5.0-8.0); Protein,Urine 1+ (Negative); RBC,Urine <1 /hpf (0-5); Specific Gravity,Urine 1.025 (1.001-1.035); WBC,Urine 2 /hpf (0-5)
[2019-12-31] MEDS ORDERED: PROMETHAZINE HCL 6.25 MG/5 ML CUP PO PRN (15:02)
[2019-12-31] MEDS ORDERED: ALBUTEROL INHALER 60 PUFF/8 GM INHALER (MHU) INHALATION PRN (15:02)
[2019-12-31] MEDS ORDERED: NITROGLYCERIN SL TABS 0.4 MG TAB SUBLINGUAL PRN (15:02)
[2019-12-31] MEDS ORDERED: LORazepam 2 MG/ML INJ IM PRN (15:05)
[2019-12-31] MEDS ORDERED: ZIPRASIDONE 80 MG CAP PO SCH (20:00)
[2019-12-31] MEDS: ATORVASTATIN 10 MG TAB PO SCH (20:24)
[2019-12-31] MEDS: diphenhydrAMINE 25 MG CAP PO SCH (20:24)
[2019-12-31] MEDS: DIVALPROEX ER 500 MG TAB.ER.24H PO SCH (20:24)
[2019-12-31] MEDS: IBUPROFEN 800 MG TAB PO PRN (20:43)
[2020-01-01] MEDS: PANTOPRAZOLE 40 MG TABLET PO SCH ×2 (06:32→06:59)
[2020-01-01] MEDS: diphenhydrAMINE 25 MG CAP PO SCH ×3 (06:32→19:12)
[2020-01-01] MEDS: LISINOPRIL 20 MG TAB PO SCH ×2 (06:32→06:59)
[2020-01-01] MEDS: ZIPRASIDONE 60 MG CAP PO SCH ×2 (06:32→06:59)
[2020-01-01] MEDS: PALIPERIDONE 3 MG TAB.ER.24 PO SCH (12:23)
[2020-01-01] MEDS: IBUPROFEN 800 MG TAB PO PRN (12:24)
[2020-01-01] MEDS ORDERED: HALOPERIDOL LACTATE 5 MG/ML 1 ML VIAL IM PRN (12:24)
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
[2020-01-01 18:38] LABS: Hemoglobin A1C 5.9 % (4.0-6.0)
[2020-01-01] MEDS: DIVALPROEX ER 500 MG TAB.ER.24H PO SCH (19:11)
[2020-01-01] MEDS: ATORVASTATIN 10 MG TAB PO SCH (19:11)
[2020-01-02] MEDS ORDERED: HALOPERIDOL LACTATE 5 MG/ML 1 ML VIAL ONE (02:00)
[2020-01-02] MEDS ORDERED: LORazepam Vial 2 MG/ML VIAL ONE (02:00)
[2020-01-02] MEDS: LISINOPRIL 20 MG TAB PO SCH (06:13)
[2020-01-02] MEDS: PANTOPRAZOLE 40 MG TABLET PO SCH (06:13)
[2020-01-02] MEDS: PALIPERIDONE 3 MG TAB.ER.24 PO SCH (07:59)
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
[2020-01-03] MEDS: DIVALPROEX ER 500 MG TAB.ER.24H PO SCH ×2 (05:15→20:53)
[2020-01-03] MEDS: diphenhydrAMINE 25 MG CAP PO SCH ×3 (05:15→20:54)
[2020-01-03] MEDS: ATORVASTATIN 10 MG TAB PO SCH ×2 (05:15→20:54)
[2020-01-03] MEDS: LISINOPRIL 20 MG TAB PO SCH (06:35)
[2020-01-03] MEDS: PANTOPRAZOLE 40 MG TABLET PO SCH (06:35)
[2020-01-03 06:39] VITALS: RESP 15
[2020-01-03] MEDS ORDERED: ERGOCALCIFEROL 50,000 UNIT CAP PO SCH (09:00)
[2020-01-03] MEDS: PALIPERIDONE 3 MG TAB.ER.24 PO SCH (09:18)
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
[2020-01-04] MEDS: IBUPROFEN 800 MG TAB PO PRN (04:22)
[2020-01-04] MEDS: PANTOPRAZOLE 40 MG TABLET PO SCH (06:24)
[2020-01-04] MEDS: LISINOPRIL 20 MG TAB PO SCH (06:24)
[2020-01-04] MEDS: diphenhydrAMINE 25 MG CAP PO SCH ×2 (09:40→20:03)
[2020-01-04] MEDS: PALIPERIDONE 3 MG TAB.ER.24 PO SCH ×2 (09:40→20:03)
[2020-01-04 10:09] VITALS: BP 134/72; PULSE 108
--- NOTE | 2020-01-04 10:59 | P.PN ---
Progress Note - Text Progress Note Date: 01/04/20 Interval History: Patient was seen in his room today and was directable and agreeable to speak w ith screen writer. Patient claims that he feels "much better today doctor". When asked about his mood patient states that his mood has improved. Patient was more appropriate and directable today with screen writer and appeared to be less paranoid and delusional. He claims that he did go to some groups and he states that he started taking the medication. He did admit to some restlessness however he states that the Benadryl is helping him with that. He states that he was able to sleep well last night and has had a fair appetite. At this time patient denies any suicidal or homical ideations, intent or plan. Patient denies any auditory, visual hallucinations. Mental Status Exam: General Appearance: Patient appears to be stated age is less irritable, alert, attempts to be cooperative. Patient appears to have poor hygiene and grooming. Behavior: Patient is laying in bed without any agitated behavior. Less irritable Speech: Patient's speech is fluent and nonpressured. [place]. Mood/Affect: Patient reports their mood is "good", affect is incongruent and constricted. Suicidality/Homicidality: Patient denies having any homicidal ideation intent or plan. Denies any suicidal ideations intent or plan Perceptions: Patient denies any visual hallucinations and denies any auditory hallucinations Though content/process: illogical at times. [place]. He endorsed paranoia and thoughts of aggression. Memory and concentration: Alert and oriented 3, fair attention span. Judgment and insight: poor impulsive, mouth improving. Assessment Schizoaffective disorder, bipolar type Plan: -Patient continues to meet criteria for inpatient psychiatric admission for symptom stabilization and safety. Patient has refused to sign for medication consent and was placed in patient's chart. Currently awaiting full court hearing date. -Medications: Increased paliperidone 3 mg BID for mood stabilization/psychosis, patient began taking this medication. Continue with Depakote 1000 mg nightly for mood stabilization. Continue with Benadryl 25 mg twice a day for insomnia/EPS prophylaxis. Plan will be to transition patient onto long-acting injection prior to discharge. -When necessary Ativan and Haldol for agitation/aggression. -NRT -not need this patient does not smoke -SW on board for discharge planning. Encouraged the patient to participate in milieu. Once patient is psychiatrically stable will likely discharge back to his previous [facility] with [facility] follow-up. We'll await court hearing date.
--- NOTE | 2020-01-04 13:00 | P.CONS ---
History of Present Illness - Reason for Consult Consult date: 01/04/20 - History of Present Illness Patient is a 59-year-old male with a PMH of bipolar disorder, schizoaffective disorder, and hypertension who presented to the ED and please custody for aggressive behavior. The patient was reportedly aggressive towards his caregivers and had expressed suicidal ideation and was thereby brought into the emergency room. He was admitted to the mental health unit where he was seen and evaluated earlier today. The patient noted that he feels better since admission, and is eager to be discharged home. He denied any additional complaints. He denied chest pain, shortness without fever, chills, cough, nausea, vomiting, dizziness, headache, abdominal pain, or diarrhea. The patient underwent an extensive evaluation in the emergency which was all reviewed. Review of Systems Pertinent positives and negatives as discussed in HPI, a complete review of systems was performed and all other systems are negative. Past Medical History Past Medical History: COPD, Hyperlipidemia, Hypertension, Osteoarthritis (OA) Additional Past Medical History / Comment(s): prostate cancer, possible seizure disorder-last known seizure 12/07/14.tinnitus, bipolar depression, ptsd, schizophrenia. History of Any Multi-Drug Resistant Organisms: None Reported Past Surgical History: Prostate Surgery Additional Past Surgical History / Comment(s): protatectomy, "eye surgery to correct lazy eyes" and back surgery, Past Anesthesia/Blood Transfusion Reactions: Blood Transfusion Reaction Additional Past Anesthesia/Blood Transfusion Reaction / Comm: pt stated received blood in past and had a reaction to it-caused hives. Past Psychological History: Bipolar, Depression, PTSD, Schizophrenia Smoking Status: Never smoker Past Alcohol Use History: None Reported Past Drug Use History: None Reported - Past Family History Father Family Medical History: Cancer Additional Family Medical History / Comment(s): Father is alive at age 82 with history of prostate cancer. Mother Family Medical History: Cancer Additional Family Medical History / Comment(s): Mother at age 53 from bladder cancer Brother(s) Additional Family Medical History / Comment(s): Patient has 4 brothers and 2 sisters that are healthy with no major medical problems. Patient does not have any children. Medications and Allergies Home Medications Medication Instructions Recorded Confirmed Type Nitroglycerin Sl Tabs [Nitrostat] 0.4 mg SUBLINGUAL Q5M PRN #21 tab 12/27/18 12/31/19 Rx Albuterol Inhaler [Ventolin Hfa 2 puff INHALATION RT-Q4H PRN 12/30/19 12/31/19 History Inhaler] Atorvastatin [Lipitor] 10 mg PO HS@199912/30/19 12/31/19 History Divalproex ER [Depakote ER] 1,000 mg PO HS@199912/30/19 12/31/19 History Ibuprofen 800 mg PO Q8H PRN 12/30/19 12/31/19 History Lisinopril [Prinivil] 20 mg PO DAILY@59912/30/19 12/31/19 History Pantoprazole [Protonix] 40 mg PO DAILY@59912/30/19 12/31/19 History Promethazine 6.25MG/5Ml [Phenergan 6.25 mg PO BID PRN 12/30/19 12/31/19 History Syrup] Ziprasidone HCl [Geodon] 80 mg PO HS@199912/30/19 12/31/19 History Ziprasidone [Geodon] 60 mg PO DAILY@59912/30/19 12/31/19 History diphenhydrAMINE [Benadryl] 25 mg PO BID@599,199912/30/19 12/31/19 History guaiFENesin SYRUP 100MG/5ML 100 - 200 mg PO Q4H PRN 12/30/19 12/31/19 History [Robitussin] Ergocalciferol (Vitamin D2) 50,000 unit PO FR 12/31/19 12/31/19 History [Vitamin D2] Allergies Allergy/AdvReac Type Severity Reaction Status Date / Time amoxicillin Allergy Unknown Verified 12/31/19 16:07 brompheniramine maleate Allergy Unknown Verified 12/31/19 16:07 [From Dimetapp Cold-Allergy (PE)] codeine Allergy Rash/Hives Verified 12/31/19 16:07 fluoxetine HCl [From Prozac] Allergy Unknown Verified 12/31/19 16:07 latex Allergy Unknown Verified 12/31/19 16:07 morphine Allergy Rash/Hives Verified 12/31/19 16:07 phenylephrine HCl Allergy Unknown Verified 12/31/19 16:07 [From Dimetapp Cold-Allergy (PE)] shellfish derived [Shellfish] Allergy Rash/Hives Verified 12/31/19 16:07 Physical Exam Vitals: Vital Signs Temp Pulse BP 01/04/20 09:40 108 H 134/72 01/04/20 06:45 0 F L 01/03/20 20:55 99.3 F 01/03/20 18:00 99.1 F 01/03/20 13:00 98.6 F General: non toxic, no distress, appears at stated age, obese Derm: no unusual rashes/lesions no unusual ecchymoses, warm, dry Head: atraumatic, normocephalic, symmetric Eyes: Strabismus, EOMI, no lid lag, anicteric sclera, pupils equal round reactive to light ENT: Nose and ears atraumatic, no thrush, no pharyngeal erythema Neck: No thyromegaly, no cervical lymphadenopathy, trachea midline, supple Mouth: no lip lesion, mucus membranes moist Cardiovascular: S1S2 reg, no murmur, positive posterior tibial pulse bilateral, no edema, capillary refill less than 2 seconds Lungs: CTA bilateral, no rhonchi, no rales , no accessory muscle use Abdominal: soft, nontender to palpation, no guarding, no appreciable organomegaly, normal bowel sounds Ext: no gross muscle atrophy, muscle strength 5 out of 5 in all 4 extremities grossly, no contractures, Neuro: CN II-XI grossly intact, light touch intact all 4 extremities, finger to nose within normal limits, Psych: Alert, oriented, appropriate affect Results CBC & Chem 7: 12/31/19 02:31 12/31/19 02:31 Assessment and Plan Plan: Psychosis, suicidal ideation -As per psychiatry Hypertension -Continue home meds: Lisinopril Leukocytosis -No signs of active infection at this time -Monitor CBC Thank you for allowing us to participate in the care of this patient. We will follow peripherally. Do not hesitate to contact us with questions. Someone can be reached from the [facility] hospitalist group at all hours of the day at [phone].
[2020-01-04] MEDS: ATORVASTATIN 10 MG TAB PO SCH (20:03)
[2020-01-04] MEDS: DIVALPROEX ER 500 MG TAB.ER.24H PO SCH (20:03)
[2020-01-05] MEDS: IBUPROFEN 800 MG TAB PO PRN (03:57)
[2020-01-05] MEDS: LISINOPRIL 20 MG TAB PO SCH (06:44)
[2020-01-05] MEDS: PANTOPRAZOLE 40 MG TABLET PO SCH (06:44)
[2020-01-05 07:05] VITALS: TEMP 0
[2020-01-05 07:27] LABS: HCT 41.6 % (39.0-53.0); HGB 13.7 gm/dL (13.0-17.5); MCH 30.9 pg (25.0-35.0); MCV 93.7 fL (80.0-100.0); Mean Platelet Volume 7.3; Platelet Count 292 k/uL (150-450); RBC 4.43 m/uL (4.30-5.90); RDW 13.2 % (11.5-15.5)
[2020-01-05] MEDS: PALIPERIDONE 3 MG TAB.ER.24 PO SCH (09:21)
[2020-01-05] MEDS: diphenhydrAMINE 25 MG CAP PO SCH (09:22)
--- NOTE | 2020-01-05 10:54 | P.PN ---
Progress Note - Text Progress Note Date: 01/05/20 Interval History: Patient was seen taking part in group this morning was directable and agreeable to speak with leader writer. He states that he was able to sleep well last night and did not speak much about staff members interrupting him and did not endorse paranoia this morning. He states that he is trusting more people on the unit and trying to go to more groups. He continues to ask about his court date as he claims that he did not defer because "she was in my diamond setter apprentice I want my diamond setter apprentice to handle this stuff". He has been taking his paliperidone medication at this time. He did speak vaguely about things in space coming down to harm us on earth. He has had a fair appetite. At this time patient denies any suicidal or homical ideations, intent or plan. Patient denies any auditory, visual hallucinations. Mental Status Exam: General Appearance: Patient appears to be stated age is less irritable, alert, attempts to be cooperative. Patient appears to have improving hygiene and grooming. Behavior: Patient is laying in bed without any agitated behavior. Less irritable and more cooperative today. Speech: Patient's speech is fluent and nonpressured. [place]. Mood/Affect: Patient reports their mood is "ok", affect is incongruent and constricted. Suicidality/Homicidality: Patient denies having any homicidal ideation intent or plan. Denies any suicidal ideations intent or plan Perceptions: Patient denies any visual hallucinations and denies any auditory hallucinations Though content/process: illogical at times. [place]. He endorsed paranoia which is been mildly improving. Memory and concentration: Alert and oriented 3, fair attention span. Judgment and insight: poor impulsive, mildly improving. Assessment Schizoaffective disorder, bipolar type Plan: -Patient continues to meet criteria for inpatient psychiatric admission for symptom stabilization and safety. Patient has refused to sign for medication consent and was placed in patient's chart. Patient did not defer and will await full court hearing. -Medications: Continue with paliperidone 3 mg BID for mood stabil ization/psychosis, patient began taking this medication. Continue with Depakote 1000 mg nightly for mood stabilization. Continue with Benadryl 25 mg twice a day for insomnia/EPS prophylaxis. Plan will be to transition patient onto long- acting injection prior to discharge. -When necessary Ativan and Haldol for agitation/aggression. -NRT -not need this patient does not smoke -SW on board for discharge planning. Encouraged the patient to participate in milieu. Once patient is psychiatrically stable will likely discharge back to his previous AF with [facility] follow-up. Patient did not defer and full court hearing will be on 01/15/2020.
[2020-01-05] MEDS ORDERED: LORazepam 2 MG/ML INJ ONE ×2 (20:40)
[2020-01-05 20:48] LABS: Glucose,Whole Blood 123 mg/dL (75-99)
[2020-01-05] MEDS ORDERED: LORazepam 2 MG/ML INJ IV STA ×2 (21:04)
--- NOTE | 2020-01-05 21:54 | CT ---
EXAMINATION TYPE: CT brain wo con DATE OF EXAM: 01/05/2020 COMPARISON: 12/11/2014 HISTORY: Code Blue today with seizure. CT DLP: 3982.5 mGycm Automated exposure control for dose reduction was used. Exam is limited by motion. Ventricles have normal size. There is no mass effect nor midline shift. Th ere is no sign of intracranial hemorrhage. The calvarium appears intact. IMPRESSION: Limited exam. No acute intracranial abnormality. No change compared to old exam.
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
== END 2020-01-05 21:07 | disposition short-term general hospital (02) | DRG 885 ==
LOC: EC 01:00 → 3MHU 14:27
PROVIDERS: ADMIT Psychiatry & Neurology Psychiatry; ATTEND Psychiatry & Neurology Psychiatry
PROC: 5A12012 Performance of Cardiac Output, Single, Manual (ICD-10-PCS; principal; 2020-01-05)
DX: F25.0 Schizoaffective disorder, bipolar type (principal); R45.851 Suicidal ideations; Z11.59 Encounter for screening for other viral diseases; R45.850 Homicidal ideations; F31.30 Bipolar disorder, current episode depressed, mild or moderate severity, unspecified; G40.909 Epilepsy, unspecified, not intractable, without status epilepticus; F29 Unspecified psychosis not due to a substance or known physiological condition; J44.9 Chronic obstructive pulmonary disease, unspecified; I10 Essential (primary) hypertension; E78.5 Hyperlipidemia, unspecified; M19.90 Unspecified osteoarthritis, unspecified site; F43.10 Post-traumatic stress disorder, unspecified; H93.19 Tinnitus, unspecified ear; R45.87 Impulsiveness; Z79.899 Other long term (current) drug therapy; Z91.14 Patient's other noncompliance with medication regimen; Z90.79 Acquired absence of other genital organ(s); Z85.46 Personal history of malignant neoplasm of prostate; Z88.8 Allergy status to other drugs, medicaments and biological substances; Z91.040 Latex allergy status; Z88.5 Allergy status to narcotic agent; Z88.0 Allergy status to penicillin; Z91.013 Allergy to seafood; Z80.52 Family history of malignant neoplasm of bladder; Z80.42 Family history of malignant neoplasm of prostate
CPT/HCPCS: 36415; 70450; 71046; 80053; 80320; 80329; 81001; 83036; 85025; 85027; 96361; 96374; 99285

== ENCOUNTER 2020-01-05 21:09 | Inpatient (IN) | payer OTHER ==
[2020-01-05] MEDS ORDERED: MORPHINE SULFATE 2 MG/ML SYRINGE IV PRN (21:33)
[2020-01-05] MEDS ORDERED: ACETAMINOPHEN TAB 325 MG TAB PO PRN (21:33)
[2020-01-05] MEDS ORDERED: NALOXONE 0.4 MG/ML 1 ML VIAL IV PRN (21:33)
[2020-01-05] MEDS ORDERED: IPRATROPIUM-ALBUTEROL 3 ML NEB INHALATION PRN (21:33)
--- NOTE | 2020-01-05 21:33 | P.HPIM ---
History of Present Illness H&P Date: 01/05/20 Chief Complaint: seizure , possible cardiopulmonary arrest 59 year old male with history of schizophrenia, bipolar disorder, remote history of possible seizure. hypertension and hyperlipidemia patient unable to provide any meaningfull history at this time , patient is very violent. patient was inpatient in the mental health unit, when elvira alberto called, he had one round of CPR no meds given , then had return of spontaneous circulation at time of my evaluation when responded to the code. per his nurse, he is admitted for acute psychosis and violent behavior., he was having a snack in the dinning room, when suddenly fell off the chair associated with tonic clonic contractions of his extremities wet his pants, and turned blue, his nurse could not feel his pulse and called a code blue, CPR started, and patient had a positive pulse when I arrived and evaluated the patient. no meds given. his vital signs at time of my evaluation , showed BP about 180/90, HR 160 bpm , oxygen sat 92-94 on room air, patient was very violent and kicking and punching , not cooperating and not making eye contact but moving all his extremities and head trying to get up and hurt staff around him, ,he was not saying anything just moaning in anger. patient given 2 mg of IV ativan , which we had to repeat to calm him down he received a total of 4 mg of ativan IV. EKG could not be done , due to patient not cooperating. per H&P done on the mental health unit by the medical team, patient was calm after initial presentation and was eager to leave and has denied any complaints. Nursing staff also confirmed that he has been calm and cooperative all day today Review of Systems ROS unobtainable: due to mental status Past Medical History Past Medical History: COPD, Hyperlipidemia, Hypertension, Osteoarthritis (OA) Additional Past Medical History / Comment(s): prostate cancer, possible seizure disorder-last known seizure 12/07/14.tinnitus, bipolar depression, ptsd, sc hizophrenia. 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 Past Psychological History: Bipolar, Depression, PTSD, Schizophrenia Smoking Status: Never smoker Past Alcohol Use History: None Reported Past Drug Use History: None Reported - Past Family History Father Family Medical History: Cancer Additional Family Medical History / Comment(s): Father is alive at age 82 with history of prostate cancer. Mother Family Medical History: Cancer Additional Family Medical History / Comment(s): Mother at age 53 from bladder cancer Brother(s) Additional Family Medical History / Comment(s): Patient has 4 brothers and 2 sisters that are healthy with no major medical problems. Patient does not have any children. Medications and Allergies Home Medications Medication Instructions Recorded Confirmed Type Nitroglycerin Sl Tabs [Nitrostat] 0.4 mg SUBLINGUAL Q5M PRN #21 tab 12/27/18 01/05/20 Rx Albuterol Inhaler [Ventolin Hfa 2 puff INHALATION RT-Q4H PRN 12/30/19 01/05/20 History Inhaler] Atorvastatin [Lipitor] 10 mg PO HS@199912/30/19 01/05/20 History Divalproex ER [Depakote ER] 1,000 mg PO HS@199912/30/19 01/05/20 History Ibuprofen 800 mg PO Q8H PRN 12/30/19 01/05/20 History Lisinopril [Prinivil] 20 mg PO DAILY@59912/30/19 01/05/20 History Pantoprazole [Protonix] 40 mg PO DAILY@59912/30/19 01/05/20 History Promethazine 6.25MG/5Ml [Phenergan 6.25 mg PO BID PRN 12/30/19 01/05/20 History Syrup] Ziprasidone HCl [Geodon] 80 mg PO HS@199912/30/19 01/05/20 History Ziprasidone [Geodon] 60 mg PO DAILY@59912/30/19 01/05/20 History diphenhydrAMINE [Benadryl] 25 mg PO BID@599,199912/30/19 01/05/20 History guaiFENesin SYRUP 100MG/5ML 100 - 200 mg PO Q4H PRN 12/30/19 01/05/20 History [Robitussin] Ergocalciferol (Vitamin D2) 50,000 unit PO FR 12/31/19 01/05/20 History [Vitamin D2] Allergies Allergy/AdvReac Type Severity Reaction Status Date / Time amoxicillin Allergy Unknown Verified 01/05/20 22:23 brompheniramine maleate Allergy Unknown Verified 01/05/20 22:23 [From Dimetapp Cold-Allergy (PE)] codeine Allergy Rash/Hives Verified 01/05/20 22:23 fluoxetine HCl [From Prozac] Allergy Unknown Verified 01/05/20 22:23 latex Allergy Unknown Verified 01/05/20 22:23 morphine Allergy Rash/Hives Verified 01/05/20 22:23 phenylephrine HCl Allergy Unknown Verified 01/05/20 22:23 [From Dimetapp Cold-Allergy (PE)] shellfish derived [Shellfish] Allergy Rash/Hives Verified 01/05/20 22:23 Physical Exam Vitals: showed BP about 180/90, HR 160 bpm , oxygen sat 92-94 on room air, unable to perform full exam, patient is very violent and aggressively moving all his extremities. patient lying on the floor , with slight blood around his left nostril patient moving all his extremities violently has his pants wet , most likely urine incontinence during what suspected to be a seizure episode pupiles round , reactive to light, breathing spontaneously , non rebreather mask chest moving with respiration , , audible bilaterally , unable to assess breath sounds properly , patient violent no evidence of foreign bodies in his mouth unable to perform full exam at this time, due to patient being very violent Results CBC & Chem 7: 01/05/20 21:55 01/05/20 21:55 Assessment and Plan Assessment: 59 year old male with schizophrenia bipolar disorder, was admitted to the mental health unit about 5 days ago due to violent behavior and alleged suicidal ideation, has remote history of possible seizure, also history of hypertension while on the mental health unit, a code blue was called, most likely patient had a seizure episode, however, his RN could not detect a pulse and patient was having tonic contractions for which she called a code blue, after less than 2 minutes at time of my arrival and evaluation , patient had a detectable pulse and return of spontaneous circulation , blood sugar checked and was 123, however, he continued to be very violent aggressively throwing punches and kicking staff. vital signs , showed BP about 180/90, HR 160 bpm , oxygen sat 92- 94 on room air, patient given a total of 4 mg of ativan IV to calm him down , without much improvement. then he was given 4 mg of haldol IV. breakthrough seizure possible cardiopulmonary arrest , unknown initial rhythm , ROSC after one round of CPR , no meds given acute psychosis , schizophrenia , bipolar disorder, suicidal ideation hypertension plan Ativan PRN haldol PRN continue depakote, which is at 1000 mg daily , for mood stabilization neuro consult bed side sitter , suicide precautions resume meds from mental health unit , invega, resume home meds for hypertension , lisinopril close monitoring in the ICU, patient might need to be sedated and intubated if he suspected to be experiencing status epilepticus check EEG check EKG check CT wout contrast check echo check full set of labs, CBC, CMP, PT/INR, prolactin, lactic acid, trops, ckmb, Mg, PO4 seizure and suicide precautions leukocytosis , and tachycardia, could be reactive , rule out infectious process. no identifiable source of infection at this time follow up cultures DVT PPX, heparin sc tid full code anticipated length of stay > 2 midnights 75 min were spent in direct and coordinating care for this patient
[2020-01-05] MEDS ORDERED: LORazepam 2 MG/ML INJ ONE (21:34)
[2020-01-05] MEDS ORDERED: HALOPERIDOL LACTATE 5 MG/ML 1 ML VIAL ONE (21:35)
[2020-01-05] MEDS ORDERED: HALOPERIDOL LACTATE 5 MG/ML 1 ML VIAL IM PRN (21:40)
[2020-01-05] MEDS: SODIUM CHLORIDE 0.9% 1,000 ML IV SCH (22:05)
--- NOTE | 2020-01-05 22:05 | P.MHFACE ---
Face to Face Restrain/Seclus - Evaluation Patient's Immediate Situation: Endangers self safety, Endangers staff safety, V iolent behavior Patient's Reaction to the Intervention: Uncooperative, Angry, Hostile, Belligerent, Anxious, Apprehensive, Combative, Resistive to care Patient's Medical & Behavioral Condition: Awake, Drowsy, Agitated Need to Continue or Terminate Restraint or Seclusion: Continue
[2020-01-05 22:10] LABS: Basophils % (A) 0 %; Eosinophils # (A) 0.1 k/uL (0-0.7); Eosinophils % (A) 1 %; HCT 40.3 % (39.0-53.0); HGB 13.6 gm/dL (13.0-17.5); Lymphocytes # (A) 2.3 k/uL (1.0-4.8); Lymphocytes % (A) 15 %; MCH 31.1 pg (25.0-35.0); MCHC 33.7 g/dL (31.0-37.0); MCV 92.3 fL (80.0-100.0); Mean Platelet Volume 7.5; Monocytes # (A) 0.8 k/uL (0-1.0); Monocytes % (A) 5 %; Neutrophils # (A) 11.5 k/uL (1.3-7.7); Neutrophils % (A) 77 %; Platelet Count 362 k/uL (150-450); RBC 4.37 m/uL (4.30-5.90); RDW 13.2 % (11.5-15.5); WBC 14.9 k/uL (3.8-10.6)
--- NOTE | 2020-01-05 22:22 | XR ---
EXAMINATION TYPE: XR chest 1V DATE OF EXAM: 01/05/2020 COMPARISON: 12/31/2019 HISTORY: Altered mental status. Fever TECHNIQUE: 2 views FINDINGS: There is no heart failure. Heart size is normal. Costophrenic angles are fairly clear. Ther e are chest leads. Bony thorax is intact. There is old left-sided healed rib fracture noted. IMPRESSION: No active cardiopulmonary disease. No change.
[2020-01-05 22:23] LABS: Albumin 4.6 g/dL (3.5-5.0); Calcium 9.8 mg/dL (8.4-10.2); Potassium 4.4 mmol/L (3.5-5.1); Total Bilirubin 0.5 mg/dL (0.2-1.3); Total Protein 7.5 g/dL (6.3-8.2)
[2020-01-05] MEDS ORDERED: SODIUM CHLORIDE 0.9% 2,000 ML IV ONE (22:43)
[2020-01-05 22:45] LABS: Creatine Kinase MB 1.2 ng/mL (0.0-2.4); Troponin I <0.012 ng/mL (0.000-0.034)
[2020-01-06] MEDS: LORazepam 2 MG/ML INJ IV PRN ×2 (01:34→16:31)
[2020-01-06] MEDS ORDERED: HALOPERIDOL LACTATE 5 MG/ML 1 ML VIAL IVP STA (02:30)
[2020-01-06 04:29] LABS: Appearance,Urine Clear (Clear); Bacteria,Urine Rare /hpf; Bilirubin,Urine Negative (Negative); Blood,Urine Moderate (Negative); Cellular Casts,Urine 3 /lpf (0); Color,Urine Yellow; Glucose,Urine (UA) Negative (Negative); Hyaline Casts,Urine 15 /lpf (0-2); Ketones,Urine Trace (Negative); Leukocyte Esterase,Urine Negative (Negative); Mucus,Urine Rare /hpf; Nitrite,Urine Negative (Negative); PH, Urine 5.5 (5.0-8.0); Protein,Urine 1+ (Negative); RBC,Urine 28 /hpf (0-5); Specific Gravity,Urine 1.021 (1.001-1.035); Squamous Epithelial Cell,Urine 1 /hpf (0-4); Urobilinogen,Urine <2.0 mg/dL (<2.0); WBC,Urine 3 /hpf (0-5)
[2020-01-06 04:36] LABS: HCT 35.7 % (39.0-53.0); MCH 31.5 pg (25.0-35.0); MCHC 33.7 g/dL (31.0-37.0); MCV 93.5 fL (80.0-100.0); Mean Platelet Volume 7.3; Platelet Count 259 k/uL (150-450); RBC 3.82 m/uL (4.30-5.90); RDW 13.4 % (11.5-15.5); WBC 11.8 k/uL (3.8-10.6)
[2020-01-06] MEDS: HALOPERIDOL LACTATE 5 MG/ML 1 ML VIAL IVP PRN ×2 (04:37→12:47)
[2020-01-06 04:48] LABS: Potassium 4.8 mmol/L (3.5-5.1)
[2020-01-06 04:49] LABS: ALT 58 U/L (4-49); AST 49 U/L (17-59); African American GFR (CKD) >90 (>60 ml/min/1.73 sqM); Albumin 3.6 g/dL (3.5-5.0); Alkaline Phosphatase 61 U/L (38-126); Anion Gap 7 mmol/L; Blood Urea Nitrogen 18 mg/dL (9-20); Calcium 8.8 mg/dL (8.4-10.2); Carbon Dioxide 22 mmol/L (22-30); Chloride 107 mmol/L (98-107); Glucose 98 mg/dL (74-99); Non-African American GFR(CKD) >90 (>60 ml/min/1.73 sqM); Phosphorus 3.1 mg/dL (2.5-4.5); Sodium 136 mmol/L (137-145); Total Bilirubin 0.4 mg/dL (0.2-1.3); Total Protein 6.3 g/dL (6.3-8.2)
[2020-01-06] MEDS: SODIUM CHLORIDE 0.9% 1,000 ML IV SCH ×2 (05:56→16:35)
[2020-01-06] MEDS ORDERED: LISINOPRIL 20 MG TAB PO SCH (06:00)
[2020-01-06] MEDS ORDERED: diphenhydrAMINE 25 MG CAP PO SCH (06:00)
[2020-01-06 06:48] LABS: Glucose,Whole Blood 117 mg/dL (75-99)
[2020-01-06] MEDS: LISINOPRIL 20 MG TAB PO SCH (08:32)
[2020-01-06] MEDS: PALIPERIDONE 3 MG TAB.ER.24 PO SCH ×2 (08:32→20:43)
[2020-01-06] MEDS: diphenhydrAMINE 25 MG CAP PO SCH ×2 (08:32→20:42)
[2020-01-06] MEDS: PANTOPRAZOLE 40 MG/10 ML VIAL IV SCH (08:32)
--- NOTE | 2020-01-06 10:33 | ECHOF ---
Referral Reason:cardiopulmonary arrest MEASUREMENTS -------- HEIGHT: 172.7 cm WEIGHT: 102.5 kg BP: 93/54 RVIDd: 2.8 cm (< 3.3) IVSd: 0.9 cm (0.6 - 1.1) LVIDd: 4.5 cm (3.9 - 5.3) LVPWd: 1.0 cm (0.6 - 1.1) IVSs: 1.5 cm LVIDs: 2.9 cm LVPWs: 1.4 cm LA Diam: 3.4 cm (2.7 - 3.8) Ao Diam: 3.1 cm (2.0 - 3.7) AV Cusp: 2.1 cm (1.5 - 2.6) MV EXCURSION: 15.792 mm (> 18.000) MV EF SLOPE: 143 mm/s (70 - 150) EPSS: 0.6 cm MV E Kenneth: 0.86 m/s MV DecT: 254 ms MV A Kenneth: 0.71 m/s MV E/A Ratio: 1.21 FINDINGS -------- This was a technically adequate study. The left ventricular size is normal. Left ventricular wall thickness is normal. Overall left vent ricular systolic function is normal with, an EF between 60 - 65 %. The right ventricle is normal in size. Normal LA size by volume 22+/-6 ml/m2. The right atrium is normal in size. Interatrial and interventricular septum intact. The aortic valve is trileaflet and appears structurally normal. Mild mitral regurgitation is present. The tricuspid valve appears structurally normal. Trace/mild (physiologic) pulmonic regurgitation. The aortic root size is normal. Normal inferior vena cava with normal inspiratory collapse consistent with estimated right atrial pre ssure of 5 mmHg. There is no pericardial effusion. CONCLUSIONS -------- 1. This was a technically adequate study. 2. The left ventricular size is normal. 3. Left ventricular wall thickness is normal. 4. Overall left ventricular systolic function is normal with, an EF between 60 - 65 %. 5. The right ventricle is normal in size. 6. Normal LA size by volume 22+/-6 ml/m2. 7. The right atrium is normal in size. 8. Interatrial and interventricular septum intact. 9. The aortic valve is trileaflet and appears structurally normal. 10. Mild mitral regurgitation is present. 11. The tricuspid valve appears structurally normal. 12. Trace/mild (physiologic) pulmonic regurgitation. 13. The aortic root size is normal. 14. Normal inferior vena cava with normal inspiratory collapse consistent with estimated right atrial pressure of 5 mmHg. 15. There is no pericardial effusion. SEALING MACHINE OPERATOR: Yumiko Colon RDCS
--- NOTE | 2020-01-06 11:03 | P.PN ---
Subjective Patient is doing well today. He does not have any specific concerns or complaints. He was able to take his medication this morning with no difficulty. Objective - Vital Signs Vital signs: Vital Signs Temp 97.7 F 01/06/20 08:00 Pulse 86 01/06/20 10:00 Resp 20 01/06/20 10:00 BP 118/76 01/06/20 10:00 Pulse Ox 93 L 01/06/20 10:00 Intake & Output 01/05/20 01/06/20 01/06/20 18:59 06:59 18:59 Intake Total 2910 620 Output Total 605 325 Balance 2305 295 Weight 102.7 kg Intake: Intake, IV Titration 2910 520 Amount Sodium Chloride 0.9% 1, 910 520 000 ml @ 130 mls/hr IV . Q7H42M [facility] Rx#:[id number] Sodium Chloride 0.9% 2, 2000 000 ml @ 999 mls/hr IV . Q2H1M [facility] Rx#:[id number] Oral 100 Output: Urine 605 325 Other: Voiding Method Indwelling Catheter Indwelling Catheter - Exam General: The patient is awake and alert, in no distress Eye: there is normal conjunctiva bilaterally. Neck: The neck is supple, there is no JVD. Cardiovascular: Normal S1-S2, no S3-S4, no murmurs. Respiratory: Lungs clear to auscultation bilaterally Gastrointestinal: Abdomen is soft, nontender Musculoskeletal: There is no pedal edema. Neurological:. Speech is normal. Skin: Skin is warm and dry - Labs CBC & Chem 7: 01/06/20 04:14 01/06/20 04:14 Labs: Abnormal Lab Results - Last 24 Hours (Table) 01/05/20 01/05/20 01/05/20 Range/Units 21:55 21:55 21:55 WBC 14.9 H (3.8-10.6) k/uL RBC (4.30-5.90) m/uL Hgb (13.0-17.5) gm/dL Hct (39.0-53.0) % Neutrophils # 11.5 H (1.3-7.7) k/uL APTT (22.0-30.0) sec Sodium 134 L (137-145) mmol/L Carbon Dioxide 19 L (22-30) mmol/L Glucose 206 H (74-99) mg/dL POC Glucose (mg/dL) (75-99) mg/dL Plasma Lactic Acid Ovidio (0.7-2.0) mmol/L Magnesium 2.4 H (1.6-2.3) mg/dL ALT 68 H (4-49) U/L Urine Protein (Negative) Urine Ketones (Negative) Urine Blood (Negative) Urine RBC (0-5) /hpf Urine Bacteria (None) /hpf Hyaline Casts (0-2) /lpf Urine Mucus (None) /hpf 01/05/20 01/05/20 01/06/20 Range/Units 21:55 21:55 00:52 WBC (3.8-10.6) k/uL RBC (4.30-5.90) m/uL Hgb (13.0-17.5) gm/dL Hct (39.0-53.0) % Neutrophils # (1.3-7.7) k/uL APTT 21.0 L (22.0-30.0) sec Sodium (137-145) mmol/L Carbon Dioxide (22-30) mmol/L Glucose (74-99) mg/dL POC Glucose (mg/dL) (75-99) mg/dL Plasma Lactic Acid Ovidio 8.4 H* 3.4 H* (0.7-2.0) mmol/L Magnesium (1.6-2.3) mg/dL ALT (4-49) U/L Urine Protein (Negative) Urine Ketones (Negative) Urine Blood (Negative) Urine RBC (0-5) /hpf Urine Bacteria (None) /hpf Hyaline Casts (0-2) /lpf Urine Mucus (None) /hpf 01/06/20 01/06/20 01/06/20 Range/Units 03:30 04:14 04:14 WBC 11.8 H (3.8-10.6) k/uL RBC 3.82 L (4.30-5.90) m/uL Hgb 12.0 L (13.0-17.5) gm/dL Hct 35.7 L (39.0-53.0) % Neutrophils # (1.3-7.7) k/uL APTT (22.0-30.0) sec Sodium 136 L (137-145) mmol/L Carbon Dioxide (22-30) mmol/L Glucose (74-99) mg/dL POC Glucose (mg/dL) (75-99) mg/dL Plasma Lactic Acid Ovidio (0.7-2.0) mmol/L Magnesium (1.6-2.3) mg/dL ALT 58 H (4-49) U/L Urine Protein 1+ H (Negative) Urine Ketones Trace H (Negative) Urine Blood Moderate H (Negative) Urine RBC 28 H (0-5) /hpf Urine Bacteria Rare H (None) /hpf Hyaline Casts 15 H (0-2) /lpf Urine Mucus Rare H (None) /hpf 01/06/20 Range/Units 06:46 WBC (3.8-10.6) k/uL RBC (4.30-5.90) m/uL Hgb (13.0-17.5) gm/dL Hct (39.0-53.0) % Neutrophils # (1.3-7.7) k/uL APTT (22.0-30.0) sec Sodium (137-145) mmol/L Carbon Dioxide (22-30) mmol/L Glucose (74-99) mg/dL POC Glucose (mg/dL) 117 H (75-99) mg/dL Plasma Lactic Acid Ovidio (0.7-2.0) mmol/L Magnesium (1.6-2.3) mg/dL ALT (4-49) U/L Urine Protein (Negative) Urine Ketones (Negative) Urine Blood (Negative) Urine RBC (0-5) /hpf Urine Bacteria (None) /hpf Hyaline Casts (0-2) /lpf Urine Mucus (None) /hpf Assessment and Plan Assessment: 59 year old male with schizophrenia bipolar disorder, was admitted to the mental health unit about 5 days ago due to violent behavior and alleged suicidal amber ation, has remote history of possible seizure, also history of hypertension while on the mental health unit, a code blue was called, most likely patient had a seizure episode, however, his RN could not detect a pulse and patient was having tonic contractions for which she called a code blue, after less than 2 minutes at time of my arrival and evaluation , patient had a detectable pulse and return of spontaneous circulation , blood sugar checked and was 123, however, he continued to be very violent aggressively throwing punches and kicking staff. vital signs , showed BP about 180/90, HR 160 bpm , oxygen sat 92- 94 on room air, patient given a total of 4 mg of ativan IV to calm him down , without much improvement. then he was given 4 mg of haldol IV. 1. breakthrough seizure: Continue seizure precaution. EEG ordered. Awaiting neurology consultation. Maintained on Depakote. 2. possible cardiopulmonary arrest , unknown initial rhythm , ROSC after one round of CPR , no meds given: Echocardiogram showed preserved EF with no significant valvular abnormalities. 3. acute psychosis , schizophrenia , bipolar disorder, suicidal ideation: Now stable. Continue suicide precaution. Will probably return to psych when medically cleared. 4. hypertension: Blood pressure well-controlled. Continue current regimen. plan Ativan PRN haldol PRN continue depakote, which is at 1000 mg daily , for mood stabilization neuro consult bed side sitter , suicide precautions [facility] med[facility] mental health unit [facility], resume home meds for hypertension , lisinopril close monitoring in the ICU, patient might need to be sedated and intubated if he suspected to be experiencing status epilepticus check EEG check EKG check CT wout contrast check echo check full set of labs, CBC, CMP, PT/INR, prolactin, lactic acid, trops, ckmb, Mg, PO4 seizure and suicide precautions leukocytosis , and tachycardia, could be reactive , rule out infectious process. no identifiable source of infection at this time follow up cultures DVT PPX, heparin sc tid full code anticipated length of stay > 2 midnights
[2020-01-06 11:53] LABS: Glucose,Whole Blood 96 mg/dL (75-99)
--- NOTE | 2020-01-06 11:57 | CT ---
EXAMINATION TYPE: CT brain wo con DATE OF EXAM: 01/06/2020 HISTORY: Seizure CT DLP: 1090.4 mGycm. Automated Exposure Control for Dose Reduction was Utilized. TECHNIQUE: CT scan of the head is performed without contrast. COMPARISON: CT brain from yesterday. FINDINGS: There is no acute intracranial hemorrhage or midline shift identified. There is diffuse v entricular and sulcal prominence consistent with diffuse age-related cerebral atrophy. There is low- attenuation in the periventricular white matter consistent with chronic small vessel ischemic change. The globes are intact and the visualized sinuses are clear. The calvarium is intact. IMPRESSION: No acute intracranial hemorrhage or midline shift. There is mild to moderate diffuse ce rebral atrophy greatest over bilateral frontal lobes and mild chronic small vessel ischemic change. N o significant change from one day earlier. Less motion artifact noted.
[2020-01-06 12:23] LABS: Prolactin 33.7 ng/mL (2.1-17.7)
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
[2020-01-06] MEDS: clonazePAM 1 MG TAB PO PRN ×2 (14:51→20:42)
[2020-01-06 17:18] LABS: Glucose,Whole Blood 131 mg/dL (75-99)
--- NOTE | 2020-01-06 17:51 | P.CNNES ---
History of Present Illness Consult date: 01/06/20 Requesting physician: Lalitha Morales Reason for Consult: Seizure History of Present Illness: Patient is a 59-year-old male with history of Schizoaffective disorder, bipolar type admitted to the hospital for possible seizure, possible cardiopulmonary arrest. Patient was initially admitted to the mental health unit for acute psychosis and violent behavior. While he was an inpatient in the mental health unit, a CODE BLUE called, when he was sitting in the dining room, suddenly felt off the chair, associated with tonic-clonic seizure. He had loss of control of urine and turned blue. The nurse could not feel his pulse and called CODE BLUE. He was given 1 round of CPR, no meds were given. Patient had return of spontaneous circulation. His vitals were stable later on. He was noted to be very violent and kicking and punching, not cooperating and not much making eye contact. Patient at present had improved, wants to go back to the mental health unit. Per nursing report, sometimes gets disoriented. Patient had undergone Computed tomography scan of head showed no acute process. Mild to moderate diffuse cerebral atrophy greatest over bilateral frontal lobes and mild chronic small vessel ischemic change. Chest chest x-ray showed no acute process. 2-D echo showed left-ventricular wall thickness is normal. EF is 60-65%. Normal left atrial size. Interatrial and interventricular septum intact. Mild mitral regurgitation present. Patient's blood test shows WBC 11.8 hemoglobin 12.0, sodium 136 potassium 4.8, normal renal functions. AST is 49, ALT mildly elevated 58. UA showed 28 RBC, negative leukocyte esterase. Rare bacteria. Patient's last Depakote level was 71.5 on 12/25/2018. EKG shows sinus tachycardia with heart rate of 125, possible left atrial enlargement. Patient denies any history of seizures. Patient does not take any benzodiazepine, no alcohol or drugs. Review of Systems Patient denies headache, double vision, loss of vision, chest pain, shortness of breath, wheezing or cough. Denies back pain. All other review of systems unremarkable. Past Medical History Past Medical History: COPD, Hyperlipidemia, Hypertension, Osteoarthritis (OA) Additional Past Medical History / Comment(s): prostate cancer, possible seizure disorder-last known seizure 12/07/14.tinnitus, bipolar depression, ptsd, schizophrenia. 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 Past Psychological History: Bipolar, Depression, PTSD, Schizophrenia Smoking Status: Never smoker Past Alcohol Use History: None Reported Past Drug Use History: None Reported - Past Family History Father Family Medical History: Cancer Additional Family Medical History / Comment(s): Father is alive at age 82 with history of prostate cancer. Mother Family Medical History: Cancer Additional Family Medical History / Comment(s): Mother at age 53 from bladder cancer Brother(s) Additional Family Medical History / Comment(s): Patient has 4 brothers and 2 sisters that are healthy with no major medical problems. Patient does not have any children. Medications and Allergies Home Medications Medication Instructions Recorded Confirmed Type Nitroglycerin Sl Tabs [Nitrostat] 0.4 mg SUBLINGUAL Q5M PRN #21 tab 12/27/18 01/05/20 Rx Albuterol Inhaler [Ventolin Hfa 2 puff INHALATION RT-Q4H PRN 12/30/19 01/05/20 History Inhaler] Atorvastatin [Lipitor] 10 mg PO HS@199912/30/19 01/05/20 History Divalproex ER [Depakote ER] 1,000 mg PO HS@199912/30/19 01/05/20 History Ibuprofen 800 mg PO Q8H PRN 12/30/19 01/05/20 History Lisinopril [Prinivil] 20 mg PO DAILY@59912/30/19 01/05/20 History Pantoprazole [Protonix] 40 mg PO DAILY@59912/30/19 01/05/20 History Promethazine 6.25MG/5Ml [Phenergan 6.25 mg PO BID PRN 12/30/19 01/05/20 History Syrup] Ziprasidone HCl [Geodon] 80 mg PO HS@199912/30/19 01/05/20 History Ziprasidone [Geodon] 60 mg PO DAILY@59912/30/19 01/05/20 History diphenhydrAMINE [Benadryl] 25 mg PO BID@0600,199912/30/19 01/05/20 History guaiFENesin SYRUP 100MG/5ML 100 - 200 mg PO Q4H PRN 12/30/19 01/05/20 History [Robitussin] Ergocalciferol (Vitamin D2) 50,000 unit PO FR 12/31/19 01/05/20 History [Vitamin D2] Allergies Allergy/AdvReac Type Severity Reaction Status Date / Time amoxicillin Allergy Unknown Verified 01/05/20 22:23 brompheniramine maleate Allergy Unknown Verified 01/05/20 22:23 [From Dimetapp Cold-Allergy (PE)] codeine Allergy Rash/Hives Verified 01/05/20 22:23 fluoxetine HCl [From Prozac] Allergy Unknown Verified 01/05/20 22:23 latex Allergy Unknown Verified 01/05/20 22:23 morphine Allergy Rash/Hives Verified 01/05/20 22:23 phenylephrine HCl Allergy Unknown Verified 01/05/20 22:23 [From Dimetapp Cold-Allergy (PE)] shellfish derived [Shellfish] Allergy Rash/Hives Verified 01/05/20 22:23 Physical Examination - Vital Signs Vital Signs: Vital Signs Temp Pulse Pulse Resp BP BP Pulse Ox 01/06/20 15:00 93 24 100/63 01/06/20 14:00 83 16 111/96 01/06/20 13:00 109 H 20 101/83 01/06/20 12:00 97.6 F 90 102 H 12 100/72 93 L 01/06/20 11:00 63 20 121/75 01/06/20 10:00 86 20 118/76 93 L 01/06/20 09:00 84 16 117/78 96 01/06/20 08:00 97.7 F 92 102 H 16 115/73 97 01/06/20 07:00 85 16 93/54 01/06/20 06:00 89 16 100/54 01/06/20 05:00 105 H 17 152/74 01/06/20 04:01 97.1 F L 112 H 22 89/54 94 L 01/06/20 04:00 102 H 01/06/20 03:00 116/68 01/06/20 02:00 140 H 32 H 139/86 01/06/20 01:00 128 H 21 01/06/20 00:00 120 H 150 H 22 01/05/20 23:15 138 H 26 H 117/102 01/05/20 23:10 141 H 16 117/102 01/05/20 23:06 98 01/05/20 23:00 125 H 21 01/05/20 22:50 124 H 22 01/05/20 22:40 129 H 24 01/05/20 22:30 149 H 26 H 01/05/20 21:40 97.1 F L 150 H 24 180/90 100 Intake and Output 01/06/20 01/06/20 01/06/20 06:59 14:59 22:59 Intake Total 2780 1175 175 Output Total 555 675 125 Balance 2225 500 50 Intake: Intake, IV Titration 2780 875 75 Amount Sodium Chloride 0.9% 1, 780 875 75 000 ml @ 75 mls/hr IV . [id number] [facility] Rx#:[id number] Sodium Chloride 0.9% 2, 2000 000 ml @ 999 mls/hr IV . Q2H1M ONE Rx#:[id number] Oral 300 100 Output: Urine 555 675 125 Other: Voiding Method Indwelling Catheter Indwelling Catheter Weight 102.7 kg On examination patient is a middle aged male, in no distress. He is alert and awake fully oriented. Patient knows that it is December and the year is 2019 although he thinks it's of December. He knows his date of and that he is in [facility] in [place] and name of the current president. Speech and language functions are normal. Attention and concentration fund of knowledge appears adequate. Affect appears normal. On cranial examination pupils are round and reactive to light, visual knox are full, face is symmetric, tongue protrudes the midline. Palatal elevation and sensation normal. Hearing and shoulder shrug normal. On muscle strength testing there is no pronator drift and the strength is normal in arms and legs. Reflexes are 1+ and plantars are downgoing bilaterally. Sensory touch is equal. No ataxia for [id number]-is-xawg testing. Tone and bulk of muscles normal. Gait deferred. No obvious bruit. S1 and S2 audible. Peripheral pulses present. Abdomen soft nontender. Chest is clear. Results - Laboratory Findings CBC and BMP: 01/06/20 04:14 01/06/20 04:14 Abnormal Lab Findings: Abnormal Labs 01/05/20 01/05/20 01/05/20 21:55 21:55 21:55 WBC 14.9 H RBC Hgb Hct Neutrophils # 11.5 H APTT Sodium 134 L Carbon Dioxide 19 L Glucose 206 H POC Glucose (mg/dL) Plasma Lactic Acid Ovidio Magnesium 2.4 H ALT 68 H Prolactin 33.7 H Urine Protein Urine Ketones Urine Blood Urine RBC Urine Bacteria Hyaline Casts Urine Mucus 01/05/20 01/05/20 01/06/20 21:55 21:55 00:52 WBC RBC Hgb Hct Neutrophils # APTT 21.0 L Sodium Carbon Dioxide Glucose POC Glucose (mg/dL) Plasma Lactic Acid Ovidio 8.4 H* 3.4 H* Magnesium ALT Prolactin Urine Protein Urine Ketones Urine Blood Urine RBC Urine Bacteria Hyaline Casts Urine Mucus 01/06/20 01/06/20 01/06/20 03:30 04:14 04:14 WBC 11.8 H RBC 3.82 L Hgb 12.0 L Hct 35.7 L Neutrophils # APTT Sodium 136 L Carbon Dioxide Glucose POC Glucose (mg/dL) Plasma Lactic Acid Ovidio Magnesium ALT 58 H Prolactin Urine Protein 1+ H Urine Ketones Trace H Urine Blood Moderate H Urine RBC 28 H Urine Bacteria Rare H Hyaline Casts 15 H Urine Mucus Rare H 01/06/20 06:46 WBC RBC Hgb Hct Neutrophils # APTT Sodium Carbon Dioxide Glucose POC Glucose (mg/dL) 117 H Plasma Lactic Acid Ovidio Magnesium ALT Prolactin Urine Protein Urine Ketones Urine Blood Urine RBC Urine Bacteria Hyaline Casts Urine Mucus Assessment and Plan Assessment: * New onset seizure, unclear etiology. Patient states he had history of a seizure in December 2018, although I cannot find any such record in the EMR. Patient was not on any benzodiazepine, that could be contributing to the seizure. * Schizoaffective disorder * Obesity Plan: * EEG was performed, which is normal during sleep. No epileptiform activity was seen. * We will check Depakote level. Continue Depakote at current dose. No other neurological workup indicated. * Consider cardiology consultation to rule out arrhythmia.
--- NOTE | 2020-01-06 18:08 | CONS ---
CONSULTATION PULMONARY/CRITICAL CARE CONSULTATION: DATE OF SERVICE: January 06, 2020 This is a 59-year-old male with a history of schizophrenia, bipolar disorder, and history of remote seizure activity. He also suffers from both hypertension and hyperlipidemia. The patient was apparently admitted back on December 31 to the Mental Health Unit for suicidal tendencies and violent behavior. Apparently sometime last night before midnight, a CODE BLUE was called. Initially they thought he had a cardiopulmonary arrest, but on further evaluation, it appears that he likely had a seizure. Anyway, he had very brief cardiopulmonary resuscitation with chest compressions. The patient was transferred to the ICU. The patient has been getting Ativan and Haldol. Apparently has been refusing to take oral medication. Currently, he is awake and alert. He is on 2 L nasal cannula. His saline IV is running 130 mL an hour. MEDICAL HISTORY: Potentially COPD, hyperlipidemia, hypertension, osteoarthritis, prostate cancer, remote seizure activity, tinnitus, bipolar disorder, depression, PTSD, and schizophrenia. SURGICAL HISTORY: Includes prostate surgery. He also had eye surgery to correct a lazy eye and also has had back surgery. SOCIAL HISTORY: Apparently negative for tobacco use. Apparently denies alcohol use or any illicit drug use. FAMILY HISTORY: Positive for a father with prostate cancer and mother who from bladder cancer. He has 4 brothers and 2 sisters, all of which are healthy. HOME MEDICATIONS: Home medications apparently include sublingual nitroglycerin, albuterol inhaler, Lipitor, Depakote, ibuprofen, lisinopril, Protonix, promethazine with codeine syrup, Geodon, Benadryl, Robitussin, and vitamin D2. ALLERGIES: INCLUDE AMOXICILLIN, DIMETAPP, CODEINE, PROZAC, LATEX, MORPHINE, PHENYLEPHRINE, and SHELLFISH. REVIEW OF SYSTEMS: CONSTITUTIONAL negative. NEUROLOGIC negative except for possible seizure activity in the night before which caused him to come to the ICU. HEENT negative. CARDIOVASCULAR negative. PULMONARY negative. GI negative. negative. RHEUMATOLOGIC negative. IMMUNOLOGIC negative. ENDOCRINOLOGIC negative. DERMATOLOGIC negative. PHYSICAL EXAMINATION: VITAL SIGNS: Current vital signs are reviewed. Temperature is 97.7. Heart rate 84, respiratory rate 16, blood pressure 117/78, mean 91. Saturations are 96% on 2 L. Appears in no acute distress. HEENT: Examination is grossly unremarkable. Nasal O2 in place. NECK: Supple full range of motion. No adenopathy. Neck veins are flat. CARDIOVASCULAR: Examination reveals regular rhythm and rate. Heart rate 84 beats per minute. S1, S2 normal. LUNGS: Reveal mostly clear breath sounds. A few scattered rhonchi. No wheezes or crackles. ABDOMEN: Soft. EXTREMITIES are intact. No cyanosis, clubbing, or edema. SKIN: Without rash. NEUROLOGIC: Neurologic examination other than for him being a little lethargic, appears to be normal. LABS: Reviewed. White count 11.8, hemoglobin 12, hematocrit 35.7, platelet count 359,000, sodium 136, potassium 4.8, chloride 107, CO2 22, anion gap is 7, BUN and creatinine were 18 and 0.79. Urine shows 1+ protein, trace ketones, moderate blood, 28 RBCs, rare bacteria. Lactic acid was 3.4 with repeat 1.3. A chest x-ray done yesterday shows no acute disease. Medications are reviewed. He is currently on Tylenol, Lipitor, Benadryl, Depakote, Haldol, updrafts, lisinopril, lorazepam, Narcan and Invega, Protonix and a saline IV. ASSESSMENT: 1. Apparent seizure activity, thought to be initially a cardiopulmonary arrest. 2. Remote history of seizure disorder. 3. History of bipolar disorder. 4. Posttraumatic stress disorder. 5. Schizophrenia. 6. History of hypertension. 7. Hyperlipidemia. 8. Degenerative joint disease. 9. Questionable history of asthma. 10.History of prostate cancer, status post prostatectomy. 11.Multiple other medical problems and comorbidities. PLAN: Currently, the patient is doing well. He will be observed for a bit longer in the ICU. Later today or tomorrow, he can be moved out to the floor if he does not have any additional seizure activity. He is a bit lethargic right now. Currently getting Haldol and Ativan. No additional recommendations are made. Prognosis is guarded. We will continue to follow closely. MMODL / IJN: [id number] /
--- NOTE | 2020-01-06 18:39 | EEG ---
ELECTROENCEPHALOGRAM REPORT DATE OF SERVICE: 01/06/2020 . PREAMBLE: This is a 59-year-old male with possible seizure. This study is performed to evaluate for any epileptiform activity. EEG FINDINGS: 21 channel routine EEG recording in a patient utilizing 10/20 international system with bipolar and referential montages. The patient was asleep during most of the study with the presence of bilaterally symmetric mixed theta and delta rhythm with a lot of sleep spindles and some vertex waves. Well-formed awake pattern not seen in the entire study. The EKG rhythm leads revealed no arrhythmia. No focal or generalized epileptiform activity was seen. Photic driving response was seen with some flash frequencies. IMPRESSION: This is a normal sleep EEG. No focal, lateralized or epileptiform activity was seen. MMJOHANA / JTN: [id number] / MTDD
[2020-01-06] MEDS ORDERED: DIVALPROEX ER 500 MG TAB.ER.24H PO SCH (20:00)
[2020-01-06] MEDS ORDERED: ATORVASTATIN 10 MG TAB PO SCH (20:00)
[2020-01-07] MEDS: SODIUM CHLORIDE 0.9% 1,000 ML IV SCH (01:42)
[2020-01-07] MEDS: HALOPERIDOL LACTATE 5 MG/ML 1 ML VIAL IVP PRN (01:42)
[2020-01-07 05:23] LABS: HCT 37.5 % (39.0-53.0); MCHC 32.1 g/dL (31.0-37.0); MCV 93.5 fL (80.0-100.0); Mean Platelet Volume 7.5; Platelet Count 223 k/uL (150-450); RBC 4.01 m/uL (4.30-5.90); RDW 13.3 % (11.5-15.5); WBC 7.9 k/uL (3.8-10.6)
[2020-01-07 05:38] LABS: ALT 51 U/L (4-49); AST 66 U/L (17-59); African American GFR (CKD) >90 (>60 ml/min/1.73 sqM); Albumin 3.6 g/dL (3.5-5.0); Alkaline Phosphatase 65 U/L (38-126); Anion Gap 7 mmol/L; Blood Urea Nitrogen 12 mg/dL (9-20); Calcium 8.8 mg/dL (8.4-10.2); Carbon Dioxide 25 mmol/L (22-30); Chloride 106 mmol/L (98-107); Glucose 109 mg/dL (74-99); Non-African American GFR(CKD) >90 (>60 ml/min/1.73 sqM); Potassium 4.4 mmol/L (3.5-5.1); Sodium 138 mmol/L (137-145); Total Bilirubin 0.2 mg/dL (0.2-1.3); Total Protein 6.2 g/dL (6.3-8.2)
[2020-01-07] MEDS: PALIPERIDONE 3 MG TAB.ER.24 PO SCH (08:45)
[2020-01-07] MEDS: LISINOPRIL 20 MG TAB PO SCH (08:45)
[2020-01-07] MEDS: diphenhydrAMINE 25 MG CAP PO SCH (08:45)
[2020-01-07] MEDS: PANTOPRAZOLE 40 MG/10 ML VIAL IV SCH (08:45)
[2020-01-07] MEDS: clonazePAM 1 MG TAB PO PRN (08:52)
[2020-01-07 08:53] VITALS: RESP 20
--- NOTE | 2020-01-07 10:09 | PN ---
PROGRESS NOTE PULMONARY/CRITICAL CARE PROGRESS NOTE: DATE OF SERVICE: 01/07/2020 A 59-year-old gentleman who I saw yesterday in consultation. He has a history of significant psychiatric disorder including schizophrenia, and bipolar disorder as well as a history of seizure disorder. He also has a history of essential hypertension and hyperlipidemia. He was admitted back on December 31 to the mental health unit for suicidal tendencies and violent behavior. Apparently a Code Blue was called on Monday night. He was thought to have a possible cardiac arrest and he was transferred down to the ICU. It appeared that maybe he was just postictal and actually had a seizure. He did have a brief cardiopulmonary resuscitation. Currently, he is doing well. He is on room air. His IV is saline at 75 mL an hour. His IV fluids to be turned off. The patient could be transferred to the general medical floor. His history includes as mentioned above, possible COPD, hyperlipidemia, essential hypertension, DJD, prostate cancer, previous history of remote seizure activity, tinnitus, bipolar disorder, depression, PTSD, and schizophrenia. Current vital signs are reviewed. Temperature 97.1, heart rate 72, respiratory rate 16, blood pressure 99/74 mean 82, room air saturation 98%. Appears in no acute distress. HEENT: Examination is grossly unremarkable. NECK: Supple, full range of motion. No adenopathy. Neck veins are flat. CARDIOVASCULAR: Examination reveals regular rhythm and rate. S1, S2 normal. LUNGS: Reveal clear breath sounds equal. No wheezes, rhonchi, or crackles. ABDOMEN: Soft, bowel sounds are heard. EXTREMITIES: Intact. No cyanosis, clubbing, or edema. SKIN: Without rash. NEUROLOGIC: Examination is brief but nonfocal. LABS: Reviewed. White count 7.9, hemoglobin 12, hematocrit 37.5, platelet count 323 1000 sodium potassium chloride CO2 all normal anion gap normal. BUN and creatinine were normal. Microbiologic studies are both negative. X-rays have not been done. The patient did have a brain CT on January 05 which showed no acute intracranial hemorrhage or midline shift. CURRENT MEDICATIONS: Reviewed. He is on Tylenol, Lipitor, Klonopin, Benadryl, Depakote ER, Haldol, updrafts, lisinopril, Ativan, Narcan, Invega, Protonix and saline IV, which will be discontinued. ASSESSMENT: 1. Apparent seizure activity, which initially was thought to be an actual cardiopulmonary arrest, with brief cardiopulmonary resuscitation. 2. Remote history of seizure disorder. 3. History of bipolar disorder. 4. Posttraumatic stress disorder. 5. Schizophrenia. 6. History of essential hypertension. 7. History of hyperlipidemia. 8. Degenerative joint disease. 9. Questionable history of asthma. 10.History of prostate cancer, status post prostatectomy. 11.Multiple other medical problems and comorbidities. PLAN: Currently the patient is doing well, just on room air. His IV can be discontinued. Additional recommendations and suggestions are forthcoming. The patient could be transferred back to the mental health unit. No additional recommendations are made. MMODL / IJN: [id number] / STACIE
--- NOTE | 2020-01-07 10:46 | P.DS ---
Providers Date of admission: 01/05/20 21:09 Attending physician: Lalitha Morales MD Consults: 01/05/20 21:33 Consult Physician Routine Consulting Provider: Javier Rodrigues Consult Reason/Comments: cardiopulmonary arrest Do you want consulting provider notified?: Yes Consult Physician Routine Consulting Provider: Lashay Campbell Consult Reason/Comments: seizure Do you want consulting provider notified?: Yes Consult Physician Stat Consulting Provider: Erick Denton Consult Reason/Comments: known to doc Do you want consulting provider notified?: Yes, Notify in am Hospital Course: 59 year old male with schizophrenia bipolar disorder, was admitted to the mental health unit due to violent behavior and alleged suicidal ideation, has remote history of possible seizure, also history of hypertension while on the mental health unit, a code blue was called, most likely patient had a seizure episode, however, his RN could not detect a pulse and patient was having tonic contractions for which she called a code blue, after less than 2 minutes patient had a detectable pulse and return of spontaneous circulation. Patient was transferred to the ICU for further management of his medical problems noted below 1. breakthrough seizure: Seen and evaluated by neurology. Recommendation to continue current dose of Depakote. EEG was unremarkable. CT head with no acute findings. 2. possible cardiopulmonary arrest , unknown initial rhythm , ROSC after one round of CPR , no meds given: Echocardiogram showed preserved EF with no significant valvular abnormalities. 3. acute psychosis , schizophrenia , bipolar disorder, suicidal ideation: Now stable. Continue suicide precaution. Seen and evaluated by psychiatry. Plan to return to the psych unit today. 4. hypertension: Blood pressure well-controlled. Continue current regimen. Patient will be transferred back to the psych unit for further management Plan - Discharge Summary Discharge Rx Participant: No New Discharge Prescriptions: New Paliperidone [Invega] 3 mg PO BID tab.er.24 clonazePAM [KlonoPIN] 1 mg PO BID PRN tab PRN Reason: Anxiety Continue Albuterol Inhaler [Ventolin Hfa Inhaler] 2 puff INHALATION RT-Q4H PRN PRN Reason: Shortness Of Breath Atorvastatin [Lipitor] 10 mg PO HS@2000 diphenhydrAMINE [Benadryl] 25 mg PO BID@0600,2000 Divalproex ER [Depakote ER] 1,000 mg PO HS@2000 Lisinopril [Prinivil] 20 mg PO DAILY@599 Pantoprazole [Protonix] 40 mg PO DAILY@599 Ziprasidone [Geodon] 60 mg PO DAILY@599 Ziprasidone HCl [Geodon] 80 mg PO HS@1999 guaiFENesin SYRUP 100MG/5ML [Robitussin] 100 - 200 mg PO Q4H PRN PRN Reason: Cough Ergocalciferol (Vitamin D2) [Vitamin D2] 50,000 unit PO FR Discontinued Nitroglycerin Sl Tabs [Nitrostat] 0.4 mg SUBLINGUAL Q5M PRN #21 tab PRN Reason: Chest Pain Ibuprofen 800 mg PO Q8H PRN PRN Reason: DENTAL PAIN Promethazine 6.25MG/5Ml [Phenergan Syrup] 6.25 mg PO BID PRN PRN Reason: Cough Discharge Medication List Albuterol Inhaler [Ventolin Hfa Inhaler] 2 puff INHALATION RT-Q4H PRN 12/30/19 [ History] Atorvastatin [Lipitor] 10 mg PO HS@199912/30/19 [History] Divalproex ER [Depakote ER] 1,000 mg PO HS@199912/30/19 [History] Lisinopril [Prinivil] 20 mg PO DAILY@59912/30/19 [History] Pantoprazole [Protonix] 40 mg PO DAILY@59912/30/19 [History] Ziprasidone HCl [Geodon] 80 mg PO HS@199912/30/19 [History] Ziprasidone [Geodon] 60 mg PO DAILY@59912/30/19 [History] diphenhydrAMINE [Benadryl] 25 mg PO BID@599,199912/30/19 [History] guaiFENesin SYRUP 100MG/5ML [Robitussin] 100 - 200 mg PO Q4H PRN 12/30/19 [History] Ergocalciferol (Vitamin D2) [Vitamin D2] 50,000 unit PO FR 12/31/19 [History] Paliperidone [Invega] 3 mg PO BID tab.er.24 01/07/20 [Rx] clonazePAM [KlonoPIN] 1 mg PO BID PRN tab 01/07/20 [Rx] Discharge Disposition: TRANSFER TO PSYCH HOSP/UNIT
[2020-01-07 11:56] LABS: Glucose,Whole Blood 119 mg/dL (75-99)
[2020-01-07 15:12] VITALS: BP 130/80; PULSE 115; TEMP 98
[2020-01-07] MEDS: LORazepam 2 MG/ML INJ IV PRN (16:16)
[2020-01-07 16:40] LABS: Glucose,Whole Blood 156 mg/dL (75-99)
== END 2020-01-07 17:03 | DRG 100 ==
LOC: 2SICU 21:09 → OBSVTOIN 21:09 → 2SICU 21:36
PROVIDERS: ADMIT Internal Medicine; ATTEND Internal Medicine
DX: G40.909 Epilepsy, unspecified, not intractable, without status epilepticus (principal); I46.9 Cardiac arrest, cause unspecified; F31.30 Bipolar disorder, current episode depressed, mild or moderate severity, unspecified; R45.851 Suicidal ideations; F23 Brief psychotic disorder; J44.9 Chronic obstructive pulmonary disease, unspecified; D72.829 Elevated white blood cell count, unspecified; E66.9 Obesity, unspecified; E78.5 Hyperlipidemia, unspecified; F43.10 Post-traumatic stress disorder, unspecified; I10 Essential (primary) hypertension; M19.90 Unspecified osteoarthritis, unspecified site; H93.19 Tinnitus, unspecified ear; I34.0 Nonrheumatic mitral (valve) insufficiency; Z68.34 Body mass index [BMI] 34.0-34.9, adult; Z90.79 Acquired absence of other genital organ(s); Z85.46 Personal history of malignant neoplasm of prostate; Z79.899 Other long term (current) drug therapy; Z88.8 Allergy status to other drugs, medicaments and biological substances; Z91.040 Latex allergy status; Z88.5 Allergy status to narcotic agent; Z88.0 Allergy status to penicillin; Z91.013 Allergy to seafood; Z80.42 Family history of malignant neoplasm of prostate; Z80.52 Family history of malignant neoplasm of bladder
CPT/HCPCS: 70450; 71045; 80053; 80164; 81001; 82553; 83605; 83735; 84100; 84146; 84484; 85025; 85027; 85610; 85730; 87040; 93306; 95819

== ENCOUNTER 2020-01-07 16:49 | Inpatient (IN) | payer MEDICAID ==
[2020-01-07] MEDS ORDERED: MAG HYDROX/AL HYDROX/SIMETH 30 ML CUP PO PRN (17:23)
[2020-01-07] MEDS ORDERED: MAGNESIUM HYDROXIDE 2,400 MG/10 ML CUP PO PRN (17:23)
[2020-01-07] MEDS ORDERED: HALOPERIDOL LACTATE 5 MG/ML 1 ML VIAL IM PRN (17:26)
[2020-01-07] MEDS: clonazePAM 1 MG TAB PO PRN (20:48)
[2020-01-07] MEDS: PALIPERIDONE 3 MG TAB.ER.24 PO SCH (20:48)
[2020-01-07] MEDS: diphenhydrAMINE 25 MG CAP PO SCH (20:48)
[2020-01-07] MEDS: ATORVASTATIN 10 MG TAB PO SCH (20:48)
[2020-01-07] MEDS: DIVALPROEX ER 500 MG TAB.ER.24H PO SCH (20:51)
[2020-01-07] MEDS: ACETAMINOPHEN TAB 325 MG TAB PO PRN (22:38)
[2020-01-08] MEDS: PANTOPRAZOLE 40 MG TABLET PO SCH (06:51)
[2020-01-08] MEDS: LISINOPRIL 20 MG TAB PO SCH (06:51)
[2020-01-08] MEDS: diphenhydrAMINE 25 MG CAP PO SCH ×2 (06:51→21:15)
[2020-01-08] MEDS: PALIPERIDONE 3 MG TAB.ER.24 PO SCH (08:19)
[2020-01-08 09:15] LABS: Basophils % (A) 0 %; Eosinophils # (A) 0.2 k/uL (0-0.7); Eosinophils % (A) 3 %; HCT 39.6 % (39.0-53.0); HGB 13.1 gm/dL (13.0-17.5); Lymphocytes # (A) 1.6 k/uL (1.0-4.8); Lymphocytes % (A) 21 %; MCH 30.8 pg (25.0-35.0); MCHC 33.1 g/dL (31.0-37.0); Mean Platelet Volume 7.4; Monocytes # (A) 0.5 k/uL (0-1.0); Monocytes % (A) 7 %; Neutrophils # (A) 4.8 k/uL (1.3-7.7); Neutrophils % (A) 67 %; Platelet Count 299 k/uL (150-450); RBC 4.26 m/uL (4.30-5.90); RDW 13.3 % (11.5-15.5); WBC 7.3 k/uL (3.8-10.6)
[2020-01-08 09:29] LABS: ALT 66 U/L (4-49); AST 144 U/L (17-59); African American GFR (CKD) >90 (>60 ml/min/1.73 sqM); Alkaline Phosphatase 66 U/L (38-126); Anion Gap 12 mmol/L; Blood Urea Nitrogen 14 mg/dL (9-20); Calcium 9.2 mg/dL (8.4-10.2); Carbon Dioxide 24 mmol/L (22-30); Chloride 102 mmol/L (98-107); Cholesterol 130 mg/dL (<200); Glucose 168 mg/dL (74-99); HDL Cholesterol 50 mg/dL (40-60); LDL Cholesterol,Calculated 51 mg/dL (0-99); Non-African American GFR(CKD) >90 (>60 ml/min/1.73 sqM); Potassium 4.8 mmol/L (3.5-5.1); Sodium 138 mmol/L (137-145); Total Bilirubin 0.5 mg/dL (0.2-1.3); Total Protein 6.8 g/dL (6.3-8.2); Triglycerides 147 mg/dL (<150)
[2020-01-08] MEDS: ACETAMINOPHEN TAB 325 MG TAB PO PRN ×2 (09:29→17:43)
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
[2020-01-08 10:11] LABS: Valproic Acid (Depakene) 52.7 ug/mL
[2020-01-08] MEDS: clonazePAM 1 MG TAB PO PRN (11:33)
--- NOTE | 2020-01-08 13:07 | P.CONS ---
History of Present Illness - Reason for Consult Consult date: 01/08/20 Medical management - Chief Complaint Acute psychosis - History of Present Illness This is a 59-year-old male who was admitted originally to the psych unit with acute psychosis and had the episode of breakthrough seizure requiring admission to the ICU. Patient now is back to the psych floor. I was asked to see him for medical management. He is awake and alert. He does not have any complaints. Review of Systems Review of system: 14 points review of systems were obtained and were negative except to what were mentioned in the HPI. Past Medical History Past Medical History: COPD, Hyperlipidemia, Hypertension, Osteoarthritis (OA) Additional Past Medical History / Comment(s): prostate cancer, possible seizure disorder-last known seizure 01/05/2020 .tinnitus, bipolar depression, ptsd, schizophrenia. History of Any Multi-Drug Resistant Organisms: None Reported Past Surgical History: Prostate Surgery Additional Past Surgical History / Comment(s): protatectomy, "eye surgery to correct lazy eyes" and back surgery, Past Anesthesia/Blood Transfusion Reactions: Blood Transfusion Reaction Additional Past Anesthesia/Blood Transfusion Reaction / Comm: pt stated received blood in past and had a reaction to it-caused hives. Past Psychological History: Bipolar, Depression, PTSD, Schizophrenia Additional Psychological History / Comment(s): pt stated he is discabled. lives with his father. drives only short distances. 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 medical equipment-only a nebulizer. Smoking Status: Never smoker Past Alcohol Use History: None Reported Additional Past Alcohol Use History / Comment(s): p denies any smoking hx, stated in past would occ binge drink but quit that some time ago. Past Drug Use History: None Reported Additional Drug Use History / Comment(s): Pt. denies drug use. - Past Family History Father Family Medical History: Cancer Additional Family Medical History / Comment(s): Father is alive at age 82 with history of prostate cancer. Mother Family Medical History: Cancer Additional Family Medical History / Comment(s): Mother at age 53 from bladder cancer Brother(s) Additional Family Medical History / Comment(s): Patient has 4 brothers and 2 sisters that are healthy with no major medical problems. Patient does not have any children. Medications and Allergies Home Medications Medication Instructions Recorded Confirmed Type Albuterol Inhaler [Ventolin Hfa 2 puff INHALATION RT-Q4H PRN 12/30/19 01/07/20 History Inhaler] Atorvastatin [Lipitor] 10 mg PO HS@199912/30/19 01/07/20 History Divalproex ER [Depakote ER] 1,000 mg PO HS@199912/30/19 01/07/20 History Lisinopril [Prinivil] 20 mg PO DAILY@59912/30/19 01/07/20 History Pantoprazole [Protonix] 40 mg PO DAILY@59912/30/19 01/07/20 History diphenhydrAMINE [Benadryl] 25 mg PO BID@599,199912/30/19 01/07/20 History guaiFENesin SYRUP 100MG/5ML 100 - 200 mg PO Q4H PRN 12/30/19 01/07/20 History [Robitussin] Ergocalciferol (Vitamin D2) 50,000 unit PO FR 12/31/19 01/07/20 History [Vitamin D2] Paliperidone [Invega] 3 mg PO BID tab.er.24 01/07/20 01/07/20 Rx clonazePAM [KlonoPIN] 1 mg PO BID PRN tab 01/07/20 01/07/20 Rx Allergies Allergy/AdvReac Type Severity Reaction Status Date / Time amoxicillin Allergy Unknown Verified 01/07/20 19:11 brompheniramine maleate Allergy Unknown Verified 01/07/20 19:11 [From Dimetapp Cold-Allergy (PE)] codeine Allergy Rash/Hives Verified 01/07/20 19:11 fluoxetine HCl [From Prozac] Allergy Unknown Verified 01/07/20 19:11 latex Allergy Unknown Verified 01/07/20 19:11 morphine Allergy Rash/Hives Verified 01/07/20 19:11 phenylephrine HCl Allergy Unknown Verified 01/07/20 19:11 [From Dimetapp Cold-Allergy (PE)] shellfish derived [Shellfish] Allergy Rash/Hives Verified 01/07/20 19:11 Physical Exam Vitals: Vital Signs Temp Pulse Resp BP 01/08/20 06:57 83 18 127/74 01/07/20 20:43 98.4 F 138 H 18 123/79 01/07/20 17:10 98.3 F 132 H 16 132/83 Intake and Output 01/07/20 01/08/2001/07/20 22:59 06:59 14:59 Other: Weight 103.5 kg General: The patient is awake and alert, in no distress Eye: there is normal conjunctiva bilaterally. Neck: The neck is supple, there is no JVD. Cardiovascular: Normal S1-S2, no S3-S4, no murmurs. Respiratory: Lungs clear to auscultation bilaterally Gastrointestinal: Abdomen is soft, nontender Musculoskeletal: There is no pedal edema. Neurological:. Speech is normal. Skin: Skin is warm and dry Results CBC & Chem 7: 01/08/20 08:39 01/08/20 08:39 Labs: Abnormal Lab Results - Last 24 Hours (Table) 01/08/20 01/08/20 Range/Units 08:39 08:39 RBC 4.26 L (4.30-5.90) m/uL Glucose 168 H (74-99) mg/dL AST 144 H (17-59) U/L ALT 66 H (4-49) U/L Assessment and Plan Assessment: 1. Acute psychosis on presentation, underlying schizophrenia and bipolar disorder, managed by psychiatry 2. Underlying seizure disorder, seen and evaluated by neurology. CT head with no acute findings. Continue current Depakote dose. Follow up with neurology as directed. 3. Essential hypertension: Blood pressure within acceptable range
--- NOTE | 2020-01-08 18:23 | XR ---
EXAMINATION TYPE: XR chest 2V DATE OF EXAM: 01/08/2020 COMPARISON: Chest x-ray 3 and 8 days ago. HISTORY: Left lower chest pain for 2 days. TECHNIQUE: Frontal and lateral views of the chest are obtained. FINDINGS: There is no new suspicious focal air space opacity, pleural effusion, or pneumothorax seen . Patchy left basilar linear scarring and/or atelectasis remains present. The cardiac silhouette size is upper limits of normal. Redemonstration of old fracture posterolateral left sixth rib. IMPRESSION: Patchy left basilar linear scarring and/or atelectasis. No new focal infiltrate.
[2020-01-08 19:17] LABS: Hemoglobin A1C 6.2 % (4.0-6.0)
[2020-01-08] MEDS: NAPROXEN 250 MG TAB PO PRN (20:10)
[2020-01-08] MEDS ORDERED: PALIPERIDONE 6 MG TAB.ER.24 PO SCH (21:00)
[2020-01-08] MEDS: DIVALPROEX ER 500 MG TAB.ER.24H PO SCH (21:15)
[2020-01-08] MEDS: ATORVASTATIN 10 MG TAB PO SCH (21:16)
[2020-01-09] MEDS: ACETAMINOPHEN TAB 325 MG TAB PO PRN (00:20)
[2020-01-09] MEDS: LISINOPRIL 20 MG TAB PO SCH (06:03)
[2020-01-09] MEDS: PANTOPRAZOLE 40 MG TABLET PO SCH (06:03)
[2020-01-09] MEDS: diphenhydrAMINE 25 MG CAP PO SCH ×2 (06:53→21:18)
--- NOTE | 2020-01-09 09:59 | P.PN ---
Progress Note - Text Progress Note Date: 01/09/20 Interval History: Patient was seen today wandering the hallways and was directable and agreeable to speak with magnetic tape typewriter operator in the office. Patient appeared to have a brighter affect this morning and was more directable and cooperative with magnetic tape typewriter operator during interview. Patient continues to be bizarre at times and spoke of a delusion of "Skype calls coming from space to talk to me". Patient continues to have poor insight and judgment and when spoke to him about the court proceedings and the need for long-acting injection patient declined it at this time. He states that he is getting along with everyone on the unit well and did not endorse any paranoia or aggression/thoughts of harm towards others today. He states that he is going to some groups and finding them enjoyable. Patient was requesting not to go back to his nursing home and states that he wants to talk to his guardian however his guardian is not listening to him. He states that he is able to sleep well throughout the night. At this time patient denies any suicidal or homical ideations, intent or plan. Patient denies any auditory, visual hallucinations and denies any paranoia. Patient denies any side effects from the medications and has been compliant with meds. Mental Status Exam: General Appearance: Patient appears to be stated age is alert, irritable at times and bizarre. Patient appears to have poor hygiene and grooming. Behavior: Patient is laying in bed without any agitated behavior. Irritable and bizarre Speech: Patient's speech is fluent and nonpressured. [place]. Mood/Affect: Patient reports their mood is "ok", affect is congruent and constricted. Suicidality/Homicidality: Patient denies having any homicidal ideation intent or plan. Denies any suicidal ideations intent or plan Perceptions: Patient denies any visual hallucinations and denies any auditory hallucinations Though content/process: Logical. [place]. Poverty of content. Delusion of "Skype calls coming from space". Preoccupied with court proceedings. Memory and concentration: Alert and oriented 3, fair attention span. Judgment and insight: poor impulsive, mildly improving. Assessment Schizoaffective disorder, bipolar type Plan: -Patient continues to meet criteria for inpatient psychiatric admission for symptom stabilization and safety. Patient has signed medication consent and was placed in patient's chart. Patient is currently under involuntary status and did not defer and has a full court hearing scheduled for 01/15/2020. -Medications: Continue with Depakote 1000 mg nightly for mood stabilization, increased paliperidone by mouth to 9 mg nightly for psychosis, Benadryl 25 mg twice a day for EPS prophylaxis, Klonopin 1 mg twice a day when necessary for anxiety. Will likely transition patient onto [facility] to insure compliance. -When necessary Ativan and Haldol for agitation/aggression. -Neurology had previously been consulted and evaluated patient when he was on the medical floors for patient supposedly seizure and EEG was negative, CT head showed no acute changes, echocardiogram was also negative. -NRT -not needed as patient does not smoke. -SW on board for discharge planning. Encouraged the patient to participate in milieu. We'll await court date set for 01/15/2020.
[2020-01-09] MEDS: NAPROXEN 250 MG TAB PO PRN (11:53)
[2020-01-09] MEDS: PALIPERIDONE 3 MG TAB.ER.24 PO SCH (21:17)
[2020-01-09] MEDS: DIVALPROEX ER 500 MG TAB.ER.24H PO SCH (21:17)
[2020-01-09] MEDS: ATORVASTATIN 10 MG TAB PO SCH (21:18)
[2020-01-10] MEDS: PANTOPRAZOLE 40 MG TABLET PO SCH (06:58)
[2020-01-10] MEDS: LISINOPRIL 20 MG TAB PO SCH (06:58)
[2020-01-10] MEDS: diphenhydrAMINE 25 MG CAP PO SCH ×2 (06:58→21:39)
[2020-01-10] MEDS: clonazePAM 1 MG TAB PO PRN ×2 (07:00→21:42)
--- NOTE | 2020-01-10 09:41 | P.PN ---
Progress Note - Text Progress Note Date: 01/10/20 Interval History: Patient was seen today laying in bed this morning and was directable and agree able to speak with engineering writer. Patient claims that he did not sleep well last night and that "he laying in bed trying to sleep in. He appeared to be more directable and cooperative with engineering writer during interview. Patient continues to be bizarre at times and continues to speak of receiving "Skype calls coming from space" which have been distracting to him. Patient continues to have poor insight and judgment however was superficially cooperative with regards to his medications. He continues to refuse the long-acting injection and was preoccupied with being discharged. He states that he is getting along with everyone on the unit, and denies any paranoia or aggression/thoughts of harm towards others today. He states that he is going to some groups and finding them enjoyable and will be going to group later on today. At this time patient denies any suicidal or homical ideations, intent or plan. Patient denies any auditory, visual hallucinations and denies any paranoia. Patient denies any side effects from the medications and has been compliant with meds. Mental Status Exam: General Appearance: Patient appears to be stated age is alert, more directable today and bizarre. Patient appears to have poor hygiene and grooming. Behavior: Patient is laying in bed without any agitated behavior. less Irritable and bizarre Speech: Patient's speech is fluent and nonpressured. [place]. Mood/Affect: Patient reports their mood is "good", affect is congruent and constricted. Suicidality/Homicidality: Patient denies having any homicidal ideation intent or plan. Denies any suicidal ideations intent or plan Perceptions: Patient denies any visual hallucinations and denies any auditory hallucinations Though content/process: Logical. [place]. Delusion of "Skype calls coming from space". Preoccupied with court proceedings and discharge. Memory and concentration: Alert and oriented 3, fair attention span. Judgment and insight: poor impulsive, mildly improving. Assessment Schizoaffective disorder, bipolar type Plan: -Patient continues to meet criteria for inpatient psychiatric admission for symptom stabilization and safety. Patient has signed medication consent and was placed in patient's chart. Patient is currently under involuntary status and did not defer and has a full court hearing scheduled for 01/15/2020. -Medications: Continue with Depakote 1000 mg nightly for mood stabilization, continue with paliperidone by mouth to 9 mg nightly for psychosis, Benadryl 25 mg twice a day for EPS prophylaxis, Klonopin 1 mg twice a day when necessary for anxiety. Will likely transition patient onto [facility] to insure compliance. -When necessary Ativan and Haldol for agitation/aggression. -Neurology had previously been consulted and evaluated patient when he was on the medical floors for patient supposedly seizure and EEG was negative, CT head showed no acute changes, echocardiogram was also negative. -NRT -not needed as patient does not smoke. -SW on board for discharge planning. Encouraged the patient to participate in milieu. We'll await court date set for 01/15/2020.
[2020-01-10] MEDS: ACETAMINOPHEN TAB 325 MG TAB PO PRN (17:14)
[2020-01-10] MEDS: DIVALPROEX ER 500 MG TAB.ER.24H PO SCH (21:39)
[2020-01-10] MEDS: ATORVASTATIN 10 MG TAB PO SCH (21:39)
[2020-01-10] MEDS: PALIPERIDONE 3 MG TAB.ER.24 PO SCH (21:40)
[2020-01-11] MEDS: ACETAMINOPHEN TAB 325 MG TAB PO PRN (02:30)
[2020-01-11] MEDS: clonazePAM 1 MG TAB PO PRN ×2 (06:42→21:30)
[2020-01-11] MEDS: diphenhydrAMINE 25 MG CAP PO SCH ×2 (06:42→21:27)
[2020-01-11] MEDS: LISINOPRIL 20 MG TAB PO SCH (06:43)
[2020-01-11] MEDS: NAPROXEN 250 MG TAB PO PRN ×2 (06:43→21:30)
[2020-01-11] MEDS: PANTOPRAZOLE 40 MG TABLET PO SCH (06:44)
--- NOTE | 2020-01-11 14:23 | P.PN ---
Progress Note - Text Progress Note Date: 01/11/20 Interval history: Patient is seen in cross coverage today. He seems to describe some difficulty with sleep related to some discomfort. He relays that he has some discomfort from CPR that was performed on him. She does not seem to verbalize any adverse psychotropic medication side effects. He does seem to describe that he is feeling better overall. Makes reference to wanting to be on looking at discharge planning soon. Mental status exam: He is alert and cooperative with the interview. His speech is fluent, not rapid or pressured. He seems to describe that his mood is doing better. He does not verbalize any thoughts of harm to self or others. He does not seem describe any specific hallucinations but describes a new technology of Skype via brain [employer]. Plan: Patient will be maintained on current psychotropic medication regimen. Continue to monitor his ongoing status and response to treatment and monitor for any medication side effects.
[2020-01-11] MEDS: DIVALPROEX ER 500 MG TAB.ER.24H PO SCH (21:27)
[2020-01-11] MEDS: PALIPERIDONE 3 MG TAB.ER.24 PO SCH (21:27)
[2020-01-11] MEDS: ATORVASTATIN 10 MG TAB PO SCH (21:27)
[2020-01-12] MEDS: LISINOPRIL 20 MG TAB PO SCH (07:00)
[2020-01-12] MEDS: diphenhydrAMINE 25 MG CAP PO SCH ×2 (07:00→20:07)
[2020-01-12] MEDS: PANTOPRAZOLE 40 MG TABLET PO SCH (07:02)
[2020-01-12] MEDS: clonazePAM 1 MG TAB PO PRN (08:30)
[2020-01-12] MEDS: NAPROXEN 250 MG TAB PO PRN (08:30)
[2020-01-12] MEDS: ACETAMINOPHEN TAB 325 MG TAB PO PRN ×2 (12:08→20:06)
--- NOTE | 2020-01-12 12:12 | P.PN ---
Progress Note - Text Progress Note Date: 01/12/20 Interval history: Patient is seen in [facility] again today. He says he slept well last night. He does describe having a little pain in his torso area and took some Tylenol which usually helps it sounds he does not voice any adverse psychotropic medication side effects. He does feel like he is getting closer to being ready for discharge. On mental status exam: He is alert and cooperative with the interview. His mood him he seems to describe is better. He does not verbalize any thoughts of harm to self or others. He does not voice any hallucinations. He does not make any mayda delusional statements today. He does not display any agitation. His thought processes are organized. Plan: Patient will be maintained on current psychotropic medication regimen. Continue to monitor for any medication side effects and monitor his ongoing response to treatment.
[2020-01-12] MEDS: DIVALPROEX ER 500 MG TAB.ER.24H PO SCH (20:07)
[2020-01-12] MEDS: PALIPERIDONE 3 MG TAB.ER.24 PO SCH (20:07)
[2020-01-12] MEDS: ATORVASTATIN 10 MG TAB PO SCH (20:07)
[2020-01-13] MEDS: NAPROXEN 250 MG TAB PO PRN ×2 (04:45→20:52)
[2020-01-13] MEDS: clonazePAM 1 MG TAB PO PRN ×2 (04:51→20:52)
[2020-01-13] MEDS: PANTOPRAZOLE 40 MG TABLET PO SCH (05:47)
[2020-01-13] MEDS: diphenhydrAMINE 25 MG CAP PO SCH ×2 (05:47→20:52)
[2020-01-13] MEDS: ACETAMINOPHEN TAB 325 MG TAB PO PRN (05:47)
[2020-01-13] MEDS: LISINOPRIL 20 MG TAB PO SCH (05:47)
--- NOTE | 2020-01-13 11:52 | P.PN ---
Progress Note - Text Progress Note Date: 01/13/20 Interval History: Patient was seen today laying in bed this morning and was directable and agree able to speak with magnetic tape typewriter operator. Patient appeared to be more polite this morning answering most of his questions with "yes sir" and was following commands and being appropriate with magnetic tape typewriter operator. Patient states that he is getting along with most people on the unit however did single one patient that spit on the ground near him however patient claims that he inform staff and did not escalate to any violent behaviors or aggression. Patient claims that his mood has been doing "much better" and claims that he wants to remain on the same medications as he is at this time. He states that he is able to sleep throughout the night well. Patient appears to have mildly improved insight and judgment today. He continues to refuse the long-acting injection and was preoccupied with being discharged. He was focused on discharge however agreeable to continue on with the court date set for Monday. At this time patient denies any suicidal or homical ideations, intent or plan. Patient denies any auditory, visual hallucinations and denies any paranoia. Patient denies any side effects from the medications and has been compliant with meds. Mental Status Exam: General Appearance: Patient appears to be stated age is alert, more directable today and following commands. Patient appears to have improving hygiene and grooming. Behavior: Patient is laying in bed without any agitated behavior. less Irritable and more polite. Speech: Patient's speech is fluent and nonpressured. [place]. Mood/Affect: Patient reports their mood is "better", affect is congruent and constricted. Suicidality/Homicidality: Patient denies having any homicidal ideation intent or plan. Denies any suicidal ideations intent or plan Perceptions: Patient denies any visual hallucinations and denies any auditory hallucinations Though content/process: Logical. [place]. Preoccupied with court proceedings and discharge. Memory and concentration: Alert and oriented 3, fair attention span. Judgment and insight: poor, mildly improving. Assessment Schizoaffective disorder, bipolar type Plan: -Patient continues to meet criteria for inpatient psychiatric admission for symptom stabilization and safety. Patient has signed medication consent and was placed in patient's chart. Patient is currently under involuntary status and did not defer and has a full court hearing scheduled for 01/15/2020. -Medications: Continue with Depakote 1000 mg nightly for mood stabilization, continue with paliperidone by mouth 9 mg nightly for psychosis, Benadryl 25 mg twice a day for EPS prophylaxis, Klonopin 1 mg twice a day when necessary for anxiety. [facility] hearing in treatment order. -When necessary Ativan and Haldol for agitation/aggression. -Neurology had previously been consulted and evaluated patient when he was on the medical floors for patient supposedly seizure and EEG was negative, CT head showed no acute changes, echocardiogram was also negative. -NRT -not needed as patient does not smoke. -SW on board for discharge planning. Encouraged the patient to participate in milieu. We'll await court date set for 01/15/2020. Patient is still requiring senior care/before meals placement.
[2020-01-13] MEDS: PALIPERIDONE 3 MG TAB.ER.24 PO SCH (20:52)
[2020-01-13] MEDS: ATORVASTATIN 10 MG TAB PO SCH (20:52)
[2020-01-13] MEDS: DIVALPROEX ER 500 MG TAB.ER.24H PO SCH (20:52)
[2020-01-14] MEDS: diphenhydrAMINE 25 MG CAP PO SCH ×2 (05:18→20:16)
[2020-01-14] MEDS: LISINOPRIL 20 MG TAB PO SCH (05:19)
[2020-01-14] MEDS: PANTOPRAZOLE 40 MG TABLET PO SCH (05:19)
[2020-01-14] MEDS: NAPROXEN 250 MG TAB PO PRN (05:20)
--- NOTE | 2020-01-14 09:45 | P.PN ---
Progress Note - Text Progress Note Date: 01/14/20 Interval History: Patient was seen today laying in bed this morning and was directable and agree able to speak with expert medical writer. Patient appeared to be polite today with expert medical writer and offered no overnight complaints. He states he is able to sleep throughout the night however feels tired this morning. He claims that he likes the medication doses the way they're at and does not want them changed. He asked one court date was and asked how the proceedings will go and expert medical writer explained to him. He states that his mood is "fine" and states that he is getting along with other people on the unit. Patient appears to have mildly improved insight and judgment today. He continues to refuse the long-acting injection and was preoccupied with being discharged. He claims that he is going to some groups. At this time patient denies any suicidal or homical ideations, intent or plan. Patient denies any auditory, visual hallucinations and denies any paranoia. Patient denies any side effects from the medications and has been compliant with meds. Mental Status Exam: General Appearance: Patient appears to be stated age is alert, more directable today and following commands. Patient appears to have improving hygiene and grooming. Behavior: Patient is laying in bed without any agitated behavior. less Irritable and more polite. Speech: Patient's speech is fluent and nonpressured. [place]. Mood/Affect: Patient reports their mood is "ok", affect is congruent and constricted. Suicidality/Homicidality: Patient denies having any homicidal ideation intent or plan. Denies any suicidal ideations intent or plan Perceptions: Patient denies any visual hallucinations and denies any auditory hallucinations Though content/process: Logical. [place]. Preoccupied with court proceedings and discharge. Memory and concentration: Alert and oriented 3, fair attention span. Judgment and insight: poor, mildly improving. Assessment Schizoaffective disorder, bipolar type Plan: -Patient continues to meet criteria for inpatient psychiatric admission for symptom stabilization and safety. Patient has signed medication consent and was placed in patient's chart. Patient is currently under involuntary status and did not defer and has a full court hearing scheduled for 01/15/2020. -Medications: Continue with Depakote 1000 mg nightly for mood stabilization, continue with paliperidone by mouth 9 mg nightly for psychosis, Benadryl 25 mg twice a day for EPS prophylaxis, Klonopin 1 mg twice a day when necessary for anxiety. [facility] to ensure compliance after court hearing in treatment order. -When necessary Ativan and Haldol for agitation/aggression. -Neurology had previously been consulted and evaluated patient when he was on the medical floors for patient supposedly seizure and EEG was negative, CT head showed no acute changes, echocardiogram was also negative. -NRT -not needed as patient does not smoke. -SW on board for discharge planning. Encouraged the patient to participate in milieu. We'll await court date set for 01/15/2020. Patient is still requiring snf/before meals placement.
[2020-01-14] MEDS: ACETAMINOPHEN TAB 325 MG TAB PO PRN (11:22)
[2020-01-14] MEDS: ATORVASTATIN 10 MG TAB PO SCH (20:16)
[2020-01-14] MEDS: DIVALPROEX ER 500 MG TAB.ER.24H PO SCH (20:16)
[2020-01-14] MEDS: PALIPERIDONE 3 MG TAB.ER.24 PO SCH (20:17)
[2020-01-14] MEDS: clonazePAM 1 MG TAB PO PRN (22:07)
[2020-01-15] MEDS: NAPROXEN 250 MG TAB PO PRN (03:44)
[2020-01-15] MEDS: diphenhydrAMINE 25 MG CAP PO SCH ×2 (05:19→20:25)
[2020-01-15] MEDS: PANTOPRAZOLE 40 MG TABLET PO SCH (05:19)
[2020-01-15] MEDS: LISINOPRIL 20 MG TAB PO SCH (05:19)
--- NOTE | 2020-01-15 09:04 | P.PN ---
Progress Note - Text Progress Note Date: 01/15/20 Interval History: Patient was seen today to taking his medications this morning and was directable and agreeable to speak with travel writer. Patient appeared to be polite today initially and stated that he had no overnight complaints and slept through the night. He was fairly adamant today that he did not want to go to a penitentiary and wants to go back to his house in [place] however travel writer discussed with him the options of placement and diet his guardian will be deciding ultimately. Patient was fairly upset with this and perseverated on wanting to go back home. Patient is agreeable to attend court today. He claims that his mood is doing "fine". He states that he is going to some groups to participate as best as he can. He continues to refuse the long-acting injection and was preoccupied with being discharged. He claims that he is going to some groups. At this time patient denies any suicidal or homical ideations, intent or plan. Patient denies any auditory, visual hallucinations and denies any paranoia. Patient denies any side effects from the medications and has been compliant with meds. Mental Status Exam: General Appearance: Patient appears to be stated age is alert, more directable today and following commands. Patient appears to have improving hygiene and grooming. Behavior: Patient is laying in bed without any agitated behavior. Irritable and more polite. Speech: Patient's speech is fluent and nonpressured. [place]. Mood/Affect: Patient reports their mood is "fine", affect is congruent and constricted. Suicidality/Homicidality: Patient denies having any homicidal ideation intent or plan. Denies any suicidal ideations intent or plan Perceptions: Patient denies any visual hallucinations and denies any auditory hallucinations Though content/process: Logical. [place]. Preoccupied with court proceedings and discharge. Memory and concentration: Alert and oriented 3, fair attention span. Judgment and insight: poor, mildly improving. Assessment Schizoaffective disorder, bipolar type Plan: -Patient continues to meet criteria for inpatient psychiatric admission for symptom stabilization and safety. Patient has signed medication consent and was placed in patient's chart. Patient is currently under involuntary status and did not defer and has a full court hearing scheduled for 01/15/2020. -Medications: Continue with Depakote 1000 mg nightly for mood stabilization, continue with paliperidone by mouth 9 mg nightly for psychosis, Benadryl 25 mg t wice a day for EPS prophylaxis, Klonopin 1 mg twice a day when necessary for anxiety. [facility] hearing in treatment order. -When necessary Ativan and Haldol for agitation/aggression. -Neurology had previously been consulted and evaluated patient when he was on the medical floors for patient supposedly seizure and EEG was negative, CT head showed no acute changes, echocardiogram was also negative. -NRT -not needed as patient does not smoke. -SW on board for discharge planning. Encouraged the patient to participate in milieu. We'll await court date set for 01/15/2020. Patient is still requiring penitentiary/afc placement.
[2020-01-15] MEDS: PALIPERIDONE IM 234 MG/1.5 ML SYG IM ONE ×2 (13:52→13:58)
[2020-01-15 14:51] VITALS: BMI 34.7
[2020-01-15] MEDS: PALIPERIDONE 3 MG TAB.ER.24 PO SCH (20:24)
[2020-01-15] MEDS: ATORVASTATIN 10 MG TAB PO SCH (20:24)
[2020-01-15] MEDS: DIVALPROEX ER 500 MG TAB.ER.24H PO SCH (20:24)
[2020-01-15] MEDS: ACETAMINOPHEN TAB 325 MG TAB PO PRN (20:24)
[2020-01-16 05:29] VITALS: RESP 16
[2020-01-16] MEDS: LISINOPRIL 20 MG TAB PO SCH (06:37)
[2020-01-16] MEDS: PANTOPRAZOLE 40 MG TABLET PO SCH (06:37)
[2020-01-16] MEDS: diphenhydrAMINE 25 MG CAP PO SCH (06:37)
[2020-01-16] MEDS: clonazePAM 1 MG TAB PO PRN (07:11)
[2020-01-16 09:03] VITALS: BP 126/84; PULSE 93
[2020-01-16] MEDS ORDERED: PALIPERIDONE IM 234 MG/1.5 ML SYG IM STA (09:39)
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
--- NOTE | 2020-01-16 13:00 | XR ---
EXAMINATION TYPE: XR chest 1V portable DATE OF EXAM: 01/16/2020 COMPARISON: 01/08/2020 INDICATION: Pain possible rib fracture TECHNIQUE: Single frontal view of the chest is obtained. FINDINGS: The heart size is normal. The pulmonary vasculature is normal. The lungs are clear. No pneumothorax is evident. Old fracture 6 lateral left rib may be present. IMPRESSION: 1. No acute pulmonary process.
[2020-01-16] MEDS: ACETAMINOPHEN TAB 325 MG TAB PO PRN (14:45)
[2020-01-16 14:47] VITALS: TEMP 97.8
[2020-01-16] MEDS ORDERED: PALIPERIDONE 6 MG TAB.ER.24 PO SCH (21:00)
== END 2020-01-16 14:50 | disposition home or self-care (01) | DRG 885 ==
LOC: 3MHU 17:10
PROVIDERS: ADMIT Psychiatry & Neurology Psychiatry; ATTEND Psychiatry & Neurology Psychiatry
DX: F25.0 Schizoaffective disorder, bipolar type (principal); R45.851 Suicidal ideations; G40.909 Epilepsy, unspecified, not intractable, without status epilepticus; F43.10 Post-traumatic stress disorder, unspecified; J44.9 Chronic obstructive pulmonary disease, unspecified; I10 Essential (primary) hypertension; E78.5 Hyperlipidemia, unspecified; M19.90 Unspecified osteoarthritis, unspecified site; E66.3 Overweight; F32.9 Major depressive disorder, single episode, unspecified; H93.19 Tinnitus, unspecified ear; Z68.34 Body mass index [BMI] 34.0-34.9, adult; Z91.14 Patient's other noncompliance with medication regimen; Z79.899 Other long term (current) drug therapy; Z98.890 Other specified postprocedural states; Z85.46 Personal history of malignant neoplasm of prostate; Z88.8 Allergy status to other drugs, medicaments and biological substances; Z91.040 Latex allergy status; Z88.5 Allergy status to narcotic agent; Z88.0 Allergy status to penicillin; Z91.013 Allergy to seafood; Z80.42 Family history of malignant neoplasm of prostate; Z80.52 Family history of malignant neoplasm of bladder
CPT/HCPCS: 71045; 71046; 80053; 80061; 80164; 83036; 84443; 84484; 85025; 93005

== ENCOUNTER → 2020-01-28 | Outpatient (CLI) | payer OTHER ==
[~2020-01-28] MED LIST: INVEGA SUSTENNA 156 MG IM ONE
== END | disposition home or self-care (01) ==
LOC: PSY 21:09
PROVIDERS: ATTEND Psychiatry & Neurology Psychiatry
DX: Z53.9 Procedure and treatment not carried out, unspecified reason (principal)

== ENCOUNTER 2021-02-02 21:33 | Emergency (ER) | payer OTHER ==
[2021-02-02] MEDS ORDERED: LORazepam 2 MG/ML INJ IV STA ×2 (21:40→21:57)
[2021-02-02] MEDS ORDERED: SODIUM CHLORIDE 0.9% 1,000 ML IV STA (21:40)
[2021-02-02 22:00] LABS: Basophils # (A) 0.1 k/uL (0-0.2); Basophils % (A) 1 %; Eosinophils # (A) 0.1 k/uL (0-0.7); Eosinophils % (A) 1 %; HCT 36.9 % (39.0-53.0); HGB 12.5 gm/dL (13.0-17.5); Lymphocytes # (A) 6.7 k/uL (1.0-4.8); Lymphocytes % (A) 41 %; MCH 31.6 pg (25.0-35.0); MCV 93.1 fL (80.0-100.0); Mean Platelet Volume 7.1; Monocytes # (A) 1.1 k/uL (0-1.0); Monocytes % (A) 7 %; Neutrophils # (A) 7.9 k/uL (1.3-7.7); Neutrophils % (A) 48 %; Platelet Count 398 k/uL (150-450); RBC 3.96 m/uL (4.30-5.90); RDW 13.5 % (11.5-15.5); WBC 16.4 k/uL (3.8-10.6)
[2021-02-02 22:01] LABS: Glucose,Whole Blood 212 mg/dL (75-99)
[2021-02-02 22:15] LABS: AST 29 U/L (17-59); African American GFR (CKD) 83 (>60 ml/min/1.73 sqM); Albumin 4.3 g/dL (3.5-5.0); Alcohol <10 mg/dL; Alkaline Phosphatase 86 U/L (38-126); Anion Gap 24 mmol/L; Blood Urea Nitrogen 21 mg/dL (9-20); Calcium 9.6 mg/dL (8.4-10.2); Carbon Dioxide 13 mmol/L (22-30); Chloride 101 mmol/L (98-107); Glucose 243 mg/dL (74-99); Non-African American GFR(CKD) 72 (>60 ml/min/1.73 sqM); Potassium 3.9 mmol/L (3.5-5.1); Sodium 138 mmol/L (137-145); Total Bilirubin 0.5 mg/dL (0.2-1.3)
[2021-02-02 22:20] LABS: Valproic Acid (Depakene) 60.3 ug/mL
[2021-02-02 22:21] LABS: ALT 37 U/L (4-49)
--- NOTE | 2021-02-02 22:27 | ED ---
Seizure HPI - General Chief Complaint: Seizure Stated Complaint: Seizure Time Seen by Provider: 02/02/21 21:38 Source: EMS Mode of arrival: EMS Limitations: altered mental status (Appears postictal) - History of Present Illness Initial Comments: This patient is a 60-year-old man brought from his [facility] home, to be evaluated for suspected seizure. The Patient reportedly developed tonic-clonic seizure tonight lasting about 4-5 minutes. By the time EMS arrived the seizure apparently had stopped and the patient appeared postictal. There was loss of continence of bladder. On arrival, the patient does appear to be post ictal. The patient is not able to give any history. Not cooperative with exam but moving all extremities. MD Complaint: possible seizure -: minutes(s) Description of Episode: tonic-clonic movement, bladder incontinence, post-event confusion -: minutes(s) Witnessed: yes - by bystander Trauma: No Seizure History: none Place: home Possible Precipitating Event: none Treatments Prior to Arrival: none - Related Data Home Medications Medication Instructions Recorded Confirmed Albuterol Inhaler [Ventolin Hfa 1 - 2 puff INHALATION RT-Q4H PRN 12/30/19 02/02/21 Inhaler] Atorvastatin [Lipitor] 10 mg PO HS@209902/02/21 02/02/21 Divalproex ER [Depakote ER] 1,000 mg PO HS@209902/02/21 02/02/21 Ergocalciferol (Vitamin D2) 1,250 mcg PO WE 02/02/21 02/02/21 [Drisdol (50,000 Iu)] Fluticasone Propionate [Flovent 2 puff INHALATION RT-BID@02/02/21 02/02/21 Hfa 220 mcg] Hydrochlorothiazide 12.5 mg PO DAILY@79902/02/21 02/02/21 [hydroCHLOROthiazide] Meloxicam 15 mg PO DAILY@79902/02/21 02/02/21 Montelukast Sodium [Singulair] 10 mg PO DAILY@209902/02/21 02/02/21 Paliperidone IM [Invega Sustenna] 234 mg IM Q28D 02/02/21 02/02/21 diphenhydrAMINE [Benadryl] 25 mg PO BID PRN 02/02/21 02/02/21 lisinopriL [Zestril] 20 mg PO DAILY@0800 02/02/21 02/02/21 rOPINIRole HCL [Requip] 0.5 mg PO DAILY@0700 02/02/21 02/02/21 Previous Rx's Medication Instructions Recorded Naproxen [Naprosyn] 500 mg PO BID PRN 30 Days tab 01/16/20 Allergies Allergy/AdvReac Type Severity Reaction Status Date / Time amoxicillin Allergy Unknown Verified 02/02/21 21:51 brompheniramine maleate Allergy Unknown Verified 02/02/21 21:51 [From Dimetapp Cold-Allergy (PE)] codeine Allergy Rash/Hives Verified 02/02/21 21:51 fluoxetine HCl [From Prozac] Allergy Unknown Verified 02/02/21 21:51 latex Allergy Unknown Verified 02/02/21 21:51 morphine Allergy Rash/Hives Verified 02/02/21 21:51 phenylephrine HCl Allergy Unknown Verified 02/02/21 21:51 [From Dimetapp Cold-Allergy (PE)] shellfish derived [Shellfish] Allergy Rash/Hives Verified 02/02/21 21:51 Review of Systems ROS Statement: Those systems with pertinent positive or pertinent negative responses have been documented in the HPI. ROS Other: All systems not noted in ROS Statement are negative. Limitations: ROS unobtainable due to patients medical condition (Ears postictal) Past Medical History Past Medical History: COPD, Hyperlipidemia, Hypertension, Osteoarthritis (OA) Additional Past Medical History / Comment(s): prostate cancer, possible seizure disorder-last known seizure 01/05/2020 .tinnitus, bipolar depression, ptsd, schizophrenia. 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 Past Psychological History: Bipolar, Depression, PTSD, Schizophrenia Smoking Status: Unknown if ever smoked Past Alcohol Use History: None Reported Past Drug Use History: None Reported - Past Family History Father Family Medical History: Cancer Additional Family Medical History / Comment(s): Father is alive at age 82 with history of prostate cancer. Mother Family Medical History: Cancer Additional Family Medical History / Comment(s): Mother at age 53 from bladder cancer Brother(s) Additional Family Medical History / Comment(s): Patient has 4 brothers and 2 sisters that are healthy with no major medical problems. Patient does not have any children. General Exam Limitations: altered mental status General appearance: obtunded Head exam: Present: atraumatic, normocephalic, normal inspection Eye exam: Present: normal appearance, PERRL, EOMI. Absent: scleral icterus, conjunctival injection, nystagmus Respiratory exam: Present: rhonchi. Absent: respiratory distress, wheezes, rales, stridor Cardiovascular Exam: Present: normal rhythm, tachycardia, normal heart sounds. Absent: systolic murmur, diastolic murmur, rubs, gallop GI/Abdominal exam: Present: soft. Absent: distended, tenderness, guarding, rebound, rigid, mass Extremities exam: Present: normal inspection, normal capillary refill. Absent: pedal edema, calf tenderness Back exam: Present: normal inspection. Absent: CVA tenderness (R), CVA tenderness (L) Neurological exam: Present: altered, CN II-XII intact, reflexes normal, other (Patient appears to be postictal. Not able to cooperate with neurologic exam but moving all 4 extremities. No obvious sensory deficit.). Absent: motor sensory deficit Skin exam: Present: warm, dry, intact, normal color. Absent: rash Course Vital Signs 02/02/21 02/02/21 02/02/21 21:45 22:13 22:29 Temperature 99.2 F Pulse Rate 172 H 135 H 140 H Respiratory 22 18 20 Rate Blood Pressure 126/106 109/71 96/80 O2 Sat by Pulse 96 97 94 L Oximetry 02/02/21 02/02/21 02/03/21 22:49 23:34 01:05 Temperature Pulse Rate 147 H 115 H 84 Respiratory 18 23 18 Rate Blood Pressure 103/71 87/71 102/72 O2 Sat by Pulse 95 98 94 L Oximetry Medical Decision Making - Lab Data Result diagrams: 02/02/21 21:43 02/02/21 21:43 Lab Results 02/02/21 02/02/21 02/02/21 Range/Units 21:43 21:43 21:43 WBC 16.4 H (3.8-10.6) k/uL RBC 3.96 L (4.30-5.90) m/uL Hgb 12.5 L (13.0-17.5) gm/dL Hct 36.9 L (39.0-53.0) % MCV 93.1 (80.0-100.0) fL MCH 31.6 (25.0-35.0) pg MCHC 34.0 (31.0-37.0) g/dL RDW 13.5 (11.5-15.5) % Plt Count 398 (150-450) k/uL MPV 7.1 Neutrophils % 48 % Lymphocytes % 41 % Monocytes % 7 % Eosinophils % 1 % Basophils % 1 % Neutrophils # 7.9 H (1.3-7.7) k/uL Lymphocytes # 6.7 H (1.0-4.8) k/uL Monocytes # 1.1 H (0-1.0) k/uL Eosinophils # 0.1 (0-0.7) k/uL Basophils # 0.1 (0-0.2) k/uL Manual Slide Review Performed Sodium 138 (137-145) mmol/L Potassium 3.9 (3.5-5.1) mmol/L Chloride 101 (98-107) mmol/L Carbon Dioxide 13 L (22-30) mmol/L Anion Gap 24 mmol/L BUN 21 H (9-20) mg/dL Creatinine 1.13 (0.66-1.25) mg/dL Est GFR (CKD-EPI)AfAm 83 (>60 ml/min/1.73 sqM) Est GFR (CKD-EPI)NonAf 72 (>60 ml/min/1.73 sqM) Glucose 243 H (74-99) mg/dL POC Glucose (mg/dL) (75-99) mg/dL POC Glu [employer] Physiological Technician ID Calcium 9.6 (8.4-10.2) mg/dL Total Bilirubin 0.5 (0.2-1.3) mg/dL AST 29 (17-59) U/L ALT 37 (4-49) U/L Alkaline Phosphatase 86 (38-126) U/L Total Protein 7.0 (6.3-8.2) g/dL Albumin 4.3 (3.5-5.0) g/dL Urine Color Yellow Urine Appearance Clear (Clear) Urine pH 5.5 (5.0-8.0) Ur Specific [place] 1.022 (1.001-1.035) Urine Protein 1+ H (Negative) Urine Glucose (UA) 1+ H (Negative) Urine Ketones 1+ H (Negative) Urine Blood Negative (Negative) Urine Nitrite Negative (Negative) Urine Bilirubin Negative (Negative) Urine Urobilinogen <2.0 (<2.0) mg/dL Ur Leukocyte Esterase Negative (Negative) Urine RBC 1 (0-5) /hpf Urine WBC 4 (0-5) /hpf Ur Squamous Epith Cells 1 (0-4) /hpf Hyaline Casts 39 H (0-2) /lpf Granular Casts 1 (0) /lpf Urine Mucus Rare H (None) /hpf Urine Opiates Screen Not Detected (NotDetected) Ur Oxycodone Screen Not Detected (NotDetected) Urine Methadone Screen Not Detected (NotDetected) Ur Propoxyphene Screen Not Detected (NotDetected) Ur Barbiturates Screen Not Detected (NotDetected) Valproic Acid 60.3 ug/mL U Tricyclic Antidepress Not Detected (NotDetected) Ur Phencyclidine Scrn Not Detected (NotDetected) Ur Amphetamines Screen Not Detected (NotDetected) U Methamphetamines Scrn Not Detected (NotDetected) U Benzodiazepines Scrn Not Detected (NotDetected) Urine Cocaine Screen Not Detected (NotDetected) U Marijuana (THC) Screen Not Detected (NotDetected) Serum Alcohol <10 mg/dL 02/02/21 Range/Units 21:59 WBC (3.8-10.6) k/uL RBC (4.30-5.90) m/uL Hgb (13.0-17.5) gm/dL Hct (39.0-53.0) % MCV (80.0-100.0) fL MCH (25.0-35.0) pg MCHC (31.0-37.0) g/dL RDW (11.5-15.5) % Plt Count (150-450) k/uL MPV Neutrophils % % Lymphocytes % % Monocytes % % Eosinophils % % Basophils % % Neutrophils # (1.3-7.7) k/uL Lymphocytes # (1.0-4.8) k/uL Monocytes # (0-1.0) k/uL Eosinophils # (0-0.7) k/uL Basophils # (0-0.2) k/uL Manual Slide Review Sodium (137-145) mmol/L Potassium (3.5-5.1) mmol/L Chloride (98-107) mmol/L Carbon Dioxide (22-30) mmol/L Anion Gap mmol/L BUN (9-20) mg/dL Creatinine (0.66-1.25) mg/dL Est GFR (CKD-EPI)AfAm (>60 ml/min/1.73 sqM) Est GFR (CKD-EPI)NonAf (>60 ml/min/1.73 sqM) Glucose (74-99) mg/dL POC Glucose (mg/dL) 212 H (75-99) mg/dL POC Glu [employer] Physiological Technician ID Jay Cornejo Calcium (8.4-10.2) mg/dL Total Bilirubin (0.2-1.3) mg/dL AST (17-59) U/L ALT (4-49) U/L Alkaline Phosphatase (38-126) U/L Total Protein (6.3-8.2) g/dL Albumin (3.5-5.0) g/dL Urine Color Urine Appearance (Clear) Urine pH (5.0-8.0) Ur Specific [place] (1.001-1.035) Urine Protein (Negative) Urine Glucose (UA) (Negative) Urine Ketones (Negative) Urine Blood (Negative) Urine Nitrite (Negative) Urine Bilirubin (Negative) Urine Urobilinogen (<2.0) mg/dL Ur Leukocyte Esterase (Negative) Urine RBC (0-5) /hpf Urine WBC (0-5) /hpf Ur Squamous Epith Cells (0-4) /hpf Hyaline Casts (0-2) /lpf Granular Casts (0) /lpf Urine Mucus (None) /hpf Urine Opiates Screen (NotDetected) Ur Oxycodone Screen (NotDetected) Urine Methadone Screen (NotDetected) Ur Propoxyphene Screen (NotDetected) Ur Barbiturates Screen (NotDetected) Valproic Acid ug/mL U Tricyclic Antidepress (NotDetected) Ur Phencyclidine Scrn (NotDetected) Ur Amphetamines Screen (NotDetected) U Methamphetamines Scrn (NotDetected) U Benzodiazepines Scrn (NotDetected) Urine Cocaine Screen (NotDetected) U Marijuana (THC) Screen (NotDetected) Serum Alcohol mg/dL Disposition Clinical Impression: New onset seizure Disposition: HOME SELF-CARE Condition: Good Instructions (If sedation given, give patient instructions): Seizure/Epilepsy Discharge Instructions & Follow-Up Is patient prescribed a controlled substance at d/c from ED?: No Referrals: None,Stated [Primary Care Provider] - 1-2 days
[2021-02-02 22:31] VITALS: TEMP 99.2
--- NOTE | 2021-02-02 22:42 | CT ---
EXAMINATION TYPE: CT brain wo con DATE OF EXAM: 02/02/2021 COMPARISON: 01/06/2020 HISTORY: Seizure. CT DLP: 1122.4 mGycm Automated exposure control for dose reduction was used. Images obtained of the brain with no contrast. There is cerebral cortical atrophy. There is no mass effect nor midline shift. There is no sign of in tracranial hemorrhage. The calvarium is intact. IMPRESSION: Cerebral atrophy. No acute intracranial abnormality.
[2021-02-02 22:54] LABS: Appearance,Urine Clear (Clear); Bilirubin,Urine Negative (Negative); Blood,Urine Negative (Negative); Color,Urine Yellow; Glucose,Urine (UA) 1+ (Negative); Granular Casts,Urine 1 /lpf (0); Hyaline Casts,Urine 39 /lpf (0-2); Ketones,Urine 1+ (Negative); Leukocyte Esterase,Urine Negative (Negative); Mucus,Urine Rare /hpf; Nitrite,Urine Negative (Negative); PH, Urine 5.5 (5.0-8.0); Protein,Urine 1+ (Negative); RBC,Urine 1 /hpf (0-5); Specific Gravity,Urine 1.022 (1.001-1.035); Squamous Epithelial Cell,Urine 1 /hpf (0-4); Urobilinogen,Urine <2.0 mg/dL (<2.0); WBC,Urine 4 /hpf (0-5)
[2021-02-02 23:15] LABS: Amphetamine Screen,Urine Not Detected (NotDetected); Barbiturate Screen,Urine Not Detected (NotDetected); Benzodiazepines Screen,Urine Not Detected (NotDetected); Cocaine Screen,Urine Not Detected (NotDetected); Methadone Screen, Urine Not Detected (NotDetected); Opiate Screen,Urine Not Detected (NotDetected); Oxycodone Screen, Urine Not Detected (NotDetected); Phencyclidine Screen,Urine Not Detected (NotDetected); Tricyclic Antidepressant,Urine Not Detected (NotDetected); Urn Cannabinoid Scrn Not Detected (NotDetected)
[2021-02-03 01:13] VITALS: BP 102/72; PULSE 84; RESP 18
== END 2021-02-03 03:42 | disposition home or self-care (01) ==
LOC: EC 21:33
DX: R56.9 Unspecified convulsions (principal); I10 Essential (primary) hypertension; J44.9 Chronic obstructive pulmonary disease, unspecified; E78.5 Hyperlipidemia, unspecified; M19.90 Unspecified osteoarthritis, unspecified site; F31.9 Bipolar disorder, unspecified; F20.9 Schizophrenia, unspecified; Z79.51 Long term (current) use of inhaled steroids; Z79.899 Other long term (current) drug therapy; Z88.1 Allergy status to other antibiotic agents; Z88.5 Allergy status to narcotic agent; Z88.6 Allergy status to analgesic agent; Z88.8 Allergy status to other drugs, medicaments and biological substances
CPT/HCPCS: 96374 ×2; 96361 ×2; 99285 ×2; 36415; 93005; 80164; 80053; 85025; 81001; 80306; 70450; G0480; J2060; 80320

== ENCOUNTER 2021-08-13 18:19 | Emergency (ER) | payer OTHER ==
[2021-08-13 18:38] VITALS: TEMP 98.6
[2021-08-13] MEDS ORDERED: ALBUTEROL HFA INHALER INHALATION STA (19:01)
[2021-08-13] MEDS ORDERED: SODIUM CHLORIDE 0.9% 1,000 ML IV STA (19:01)
--- NOTE | 2021-08-13 19:05 | ED ---
General Adult HPI - General Chief complaint: Shortness of Breath Stated complaint: DILCIA Time Seen by Provider: 08/13/21 18:23 Source: patient, RN notes reviewed Mode of arrival: ambulatory Limitations: no limitations - History of Present Illness Initial comments: Patient is a pleasant 61-year-old male presenting to the emergency department with difficulty in breathing. Onset was last day or 2. Patient has history of similar symptoms previously associated with asthma. Patient did take his inhaler just prior to arrival with some improvement of symptoms. Patient has had mild cough. No fever. Patient also complains of chronic back pain. Upon further explanation patient states this is actually his left hip. Patient has seen orthopedics for this previously and has been recommended to have hip replacement surgery. This discomfort is chronic and unchanged. - Related Data Home Medications Medication Instructions Recorded Confirmed Albuterol Inhaler [Ventolin Hfa 1 - 2 puff INHALATION RT-Q4H PRN 12/30/19 0 08/13/21 Inhaler] Atorvastatin [Lipitor] 10 mg PO HS@209902/02/21 08/13/21 Divalproex ER [Depakote ER] 1,000 mg PO HS@209902/02/21 08/13/21 Ergocalciferol (Vitamin D2) 1,250 mcg PO WE 02/02/21 08/13/21 [Drisdol (50,000 Iu)] Fluticasone Propionate [Flovent 2 puff INHALATION RT-BID@799,209902/02/21 08/13/21 Hfa 220 mcg] Hydrochlorothiazide 12.5 mg PO DAILY@79902/02/21 08/13/21 [hydroCHLOROthiazide] Meloxicam 15 mg PO DAILY@79902/02/21 08/13/21 Montelukast Sodium [Singulair] 10 mg PO DAILY@209902/02/21 08/13/21 Paliperidone IM [Invega Sustenna] 234 mg IM Q28D 02/02/21 08/13/21 diphenhydrAMINE [Benadryl] 25 mg PO BID PRN 02/02/21 08/13/21 lisinopriL [Zestril] 20 mg PO DAILY@79902/02/21 08/13/21 Divalproex ER [Depakote ER] 250 mg PO HS@209908/13/21 08/13/21 Naproxen [Naprosyn] 500 mg PO BID PRN 08/13/21 08/13/21 OXcarbazepine 600 mg PO DIRECTED 08/13/21 08/13/21 OXcarbazepine [Trileptal] 300 mg PO BID@0800,2100 08/13/21 08/13/21 SUMAtriptan succinate [Imitrex] 50 mg PO BID PRN MDD 2TABS 08/13/21 08/13/21 amantadine HCL 100 mg PO BID@0800,2100 08/13/21 08/13/21 clonazePAM [KlonoPIN] 0.5 mg PO DAILY PRN 08/13/21 08/13/21 Previous Rx's Medication Instructions Recorded predniSONE [Deltasone] 20 mg PO BID #6 tab 08/13/21 Allergies Allergy/AdvReac Type Severity Reaction Status Date / Time amoxicillin Allergy Unknown Verified 08/13/21 19:31 brompheniramine maleate Allergy Unknown Verified 08/13/21 19:31 [From Dimetapp Cold-Allergy (PE)] codeine Allergy Rash/Hives Verified 08/13/21 19:31 fluoxetine HCl [From Prozac] Allergy Unknown Verified 08/13/21 19:31 latex Allergy Unknown Verified 08/13/21 19:31 morphine Allergy Rash/Hives Verified 08/13/21 19:31 phenylephrine HCl Allergy Unknown Verified 08/13/21 19:31 [From Dimetapp Cold-Allergy (PE)] shellfish derived [Shellfish] Allergy Rash/Hives Verified 08/13/21 19:31 Review of Systems ROS Statement: Those systems with pertinent positive or pertinent negative responses have been documented in the HPI. ROS Other: All systems not noted in ROS Statement are negative. Constitutional: Denies: fever Eyes: Denies: eye pain ENT: Denies: ear pain Respiratory: Reports: as per HPI, cough, dyspnea Cardiovascular: Denies: chest pain Endocrine: Denies: fatigue Gastrointestinal: Denies: abdominal pain Genitourinary: Denies: dysuria Musculoskeletal: Reports: as per HPI Skin: Denies: rash Neurological: Denies: weakness Past Medical History Past Medical History: COPD, Hyperlipidemia, Hypertension, Osteoarthritis (OA) Additional Past Medical History / Comment(s): prostate cancer, possible seizure disorder-last known seizure 01/05/2020 .tinnitus, bipolar depression, ptsd, schizophrenia. 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 Past Psychological History: Bipolar, Depression, PTSD, Schizophrenia Smoking Status: Unknown if ever smoked Past Alcohol Use History: None Reported Past Drug Use History: None Reported - Past Family History Father Family Medical History: Cancer Additional Family Medical History / Comment(s): Father is alive at age 82 with history of prostate cancer. Mother Family Medical History: Cancer Additional Family Medical History / Comment(s): Mother at age 53 from bladder cancer Brother(s) Additional Family Medical History / Comment(s): Patient has 4 brothers and 2 sisters that are healthy with no major medical problems. Patient does not have any children. General Exam Limitations: no limitations General appearance: alert, in no apparent distress Head exam: Present: normocephalic Eye exam: Present: normal appearance Neck exam: Present: normal inspection Respiratory exam: Present: rhonchi (Right-sided) Cardiovascular Exam: Present: tachycardia Expanded Peripheral pulses: 2+: Posterior Tibialis (R), Posterior Tibialis (L) GI/Abdominal exam: Present: soft. Absent: tenderness Extremities exam: Present: tenderness (Mild tenderness left hip) Back exam: Present: normal inspection. Absent: tenderness, vertebral tenderness Neurological exam: Present: alert. Absent: motor sensory deficit Psychiatric exam: Present: normal affect, normal mood Skin exam: Present: normal color Course Vital Signs 08/13/21 18:27 Temperature 98.6 F Pulse Rate 122 H Respiratory 20 Rate Blood Pressure 167/131 O2 Sat by Pulse 94 L Oximetry EKG Findings - EKG Comments: EKG Findings:: Size security with rate of 117. IA 140. QRS 74. QT 316. QTc 440. Right axis. Normal QRS. No acute ST change. T-wave inversion V1 and V2. Medical Decision Making - Medical Decision Making Patient reevaluated and resting comfortably in bed. Patient updated on results and need for follow-up. Patient is comfortable with discharge home. Lung sounds and tachycardia have improved - Lab Data Result diagrams: 08/13/21 19:23 08/13/21 19:23 Lab Results 08/13/21 08/13/21 08/13/21 Range/Units 19:23 19:23 19:23 WBC 6.8 (3.8-10.6) k/uL RBC 4.19 L (4.30-5.90) m/uL Hgb 12.8 L (13.0-17.5) gm/dL Hct 38.8 L (39.0-53.0) % MCV 92.6 (80.0-100.0) fL MCH 30.6 (25.0-35.0) pg MCHC 33.0 (31.0-37.0) g/dL RDW 13.3 (11.5-15.5) % Plt Count 232 (150-450) k/uL MPV 7.5 Neutrophils % 78 % Lymphocytes % 12 % Monocytes % 8 % Eosinophils % 1 % Basophils % 0 % Neutrophils # 5.3 (1.3-7.7) k/uL Lymphocytes # 0.8 L (1.0-4.8) k/uL Monocytes # 0.5 (0-1.0) k/uL Eosinophils # 0.0 (0-0.7) k/uL Basophils # 0.0 (0-0.2) k/uL PT 10.3 (9.0-12.0) sec INR 0.9 (<1.2) APTT 24.2 (22.0-30.0) sec D-Dimer 0.29 (<0.60) mg/L FEU Sodium 131 L (137-145) mmol/L Potassium 4.1 (3.5-5.1) mmol/L Chloride 95 L (98-107) mmol/L Carbon Dioxide 24 (22-30) mmol/L Anion Gap 12 mmol/L BUN 22 H (9-20) mg/dL Creatinine 1.10 (0.66-1.25) mg/dL Est GFR (CKD-EPI)AfAm 85 (>60 ml/min/1.73 sqM) Est GFR (CKD-EPI)NonAf 73 (>60 ml/min/1.73 sqM) Glucose 165 H (74-99) mg/dL Plasma Lactic Acid Ovidio (0.7-2.0) mmol/L Calcium 9.5 (8.4-10.2) mg/dL Total Bilirubin 1.0 (0.2-1.3) mg/dL AST 34 (17-59) U/L ALT 37 (4-49) U/L Alkaline Phosphatase 81 (38-126) U/L Total Protein 7.6 (6.3-8.2) g/dL Albumin 4.4 (3.5-5.0) g/dL Coronavirus (PCR) (Not Detectd) Influenza Type A RNA (Not Detectd) Influenza Type B (PCR) (Not Detectd) 08/13/21 08/13/21 08/13/21 Range/Units 19:23 19:23 19:23 WBC (3.8-10.6) k/uL RBC (4.30-5.90) m/uL Hgb (13.0-17.5) gm/dL Hct (39.0-53.0) % MCV (80.0-100.0) fL MCH (25.0-35.0) pg MCHC (31.0-37.0) g/dL RDW (11.5-15.5) % Plt Count (150-450) k/uL MPV Neutrophils % % Lymphocytes % % Monocytes % % Eosinophils % % Basophils % % Neutrophils # (1.3-7.7) k/uL Lymphocytes # (1.0-4.8) k/uL Monocytes # (0-1.0) k/uL Eosinophils # (0-0.7) k/uL Basophils # (0-0.2) k/uL PT (9.0-12.0) sec INR (<1.2) APTT (22.0-30.0) sec D-Dimer (<0.60) mg/L FEU Sodium (137-145) mmol/L Potassium (3.5-5.1) mmol/L Chloride (98-107) mmol/L Carbon Dioxide (22-30) mmol/L Anion Gap mmol/L BUN (9-20) mg/dL Creatinine (0.66-1.25) mg/dL Est GFR (CKD-EPI)AfAm (>60 ml/min/1.73 sqM) Est GFR (CKD-EPI)NonAf (>60 ml/min/1.73 sqM) Glucose (74-99) mg/dL Plasma Lactic Acid Ovidio 1.9 (0.7-2.0) mmol/L Calcium (8.4-10.2) mg/dL Total Bilirubin (0.2-1.3) mg/dL AST (17-59) U/L ALT (4-49) U/L Alkaline Phosphatase (38-126) U/L Total Protein (6.3-8.2) g/dL Albumin (3.5-5.0) g/dL Coronavirus (PCR) Not Detected (Not Detectd) Influenza Type A RNA Not Detected (Not Detectd) Influenza Type B (PCR) Not Detected (Not Detectd) - Radiology Data Radiology results: image reviewed (Chest x-ray shows no acute process) Disposition Clinical Impression: COPD (chronic obstructive pulmonary disease) Disposition: HOME SELF-CARE Condition: Stable Instructions (If sedation given, give patient instructions): COPD (Chronic Obstructive Pulmonary Disease) (ED) Additional Instructions: Please do follow-up with primary care physician in the next day or 2 for recheck. Please also follow-up with your orthopedic doctor. Return for fevers, difficulty breathing, worsening or changing symptoms or other concerns. P rescription for steroids has been sent to pharmacy. Prescriptions: predniSONE [Deltasone] 20 mg PO BID #6 tab Is patient prescribed a controlled substance at d/c from ED?: No Referrals: Linda Vee NPC [Primary Care Provider] - 1-2 days
[2021-08-13 19:35] LABS: Basophils % (A) 0 %; Eosinophils % (A) 1 %; HCT 38.8 % (39.0-53.0); HGB 12.8 gm/dL (13.0-17.5); Lymphocytes # (A) 0.8 k/uL (1.0-4.8); Lymphocytes % (A) 12 %; MCH 30.6 pg (25.0-35.0); MCV 92.6 fL (80.0-100.0); Mean Platelet Volume 7.5; Monocytes # (A) 0.5 k/uL (0-1.0); Monocytes % (A) 8 %; Neutrophils # (A) 5.3 k/uL (1.3-7.7); Neutrophils % (A) 78 %; Platelet Count 232 k/uL (150-450); RBC 4.19 m/uL (4.30-5.90); RDW 13.3 % (11.5-15.5); WBC 6.8 k/uL (3.8-10.6)
[2021-08-13 19:45] LABS: Albumin 4.4 g/dL (3.5-5.0); Calcium 9.5 mg/dL (8.4-10.2); Potassium 4.1 mmol/L (3.5-5.1); Total Protein 7.6 g/dL (6.3-8.2)
[2021-08-13 19:57] LABS: INR 0.9 (<1.2); Partial Thromboplastin Time 24.2 sec (22.0-30.0); Prothrombin Time 10.3 sec (9.0-12.0)
--- NOTE | 2021-08-13 20:54 | XR ---
EXAMINATION TYPE: XR chest 2V DATE OF EXAM: 08/13/2021 COMPARISON: 01/16/2020 HISTORY: Chest pain short of breath TECHNIQUE: 2 views FINDINGS: There is no heart failure nor confluent pneumonic infiltrate. Costophrenic angles are clear . There are no hilar masses. Heart size is normal. Bony thorax is intact. There is old left-sided hea led rib fracture. IMPRESSION: No active cardiopulmonary disease. There is slight improved inspiration compared to old e xam.
[2021-08-13] MEDS ORDERED: IPRATROPIUM-ALBUTEROL 3 ML NEB INHALATION STA (21:00)
[2021-08-13] MEDS ORDERED: traMADol 50 MG TAB PO STA (21:01)
[2021-08-13 22:48] VITALS: BP 141/72; PULSE 75; RESP 18
== END 2021-08-13 22:54 | disposition home or self-care (01) ==
LOC: EC 18:19
DX: J44.9 Chronic obstructive pulmonary disease, unspecified (principal); E78.5 Hyperlipidemia, unspecified; I10 Essential (primary) hypertension; M19.90 Unspecified osteoarthritis, unspecified site; F25.9 Schizoaffective disorder, unspecified; F31.9 Bipolar disorder, unspecified; F43.12 Post-traumatic stress disorder, chronic; Z20.822 Contact with and (suspected) exposure to COVID-19; Z88.1 Allergy status to other antibiotic agents; Z88.5 Allergy status to narcotic agent; Z91.040 Latex allergy status; Z85.46 Personal history of malignant neoplasm of prostate
CPT/HCPCS: 36415; 71046; 80053; 83605; 85025; 85379; 85610; 85730; 87502; 87635; 93005; 94640; 99285

== ENCOUNTER 2021-09-09 21:04 | Emergency (ER) | payer OTHER ==
[2021-09-09 21:16] VITALS: RESP 18
[2021-09-09] MEDS ORDERED: LORazepam 2 MG/ML INJ IV STA (21:26)
[2021-09-09] MEDS ORDERED: SODIUM CHLORIDE 0.9% 1,000 ML IV STA (21:26)
--- NOTE | 2021-09-09 21:45 | ED ---
Seizure HPI - General Chief Complaint: Seizure Stated Complaint: Seizure Time Seen by Provider: 09/09/21 21:21 Source: patient, EMS, RN notes reviewed, old records reviewed Mode of arrival: EMS Limitations: no limitations - History of Present Illness Initial Comments: This is a 61-year-old male who presents with history of recent seizures. Patient does have history of recurrent seizures. History of Parkinson's and tremor. Patient states he has no current complaints no headaches. Been taking all medications as prescribed. Patient was recently care facility with had this witnessed seizure patient currently awake and alert. No recent fevers. MD Complaint: seizure -: minutes(s) Description of Episode: tonic-clonic movement -: second(s) Witnessed: yes - by bystander Trauma: No Seizure History: known seizure disorder Place: home Possible Precipitating Event: none Associated Symptoms: denies other symptoms Treatments Prior to Arrival: none - Related Data Home Medications Medication Instructions Recorded Confirmed Albuterol Inhaler [Ventolin Hfa 1 - 2 puff INHALATION RT-Q4H PRN 12/30/19 08/13/21 Inhaler] Atorvastatin [Lipitor] 10 mg PO HS@209902/02/21 08/13/21 Divalproex ER [Depakote ER] 1,000 mg PO HS@209902/02/21 08/13/21 Ergocalciferol (Vitamin D2) 1,250 mcg PO WE 02/02/21 08/13/21 [Drisdol (50,000 Iu)] Fluticasone Propionate [Flovent 2 puff INHALATION RT-BID@08,209902/02/21 08/13/21 Hfa 220 mcg] Hydrochlorothiazide 12.5 mg PO DAILY@79902/02/21 08/13/21 [hydroCHLOROthiazide] Meloxicam 15 mg PO DAILY@79902/02/21 08/13/21 Montelukast Sodium [Singulair] 10 mg PO DAILY@209902/02/21 08/13/21 Paliperidone IM [Invega Sustenna] 234 mg IM Q28D 02/02/21 08/13/21 diphenhydrAMINE [Benadryl] 25 mg PO BID PRN 02/02/21 08/13/21 lisinopriL [Zestril] 20 mg PO DAILY@79902/02/21 08/13/21 Divalproex ER [Depakote ER] 250 mg PO HS@209908/13/21 08/13/21 Naproxen [Naprosyn] 500 mg PO BID PRN 08/13/21 08/13/21 OXcarbazepine 600 mg PO DIRECTED 08/13/21 08/13/21 OXcarbazepine [Trileptal] 300 mg PO BID@0800,2100 08/13/21 08/13/21 SUMAtriptan succinate [Imitrex] 50 mg PO BID PRN MDD 2TABS 08/13/21 08/13/21 amantadine HCL 100 mg PO BID@0800,209908/13/21 08/13/21 clonazePAM [KlonoPIN] 0.5 mg PO DAILY PRN 08/13/21 08/13/21 Previous Rx's Medication Instructions Recorded predniSONE [Deltasone] 20 mg PO BID #6 tab 08/13/21 Allergies Allergy/AdvReac Type Severity Reaction Status Date / Time amoxicillin Allergy Unknown Verified 08/13/21 19:31 brompheniramine maleate Allergy Unknown Verified 08/13/21 19:31 [From Dimetapp Cold-Allergy (PE)] codeine Allergy Rash/Hives Verified 08/13/21 19:31 fluoxetine HCl [From Prozac] Allergy Unknown Verified 08/13/21 19:31 latex Allergy Unknown Verified 08/13/21 19:31 morphine Allergy Rash/Hives Verified 08/13/21 19:31 phenylephrine HCl Allergy Unknown Verified 08/13/21 19:31 [From Dimetapp Cold-Allergy (PE)] shellfish derived [Shellfish] Allergy Rash/Hives Verified 08/13/21 19:31 Review of Systems ROS Statement: Those systems with pertinent positive or pertinent negative responses have been documented in the HPI. ROS Other: All systems not noted in ROS Statement are negative. Past Medical History Past Medical History: COPD, Hyperlipidemia, Hypertension, Osteoarthritis (OA) Additional Past Medical History / Comment(s): prostate cancer, possible seizure disorder-last known seizure 01/05/2020 .tinnitus, bipolar depression, ptsd, schizophrenia. 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 Past Psychological History: Bipolar, Depression, PTSD, Schizophrenia Smoking Status: Never smoker Past Alcohol Use History: None Reported Past Drug Use History: None Reported - Past Family History Father Family Medical History: Cancer Additional Family Medical History / Comment(s): Father is alive at age 82 with history of prostate cancer. Mother Family Medical History: Cancer Additional Family Medical History / Comment(s): Mother at age 53 from bladder cancer Brother(s) Additional Family Medical History / Comment(s): Patient has 4 brothers and 2 sisters that are healthy with no major medical problems. Patient does not have any children. General Exam General appearance: alert, in no apparent distress, anxious Head exam: Present: atraumatic, normocephalic, normal inspection Eye exam: Present: normal appearance, PERRL, EOMI. Absent: scleral icterus, conjunctival injection, periorbital swelling ENT exam: Present: normal exam, mucous membranes moist Neck exam: Present: normal inspection. Absent: tenderness, meningismus, lymphadenopathy Respiratory exam: Present: normal lung sounds bilaterally. Absent: respiratory distress, wheezes, rales, rhonchi, stridor Cardiovascular Exam: Present: normal rhythm, tachycardia, normal heart sounds. Absent: systolic murmur, diastolic murmur, rubs, gallop, clicks GI/Abdominal exam: Present: soft, normal bowel sounds. Absent: distended, tenderness, guarding, rebound, rigid Extremities exam: Present: normal inspection, full ROM, normal capillary refill. Absent: tenderness, pedal edema, joint swelling, calf tenderness Back exam: Present: normal inspection Neurological exam: Present: alert, oriented X3, CN II-XII intact Psychiatric exam: Present: normal affect, normal mood Skin exam: Present: warm, dry, intact, normal color. Absent: rash Course Vital Signs 09/09/21 09/09/21 09/09/21 21:10 23:28 23:53 Temperature 97.9 F 97.8 F Pulse Rate 126 H 103 H 90 Respiratory 18 18 18 Rate Blood Pressure 126/93 113/69 113/66 O2 Sat by Pulse 92 L 92 L 92 L Oximetry - Reevaluation(s) Reevaluation #1: Medical record is reviewed Symptoms improved here in the ER Patient informed results and questions answered Reevaluation #2: Patient has no recurrent seizures here in the ER Medical Decision Making - Medical Decision Making 61 male to the emergency department for evaluation. Patient has seizure at outside facility no seizure here in the ER. Patient is currently awake alert without complaint and be discharged home - Lab Data Result diagrams: 09/09/21 21:35 09/09/21 21:35 Lab Results 09/09/21 09/09/21 09/09/21 Range/Units 21:35 21:35 21:35 WBC 9.5 (3.8-10.6) k/uL RBC 4.15 L (4.30-5.90) m/uL Hgb 13.4 (13.0-17.5) gm/dL Hct 38.9 L (39.0-53.0) % MCV 93.8 (80.0-100.0) fL MCH 32.3 (25.0-35.0) pg MCHC 34.4 (31.0-37.0) g/dL RDW 13.2 (11.5-15.5) % Plt Count 277 (150-450) k/uL MPV 7.6 Neutrophils % 70 % Lymphocytes % 20 % Monocytes % 8 % Eosinophils % 1 % Basophils % 0 % Neutrophils # 6.6 (1.3-7.7) k/uL Lymphocytes # 1.9 (1.0-4.8) k/uL Monocytes # 0.7 (0-1.0) k/uL Eosinophils # 0.1 (0-0.7) k/uL Basophils # 0.0 (0-0.2) k/uL Sodium 129 L (137-145) mmol/L Potassium 4.5 (3.5-5.1) mmol/L Chloride 95 L (98-107) mmol/L Carbon Dioxide 22 (22-30) mmol/L Anion Gap 12 mmol/L BUN 29 H (9-20) mg/dL Creatinine 1.11 (0.66-1.25) mg/dL Est GFR (CKD-EPI)AfAm 84 (>60 ml/min/1.73 sqM) Est GFR (CKD-EPI)NonAf 73 (>60 ml/min/1.73 sqM) Glucose 177 H (74-99) mg/dL Calcium 9.7 (8.4-10.2) mg/dL Magnesium 2.0 (1.6-2.3) mg/dL Total Bilirubin 0.6 (0.2-1.3) mg/dL AST 25 (17-59) U/L ALT 32 (4-49) U/L Alkaline Phosphatase 104 (38-126) U/L Total Protein 7.5 (6.3-8.2) g/dL Albumin 4.5 (3.5-5.0) g/dL Urine Color Urine Appearance (Clear) Urine pH (5.0-8.0) Ur Specific [place] (1.001-1.035) Urine Protein (Negative) Urine Glucose (UA) (Negative) Urine Ketones (Negative) Urine Blood (Negative) Urine Nitrite (Negative) Urine Bilirubin (Negative) Urine Urobilinogen (<2.0) mg/dL Ur Leukocyte Esterase (Negative) Urine RBC (0-5) /hpf Urine WBC (0-5) /hpf Ur Squamous Epith Cells (0-4) /hpf Hyaline Casts (0-2) /lpf Urine Mucus (None) /hpf Salicylates <1.0 mg/dL Urine Opiates Screen (NotDetected) Ur Oxycodone Screen (NotDetected) Urine Methadone Screen (NotDetected) Ur Propoxyphene Screen (NotDetected) Acetaminophen <10.0 ug/mL Ur Barbiturates Screen (NotDetected) U Tricyclic Antidepress (NotDetected) Ur Phencyclidine Scrn (NotDetected) Ur Amphetamines Screen (NotDetected) U Methamphetamines Scrn (NotDetected) U Benzodiazepines Scrn (NotDetected) Urine Cocaine Screen (NotDetected) U Marijuana (THC) Screen (NotDetected) 09/09/21 Range/Units 22:08 WBC (3.8-10.6) k/uL RBC (4.30-5.90) m/uL Hgb (13.0-17.5) gm/dL Hct (39.0-53.0) % MCV (80.0-100.0) fL MCH (25.0-35.0) pg MCHC (31.0-37.0) g/dL RDW (11.5-15.5) % Plt Count (150-450) k/uL MPV Neutrophils % % Lymphocytes % % Monocytes % % Eosinophils % % Basophils % % Neutrophils # (1.3-7.7) k/uL Lymphocytes # (1.0-4.8) k/uL Monocytes # (0-1.0) k/uL Eosinophils # (0-0.7) k/uL Basophils # (0-0.2) k/uL Sodium (137-145) mmol/L Potassium (3.5-5.1) mmol/L Chloride (98-107) mmol/L Carbon Dioxide (22-30) mmol/L Anion Gap mmol/L BUN (9-20) mg/dL Creatinine (0.66-1.25) mg/dL Est GFR (CKD-EPI)AfAm (>60 ml/min/1.73 sqM) Est GFR (CKD-EPI)NonAf (>60 ml/min/1.73 sqM) Glucose (74-99) mg/dL Calcium (8.4-10.2) mg/dL Magnesium (1.6-2.3) mg/dL Total Bilirubin (0.2-1.3) mg/dL AST (17-59) U/L ALT (4-49) U/L Alkaline Phosphatase (38-126) U/L Total Protein (6.3-8.2) g/dL Albumin (3.5-5.0) g/dL Urine Color Yellow Urine Appearance Clear (Clear) Urine pH 5.5 (5.0-8.0) Ur Specific [place] 1.028 (1.001-1.035) Urine Protein 1+ H (Negative) Urine Glucose (UA) Negative (Negative) Urine Ketones Trace H (Negative) Urine Blood Negative (Negative) Urine Nitrite Negative (Negative) Urine Bilirubin Negative (Negative) Urine Urobilinogen 2.0 (<2.0) mg/dL Ur Leukocyte Esterase Negative (Negative) Urine RBC 1 (0-5) /hpf Urine WBC 5 (0-5) /hpf Ur Squamous Epith Cells <1 (0-4) /hpf Hyaline Casts 12 H (0-2) /lpf Urine Mucus Moderate H (None) /hpf Salicylates mg/dL Urine Opiates Screen Not Detected (NotDetected) Ur Oxycodone Screen Not Detected (NotDetected) Urine Methadone Screen Not Detected (NotDetected) Ur Propoxyphene Screen Not Detected (NotDetected) Acetaminophen ug/mL Ur Barbiturates Screen Not Detected (NotDetected) U Tricyclic Antidepress Not Detected (NotDetected) Ur Phencyclidine Scrn Not Detected (NotDetected) Ur Amphetamines Screen Not Detected (NotDetected) U Methamphetamines Scrn Not Detected (NotDetected) U Benzodiazepines Scrn Not Detected (NotDetected) Urine Cocaine Screen Not Detected (NotDetected) U Marijuana (THC) Screen Not Detected (NotDetected) - EKG Data -: EKG Interpreted by Me (EKG shows sinus tachycardia 116 SD 157 QRS 90 QTC 379) Disposition Clinical Impression: Seizure, Epileptic seizure, generalized Disposition: HOME SELF-CARE Condition: Fair Instructions (If sedation given, give patient instructions): Seizure/Epilepsy Discharge Instructions & Follow-Up, Recurrent Seizures in Adults (ED) Is patient prescribed a controlled substance at d/c from ED?: No Referrals: Nonstaff,Physician [Primary Care Provider] - 1-2 days
[2021-09-09 21:52] LABS: Basophils % (A) 0 %; Eosinophils # (A) 0.1 k/uL (0-0.7); Eosinophils % (A) 1 %; HCT 38.9 % (39.0-53.0); HGB 13.4 gm/dL (13.0-17.5); Lymphocytes # (A) 1.9 k/uL (1.0-4.8); Lymphocytes % (A) 20 %; MCH 32.3 pg (25.0-35.0); MCHC 34.4 g/dL (31.0-37.0); MCV 93.8 fL (80.0-100.0); Mean Platelet Volume 7.6; Monocytes # (A) 0.7 k/uL (0-1.0); Monocytes % (A) 8 %; Neutrophils # (A) 6.6 k/uL (1.3-7.7); Neutrophils % (A) 70 %; Platelet Count 277 k/uL (150-450); RBC 4.15 m/uL (4.30-5.90); RDW 13.2 % (11.5-15.5); WBC 9.5 k/uL (3.8-10.6)
[2021-09-09] MEDS ORDERED: HYDROmorphone 1 MG/ML 1 ML SYRINGE IVP STA (21:55)
[2021-09-09 22:04] LABS: ALT 32 U/L (4-49); AST 25 U/L (17-59); Acetaminophen <10.0 ug/mL; African American GFR (CKD) 84 (>60 ml/min/1.73 sqM); Albumin 4.5 g/dL (3.5-5.0); Alkaline Phosphatase 104 U/L (38-126); Anion Gap 12 mmol/L; Blood Urea Nitrogen 29 mg/dL (9-20); Calcium 9.7 mg/dL (8.4-10.2); Carbon Dioxide 22 mmol/L (22-30); Chloride 95 mmol/L (98-107); Glucose 177 mg/dL (74-99); Non-African American GFR(CKD) 73 (>60 ml/min/1.73 sqM); Potassium 4.5 mmol/L (3.5-5.1); Salicylate <1.0 mg/dL; Sodium 129 mmol/L (137-145); Total Bilirubin 0.6 mg/dL (0.2-1.3); Total Protein 7.5 g/dL (6.3-8.2)
[2021-09-09 22:26] LABS: Appearance,Urine Clear (Clear); Bilirubin,Urine Negative (Negative); Blood,Urine Negative (Negative); Color,Urine Yellow; Glucose,Urine (UA) Negative (Negative); Hyaline Casts,Urine 12 /lpf (0-2); Ketones,Urine Trace (Negative); Leukocyte Esterase,Urine Negative (Negative); Mucus,Urine Moderate /hpf; Nitrite,Urine Negative (Negative); PH, Urine 5.5 (5.0-8.0); Protein,Urine 1+ (Negative); RBC,Urine 1 /hpf (0-5); Specific Gravity,Urine 1.028 (1.001-1.035); Squamous Epithelial Cell,Urine <1 /hpf (0-4); WBC,Urine 5 /hpf (0-5)
[2021-09-09 22:32] LABS: Amphetamine Screen,Urine Not Detected (NotDetected); Barbiturate Screen,Urine Not Detected (NotDetected); Benzodiazepines Screen,Urine Not Detected (NotDetected); Cocaine Screen,Urine Not Detected (NotDetected); Methadone Screen, Urine Not Detected (NotDetected); Opiate Screen,Urine Not Detected (NotDetected); Oxycodone Screen, Urine Not Detected (NotDetected); Phencyclidine Screen,Urine Not Detected (NotDetected); Tricyclic Antidepressant,Urine Not Detected (NotDetected); Urn Cannabinoid Scrn Not Detected (NotDetected)
[2021-09-09] MEDS ORDERED: DEXAMETHASONE SOD PHOSPHATE 10 MG/ML 1 ML VIAL IVP STA (23:24)
[2021-09-09] MEDS ORDERED: diphenhydrAMINE 50 MG/ML 1 ML VIAL IVP STA (23:24)
[2021-09-09] MEDS ORDERED: FAMOTIDINE 20 MG/2 ML VIAL IV STA (23:24)
[2021-09-09] MEDS ORDERED: POLYMYXIN B-TRIMETHOPRIM SULF (10,000-1) OPHTH DROPS 10 ML BTL RIGHT EYE ONE (23:30)
[2021-09-09 23:58] VITALS: BP 113/66; PULSE 90; TEMP 97.8
== END 2021-09-10 00:16 | disposition home or self-care (01) ==
LOC: EC 21:04
DX: G40.409 Other generalized epilepsy and epileptic syndromes, not intractable, without status epilepticus (principal); Z88.5 Allergy status to narcotic agent; Z91.040 Latex allergy status; J44.9 Chronic obstructive pulmonary disease, unspecified; E78.5 Hyperlipidemia, unspecified; I10 Essential (primary) hypertension; M19.90 Unspecified osteoarthritis, unspecified site; Z85.46 Personal history of malignant neoplasm of prostate; F31.9 Bipolar disorder, unspecified; F43.10 Post-traumatic stress disorder, unspecified; F25.9 Schizoaffective disorder, unspecified
CPT/HCPCS: 99285; 96374; 96361; 36415; 80053; 83735; 85025; 81001; 80306; 80143; 80179; J1170

== ENCOUNTER 2021-10-12 17:40 | Emergency (ER) | payer OTHER ==
[2021-10-12] MEDS ORDERED: IBUPROFEN 400 MG TAB PO STA (18:52)
--- NOTE | 2021-10-12 19:03 | ED ---
General Adult HPI - General Source: patient, RN notes reviewed, old records reviewed Mode of arrival: ambulatory Limitations: no limitations <Andrés Jaramillo - Last Filed: 10/12/21 18:57> <Teodoro Stone - Last Filed: 10/18/21 03:31> - General Chief complaint: Psychiatric Symptoms Stated complaint: Mental health Time Seen by Provider: 10/12/21 18:20 - History of Present Illness Initial comments: Patient is a 61-year-old male who is brought to the emergency department for evaluation. He was in agreement/before meals home. He was aggressive the nursing staff. Hasn't been paying attention to them. Was sent here for evaluation. Patient currently has no acute complaints of chronic left hip pain. States is been going on for years. Otherwise states he is somewhat thirsty. When I asked the patient about what happened at this facility, he states that his neighbor was being loud and he was getting annoyed.Denies any chest pain, shortness of breath, abdominal pain, nausea, vomiting. Denies any drug use. States he is compliant with his medications. Denies any visual or auditory hallucinations. Denies any suicidal or homicidal ideations, attempts, plans. Has no other acute complaints at this time. (Andrés Jaramillo) - Related Data Home Medications Medication Instructions Recorded Confirmed Albuterol Inhaler [Ventolin Hfa 1 - 2 puff INHALATION RT-Q4H PRN 12/30/19 10/12/21 Inhaler] Atorvastatin [Lipitor] 10 mg PO HS@209902/02/21 10/12/21 Ergocalciferol (Vitamin D2) 1,250 mcg PO WE 02/02/21 10/12/21 [Drisdol (50,000 Iu)] Hydrochlorothiazide 12.5 mg PO DAILY@79902/02/21 10/12/21 [hydroCHLOROthiazide] Meloxicam 15 mg PO DAILY@79902/02/21 10/12/21 Montelukast Sodium [Singulair] 10 mg PO DAILY@209902/02/21 10/12/21 Paliperidone IM [Invega Sustenna] 234 mg IM Q28D 02/02/21 10/12/21 diphenhydrAMINE [Benadryl] 25 mg PO BID PRN 02/02/21 10/12/21 lisinopriL [Zestril] 20 mg PO DAILY@0800 02/02/21 10/12/21 Naproxen [Naprosyn] 500 mg PO BID PRN 08/13/21 10/12/21 OXcarbazepine 600 mg PO BID@0800,209908/13/21 10/12/21 SUMAtriptan succinate [Imitrex] 50 mg PO BID PRN MDD 2TABS 08/13/21 10/12/21 amantadine HCL 100 mg PO BID@0800,209908/13/21 10/12/21 Cough Drops Vivian 7.5mg 1 lozenge MUCOUS MEM Q4H PRN 10/12/21 10/12/21 Magnesium Oxide 400 mg PO HS@209910/12/21 10/12/21 Valtoco 10mg Robeline 1 spray NASAL DIRECTED PRN 10/12/21 10/12/21 Allergies Allergy/AdvReac Type Severity Reaction Status Date / Time amoxicillin Allergy Unknown Verified 10/12/21 19:11 brompheniramine maleate Allergy Unknown Verified 10/12/21 19:11 [From Dimetapp Cold-Allergy (PE)] codeine Allergy Rash/Hives Verified 10/12/21 19:11 fluoxetine HCl [From Prozac] Allergy Unknown Verified 10/12/21 19:11 latex Allergy Unknown Verified 10/12/21 19:11 morphine Allergy Rash/Hives Verified 10/12/21 19:11 phenylephrine HCl Allergy Unknown Verified 10/12/21 19:11 [From Dimetapp Cold-Allergy (PE)] shellfish derived [Shellfish] Allergy Rash/Hives Verified 10/12/21 19:11 Review of Systems ROS Other: All systems not noted in ROS Statement are negative. <Andrés Jaramillo - Last Filed: 10/12/21 18:57> ROS Other: All systems not noted in ROS Statement are negative. <Teodoro Stone - Last Filed: 10/18/21 03:31> ROS Statement: Those systems with pertinent positive or pertinent negative responses have been documented in the HPI. Review of Systems: CONST: Denies fever EYES: Denies blurry vision ENT:Denies nasal congestio C/V: Denies Chest pain RESP:Denies shortness of breath GI:Denies abdominal pain :Denies dysuria SKIN:Denies rash MSK: Endorses chronic left hip pain. NEURO:Denies headache PSYCH: Denies suicidal and homicidal ideations/plans/attempts. Denies visual or auditory hallucinations. (Andrés Jaramillo) Past Medical History Past Medical History: COPD, Hyperlipidemia, Hypertension, Osteoarthritis (OA) Additional Past Medical History / Comment(s): prostate cancer, possible seizure disorder-last known seizure 01/05/2020 .tinnitus, bipolar depression, ptsd, schizophrenia. 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 Past Psychological History: Bipolar, Depression, PTSD, Schizophrenia Smoking Status: Never smoker Past Alcohol Use History: None Reported Past Drug Use History: None Reported - Past Family History Father Family Medical History: Cancer Additional Family Medical History / Comment(s): Father is alive at age 82 with history of prostate cancer. Mother Family Medical History: Cancer Additional Family Medical History / Comment(s): Mother at age 53 from bladder cancer Brother(s) Additional Family Medical History / Comment(s): Patient has 4 brothers and 2 sisters that are healthy with no major medical problems. Patient does not have any children. <Andrés Jaramillo - Last Filed: 10/12/21 18:57> General Exam Limitations: no limitations <Andrés Jaramillo - Last Filed: 10/12/21 18:57> - General Exam Comments Initial Comments: General: Appears in no acute distress. HEAD: Normal with no signs of head trauma. EYES: PERRLA, EOMI, conjunctiva normal, no discharge. ENT: Hearing grossly intact, normal oropharynx. RESPIRATORY: Clear breath sounds bilaterally. No wheezes, rales, or rhonchi. C/V: Regular rate and rhythm. S1 and S2 auscultated, no edema, peripheral pulses 2+ and intact throughout ABD: Abd is soft, nontender, nondistended EXT: Normal range of motion, no obvious deformity SKIN: No rashes or lesions observed on exposed skin. NEURO: Alert and oriented x 4. Cranial nerves II-XII intact. No focal sensory or strength deficits. (Andrés Jaramillo) Course Vital Signs 10/12/21 10/12/21 10/13/21 17:52 23:29 00:06 Temperature 98.1 F 96.9 F L Pulse Rate 102 H 123 H 118 H Respiratory 18 18 18 Rate Blood Pressure 156/93 107/80 103/74 O2 Sat by Pulse 98 100 93 L Oximetry 10/13/21 10/13/21 10/13/21 00:56 01:44 02:22 Temperature 97.7 F Pulse Rate 112 H 108 H 101 H Respiratory 19 18 18 Rate Blood Pressure 108/84 109/85 121/86 O2 Sat by Pulse 94 L 96 94 L Oximetry 10/13/21 04:54 Temperature Pulse Rate 102 H Respiratory 20 Rate Blood Pressure 124/64 O2 Sat by Pulse 95 Oximetry Medical Decision Making <Andrés Jaramillo - Last Filed: 10/12/21 18:57> - Lab Data Result diagrams: 10/12/21 23:41 10/13/21 05:25 <Teodoro Stone - Last Filed: 10/18/21 03:31> - Medical Decision Making Is on the patient's presentation and physical exam, do believe he requires psychiatric evaluation. PAT is 0. UDS is pending. Patient presents ibuprofen for his chronic left hip pain which I believe is reasonable. I do not believe he presents for laboratory studies or imaging at this time. Patient is medically cleared for evaluation by psychiatry. EPS is notified. Disposition is pending psychiatric evaluation. (Andrés Jaramillo) - Lab Data Lab Results 10/12/21 10/12/21 10/12/21 Range/Units 22:03 23:34 23:41 WBC 13.6 H (3.8-10.6) k/uL RBC 4.44 (4.30-5.90) m/uL Hgb 14.0 (13.0-17.5) gm/dL Hct 42.2 (39.0-53.0) % MCV 95.1 (80.0-100.0) fL MCH 31.6 (25.0-35.0) pg MCHC 33.2 (31.0-37.0) g/dL RDW 13.9 (11.5-15.5) % Plt Count 396 (150-450) k/uL MPV 7.5 Neutrophils % 69 % Lymphocytes % 22 % Monocytes % 5 % Eosinophils % 0 % Basophils % 0 % Neutrophils # 9.4 H (1.3-7.7) k/uL Lymphocytes # 2.9 (1.0-4.8) k/uL Monocytes # 0.7 (0-1.0) k/uL Eosinophils # 0.1 (0-0.7) k/uL Basophils # 0.0 (0-0.2) k/uL Sodium (137-145) mmol/L Potassium (3.5-5.1) mmol/L Chloride (98-107) mmol/L Carbon Dioxide (22-30) mmol/L Anion Gap mmol/L BUN (9-20) mg/dL Creatinine (0.66-1.25) mg/dL Est GFR (CKD-EPI)AfAm (>60 ml/min/1.73 sqM) Est GFR (CKD-EPI)NonAf (>60 ml/min/1.73 sqM) Glucose (74-99) mg/dL POC Glucose (mg/dL) 203 H (75-99) mg/dL POC Glu Associate [employer] Handler ID [facility] Calcium (8.4-10.2) mg/dL Total Bilirubin (0.2-1.3) mg/dL AST (17-59) U/L ALT (4-49) U/L Alkaline Phosphatase (38-126) U/L Total Protein (6.3-8.2) g/dL Albumin (3.5-5.0) g/dL Urine Opiates Screen Not Detected (NotDetected) Ur Oxycodone Screen Not Detected (NotDetected) Urine Methadone Screen Not Detected (NotDetected) Ur Propoxyphene Screen Not Detected (NotDetected) Ur Barbiturates Screen Not Detected (NotDetected) U Tricyclic Antidepress Not Detected (NotDetected) Ur Phencyclidine Scrn Not Detected (NotDetected) Ur Amphetamines Screen Not Detected (NotDetected) U Methamphetamines Scrn Not Detected (NotDetected) U Benzodiazepines Scrn Not Detected (NotDetected) Urine Cocaine Screen Not Detected (NotDetected) U Marijuana (THC) Screen Not Detected (NotDetected) 10/12/21 10/13/21 Range/Units 23:41 05:25 WBC (3.8-10.6) k/uL RBC (4.30-5.90) m/uL Hgb (13.0-17.5) gm/dL Hct (39.0-53.0) % MCV (80.0-100.0) fL MCH (25.0-35.0) pg MCHC (31.0-37.0) g/dL RDW (11.5-15.5) % Plt Count (150-450) k/uL MPV Neutrophils % % Lymphocytes % % Monocytes % % Eosinophils % % Basophils % % Neutrophils # (1.3-7.7) k/uL Lymphocytes # (1.0-4.8) k/uL Monocytes # (0-1.0) k/uL Eosinophils # (0-0.7) k/uL Basophils # (0-0.2) k/uL Sodium 130 L 128 L (137-145) mmol/L Potassium 4.7 4.3 (3.5-5.1) mmol/L Chloride 94 L 95 L (98-107) mmol/L Carbon Dioxide 9 L* 21 L (22-30) mmol/L Anion Gap 27 12 mmol/L BUN 16 19 (9-20) mg/dL Creatinine 1.10 1.00 (0.66-1.25) mg/dL Est GFR (CKD-EPI)AfAm 85 >90 (>60 ml/min/1.73 sqM) Est GFR (CKD-EPI)NonAf 73 82 (>60 ml/min/1.73 sqM) Glucose 188 H 137 H (74-99) mg/dL POC Glucose (mg/dL) (75-99) mg/dL POC Glu Associate Material Handler ID Calcium 9.8 9.6 (8.4-10.2) mg/dL Total Bilirubin 1.1 (0.2-1.3) mg/dL AST 43 (17-59) U/L ALT 49 (4-49) U/L Alkaline Phosphatase 122 (38-126) U/L Total Protein 8.8 H (6.3-8.2) g/dL Albumin 5.2 H (3.5-5.0) g/dL Urine Opiates Screen (NotDetected) Ur Oxycodone Screen (NotDetected) Urine Methadone Screen (NotDetected) Ur Propoxyphene Screen (NotDetected) Ur Barbiturates Screen (NotDetected) U Tricyclic Antidepress (NotDetected) Ur Phencyclidine Scrn (NotDetected) Ur Amphetamines Screen (NotDetected) U Methamphetamines Scrn (NotDetected) U Benzodiazepines Scrn (NotDetected) Urine Cocaine Screen (NotDetected) U Marijuana (THC) Screen (NotDetected) Disposition <Andrés Jaramillo - Last Filed: 10/12/21 18:57> Is patient prescribed a controlled substance at d/c from ED?: No <Teodoro Stone - Last Filed: 10/18/21 03:31> Clinical Impression: Encounter for psychiatric assessment, Schizoaffective disorder, Seizure Disposition: HOME SELF-CARE Condition: Good Instructions (If sedation given, give patient instructions): Schizoaffective D isorder (ED), Recurrent Seizures in Adults (ED) Referrals: None,Stated [Primary Care Provider] - 1-2 days
[2021-10-12 22:53] LABS: Amphetamine Screen,Urine Not Detected (NotDetected); Barbiturate Screen,Urine Not Detected (NotDetected); Benzodiazepines Screen,Urine Not Detected (NotDetected); Cocaine Screen,Urine Not Detected (NotDetected); Methadone Screen, Urine Not Detected (NotDetected); Opiate Screen,Urine Not Detected (NotDetected); Oxycodone Screen, Urine Not Detected (NotDetected); Phencyclidine Screen,Urine Not Detected (NotDetected); Tricyclic Antidepressant,Urine Not Detected (NotDetected); Urn Cannabinoid Scrn Not Detected (NotDetected)
[2021-10-12 23:38] LABS: Glucose,Whole Blood 203 mg/dL (75-99)
[2021-10-12] MEDS ORDERED: OXcarbazepine 300 MG TAB PO STA (23:38)
[2021-10-12 23:48] LABS: Basophils % (A) 0 %; Eosinophils # (A) 0.1 k/uL (0-0.7); Eosinophils % (A) 0 %; HCT 42.2 % (39.0-53.0); Lymphocytes # (A) 2.9 k/uL (1.0-4.8); Lymphocytes % (A) 22 %; MCH 31.6 pg (25.0-35.0); MCHC 33.2 g/dL (31.0-37.0); MCV 95.1 fL (80.0-100.0); Mean Platelet Volume 7.5; Monocytes # (A) 0.7 k/uL (0-1.0); Monocytes % (A) 5 %; Neutrophils # (A) 9.4 k/uL (1.3-7.7); Neutrophils % (A) 69 %; Platelet Count 396 k/uL (150-450); RBC 4.44 m/uL (4.30-5.90); RDW 13.9 % (11.5-15.5); WBC 13.6 k/uL (3.8-10.6)
[2021-10-13 00:01] LABS: Calcium 9.8 mg/dL (8.4-10.2); Total Bilirubin 1.1 mg/dL (0.2-1.3)
[2021-10-13 00:14] LABS: Albumin 5.2 g/dL (3.5-5.0); Potassium 4.7 mmol/L (3.5-5.1); Total Protein 8.8 g/dL (6.3-8.2)
[2021-10-13 02:24] VITALS: TEMP 97.7
[2021-10-13 04:56] VITALS: BP 124/64; PULSE 102; RESP 20
[2021-10-13 05:44] LABS: African American GFR (CKD) >90 (>60 ml/min/1.73 sqM); Anion Gap 12 mmol/L; Blood Urea Nitrogen 19 mg/dL (9-20); Calcium 9.6 mg/dL (8.4-10.2); Carbon Dioxide 21 mmol/L (22-30); Chloride 95 mmol/L (98-107); Glucose 137 mg/dL (74-99); Non-African American GFR(CKD) 82 (>60 ml/min/1.73 sqM); Potassium 4.3 mmol/L (3.5-5.1); Sodium 128 mmol/L (137-145)
[2021-10-13] MEDS ORDERED: OXcarbazepine 300 MG TAB PO SCH (09:00)
== END 2021-10-13 06:32 | disposition home or self-care (01) ==
LOC: EC 17:40
DX: Z04.6 Encounter for general psychiatric examination, requested by authority (principal); F25.9 Schizoaffective disorder, unspecified; R56.9 Unspecified convulsions; I10 Essential (primary) hypertension; J44.9 Chronic obstructive pulmonary disease, unspecified; E78.5 Hyperlipidemia, unspecified; M19.90 Unspecified osteoarthritis, unspecified site; F31.9 Bipolar disorder, unspecified; Z79.51 Long term (current) use of inhaled steroids; Z79.899 Other long term (current) drug therapy
CPT/HCPCS: 36415; 80048; 80053; 80306; 82075; 85025; 99285

== ENCOUNTER → 2021-10-20 | Outpatient (CLI) | payer OTHER ==
--- NOTE | 2021-10-21 09:50 | NM ---
EXAMINATION TYPE: NM DatScan Brain SPECT DATE OF EXAM: 10/20/2021 COMPARISON: Correlation CT 02/02/2021 HISTORY: 61-year-old male G2 5.0, tremor TECHNIQUE: 10 drops of Lugol's solution was administered 1 hour prior to injection as a thyroid bloc kenny agent. After the administration of 4.55 mCi I-123 Ioflupane DaTscan. Images obtained 3.25 hour s post injection. SPECT images of the brain were acquired with axial and coronal reconstructions. FINDINGS: There is symmetric uptake in the bilateral striatum. Normal background activity as well. IMPRESSION: This normal scintigraphic appearance is against a diagnosis of idiopathic Parkinson's disease or a pa rkinsonian syndrome and is seen in healthy individuals and also patients with essential tremor, drug- induced parkinsonism, and vascular pseudo-Parkinsonism.
== END | disposition home or self-care (01) ==
LOC: RADNMMAIN 10:58
PROVIDERS: ATTEND Psychiatry & Neurology Neurology
DX: G25.0 Essential tremor (principal)
CPT/HCPCS: 78803; A9584

== ENCOUNTER 2021-11-04 11:16 | Emergency (ER) | payer OTHER ==
[2021-11-04 11:40] VITALS: TEMP 97.8
[2021-11-04] MEDS ORDERED: KETOROLAC 15 MG/ML 1 ML VIAL IM STA (12:30)
--- NOTE | 2021-11-04 12:31 | ED ---
General Adult HPI - General Chief complaint: Back Pain/Injury Stated complaint: Spine issues Time Seen by Provider: 11/04/21 12:00 Source: patient, RN notes reviewed, old records reviewed Mode of arrival: wheelchair Limitations: no limitations - History of Present Illness Initial comments: This is a 61-year-old male presents emergency Department complaining of left lower back pain. Patient states his been intermittent over the last year. Patient states it does occasionally radiate down his left leg. Patient states has full range of motion he denies any numbness or weakness per patient denies any urinary incontinence or urinary retention. Patient states nothing he can remember seems to have initially caused the event. Patient states he currently does not work. Patient has not been any heavy lifting or working out. Patient denies any fever chills per patient denies any abdominal pain patient denies any other symptoms at this time. - Related Data Home Medications Medication Instructions Recorded Confirmed Albuterol Inhaler [Ventolin Hfa 1 - 2 puff INHALATION RT-Q4H PRN 12/30/19 10/12/21 Inhaler] Atorvastatin [Lipitor] 10 mg PO HS@209902/02/21 10/12/21 Ergocalciferol (Vitamin D2) 1,250 mcg PO WE 02/02/21 10/12/21 [Drisdol (50,000 Iu)] Hydrochlorothiazide 12.5 mg PO DAILY@0800 02/02/21 10/12/21 [hydroCHLOROthiazide] Meloxicam 15 mg PO DAILY@0802/02/21 10/12/21 Montelukast Sodium [Singulair] 10 mg PO DAILY@209902/02/21 10/12/21 Paliperidone IM [Invega Sustenna] 234 mg IM Q28D 02/02/21 10/12/21 diphenhydrAMINE [Benadryl] 25 mg PO BID PRN 02/02/21 10/12/21 lisinopriL [Zestril] 20 mg PO DAILY@0800 02/02/21 10/12/21 Naproxen [Naprosyn] 500 mg PO BID PRN 08/13/21 10/12/21 OXcarbazepine 600 mg PO BID@0800,2100 08/13/21 10/12/21 SUMAtriptan succinate [Imitrex] 50 mg PO BID PRN MDD 2TABS 08/13/21 10/12/21 amantadine HCL 100 mg PO BID@0800,2100 08/13/21 10/12/21 Cough Drops Vivian 7.5mg 1 lozenge MUCOUS MEM Q4H PRN 10/12/21 10/12/21 Magnesium Oxide 400 mg PO HS@2100 10/12/21 10/12/21 Valtoco 10mg [place] 1 spray NASAL DIRECTED PRN 10/12/21 10/12/21 Previous Rx's Medication Instructions Recorded predniSONE [Deltasone] 40 mg PO DAILY #8 tab 11/04/21 Allergies Allergy/AdvReac Type Severity Reaction Status Date / Time amoxicillin Allergy Unknown Verified 11/04/21 11:40 brompheniramine maleate Allergy Unknown Verified 11/04/21 11:40 [From [place] Cold-Allergy (PE)] codeine Allergy Rash/Hives Verified 11/04/21 11:40 fluoxetine HCl [From Prozac] Allergy Unknown Verified 11/04/21 11:40 latex Allergy Unknown Verified 11/04/21 11:40 morphine Allergy Rash/Hives Verified 11/04/21 11:40 phenylephrine HCl Allergy Unknown Verified 11/04/21 11:40 [From [place] Cold-Allergy (PE)] shellfish derived [Shellfish] Allergy Rash/Hives Verified 11/04/21 11:40 Review of Systems ROS Statement: Those systems with pertinent positive or pertinent negative responses have been documented in the HPI. ROS Other: All systems not noted in ROS Statement are negative. Past Medical History Past Medical History: COPD, Hyperlipidemia, Hypertension, Osteoarthritis (OA), Seizure Disorder Additional Past Medical History / Comment(s): prostate cancer, possible seizure disorder-last known seizure 01/05/2020 .tinnitus, bipolar depression, ptsd, schizophrenia. 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 Past Psychological History: Bipolar, Depression, PTSD, Schizophrenia Smoking Status: Never smoker Past Alcohol Use History: None Reported Past Drug Use History: None Reported - Past Family History Father Family Medical History: Cancer Additional Family Medical History / Comment(s): Father is alive at age 82 with history of prostate cancer. Mother Family Medical History: Cancer Additional Family Medical History / Comment(s): Mother at age 53 from bladder cancer Brother(s) Additional Family Medical History / Comment(s): Patient has 4 brothers and 2 sisters that are healthy with no major medical problems. Patient does not have any children. General Exam - General Exam Comments Initial Comments: GENERAL: Patient is well-developed and well-nourished. Patient is nontoxic and well- hydrated and is in mild distress. ENT: Neck is soft and supple. No significant lymphadenopathy is noted. Oropharynx is clear. Moist mucous membranes. Neck has full range of motion without eliciting any pain. EYES: The sclera were anicteric and conjunctiva were pink and moist. Extraocular movements were intact and pupils were equal round and reactive to light. Eyelids were unremarkable. PULMONARY: Unlabored respirations. Good breath sounds bilaterally. No audible rales rhonchi or wheezing was noted. CARDIOVASCULAR: There is a regular rate and rhythm without any murmurs gallops or rubs. ABDOMEN: Soft and nontender with normal bowel sounds. SKIN: Skin is clear with no lesions or rashes and otherwise unremarkable. NEUROLOGIC: Patient is alert and oriented x3. Cranial nerves II through XII are grossly intact. Motor and sensory are also intact. Normal speech, volume and content. Symmetrical smile. Straight leg test is negative on the right and positive at about 60 on the left MUSCULOSKELETAL: Normal extremities with adequate strength and full range of motion. LYMPHATICS: No significant lymphadenopathy is noted PSYCHIATRIC: Normal psychiatric evaluation. Limitations: no limitations Course Vital Signs 11/04/21 11:37 Temperature 97.8 F Pulse Rate 109 H Respiratory 18 Rate Blood Pressure 148/80 O2 Sat by Pulse 96 Oximetry Medical Decision Making - Medical Decision Making Lumbosacral spine I reviewed the x-rays radiology did not find any acute abnormalities to explain the patient's pain. Patient received Toradol was stating that that made him feel considerably better. Disposition Clinical Impression: Sciatica Disposition: HOME SELF-CARE Condition: Good Instructions (If sedation given, give patient instructions): Sciatica (ED) Prescriptions: predniSONE [Deltasone] 40 mg PO DAILY #8 tab Is patient prescribed a controlled substance at d/c from ED?: No Referrals: [facility] [Primary Care Provider] - 1-2 days Time of Disposition: 13:35
--- NOTE | 2021-11-04 13:35 | XR ---
EXAMINATION TYPE: XR lumbosacral spine 5 views DATE OF EXAM: 11/04/2021 Comparison: None Clinical History: 61-year-old male with back pain Findings: Leftward truncal shift. Grade 1 anterolisthesis L5-S1. There appears to be ankylosis of the posterior elements at L5-S1. Hypertrophic facet arthropathy throughout. Mild degenerative disc disease through out. Anterior endplate spondylosis L2-L3. Vertebral body heights are preserved and alignment is other escoto maintained. Impression: 1. Fixed grade 1 anterolisthesis L5-S1 with bony ankylosis of the posterior elements at this level. 2. Hypertrophic facet arthropathy throughout. 3. Mild multilevel degenerative disc disease and endplate spondylosis. 4. No vertebral compression collapse.
[2021-11-04 14:08] VITALS: BP 123/70; PULSE 85; RESP 20
== END 2021-11-04 14:08 | disposition home or self-care (01) ==
LOC: EC 11:16
DX: M54.42 Lumbago with sciatica, left side (principal); I10 Essential (primary) hypertension; J44.9 Chronic obstructive pulmonary disease, unspecified; E78.5 Hyperlipidemia, unspecified; G40.909 Epilepsy, unspecified, not intractable, without status epilepticus; F31.9 Bipolar disorder, unspecified; F20.9 Schizophrenia, unspecified; Z79.51 Long term (current) use of inhaled steroids; Z79.899 Other long term (current) drug therapy
CPT/HCPCS: 72110; 99283; 96372; J1885

== ENCOUNTER 2022-04-28 05:24 | Inpatient (IN) | payer MEDICAID, OTHER ==
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
[2022-04-28 10:45] LABS: Basophils % (A) 0 %; Eosinophils # (A) 0.1 k/uL (0-0.7); Eosinophils % (A) 1 %; HCT 40.8 % (39.0-53.0); HGB 13.6 gm/dL (13.0-17.5); Lymphocytes # (A) 0.7 k/uL (1.0-4.8); Lymphocytes % (A) 8 %; MCH 29.4 pg (25.0-35.0); MCHC 33.2 g/dL (31.0-37.0); MCV 88.4 fL (80.0-100.0); Mean Platelet Volume 7.5; Monocytes # (A) 0.4 k/uL (0-1.0); Monocytes % (A) 4 %; Neutrophils # (A) 7.5 k/uL (1.3-7.7); Neutrophils % (A) 86 %; Platelet Count 310 k/uL (150-450); RBC 4.61 m/uL (4.30-5.90); RDW 12.2 % (11.5-15.5); WBC 8.8 k/uL (3.8-10.6)
[2022-04-28 10:56] LABS: ALT 31 U/L (4-49); AST 24 U/L (17-59); African American GFR (CKD) >90 (>60 ml/min/1.73 sqM); Albumin 4.9 g/dL (3.5-5.0); Alkaline Phosphatase 104 U/L (38-126); Anion Gap 18 mmol/L; Blood Urea Nitrogen 13 mg/dL (9-20); Calcium 9.9 mg/dL (8.4-10.2); Carbon Dioxide 21 mmol/L (22-30); Chloride 97 mmol/L (98-107); Glucose 113 mg/dL (74-99); Non-African American GFR(CKD) >90 (>60 ml/min/1.73 sqM); Potassium 4.6 mmol/L (3.5-5.1); Sodium 136 mmol/L (137-145); Total Bilirubin 0.9 mg/dL (0.2-1.3); Total Protein 7.7 g/dL (6.3-8.2)
[2022-04-28 11:00] LABS: Appearance,Urine Clear (Clear); Bilirubin,Urine Negative (Negative); Blood,Urine Negative (Negative); Color,Urine Yellow; Glucose,Urine (UA) Negative (Negative); Ketones,Urine 2+ (Negative); Leukocyte Esterase,Urine Negative (Negative); Nitrite,Urine Negative (Negative); Protein,Urine Trace (Negative); Specific Gravity,Urine 1.019 (1.001-1.035); Urobilinogen,Urine <2.0 mg/dL (<2.0)
[2022-04-28 11:02] LABS: Valproic Acid (Depakene) 15.6 ug/mL
[2022-04-28 11:30] LABS: Amphetamine Screen,Urine Not Detected (NotDetected); Barbiturate Screen,Urine Not Detected (NotDetected); Benzodiazepines Screen,Urine Not Detected (NotDetected); Cocaine Screen,Urine Not Detected (NotDetected); Methadone Screen, Urine Not Detected (NotDetected); Opiate Screen,Urine Not Detected (NotDetected); Oxycodone Screen, Urine Not Detected (NotDetected); Phencyclidine Screen,Urine Not Detected (NotDetected); Tricyclic Antidepressant,Urine Not Detected (NotDetected); Urn Cannabinoid Scrn Not Detected (NotDetected)
[2022-04-28] MEDS ORDERED: ALBUTEROL HFA INHALER INHALATION PRN (12:10)
[2022-04-28] MEDS ORDERED: CARBIDOPA-LEVODOPA 10-100 MG 1 EACH TAB PO SCH (12:15)
[2022-04-28] MEDS ORDERED: MAG HYDROX/AL HYDROX/SIMETH 30 ML CUP PO PRN (12:22)
[2022-04-28] MEDS ORDERED: MAGNESIUM HYDROXIDE 2,400 MG/10 ML CUP PO PRN (12:22)
[2022-04-28] MEDS ORDERED: HALOPERIDOL LACTATE 5 MG/ML 1 ML VIAL IM PRN (12:22)
[2022-04-28] MEDS: DICLOFENAC SODIUM GEL 100 GM TUBE TOPICAL SCH ×2 (14:49→21:05)
[2022-04-28] MEDS: LORazepam 1 MG TAB PO PRN (14:50)
[2022-04-28] MEDS: ACETAMINOPHEN TAB 325 MG TAB PO PRN (16:03)
[2022-04-28] MEDS ORDERED: MELATONIN 3 MG TABLET PO SCH (21:00)
[2022-04-28] MEDS: FAMOTIDINE 20 MG TAB PO SCH (21:04)
[2022-04-28] MEDS: MONTELUKAST 10 MG TAB PO SCH (21:04)
[2022-04-28] MEDS: ATORVASTATIN 10 MG TAB PO SCH (21:05)
[2022-04-28] MEDS: MAGNESIUM OXIDE 400 MG TAB PO SCH (21:05)
[2022-04-28] MEDS: PRIMIDONE 25 MG TAB PO SCH (21:05)
[2022-04-28] MEDS: DIVALPROEX 500 MG TABLET.DR PO SCH (21:05)
[2022-04-29] MEDS: FAMOTIDINE 20 MG TAB PO SCH ×2 (08:04→20:52)
[2022-04-29] MEDS: DIVALPROEX 500 MG TABLET.DR PO SCH ×2 (08:04→20:52)
[2022-04-29] MEDS: lisinopriL 20 MG TAB PO SCH (08:05)
[2022-04-29] MEDS: DICLOFENAC SODIUM GEL 100 GM TUBE TOPICAL SCH ×4 (09:55→20:53)
[2022-04-29] MEDS ORDERED: polyethylene glycoL 3350 17 GM POWD.PACK PO PRN (12:12)
[2022-04-29] MEDS ORDERED: cloNIDine HCL 0.1 MG TAB PO PRN (12:12)
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
[2022-04-29] MEDS: ACETAMINOPHEN TAB 325 MG TAB PO PRN (13:54)
[2022-04-29] MEDS: LORazepam 1 MG TAB PO PRN (13:55)
[2022-04-29 16:46] LABS: Chol/HDL Ratio 3.04 Ratio
[2022-04-29] MEDS: PALIPERIDONE 6 MG TAB.ER.24 PO SCH (20:52)
[2022-04-29] MEDS: ATORVASTATIN 10 MG TAB PO SCH (20:52)
[2022-04-29] MEDS: MONTELUKAST 10 MG TAB PO SCH (20:52)
[2022-04-29] MEDS: traZODone HCL 50 MG TAB PO SCH (20:52)
[2022-04-29] MEDS: PRIMIDONE 25 MG TAB PO SCH (20:52)
[2022-04-29] MEDS: MAGNESIUM OXIDE 400 MG TAB PO SCH (20:52)
--- NOTE | 2022-04-30 00:06 | CONS ---
CONSULTATION REASON FOR CONSULTATION: Advice regarding COPD and other multiple medical issues requested by Psychiatry. HISTORY OF PRESENT ILLNESS: A 61-year-old gentleman with the past medical history of COPD, hypertension, hyperlipidemia, was admitted for psychiatric evaluation. The patient is complaining of shortness of breath. Otherwise, there is no history of any fever, rigors, chills, headache, loss of consciousness, or seizures at this time. PAST MEDICAL HISTORY: Reviewed, include COPD, hypertension, hyperlipidemia. HOME MEDICATIONS: Again, reviewed and include Invega, dose and rest of medication noted. ALLERGIES: Reviewed, include amoxicillin. FAMILY HISTORY: History of cancer in the family. SOCIAL HISTORY: No history of smoking. No history of alcohol intake. REVIEW OF SYSTEMS: A 14-point review of systems is negative except as mentioned earlier. PHYSICAL EXAMINATION: VITAL SIGNS: Pulse is 120, blood pressure 170/94, respirations 20. HEENT: Conjunctivae normal. NECK: No JVD. CARDIOVASCULAR: S1, S2. RESPIRATION: Breath sounds diminished at the bases. A few scattered rhonchi. No crackles. ABDOMEN: Soft, nontender. LEGS: No edema. NERVOUS SYSTEM: Nonfocal. LABORATORY DATA: Sodium 136. Rest of the labs are noted. ASSESSMENT: 1. Schizophrenia. 2. Hypertension. 3. Chronic obstructive pulmonary disease. 4. Hyperlipidemia. 5. Multiple medical issues. RECOMMENDATIONS: In this 61-year-old gentleman, who presented with multiple medical issues, I would recommend resuming the home medications, otherwise monitor blood pressure closely. Clonidine may be used on a p.r.n. basis, but if the blood pressure is presently elevated, please let us know to adjust further medications. Further recommendations to follow. MMODL / IJN: [id number] /
[2022-04-30] MEDS: lisinopriL 20 MG TAB PO SCH (08:30)
[2022-04-30] MEDS: DICLOFENAC SODIUM GEL 100 GM TUBE TOPICAL SCH ×4 (08:30→21:00)
[2022-04-30] MEDS: DIVALPROEX 500 MG TABLET.DR PO SCH ×2 (08:30→20:14)
[2022-04-30] MEDS: FAMOTIDINE 20 MG TAB PO SCH ×2 (08:30→20:15)
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
[2022-04-30] MEDS: traZODone HCL 50 MG TAB PO SCH (20:14)
[2022-04-30] MEDS: PALIPERIDONE 6 MG TAB.ER.24 PO SCH (20:15)
[2022-04-30] MEDS: ATORVASTATIN 10 MG TAB PO SCH (20:15)
[2022-04-30] MEDS: PRIMIDONE 25 MG TAB PO SCH (20:15)
[2022-04-30] MEDS: MAGNESIUM OXIDE 400 MG TAB PO SCH (20:15)
[2022-04-30] MEDS: MONTELUKAST 10 MG TAB PO SCH (20:15)
[2022-05-01] MEDS: DICLOFENAC SODIUM GEL 100 GM TUBE TOPICAL SCH ×4 (08:01→21:12)
[2022-05-01] MEDS: DIVALPROEX 500 MG TABLET.DR PO SCH ×2 (08:02→20:08)
[2022-05-01] MEDS: FAMOTIDINE 20 MG TAB PO SCH ×2 (08:02→20:08)
[2022-05-01] MEDS: lisinopriL 20 MG TAB PO SCH (08:02)
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
[2022-05-01] MEDS: MONTELUKAST 10 MG TAB PO SCH (20:08)
[2022-05-01] MEDS: traZODone HCL 50 MG TAB PO SCH (20:08)
[2022-05-01] MEDS: PALIPERIDONE 6 MG TAB.ER.24 PO SCH (20:08)
[2022-05-01] MEDS: MAGNESIUM OXIDE 400 MG TAB PO SCH (20:08)
[2022-05-01] MEDS: ATORVASTATIN 10 MG TAB PO SCH (20:08)
[2022-05-01] MEDS: PRIMIDONE 25 MG TAB PO SCH (20:08)
[2022-05-02] MEDS: FAMOTIDINE 20 MG TAB PO SCH ×2 (09:29→20:30)
[2022-05-02] MEDS: lisinopriL 20 MG TAB PO SCH (09:29)
[2022-05-02] MEDS: DIVALPROEX 500 MG TABLET.DR PO SCH ×2 (09:30→20:30)
[2022-05-02] MEDS: ACETAMINOPHEN TAB 325 MG TAB PO PRN (09:30)
[2022-05-02] MEDS: DICLOFENAC SODIUM GEL 100 GM TUBE TOPICAL SCH ×4 (09:53→21:25)
[2022-05-02] MEDS: PALIPERIDONE 6 MG TAB.ER.24 PO SCH (20:30)
[2022-05-02] MEDS: MONTELUKAST 10 MG TAB PO SCH (20:30)
[2022-05-02] MEDS: MAGNESIUM OXIDE 400 MG TAB PO SCH (20:30)
[2022-05-02] MEDS: ATORVASTATIN 10 MG TAB PO SCH (20:30)
[2022-05-02] MEDS: PRIMIDONE 25 MG TAB PO SCH (20:30)
[2022-05-02] MEDS: traZODone HCL 50 MG TAB PO SCH (20:30)
[2022-05-03] MEDS: ACETAMINOPHEN TAB 325 MG TAB PO PRN (09:03)
[2022-05-03] MEDS: FAMOTIDINE 20 MG TAB PO SCH ×2 (09:04→20:41)
[2022-05-03] MEDS: lisinopriL 20 MG TAB PO SCH (09:04)
[2022-05-03] MEDS: DIVALPROEX 500 MG TABLET.DR PO SCH ×2 (09:04→20:41)
[2022-05-03] MEDS: DICLOFENAC SODIUM GEL 100 GM TUBE TOPICAL SCH ×4 (09:04→20:43)
--- NOTE | 2022-05-03 10:44 | P.PN ---
Progress Note - Text Progress Note Date: 05/03/22 Interval History: Patient was seen lying in his bed today and was directable and agreeable to lukas espinosa with medical technical writer in the office. Patient claims that his knees have been hurting since being on the unit and claims that this is an ongoing problem for him as he has arthritis. He claims that he is doing "okay" besides this. He states that he has been taking his medications however claims that she does not need them at this time and does not fully understand why he requires his medications. He did not defer with the workers compensation attorney and waiting for the court date. He claims that he is sleeping well at night time. States that he is going to some groups. Denying any depression or anxiety today.. At this time patient denies any suicidal or homical ideations, intent or plan. Patient denies any auditory, visual hallucinations and denies any paranoia or delusions. Patient denies any side effects from the medications and has been compliant with meds. Mental Status Exam: General Appearance: Patient appears to be stated age is alert, less irritable today. Patient appears to have improving hygiene and grooming. Behavior: Patient is laying in bed without any agitated behavior. Speech: Patient's speech is fluent and nonpressured. [place]. Mood/Affect: Patient reports their mood is "ok", affect is congruent and constricted. Suicidality/Homicidality: Patient denies having any homicidal ideation intent or plan. Denies any suicidal ideations intent or plan Perceptions: Patient denies any visual hallucinations and denies any auditory hallucinations Though content/process: Logical. [place]. Poverty of content. Not endorsing any paranoia today. Memory and concentration: Alert and oriented 3, fair attention span. Judgment and insight: Chronically poor, improving mildly IMPRESSIONS: Schizoaffective disorder, bipolar type Plan: -Patient continues to meet criteria for inpatient psychiatric admission for symptom stabilization and safety. Patient has signed adult voluntary form and medication consent and was placed in patient's chart. -Medications: Continue with paliperidone by mouth 6 mg daily at bedtime for psychosis, trazodone 50 mg daily at bedtime for sleep, Depakote 500 mg twice a day for mood stabilization. -When necessary Ativan and Haldol for agitation/aggression. -NRT - not needed as patient does not smoke -SW on board for discharge planning. Encouraged the patient to participate in milieu. Currently awaiting court date as patient did not signed the deferral.
[2022-05-03] MEDS: MONTELUKAST 10 MG TAB PO SCH (20:41)
[2022-05-03] MEDS: PALIPERIDONE 6 MG TAB.ER.24 PO SCH (20:41)
[2022-05-03] MEDS: ATORVASTATIN 10 MG TAB PO SCH (20:41)
[2022-05-03] MEDS: traZODone HCL 50 MG TAB PO SCH (20:41)
[2022-05-03] MEDS: MAGNESIUM OXIDE 400 MG TAB PO SCH (20:41)
[2022-05-03] MEDS: PRIMIDONE 25 MG TAB PO SCH (20:42)
--- NOTE | 2022-05-03 21:06 | PN ---
DATE OF SERVICE: 05/02/2022 PROGRESS NOTE CHIEF COMPLAINT: The patient was admitted for paranoia. INTERVAL HISTORY: The patient has been doing fair. The best I am able to tell from the medical record is that he had a quiet day yesterday. There was not much documentation in regard to his general status. He apparently comes out on the unit. He chooses not to attend groups. He says that he has had a good appetite. Nurses documented that he slept 6 hours last night. Today, he has been up and continues to do the same. He choses not to attend groups stating that he knows all of what the group activities are about and that it does not pertain to him. He did make some comments about being distressed with his living situation, though he did not give any details. A main complaint he has had today relating to his medications is that he has tremor, which was noteworthy in his arms and hands. He was showing a parkinsonian tremor that was fairly persistent throughout the interview. When I asked about issues relating to paranoia, the patient stated that what is documented for the most part is false and that there is a completely different story relating to the situation he has been in. He says that he has distress in his retirement, though he did not give us any details to help understand his situation. Other than tremor, he did not identify specifics relating to issues he might be having with his medications. MENTAL STATUS EXAM: The patient walks with a walker. He came in and sat down. His eye contact was poor. He generally leaned forward and looked down. He answered a few questions appropriately. He did not say much, he would answer with 1 or 2 word responses. His thoughts were clear and coherent. His affect was flat. His mood depressed. He seemed moderately distressed. He apparently continues with issues of thought disorder. It was difficult to assess for thoughts of harm. He was oriented to circumstances and surroundings. ASSESSMENT AND PLAN: I will continue the current diagnosis and treatment plan. We will continue to make efforts to engage the patient in individual and group therapeutic activities. I will continue the patient on his current psychotropic medications including Depakote 500 mg twice a day, Invega 6 mg a day and trazodone 50 mg at bedtime. It is noteworthy that his Depakote level on the 6th was 15.6, drawn at all 0954. The patient states that he takes his medications consistently and is on a reasonable dose of Depakote. As such, I will repeat the Depakote level in the morning. We will need to coordinate with [facility]. We will focus on stabilization and discharge planning. ARMANDO / CLINT: [id number] / MTDD
[2022-05-04] MEDS: FAMOTIDINE 20 MG TAB PO SCH ×2 (10:10→18:53)
[2022-05-04] MEDS: ERGOCALCIFEROL 1,250 MCG (50,000 IU) CAPSULE PO SCH (10:10)
[2022-05-04] MEDS: DIVALPROEX 500 MG TABLET.DR PO SCH ×2 (10:11→21:09)
[2022-05-04] MEDS: lisinopriL 20 MG TAB PO SCH (10:11)
[2022-05-04] MEDS: HYDROcodone/APAP 5-325MG 1 EACH TAB PO PRN (10:17)
--- NOTE | 2022-05-04 10:21 | P.PN ---
Progress Note - Text Progress Note Date: 05/04/22 Interval History: Patient was seen lying in his bed today and was directable and agreeable to lukas espinosa with automotive service writer. She continues to state that he is having pain mainly in his hips. He states that this is an ongoing issue however claims that he is not able to walk at this time. He claims that his mood is fine at this time and denying any depression. He is continuing to take his medications. He states that he had a tough time sleeping last night seconary to the pain. He continues to endorse not fully understand why he requires his medications. At this time patient denies any suicidal or homical ideations, intent or plan. Patient denies any auditory, visual hallucinations and denies any paranoia or delusions. Patient denies any side effects from the medications and has been compliant with meds. Mental Status Exam: General Appearance: Patient appears to be stated age is alert, less irritable today. Patient appears to have improving hygiene and grooming. Behavior: Patient is laying in bed without any agitated behavior. Appears to be an pain. Speech: Patient's speech is fluent and nonpressured. [place]. Mood/Affect: Patient reports their mood is "fine", affect is congruent and constricted. Suicidality/Homicidality: Patient denies having any homicidal ideation intent or plan. Denies any suicidal ideations intent or plan Perceptions: Patient denies any visual hallucinations and denies any auditory hallucinations Though content/process: Logical. [place]. Poverty of content. Not endorsing any paranoia today. Memory and concentration: Alert and oriented 3, fair attention span. Judgment and insight: Chronically poor, improving mildly IMPRESSIONS: Schizoaffective disorder, bipolar type Plan: -Patient continues to meet criteria for inpatient psychiatric admission for symptom stabilization and safety. Patient has signed adult voluntary form and medication consent and was placed in patient's chart. -Medications: Continue with paliperidone by mouth 6 mg daily at bedtime for psychosis, trazodone 50 mg daily at bedtime for sleep, Depakote 500 mg twice a day for mood stabilization. -When necessary Ativan and Haldol for agitation/aggression. -NRT - not needed as patient does not smoke -SW on board for discharge planning. Encouraged the patient to participate in milieu. Currently awaiting court date for May 18 as patient did not signed the deferral.
[2022-05-04] MEDS: DICLOFENAC SODIUM GEL 100 GM TUBE TOPICAL SCH ×4 (10:24→21:11)
[2022-05-04] MEDS: ACETAMINOPHEN TAB 325 MG TAB PO PRN (15:34)
[2022-05-04] MEDS: MONTELUKAST 10 MG TAB PO SCH (21:08)
[2022-05-04] MEDS: PRIMIDONE 25 MG TAB PO SCH (21:08)
[2022-05-04] MEDS: ATORVASTATIN 10 MG TAB PO SCH (21:08)
[2022-05-04] MEDS: traZODone HCL 50 MG TAB PO SCH (21:08)
[2022-05-04] MEDS: MAGNESIUM OXIDE 400 MG TAB PO SCH (21:08)
[2022-05-04] MEDS: PALIPERIDONE 6 MG TAB.ER.24 PO SCH (21:08)
[2022-05-05] MEDS: FAMOTIDINE 20 MG TAB PO SCH ×2 (09:04→20:54)
[2022-05-05] MEDS: DICLOFENAC SODIUM GEL 100 GM TUBE TOPICAL SCH ×4 (09:04→20:57)
[2022-05-05] MEDS: DIVALPROEX 500 MG TABLET.DR PO SCH ×2 (09:04→20:55)
[2022-05-05] MEDS: lisinopriL 20 MG TAB PO SCH (09:04)
--- NOTE | 2022-05-05 13:16 | P.PN ---
Progress Note - Text Progress Note Date: 05/05/22 Interval History: Patient was seen lying in his bed today and was directable and agreeable to sp francisca with proposal manager writer. Patient claims that he is doing "okay" and was fairly polite today with proposal manager writer. He was distractible during conversation. He continues to state that his hips are "in pain". He states that this has been ongoing and was wondering if he can speak to the medical doctor. He has been receiving injections for his joint pain and apparently has an upcoming appointment with the orthopedic surgeon for possible replacement. Patient appears to be more logical in his thought process today. Calmer demeanor today. He states that he slept well. He is not going to many groups. He has been eating well. He states he slept a bit better last night. At this time patient denies any suicidal or homical ideations, intent or plan. Patient denies any auditory, visual hallucinations and denies any paranoia or delusions. Patient denies any side effects from the medications and has been compliant with meds. Mental Status Exam: General Appearance: Patient appears to be stated age is alert, less irritable today. Patient appears to have improving hygiene and grooming. Behavior: Patient is laying in bed without any agitated behavior. Appears to be in pain, improving mildly. Speech: Patient's speech is fluent and nonpressured. [place]. Mood/Affect: Patient reports their mood is "ok", affect is congruent Suicidality/Homicidality: Patient denies having any homicidal ideation intent or plan. Denies any suicidal ideations intent or plan Perceptions: Patient denies any visual hallucinations and denies any auditory hallucinations Though content/process: Logical. [place]. Poverty of content. Not endorsing any paranoia today. Memory and concentration: Alert and oriented 3, fair attention span. Judgment and insight: Chronically poor, improving mildly IMPRESSIONS: Schizoaffective disorder, bipolar type Plan: -Patient continues to meet criteria for inpatient psychiatric admission for symptom stabilization and safety. Patient has signed adult voluntary form and medication consent and was placed in patient's chart. -Medications: Continue with paliperidone by mouth 6 mg daily at bedtime for psychosis, trazodone 50 mg daily at bedtime for sleep, Depakote 500 mg twice a d ay for mood stabilization. -When necessary Ativan and Haldol for agitation/aggression. -NRT - not needed as patient does not smoke -SW on board for discharge planning. Encouraged the patient to participate in milieu. Currently awaiting court date for May 18 as patient did not signed the deferral. asked nurse to reach out primary team to have them evaluate and make and further recommendations for patients hip pain.
[2022-05-05] MEDS: ACETAMINOPHEN TAB 325 MG TAB PO PRN (14:50)
[2022-05-05] MEDS: MAGNESIUM OXIDE 400 MG TAB PO SCH (20:53)
[2022-05-05] MEDS: MONTELUKAST 10 MG TAB PO SCH (20:54)
[2022-05-05] MEDS: ATORVASTATIN 10 MG TAB PO SCH (20:54)
[2022-05-05] MEDS: traZODone HCL 50 MG TAB PO SCH (20:55)
[2022-05-05] MEDS: PALIPERIDONE 6 MG TAB.ER.24 PO SCH (20:55)
[2022-05-05] MEDS: PRIMIDONE 25 MG TAB PO SCH (20:55)
[2022-05-06] MEDS ORDERED: ACETAMINOPHEN TAB 500 MG TAB PO PRN (10:19)
--- NOTE | 2022-05-06 10:19 | P.PN ---
Progress Note - Text Progress Note Date: 05/06/22 Interval History: Patient was seen lying in his bed today and was directable and agreeable to sp jerok with director underwriter sales. Patient claims that he is doing "okay" however states that he continues to be in pain. He continues to be fairly polite with director underwriter sales during conversation. He answered most questions appropriately. Patient appears to be more logical in his thought process today. Calmer demeanor today. He states that he slept poorly last night. He is not going to many groups. He has been eating well. At this time patient denies any suicidal or homical ideations, intent or plan. Patient denies any auditory, visual hallucinations and denies any paranoia or delusions. Patient denies any side effects from the medications and has been compliant with meds. Mental Status Exam: General Appearance: Patient appears to be stated age is alert, not irritable today. Patient appears to have improving hygiene and grooming. Behavior: Patient is laying in bed without any agitated behavior. Appears to be in pain, improving mildly. Speech: Patient's speech is fluent and nonpressured. [place]. Mood/Affect: Patient reports their mood is "ok", affect is congruent Suicidality/Homicidality: Patient denies having any homicidal ideation intent or plan. Denies any suicidal ideations intent or plan Perceptions: Patient denies any visual hallucinations and denies any auditory hallucinations Though content/process: Logical. [place]. Poverty of content. Not endorsing any paranoia today. Focused on his pain. Memory and concentration: Alert and oriented 3, fair attention span. Judgment and insight: Chronically poor, improving mildly IMPRESSIONS: Schizoaffective disorder, bipolar type Plan: -Patient continues to meet criteria for inpatient psychiatric admission for symptom stabilization and safety. Patient has signed adult voluntary form and medication consent and was placed in patient's chart. -Medications: Continue with paliperidone by mouth 6 mg daily at bedtime for psychosis, increased trazodone 100 mg daily at bedtime for sleep, Depakote 500 mg twice a day for mood stabilization. -When necessary Ativan and Haldol for agitation/aggression. -NRT - not needed as patient does not smoke -SW on board for discharge planning. Encouraged the patient to participate in milieu. Currently awaiting court date for May 18 as patient did not signed the deferral. asked nurse to reach out primary team to have them evaluate and make and further recommendations for patients hip pain.
[2022-05-06] MEDS: DICLOFENAC SODIUM GEL 100 GM TUBE TOPICAL SCH ×3 (10:48→23:48)
[2022-05-06] MEDS: lisinopriL 20 MG TAB PO SCH (10:48)
[2022-05-06] MEDS: FAMOTIDINE 20 MG TAB PO SCH ×2 (10:48→20:42)
[2022-05-06] MEDS: DIVALPROEX 500 MG TABLET.DR PO SCH ×2 (10:49→20:42)
[2022-05-06] MEDS: IBUPROFEN 600 MG TAB PO PRN (17:17)
[2022-05-06] MEDS: ATORVASTATIN 10 MG TAB PO SCH (20:42)
[2022-05-06] MEDS: MAGNESIUM OXIDE 400 MG TAB PO SCH (20:42)
[2022-05-06] MEDS: MONTELUKAST 10 MG TAB PO SCH (20:42)
[2022-05-06] MEDS: traZODone HCL 100 MG TAB PO SCH (20:43)
[2022-05-06] MEDS: PRIMIDONE 25 MG TAB PO SCH (20:43)
[2022-05-06] MEDS: PALIPERIDONE 6 MG TAB.ER.24 PO SCH (20:43)
[2022-05-07] MEDS: DICLOFENAC SODIUM GEL 100 GM TUBE TOPICAL SCH ×5 (00:37→21:00)
[2022-05-07] MEDS: FAMOTIDINE 20 MG TAB PO SCH ×2 (08:23→20:19)
[2022-05-07] MEDS: lisinopriL 20 MG TAB PO SCH (08:23)
[2022-05-07] MEDS: DIVALPROEX 500 MG TABLET.DR PO SCH ×2 (08:23→20:19)
[2022-05-07] MEDS: HYDROcodone/APAP 5-325MG 1 EACH TAB PO PRN ×2 (08:23→23:58)
[2022-05-07] MEDS: IBUPROFEN 600 MG TAB PO PRN (08:25)
--- NOTE | 2022-05-07 12:56 | P.PN ---
Progress Note - Text Progress Note Date: 05/07/22 Interval History: Patient was seen lying in his bed today and was directable and agreeable to sp francisca with automatic typewriter inspector. He spontaneously states that he has been in pain. However, he reports "great "mood. He has been future oriented and thinking about where to live following discharge. He hopes to discuss it further with social work. He has been eating well. At this time patient denies any suicidal or homicidal ideations, intent or plan. Patient denies any auditory, visual hallucinations and denies any paranoia or delusions. Patient denies any side effects from the medications and has been compliant with meds. Mental Status Exam: General Appearance: Patient appears to be stated age is alert, not irritable today. Patient appears to have improving hygiene and grooming. Behavior: Patient is laying in bed without any agitated behavior. L hand tremor Speech: Patient's speech is fluent and nonpressured. [place]. Mood/Affect: Patient reports their mood is "ok", affect is congruent Suicidality/Homicidality: Patient denies having any homicidal ideation intent or plan. Denies any suicidal ideations intent or plan Perceptions: Patient denies any visual hallucinations and denies any auditory hallucinations Though content/process: Logical. [place]. Not endorsing any paranoia today. Focused on his pain. Memory and concentration: Alert and oriented 3, fair attention span. Judgment and insight: Chronically poor, improving mildly IMPRESSIONS: Schizoaffective disorder, bipolar type Plan: -Patient continues to meet criteria for inpatient psychiatric admission for symptom stabilization and safety. Patient has signed adult voluntary form and medication consent and was placed in patient's chart. -Medications: Continue with paliperidone by mouth 6 mg daily at bedtime for psychosis, continue trazodone 100 mg daily at bedtime for sleep, Depakote 500 mg twice a day for mood stabilization. -When necessary Ativan and Haldol for agitation/aggression. -NRT - not needed as patient does not smoke -SW on board for discharge planning. Encouraged the patient to participate in milieu. Currently awaiting court date for May 18 as patient did not signed the deferral. asked nurse to reach out primary team to have them evaluate and make and further recommendations for patients hip pain.
[2022-05-07] MEDS: ATORVASTATIN 10 MG TAB PO SCH (20:19)
[2022-05-07] MEDS: PALIPERIDONE 6 MG TAB.ER.24 PO SCH (20:19)
[2022-05-07] MEDS: MONTELUKAST 10 MG TAB PO SCH (20:19)
[2022-05-07] MEDS: traZODone HCL 100 MG TAB PO SCH (20:19)
[2022-05-07] MEDS: MAGNESIUM OXIDE 400 MG TAB PO SCH (20:19)
[2022-05-07] MEDS: PRIMIDONE 25 MG TAB PO SCH (20:20)
[2022-05-08] MEDS: lisinopriL 20 MG TAB PO SCH (07:43)
[2022-05-08] MEDS: FAMOTIDINE 20 MG TAB PO SCH ×2 (07:44→20:12)
[2022-05-08] MEDS: DIVALPROEX 500 MG TABLET.DR PO SCH ×2 (07:44→20:12)
[2022-05-08] MEDS: IBUPROFEN 600 MG TAB PO PRN (07:45)
[2022-05-08] MEDS: DICLOFENAC SODIUM GEL 100 GM TUBE TOPICAL SCH ×4 (11:19→21:06)
--- NOTE | 2022-05-08 12:13 | P.PN ---
Progress Note - Text Progress Note Date: 05/08/22 Interval History: Patient was seen lying in his bed today and was directable and agreeable to sp francisca with life insurance underwriter. He spontaneously states that he has been in pain. He reports doing well otherwise. He continues to endorse "great" mood. He has been future oriented and thinking about where to live following discharge. He has been eating well. At this time patient denies any suicidal or homicidal ideations, intent or plan. Patient denies any auditory, visual hallucinations and denies any paranoia or delusions. Patient denies any side effects from the medications and has been compliant with meds. Mental Status Exam: General Appearance: Patient appears to be stated age is alert, not irritable today. Patient appears to have improving hygiene and grooming. Behavior: Patient is laying in bed without any agitated behavior. L hand tremor Speech: Patient's speech is fluent and nonpressured. [place]. Mood/Affect: Patient reports their mood is "great", affect is congruent Suicidality/Homicidality: Patient denies having any homicidal ideation intent or plan. Denies any suicidal ideations intent or plan Perceptions: Patient denies any visual hallucinations and denies any auditory hallucinations Though content/process: Logical. [place]. Not endorsing any paranoia today. Focused on his pain. Memory and concentration: Alert and oriented 3, fair attention span. Judgment and insight: Chronically poor, improving mildly IMPRESSIONS: Schizoaffective disorder, bipolar type Plan: -Patient continues to meet criteria for inpatient psychiatric admission for symptom stabilization and safety. Patient has signed adult voluntary form and medication consent and was placed in patient's chart. -Medications: Continue with paliperidone by mouth 6 mg daily at bedtime for psychosis, continue trazodone 100 mg daily at bedtime for sleep, Depakote 500 mg twice a day for mood stabilization. -When necessary Ativan and Haldol for agitation/aggression. -NRT - not needed as patient does not smoke -SW on board for discharge planning. Encouraged the patient to participate in milieu. Currently awaiting court date for May 18 as patient did not signed the deferral. Asked nurse again to reach out primary team to have them evaluate and make and further recommendations for patients hip pain.
[2022-05-08] MEDS: HYDROcodone/APAP 5-325MG 1 EACH TAB PO PRN (17:42)
[2022-05-08] MEDS: LORazepam 1 MG TAB PO PRN (18:42)
[2022-05-08] MEDS: ATORVASTATIN 10 MG TAB PO SCH (20:12)
[2022-05-08] MEDS: MAGNESIUM OXIDE 400 MG TAB PO SCH (20:12)
[2022-05-08] MEDS: traZODone HCL 100 MG TAB PO SCH (20:12)
[2022-05-08] MEDS: MONTELUKAST 10 MG TAB PO SCH (20:12)
[2022-05-08] MEDS: PALIPERIDONE 6 MG TAB.ER.24 PO SCH (20:13)
[2022-05-08] MEDS: PRIMIDONE 25 MG TAB PO SCH (20:13)
[2022-05-09] MEDS: FAMOTIDINE 20 MG TAB PO SCH ×2 (07:48→20:16)
[2022-05-09] MEDS: DIVALPROEX 500 MG TABLET.DR PO SCH ×2 (07:48→20:17)
[2022-05-09] MEDS: lisinopriL 20 MG TAB PO SCH (07:48)
[2022-05-09] MEDS: HYDROcodone/APAP 5-325MG 1 EACH TAB PO SCH ×2 (07:50→20:17)
[2022-05-09] MEDS: DICLOFENAC SODIUM GEL 100 GM TUBE TOPICAL SCH ×4 (09:04→20:18)
--- NOTE | 2022-05-09 14:37 | P.PN ---
Progress Note - Text Progress Note Date: 05/09/22 Interval History: Patient was seen lying in his bed today and was directable and agreeable to sp eak with financial underwriter. Patient appeared to be more pleasant today. He was sitting up while speaking with financial underwriter. He states that the pain is doing a bit better today however continues to be fairly focused on it. He claims that he is trying to remain optimistic. He claims that his mood is "fine". He is denying any depression at this time. He can easily fairly polite during conversation with financial underwriter and reciprocating some questions. He is not endorsing any delusions or paranoia today. Claims that he is able seem a bit better last night however still having significant pain. He is not going to many groups. He has been eating well. At this time patient denies any suicidal or homical ideations, intent or plan. Patient denies any auditory, visual hallucinations and denies any paranoia or delusions. Patient denies any side effects from the medications and has been compliant with meds. Mental Status Exam: General Appearance: Patient appears to be stated age is alert, not irritable today. Patient appears to have improving hygiene and grooming. Behavior: Patient is laying in bed without any agitated behavior. Appears to be in pain, improving mildly. Speech: Patient's speech is fluent and nonpressured. [place]. Mood/Affect: Patient reports their mood is "ok", affect is congruent Suicidality/Homicidality: Patient denies having any homicidal ideation intent or plan. Denies any suicidal ideations intent or plan Perceptions: Patient denies any visual hallucinations and denies any auditory hallucinations Though content/process: Logical. [place]. Poverty of content. Not endorsing any paranoia today. Focused on his pain. Memory and concentration: Alert and oriented 3, fair attention span. Judgment and insight: Chronically poor, improving mildly IMPRESSIONS: Schizoaffective disorder, bipolar type Plan: -Patient continues to meet criteria for inpatient psychiatric admission for symptom stabilization and safety. Patient has signed adult voluntary form and medication consent and was placed in patient's chart. -Medications: Continue with paliperidone by mouth 6 mg daily at bedtime for psychosis, increase trazodone 150 mg daily at bedtime for sleep, Depakote 500 mg twice a day for mood stabilization. -When necessary Ativan and Haldol for agitation/aggression. -NRT - not needed as patient does not smoke -SW on board for discharge planning. Encouraged the patient to participate in milieu. Currently awaiting court date for May 18 as patient did not signed the deferral. asked nurse to reach out primary team to have them evaluate and make and further recommendations for patients hip pain.
[2022-05-09] MEDS: IBUPROFEN 600 MG TAB PO PRN (16:12)
[2022-05-09] MEDS: MONTELUKAST 10 MG TAB PO SCH (20:17)
[2022-05-09] MEDS: MAGNESIUM OXIDE 400 MG TAB PO SCH (20:17)
[2022-05-09] MEDS: ATORVASTATIN 10 MG TAB PO SCH (20:17)
[2022-05-09] MEDS: traZODone HCL 50 MG TAB PO SCH (20:18)
[2022-05-09] MEDS: PRIMIDONE 25 MG TAB PO SCH (20:18)
[2022-05-09] MEDS: PALIPERIDONE 6 MG TAB.ER.24 PO SCH (20:18)
[2022-05-10] MEDS: IBUPROFEN 600 MG TAB PO PRN ×2 (04:50→17:07)
[2022-05-10] MEDS: lisinopriL 20 MG TAB PO SCH (09:01)
[2022-05-10] MEDS: FAMOTIDINE 20 MG TAB PO SCH ×2 (09:01→19:55)
[2022-05-10] MEDS: DIVALPROEX 500 MG TABLET.DR PO SCH ×2 (09:01→19:53)
[2022-05-10] MEDS: HYDROcodone/APAP 5-325MG 1 EACH TAB PO SCH (09:02)
[2022-05-10] MEDS: DICLOFENAC SODIUM GEL 100 GM TUBE TOPICAL SCH ×4 (09:03→19:55)
--- NOTE | 2022-05-10 11:54 | P.PN ---
Progress Note - Text Progress Note Date: 05/10/22 Interval History: Patient was seen lying in his bed today and was directable and agreeable to sp eak with content writer. Patient states that mentally speaking he is doing better. He continues to be fairly pleasant with content writer and reciprocates conversation. He claims that he is still trying to remain optimistic. He continues to endorse having hip pain. Claims that he slept a bit better last night. Claims that he has not feeling depressed at this time or anxious. He is not endorsing any delusions or paranoia today. Claims that he is able seem a bit better last night however still having significant pain. He is not going to many groups. He has been eating well. At this time patient denies any suicidal or homical ideations, intent or plan. Patient denies any auditory, visual hallucinations and denies any paranoia or delusions. Patient denies any side effects from the medications and has been compliant with meds. Mental Status Exam: General Appearance: Patient appears to be stated age is alert, not irritable today. Patient appears to have improving hygiene and grooming. Behavior: Patient is laying in bed without any agitated behavior. Appears to be in pain, improving mildly. Speech: Patient's speech is fluent and nonpressured. [place]. Mood/Affect: Patient reports their mood is "fine", affect is congruent Suicidality/Homicidality: Patient denies having any homicidal ideation intent or plan. Denies any suicidal ideations intent or plan Perceptions: Patient denies any visual hallucinations and denies any auditory hallucinations Though content/process: Logical. [place]. Poverty of content. Not endorsing any paranoia today. Focused on his pain. Memory and concentration: Alert and oriented 3, fair attention span. Judgment and insight: Chronically poor, improving mildly IMPRESSIONS: Schizoaffective disorder, bipolar type Plan: -Patient continues to meet criteria for inpatient psychiatric admission for symptom stabilization and safety. Patient has signed adult voluntary form and medication consent and was placed in patient's chart. -Medications: Continue with paliperidone by mouth 6 mg daily at bedtime for psychosis, increase trazodone 150 mg daily at bedtime for sleep, Depakote 500 mg twice a day for mood stabilization. -When necessary Ativan and Haldol for agitation/aggression. -NRT - not needed as patient does not smoke -SW on board for discharge planning. Encouraged the patient to participate in milieu. Currently awaiting court date for May 18 as patient did not signed the deferral.
[2022-05-10 12:41] VITALS: BMI 31.1
[2022-05-10] MEDS ORDERED: HYDROcodone/APAP 7.5-325MG 1 EACH TAB PO STA (17:39)
[2022-05-10] MEDS: traZODone HCL 50 MG TAB PO SCH (19:53)
[2022-05-10] MEDS: PALIPERIDONE 6 MG TAB.ER.24 PO SCH (19:55)
[2022-05-10] MEDS: PRIMIDONE 25 MG TAB PO SCH (19:55)
[2022-05-10] MEDS: MAGNESIUM OXIDE 400 MG TAB PO SCH (19:55)
[2022-05-10] MEDS: ATORVASTATIN 10 MG TAB PO SCH (19:55)
[2022-05-10] MEDS: MONTELUKAST 10 MG TAB PO SCH (19:55)
[2022-05-10] MEDS: HYDROcodone/APAP 7.5-325MG 1 EACH TAB PO SCH (23:52)
[2022-05-11] MEDS: DIVALPROEX 500 MG TABLET.DR PO SCH ×2 (09:28→20:14)
[2022-05-11] MEDS: HYDROcodone/APAP 7.5-325MG 1 EACH TAB PO SCH ×2 (09:28→17:32)
[2022-05-11] MEDS: lisinopriL 20 MG TAB PO SCH (09:29)
[2022-05-11] MEDS: DICLOFENAC SODIUM GEL 100 GM TUBE TOPICAL SCH ×4 (09:29→20:16)
[2022-05-11] MEDS: FAMOTIDINE 20 MG TAB PO SCH ×2 (09:29→20:15)
[2022-05-11] MEDS: ERGOCALCIFEROL 1,250 MCG (50,000 IU) CAPSULE PO SCH (09:29)
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
[2022-05-11] MEDS: PRIMIDONE 25 MG TAB PO SCH (20:15)
[2022-05-11] MEDS: ATORVASTATIN 10 MG TAB PO SCH (20:15)
[2022-05-11] MEDS: traZODone HCL 50 MG TAB PO SCH (20:15)
[2022-05-11] MEDS: MONTELUKAST 10 MG TAB PO SCH (20:15)
[2022-05-11] MEDS: MAGNESIUM OXIDE 400 MG TAB PO SCH (20:15)
[2022-05-11] MEDS: PALIPERIDONE 6 MG TAB.ER.24 PO SCH (20:16)
[2022-05-12] MEDS: HYDROcodone/APAP 7.5-325MG 1 EACH TAB PO SCH ×4 (04:09→23:52)
[2022-05-12] MEDS: DIVALPROEX 500 MG TABLET.DR PO SCH ×2 (09:04→20:00)
[2022-05-12] MEDS: lisinopriL 20 MG TAB PO SCH (09:04)
[2022-05-12] MEDS: FAMOTIDINE 20 MG TAB PO SCH ×2 (09:05→20:00)
[2022-05-12] MEDS: DICLOFENAC SODIUM GEL 100 GM TUBE TOPICAL SCH ×4 (09:05→20:47)
--- NOTE | 2022-05-12 11:38 | P.PN ---
Progress Note - Text Progress Note Date: 05/12/22 Interval History: Patient was seen lying in his bed today and was directable and agreeable to lukas espinosa with handbook writer. Patient states that he is doing a bit better today however continues to focus on his hip pain. He is not reporting any delusions today. He continues to be fairly polite and calm during interaction. He states that he had a [id number] time getting up to go to breakfast this morning. He continues to not be going to many groups. Claims that he slept on and off last night. he is denying any depression at this time or any anxiety. Continues to speak about the pain in his hip. We spoke about the court process. At this time patient denies any suicidal or homical ideations, intent or plan. Patient denies any auditory, visual hallucinations and denies any paranoia or delusions. Patient denies any side effects from the medications and has been compliant with meds. Mental Status Exam: General Appearance: Patient appears to be stated age is alert, not irritable today. Patient appears to have improving hygiene and grooming. Behavior: Patient is laying in bed without any agitated behavior. Appears to be in pain Speech: Patient's speech is fluent and nonpressured. [employer]. Mood/Affect: Patient reports their mood is "fine", affect is congruent Suicidality/Homicidality: Patient denies having any homicidal ideation intent or plan. Denies any suicidal ideations intent or plan Perceptions: Patient denies any visual hallucinations and denies any auditory hallucinations Though content/process: Logical. [employer]. Poverty of content. Not endorsing any paranoia today. Focused on his pain. Memory and concentration: Alert and oriented 3, fair attention span. Judgment and insight: Chronically poor, improving mildly IMPRESSIONS: Schizoaffective disorder, bipolar type Plan: -Patient continues to meet criteria for inpatient psychiatric admission for symptom stabilization and safety. Patient has signed adult voluntary form and medication consent and was placed in patient's chart. -Medications: paliperidone by mouth 9 mg daily at bedtime for psychosis. plan will be to transition patient onto Invega sustenna prior to d/c, continued trazodone 150 mg daily at bedtime for sleep, Depakote 500 mg twice a day for mood stabilization. -When necessary Ativan and Haldol for agitation/aggression. -NRT - not needed as patient does not smoke -SW on board for discharge planning. Encouraged the patient to participate in milieu. Currently awaiting court date for May 18 as patient did not signed the deferral. patient will be [facility] shortly after hearing date and receiving STEVENS loading dose again.
[2022-05-12] MEDS: LORazepam 1 MG TAB PO PRN (13:44)
[2022-05-12] MEDS: ATORVASTATIN 10 MG TAB PO SCH (20:00)
[2022-05-12] MEDS: MONTELUKAST 10 MG TAB PO SCH (20:00)
[2022-05-12] MEDS: traZODone HCL 50 MG TAB PO SCH (20:00)
[2022-05-12] MEDS: PALIPERIDONE 6 MG TAB.ER.24 PO SCH (20:00)
[2022-05-12] MEDS: MAGNESIUM OXIDE 400 MG TAB PO SCH (20:01)
[2022-05-12] MEDS: PRIMIDONE 25 MG TAB PO SCH (20:01)
[2022-05-13] MEDS: HYDROcodone/APAP 7.5-325MG 1 EACH TAB PO SCH ×2 (07:44→17:32)
[2022-05-13] MEDS: lisinopriL 20 MG TAB PO SCH (07:45)
[2022-05-13] MEDS: DIVALPROEX 500 MG TABLET.DR PO SCH ×2 (07:45→19:59)
[2022-05-13] MEDS: DICLOFENAC SODIUM GEL 100 GM TUBE TOPICAL SCH ×4 (07:45→21:02)
[2022-05-13] MEDS: FAMOTIDINE 20 MG TAB PO SCH ×2 (07:47→19:59)
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
[2022-05-13] MEDS: IBUPROFEN 600 MG TAB PO PRN (13:36)
[2022-05-13] MEDS: PALIPERIDONE 6 MG TAB.ER.24 PO SCH (19:59)
[2022-05-13] MEDS: MELATONIN 3 MG TABLET PO SCH (19:59)
[2022-05-13] MEDS: ATORVASTATIN 10 MG TAB PO SCH (19:59)
[2022-05-13] MEDS: MONTELUKAST 10 MG TAB PO SCH (19:59)
[2022-05-13] MEDS: MAGNESIUM OXIDE 400 MG TAB PO SCH (19:59)
[2022-05-13] MEDS: PRIMIDONE 25 MG TAB PO SCH (19:59)
[2022-05-13] MEDS: traZODone HCL 50 MG TAB PO SCH (19:59)
[2022-05-14] MEDS: HYDROcodone/APAP 7.5-325MG 1 EACH TAB PO SCH ×3 (00:08→15:01)
[2022-05-14] MEDS: IBUPROFEN 600 MG TAB PO PRN ×2 (06:39→15:00)
[2022-05-14] MEDS: FAMOTIDINE 20 MG TAB PO SCH ×2 (08:47→20:03)
[2022-05-14] MEDS: DIVALPROEX 500 MG TABLET.DR PO SCH ×2 (08:47→20:03)
[2022-05-14] MEDS: lisinopriL 20 MG TAB PO SCH (08:47)
[2022-05-14] MEDS: DICLOFENAC SODIUM GEL 100 GM TUBE TOPICAL SCH ×4 (10:06→23:08)
[2022-05-14] MEDS: PALIPERIDONE 6 MG TAB.ER.24 PO SCH (20:03)
[2022-05-14] MEDS: PRIMIDONE 25 MG TAB PO SCH (20:03)
[2022-05-14] MEDS: MONTELUKAST 10 MG TAB PO SCH (20:03)
[2022-05-14] MEDS: MELATONIN 3 MG TABLET PO SCH (20:03)
[2022-05-14] MEDS: traZODone HCL 50 MG TAB PO SCH (20:03)
[2022-05-14] MEDS: MAGNESIUM OXIDE 400 MG TAB PO SCH (20:03)
[2022-05-14] MEDS: ATORVASTATIN 10 MG TAB PO SCH (20:03)
[2022-05-15] MEDS: HYDROcodone/APAP 7.5-325MG 1 EACH TAB PO SCH ×3 (01:19→16:25)
[2022-05-15] MEDS: DIVALPROEX 500 MG TABLET.DR PO SCH ×2 (08:46→20:12)
[2022-05-15] MEDS: FAMOTIDINE 20 MG TAB PO SCH ×2 (08:47→20:13)
[2022-05-15] MEDS: lisinopriL 20 MG TAB PO SCH (08:47)
[2022-05-15] MEDS: DICLOFENAC SODIUM GEL 100 GM TUBE TOPICAL SCH ×4 (08:50→21:33)
--- NOTE | 2022-05-15 13:47 | P.PN ---
Progress Note - Text Progress Note Date: 05/14/22 Interval history: Patient was seen in his wheelchair in the hallway and was directable and agreeable to speak with conventional mortgage underwriter. He has several somatic complaints about chronic pain and has acetaminophen ordered which he is not utilizing. At this time, patient denies any suicidal or homicidal ideation, intent or plan, and denies any auditory or visual hallucinations. Patient denies any side effects from the medications and has been compliant with meds. He states he wants to stay on his oral Invega and does not want the injection. Mental status exam: General Appearance: Patient appears to be stated age, is in wheelchair, dressed in hospital gown. Behavior: No agitated behavior. Patient is calm and directable. Speech: Patient's speech is fluent and non-pressured. Mood/Affect: Mood is improving mildly, affect is congruent and constricted. Suicidality/Homicidality: -Patient denies having any suicidal or homicidal ideation intent or plan. Perceptions: Patient denies any auditory or visual hallucinations. Though content/process: There is no evidence of overt delusional thought content and thought process is linear and goal-directed. Memory and concentration: AOX3, grossly intact for the purposes of this session Judgment and insight: improving mildly Assessment/Plan: Continue with current diagnosis. Patient continues to meet criteria for inpatient psychiatric admission for symptom stabilization and safety. Patient will be maintained on current psychotropic medication regimen. Monitor for medication compliance and for any psychotropic medication side effects. Will continue to monitor ongoing response to treatment. Encouraged participation in milieu.
--- NOTE | 2022-05-15 17:43 | P.PN ---
Progress Note - Text Progress Note Date: 05/15/22 Interval history: Patient was seen in his wheelchair in the hallway again today chatting with a nurse and was directable and agreeable to speak with va underwriter. He continues to have several somatic complaints about chronic pain and has several medications ordered for pain including Voltaren gel, ibuprofen and [place] which he is taking. At this time, patient denies any suicidal or homicidal ideation, intent or plan, and denies any auditory or visual hallucinations. Patient denies any side effects from the medications and has been compliant with meds. He states he wants to stay on his oral Invega and does not want the injection. He reports good appetite, and fair sleep. Mental status exam: General Appearance: Patient appears to be stated age, is in wheelchair, dressed in hospital gown. Behavior: No agitated behavior. Patient is calm and directable. Speech: Patient's speech is fluent and non-pressured. Mood/Affect: Mood is improving mildly, affect is congruent and constricted. Suicidality/Homicidality: Patient denies having any suicidal or homicidal ideation intent or plan. Perceptions: Patient denies any auditory or visual hallucinations. Though content/process: There is no evidence of overt delusional thought content and thought process is linear and goal-directed. Memory and concentration: AOX3, grossly intact for the purposes of this session Judgment and insight: improving mildly Assessment/Plan: Continue with current diagnosis. Patient continues to meet criteria for inpatient psychiatric admission for symptom stabilization and safety. Patient will be maintained on current psychotropic medication regimen. Monitor for medication compliance and for any psychotropic medication side effects. Will continue to monitor ongoing response to treatment. Encouraged participation in milieu.
[2022-05-15] MEDS: traZODone HCL 50 MG TAB PO SCH (20:12)
[2022-05-15] MEDS: MELATONIN 3 MG TABLET PO SCH (20:12)
[2022-05-15] MEDS: PALIPERIDONE 6 MG TAB.ER.24 PO SCH (20:12)
[2022-05-15] MEDS: MONTELUKAST 10 MG TAB PO SCH (20:12)
[2022-05-15] MEDS: PRIMIDONE 25 MG TAB PO SCH (20:12)
[2022-05-15] MEDS: MAGNESIUM OXIDE 400 MG TAB PO SCH (20:12)
[2022-05-15] MEDS: ATORVASTATIN 10 MG TAB PO SCH (20:13)
[2022-05-16] MEDS: HYDROcodone/APAP 7.5-325MG 1 EACH TAB PO SCH ×4 (00:50→23:27)
[2022-05-16] MEDS: FAMOTIDINE 20 MG TAB PO SCH ×2 (07:54→20:16)
[2022-05-16] MEDS: DIVALPROEX 500 MG TABLET.DR PO SCH ×2 (07:54→20:16)
[2022-05-16] MEDS: lisinopriL 20 MG TAB PO SCH (07:55)
[2022-05-16] MEDS: DICLOFENAC SODIUM GEL 100 GM TUBE TOPICAL SCH ×4 (07:56→23:27)
[2022-05-16] MEDS: IBUPROFEN 600 MG TAB PO PRN (11:18)
--- NOTE | 2022-05-16 14:13 | P.PN ---
Progress Note - Text Progress Note Date: 05/16/22 Interval history: Patient was seen in his wheelchair in his room and was agreeable to speak with telegraphic typewriter mechanic. He continues to have several somatic complaints about chronic pain. He appears anxious today and complains of mild tremor/EPS in his arms and we discussed starting Cogentin to which he is agreeable. At this time, patient denies any suicidal or homicidal ideation, intent or plan, and denies any auditory or visual hallucinations. He reports good appetite and fair sleep. Review of his MAR shows his Invega was not increased to 9mg QHS last week as intended so will increase the dose to 9 mg for tonight. Mental status exam: General Appearance: Patient appears to be stated age, is in wheelchair, dressed in hospital gown. Behavior: No agitated behavior. Patient is anxious and directable. Speech: Patient's speech is fluent and non-pressured. Mood/Affect: Mood is anxious, affect is congruent and constricted. Suicidality/Homicidality: Patient denies having any suicidal or homicidal ideation intent or plan. Perceptions: Patient denies any auditory or visual hallucinations. Though content/process: There is no evidence of overt delusional thought content and thought process is perseverative. Memory and concentration: AOX3, grossly intact for the purposes of this session Judgment and insight: improving mildly Assessment/Plan: Continue with current diagnosis. Patient continues to meet criteria for inpatient psychiatric admission for symptom stabilization and safety. Increase Invega to 9 mg QHS for mood stabilization. Start Cogentin 0.5 mg QHS for EPS/tremor. He may need a dose increase of Cogentin based on response. Monitor for medication compliance and for any psychotropic medication side effects. Will continue to monitor ongoing response to treatment. Encouraged participation in milieu.
[2022-05-16] MEDS: BENZTROPINE MESYLATE 0.5 MG TAB PO SCH (20:15)
[2022-05-16] MEDS: MONTELUKAST 10 MG TAB PO SCH (20:16)
[2022-05-16] MEDS: traZODone HCL 50 MG TAB PO SCH (20:16)
[2022-05-16] MEDS: PALIPERIDONE 3 MG TAB.ER.24 PO SCH (20:16)
[2022-05-16] MEDS: MELATONIN 3 MG TABLET PO SCH (20:16)
[2022-05-16] MEDS: MAGNESIUM OXIDE 400 MG TAB PO SCH (20:16)
[2022-05-16] MEDS: ATORVASTATIN 10 MG TAB PO SCH (20:16)
[2022-05-16] MEDS: PRIMIDONE 25 MG TAB PO SCH (20:17)
[2022-05-17] MEDS: HYDROcodone/APAP 7.5-325MG 1 EACH TAB PO SCH ×3 (08:04→23:59)
[2022-05-17] MEDS: DIVALPROEX 500 MG TABLET.DR PO SCH ×2 (08:04→20:04)
[2022-05-17] MEDS: lisinopriL 20 MG TAB PO SCH (08:04)
[2022-05-17] MEDS: FAMOTIDINE 20 MG TAB PO SCH ×2 (08:04→20:03)
[2022-05-17] MEDS: DICLOFENAC SODIUM GEL 100 GM TUBE TOPICAL SCH ×4 (08:07→20:04)
[2022-05-17] MEDS ORDERED: PALIPERIDONE IM 234 MG/1.5 ML SYG IM STA (12:05)
[2022-05-17] MEDS: IBUPROFEN 600 MG TAB PO PRN (12:14)
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
[2022-05-17] MEDS: PALIPERIDONE 3 MG TAB.ER.24 PO SCH (20:03)
[2022-05-17] MEDS: traZODone HCL 50 MG TAB PO SCH (20:03)
[2022-05-17] MEDS: MELATONIN 3 MG TABLET PO SCH (20:03)
[2022-05-17] MEDS: BENZTROPINE MESYLATE 0.5 MG TAB PO SCH (20:03)
[2022-05-17] MEDS: ATORVASTATIN 10 MG TAB PO SCH (20:04)
[2022-05-17] MEDS: PRIMIDONE 25 MG TAB PO SCH (20:04)
[2022-05-17] MEDS: MAGNESIUM OXIDE 400 MG TAB PO SCH (20:04)
[2022-05-17] MEDS: MONTELUKAST 10 MG TAB PO SCH (20:04)
[2022-05-18] MEDS: IBUPROFEN 600 MG TAB PO PRN ×2 (06:36→14:32)
[2022-05-18 07:07] VITALS: PULSE 57; RESP 16; TEMP 97.6
[2022-05-18] MEDS: DIVALPROEX 500 MG TABLET.DR PO SCH (09:07)
[2022-05-18] MEDS: HYDROcodone/APAP 7.5-325MG 1 EACH TAB PO SCH (09:08)
[2022-05-18] MEDS: lisinopriL 20 MG TAB PO SCH (09:08)
[2022-05-18] MEDS: ERGOCALCIFEROL 1,250 MCG (50,000 IU) CAPSULE PO SCH (09:08)
[2022-05-18] MEDS: FAMOTIDINE 20 MG TAB PO SCH (09:08)
[2022-05-18] MEDS: DICLOFENAC SODIUM GEL 100 GM TUBE TOPICAL SCH ×2 (09:08→14:20)
[2022-05-18 09:10] VITALS: BP 128/66
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
== END 2022-05-18 15:38 | disposition other institution (70) | DRG 885 ==
LOC: EC 05:24 → 3MHU 12:09
PROVIDERS: ADMIT Psychiatry & Neurology Psychiatry; ATTEND Psychiatry & Neurology Psychiatry
DX: F25.0 Schizoaffective disorder, bipolar type (principal); E78.5 Hyperlipidemia, unspecified; F25.1 Schizoaffective disorder, depressive type; F43.10 Post-traumatic stress disorder, unspecified; G20 Parkinson's disease; G40.909 Epilepsy, unspecified, not intractable, without status epilepticus; G89.29 Other chronic pain; I10 Essential (primary) hypertension; J44.9 Chronic obstructive pulmonary disease, unspecified; Z79.899 Other long term (current) drug therapy; Z85.46 Personal history of malignant neoplasm of prostate; Z91.14 Patient's other noncompliance with medication regimen; Z20.822 Contact with and (suspected) exposure to COVID-19
CPT/HCPCS: 36415; 80053; 80061; 80164; 80306; 81003; 82075; 82607; 82746; 83036; 84443; 85025; 87635; 99285

== ENCOUNTER 2022-11-24 17:34 | Emergency (ER) | payer OTHER ==
[2022-11-24 17:53] VITALS: TEMP 97.4
[2022-11-24] MEDS ORDERED: SODIUM CHLORIDE 0.9% 1,000 ML IV STA (18:01)
[2022-11-24] MEDS ORDERED: KETOROLAC 15 MG/ML 1 ML VIAL IVP STA (18:01)
[2022-11-24 18:55] LABS: Basophils % (A) 0 %; Eosinophils % (A) 1 %; HCT 38.6 % (39.0-53.0); Hypochromasia Slight; Lymphocytes # (A) 1.4 k/uL (1.0-4.8); Lymphocytes % (A) 22 %; MCH 26.4 pg (25.0-35.0); MCHC 31.1 g/dL (31.0-37.0); MCV 84.8 fL (80.0-100.0); Monocytes # (A) 0.4 k/uL (0-1.0); Monocytes % (A) 7 %; Neutrophils # (A) 4.2 k/uL (1.3-7.7); Neutrophils % (A) 68 %; Platelet Count 447 k/uL (150-450); RBC 4.56 m/uL (4.30-5.90); RDW 14.9 % (11.5-15.5); WBC 6.1 k/uL (3.8-10.6)
[2022-11-24 19:01] LABS: Appearance,Urine Clear (Clear); Bilirubin,Urine Negative (Negative); Blood,Urine Negative (Negative); Color,Urine Yellow; Glucose,Urine (UA) Negative (Negative); Ketones,Urine 1+ (Negative); Leukocyte Esterase,Urine Negative (Negative); Nitrite,Urine Negative (Negative); PH, Urine 6.5 (5.0-8.0); Protein,Urine Trace (Negative); Specific Gravity,Urine 1.025 (1.001-1.035); Urobilinogen,Urine <2.0 mg/dL (<2.0)
[2022-11-24 19:21] LABS: ALT 32 U/L (4-49); AST 23 U/L (17-59); African American GFR (CKD) >90 (>60 ml/min/1.73 sqM); Albumin 4.3 g/dL (3.5-5.0); Alkaline Phosphatase 87 U/L (38-126); Anion Gap 10 mmol/L; Blood Urea Nitrogen 11 mg/dL (9-20); Calcium 9.6 mg/dL (8.4-10.2); Carbon Dioxide 28 mmol/L (22-30); Chloride 99 mmol/L (98-107); Glucose 110 mg/dL (74-99); Non-African American GFR(CKD) >90 (>60 ml/min/1.73 sqM); Potassium 4.2 mmol/L (3.5-5.1); Sodium 137 mmol/L (137-145); Total Bilirubin 0.5 mg/dL (0.2-1.3); Total Protein 7.6 g/dL (6.3-8.2)
[2022-11-24 20:42] VITALS: BP 136/77; PULSE 84; RESP 16
--- NOTE | 2022-11-24 21:14 | ED ---
Psych HPI - General Chief Complaint: Psychiatric Symptoms Stated Complaint: Mental Health Time Seen by Provider: 11/24/22 17:41 Source: patient, EMS Mode of arrival: EMS - History of Present Illness Initial Comments: Patient is a 8-year-old male who presents to the emergency department for psychiatric evaluation. Per EMS patient thinks someone is poisoning his food at his [facility]. When talking with patient he states he thinks classic is being put in his food because he has intermittent lower abdominal pain. Patient states sometimes he has trouble urinating full amounts he is not urinating completely. Denies burning with urination, blood in the urine, penile discharg e, side pain, back pain. Denies history of kidney stone. He also reports mild headache. Denies double vision, blurry vision, focal weakness. Denies fever, chills, cold like symptoms. Patient has history of schizoaffective disorder he has been evaluated several times in our emergency department for psychiatric evaluation. He denies suicidal or homicidal ideation. Denies visual and auditory hallucinations. Denies alcohol and drug use. - Related Data Home Medications Medication Instructions Recorded Confirmed Albuterol Inhaler [Ventolin Hfa 1 - 2 puff INHALATION RT-Q4H PRN 12/30/19 04/28/22 Inhaler] Acetaminophen Tab [Tylenol] 1,000 mg PO TID PRN 04/28/22 04/28/22 Previous Rx's Medication Instructions Recorded Atorvastatin [Lipitor] 10 mg PO HS@2100 30 Days tab 05/18/22 Benztropine Mesylate [Cogentin] 0.5 mg PO HS 30 Days tab 05/18/22 Diclofenac Sodium Gel [Voltaren 4 gm TOPICAL QID #1 gm 05/18/22 Gel] Divalproex [Depakote] 500 mg PO BID@0800,2099 30 Days 05/18/22 tab Ergocalciferol (Vitamin D2) 1,250 mcg PO WE 30 Days cap 05/18/22 [Drisdol (50,000 Iu)] Famotidine [Pepcid] 20 mg PO BID@0800,1999 30 Days tab 05/18/22 HYDROcodone/APAP 5-325MG [[place] 1 tab PO TID PRN 3 Days #9 tab 05/18/22 5-325] Ibuprofen [Motrin] 600 mg PO Q8H PRN tab 05/18/22 Magnesium Oxide [Mag-Ox] 400 mg PO HS@2100 30 Days tab 05/18/22 Melatonin 6 mg PO HS 30 Days tab 05/18/22 Montelukast [Singulair] 10 mg PO DAILY@2100 30 Days tab 05/18/22 Paliperidone IM [Invega Sustenna] 156 mg IM ONCE #1 ml 05/18/22 Paliperidone IM [Invega Sustenna] 156 mg IM QMONTHLY #1 each 05/18/22 Paliperidone [Invega] 3 mg PO DAILY 3 Days tab 05/18/22 Primidone [Mysoline] 25 mg PO HS 30 Days tab 05/18/22 lisinopriL [Zestril] 20 mg PO DAILY@0800 30 Days tab 05/18/22 traZODone HCL [Desyrel] 150 mg PO HS 30 Days tab 05/18/22 Allergies Allergy/AdvReac Type Severity Reaction Status Date / Time amoxicillin Allergy Unknown Verified 11/24/22 17:53 brompheniramine maleate Allergy Unknown Verified 11/24/22 17:53 [From Dimetapp Cold-Allergy (PE)] codeine Allergy Rash/Hives Verified 11/24/22 17:53 fluoxetine HCl [From Prozac] Allergy Unknown Verified 11/24/22 17:53 latex Allergy Unknown Verified 11/24/22 17:53 morphine Allergy Rash/Hives Verified 11/24/22 17:53 phenylephrine HCl Allergy Unknown Verified 11/24/22 17:53 [From [place]etapp Cold-Allergy (PE)] shellfish derived [Shellfish] Allergy Rash/Hives Verified 11/24/22 17:53 Review of Systems ROS Statement: Those systems with pertinent positive or pertinent negative responses have been documented in the HPI. ROS Other: All systems not noted in ROS Statement are negative. Past Medical History Past Medical History: COPD, Hyperlipidemia, Hypertension, Osteoarthritis (OA), Seizure Disorder Additional Past Medical History / Comment(s): prostate cancer, possible seizure disorder-last known seizure 01/05/2020 .tinnitus, bipolar depression, ptsd, schizophrenia. 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 Past Psychological History: Bipolar, Depression, PTSD, Schizophrenia Smoking Status: Never smoker Past Alcohol Use History: None Reported Past Drug Use History: None Reported - Past Family History Father Family Medical History: Cancer Additional Family Medical History / Comment(s): Father is alive at age 82 with history of prostate cancer. Mother Family Medical History: Cancer Additional Family Medical History / Comment(s): Mother at age 53 from bladder cancer Brother(s) Additional Family Medical History / Comment(s): Patient has 4 brothers and 2 sisters that are healthy with no major medical problems. Patient does not have any children. General Exam Limitations: no limitations General appearance: alert, in no apparent distress Head exam: Present: atraumatic, normocephalic, normal inspection Eye exam: Present: normal appearance, PERRL, EOMI. Absent: scleral icterus, conjunctival injection, periorbital swelling ENT exam: Present: normal oropharynx Respiratory exam: Present: normal lung sounds bilaterally. Absent: respiratory distress, wheezes, rales, rhonchi, stridor Cardiovascular Exam: Present: regular rate, normal rhythm, normal heart sounds. Absent: systolic murmur, diastolic murmur, rubs, gallop, clicks GI/Abdominal exam: Present: soft, normal bowel sounds. Absent: distended, tenderness, guarding, rebound, rigid Extremities exam: Present: normal inspection, normal capillary refill Back exam: Absent: CVA tenderness (R), CVA tenderness (L) Neurological exam: Present: alert, oriented X3, CN II-XII intact Expanded Cranial nerves: Facial Sensation: Normal, Facial Palsy with Forehead Movement: Normal, Facial Palsy without Forehead Movement: Normal Sensory exam: Upper Extremity Light Touch: Normal, Lower Extremity Light Touch: Normal Motor strength exam: RUE: 5, LUE: 5, RLE: 5, LLE: 5 Psychiatric exam: Present: normal affect, normal mood Skin exam: Present: warm, dry, intact, normal color. Absent: rash Course Vital Signs 11/24/22 11/24/22 17:41 20:36 Temperature 97.4 F L Pulse Rate 95 84 Respiratory 22 16 Rate Blood Pressure 146/85 136/77 O2 Sat by Pulse 96 96 Oximetry Medical Decision Making - Medical Decision Making Was pt. sent in by a medical professional or institution (, [facility], CON[facility]ION [facility]NER, urgent care, hospital, or jail...) When possible be specific @ -No Did you speak to anyone other than the patient for history (EMS, parent, family, police, friend...)? What history was obtained from this source @ -No Did you review nursing and triage notes (agree or disagree)? Why? @ -I reviewed and agree with nursing and triage notes Were old charts reviewed (outside hosp., previous admission, EMS record, old EKG, old radiological studies, urgent care reports/EKG's, jail records)? Report findings @ -No old charts were reviewed Differential Diagnosis (chest pain, altered mental status, abdominal pain women, abdominal pain men, vaginal bleeding, weakness, fever, dyspnea, syncope, headache, dizziness, GI bleed, back pain, seizure, CVA, palpatations, mental health)? @ -Differential Abdominal Pain Men: Appendicitis, cholecystitis, diverticulosis, ischemic bowel, pancreatitis, hepatitis, UTI, gastroenteritis, AAA, incarcerated hernia, bowel obstruction, co nstipation, inflammatory bowel, hepatitis, peptic ulcer disease, splenic infarction, perforated viscus, testicular torsion, this is not meant to be an all-inclusive list Differential Mental Health Depression, anxiety, bipolar, psychosis, schizophrenia, borderline personality, situational depression, adjustment disorder, behavioral disorder, brain tumor, malingering, substance abuse, encephalopathy, medication reaction, dementia, hypothyroidism, degenerative neurologic disorder, lupus... This is not meant to be all-inclusive list EKG interpreted by me (3pts min.). @ -As above X-rays interpreted by me (1pt min.). @ -None done CT interpreted by me (1pt min.). @ -None done U/S interpreted by me (1pt. min.). @ -None done What testing was considered but not performed or refused? (CT, X-rays, U/S, labs)? Why? @ -Considered abdominal imaging however patient is nontender, has chronic lower abdominal pain. No fever or vomiting What meds were considered but not given or refused? Why? @ -None Did you discuss the management of the patient with other professionals (professionals i.e. , [facility], [facility], lab, RT, psych nurse, social services assistant, contracts law professor, teacher, surveillance dual rate officer, case management director)? Give summary @ -No Was smoking cessation discussed for >3mins.? @ -No Was critical care preformed (if so, how long)? @ -No Were there social determinants of health that impacted care today? How? (Homelessness, low income, unemployed, alcoholism, drug addiction, transportation, low edu. Level, literacy, decrease access to med. care, senior care, rehab)? @ -No Was there de-escalation of care discussed even if they declined (Discuss DNR or withdrawal of care, Hospice)? DNR status @ -No What co-morbidities impacted this encounter? (DM, HTN, Smoking, COPD, CAD, Cancer, CVA, ARF, Chemo, Hep., AIDS, mental health diagnosis, sleep apnea, morbid obesity)? @ -None Was patient admitted / discharged? Hospital course, mention meds given and route, prescriptions, significant lab abnormalities, going to OR and other pertinent info. @ -Patient presenting for psychiatric evaluation. The abdomen is soft and nontender. Patient is cleared medically for psychiatric evaluation by EPS. Laboratory studies obtained and are relatively unremarkable. Urinalysis does not reveal any infection or blood. Postvoid residual is 73 mL. patient is cleared medically for psychiatric evaluation by EPS. EPS evaluated patient states patient has left several group homes due to paranoid thoughts and not liking them. Patient has not harmed himself or others he will be [facility] his [facility] Undiagnosed new problem with uncertain prognosis? @ -No Drug Therapy requiring intensive monitoring for toxicity (Heparin, Nitro, Insulin, Cardizem)? @ -No Were any procedures done? @ -No Diagnosis/symptom? @. Paranoid behavior Acute, or Chronic, or Acute on Chronic? @ -Acute Uncomplicated (without systemic symptoms) or Complicated (systemic symptoms)? @ -Uncomplicated Side effects of treatment? @ -No Exacerbation, Progression, or Severe Exacerbation? @ -No Poses a threat to life or bodily function? How? (Chest pain, [place], [place], pneumonia, PE, COPD, DKA, ARF, appy, cholecystitis, CVA, Diverticulitis, Homicidal, Bren[place] icidal, threat to staff... and all critical care pts) @ -No Dr. Javier is my attending - Lab Data Result diagrams: 11/24/22 18:41 11/24/22 18:41 Lab Results 11/24/22 11/24/22 11/24/22 Range/Units 18:41 18:41 18:41 WBC 6.1 (3.8-10.6) k/uL RBC 4.56 (4.30-5.90) m/uL Hgb 12.0 L (13.0-17.5) gm/dL Hct 38.6 L (39.0-53.0) % MCV 84.8 (80.0-100.0) fL MCH 26.4 (25.0-35.0) pg MCHC 31.1 (31.0-37.0) g/dL RDW 14.9 (11.5-15.5) % Plt Count 447 (150-450) k/uL MPV 7.0 Neutrophils % 68 % Lymphocytes % 22 % Monocytes % 7 % Eosinophils % 1 % Basophils % 0 % Neutrophils # 4.2 (1.3-7.7) k/uL Lymphocytes # 1.4 (1.0-4.8) k/uL Monocytes # 0.4 (0-1.0) k/uL Eosinophils # 0.0 (0-0.7) k/uL Basophils # 0.0 (0-0.2) k/uL Hypochromasia Slight Sodium 137 (137-145) mmol/L Potassium 4.2 (3.5-5.1) mmol/L Chloride 99 (98-107) mmol/L Carbon Dioxide 28 (22-30) mmol/L Anion Gap 10 mmol/L BUN 11 (9-20) mg/dL Creatinine 0.76 (0.66-1.25) mg/dL Est GFR (CKD-EPI)AfAm >90 (>60 ml/min/1.73 sqM) Est GFR (CKD-EPI)NonAf >90 (>60 ml/min/1.73 sqM) Glucose 110 H (74-99) mg/dL Calcium 9.6 (8.4-10.2) mg/dL Total Bilirubin 0.5 (0.2-1.3) mg/dL AST 23 (17-59) U/L ALT 32 (4-49) U/L Alkaline Phosphatase 87 (38-126) U/L Total Protein 7.6 (6.3-8.2) g/dL Albumin 4.3 (3.5-5.0) g/dL Urine Color Yellow Urine Appearance Clear (Clear) Urine pH 6.5 (5.0-8.0) Ur Specific [place] 1.025 (1.001-1.035) Urine Protein Trace H (Negative) Urine Glucose (UA) Negative (Negative) Urine Ketones 1+ H (Negative) Urine Blood Negative (Negative) Urine Nitrite Negative (Negative) Urine Bilirubin Negative (Negative) Urine Urobilinogen <2.0 (<2.0) mg/dL Ur Leukocyte Esterase Negative (Negative) Disposition Clinical Impression: Paranoid ideation, Abdominal pain Disposition: HOME SELF-CARE Condition: Good Instructions (If sedation given, give patient instructions): Abdominal Pain (ED) Additional Instructions: Please follow-up with your primary care provider in 1-2 days. Return to the emergency department if you experience new, concerning, or worsening symptoms. Is patient prescribed a controlled substance at d/c from ED?: No Referrals: [facility] [Primary Care Provider] - 1-2 days
== END 2022-11-24 21:23 | disposition home or self-care (01) ==
LOC: EC 17:34
DX: F60.0 Paranoid personality disorder (principal); R10.30 Lower abdominal pain, unspecified; I10 Essential (primary) hypertension; J44.9 Chronic obstructive pulmonary disease, unspecified; Z79.899 Other long term (current) drug therapy; Z86.59 Personal history of other mental and behavioral disorders; Z91.040 Latex allergy status; Z91.013 Allergy to seafood; Z88.0 Allergy status to penicillin; Z88.5 Allergy status to narcotic agent; Z88.8 Allergy status to other drugs, medicaments and biological substances
CPT/HCPCS: 82075; 51798; 36415; 80053; 85025; 81003; 99285; 96374; J1885

== ENCOUNTER 2023-09-02 11:49 | Emergency (ER) | payer OTHER ==
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
[2023-09-02] MEDS: KETOROLAC 15 MG/ML 1 ML VIAL IVP STA (12:39)
[2023-09-02 13:01] LABS: HCT 39.1 % (39.0-53.0); MCH 30.2 pg (25.0-35.0); MCHC 33.2 g/dL (31.0-37.0); MCV 90.8 fL (80.0-100.0); Mean Platelet Volume 7.4; Platelet Count 294 k/uL (150-450); RBC 4.31 m/uL (4.30-5.90); RDW 13.1 % (11.5-15.5); WBC 8.4 k/uL (3.8-10.6)
[2023-09-02 13:12] LABS: ALT 43 U/L (4-49); AST 32 U/L (17-59); African American GFR (CKD) >90 (>60 ml/min/1.73 sqM); Albumin 4.6 g/dL (3.5-5.0); Alkaline Phosphatase 90 U/L (38-126); Amylase 68 U/L (30-110); Anion Gap 10 mmol/L; Blood Urea Nitrogen 19 mg/dL (9-20); Calcium 9.8 mg/dL (8.4-10.2); Carbon Dioxide 22 mmol/L (22-30); Chloride 103 mmol/L (98-107); Glucose 104 mg/dL (74-99); Lipase 111 U/L (23-300); Non-African American GFR(CKD) >90 (>60 ml/min/1.73 sqM); Potassium 4.6 mmol/L (3.5-5.1); Sodium 135 mmol/L (137-145); Total Bilirubin 0.7 mg/dL (0.2-1.3); Total Protein 7.7 g/dL (6.3-8.2)
[2023-09-02 13:45] LABS: Appearance,Urine Clear (Clear); Bilirubin,Urine Negative (Negative); Blood,Urine Negative (Negative); Color,Urine Yellow; Glucose,Urine (UA) Negative (Negative); Ketones,Urine Trace (Negative); Leukocyte Esterase,Urine Negative (Negative); Nitrite,Urine Negative (Negative); PH, Urine 5.5 (5.0-8.0); Protein,Urine Trace (Negative); Specific Gravity,Urine 1.026 (1.001-1.035); Urobilinogen,Urine <2.0 mg/dL (<2.0)
[2023-09-02 14:49] VITALS: BP 124/76; PULSE 94; RESP 16; TEMP 97.6
== END 2023-09-02 14:35 | disposition home or self-care (01) ==
LOC: EC 11:49
DX: R10.9 Unspecified abdominal pain (principal); I45.10 Unspecified right bundle-branch block; J44.9 Chronic obstructive pulmonary disease, unspecified; I10 Essential (primary) hypertension; M19.90 Unspecified osteoarthritis, unspecified site; Z86.59 Personal history of other mental and behavioral disorders; Z79.899 Other long term (current) drug therapy; Z79.1 Long term (current) use of non-steroidal anti-inflammatories (NSAID); Z88.5 Allergy status to narcotic agent; Z88.0 Allergy status to penicillin; Z91.013 Allergy to seafood; Z91.010 Allergy to peanuts; Z91.040 Latex allergy status; Z88.8 Allergy status to other drugs, medicaments and biological substances; Z20.822 Contact with and (suspected) exposure to COVID-19
CPT/HCPCS: 36415; 93005; 80053; 82150; 83605; 83690; 85027; 81003; 87636; 99284; 96374; J1885

== ENCOUNTER 2023-10-21 16:22 | Emergency (ER) | payer OTHER ==
[2023-10-21 16:33] VITALS: TEMP 98.3
--- NOTE | 2023-10-21 16:52 | ED ---
Abdominal Pain HPI - General Chief Complaint: Abdominal Pain Stated Complaint: abd pain dark stool bowel issues Time Seen by Provider: 10/21/23 16:32 Source: patient Mode of arrival: ambulatory Limitations: no limitations - History of Present Illness Initial Comments: 63-year-old male presenting to the ED with a chief complaint of abdominal pain. Patient is a vague historian. However, patient reports some right-sided abdominal pain. He states that this has been going on "for a while" and is unable to tell me how long this has been going on however patient was previously seen here on 09/02/2023 and during this visit this pain was also noted to be going on for an unknown amount of time and patient reports that pain that he is experiencing today is similar however seems to be worse in nature over the past few days. Patient also describes some diarrhea however reports that this is usual to him secondary to being on metformin and is unable to tell me if this has been worsening lately. Patient states that he believes he has blood in his stool as he reports that his stool looks red-colored and again is unable to tell me how long this has been going on for. He does note he has had some dysuria over the past 2 to 3 days describing it as pain in his penis whenever he urinates. Denies hematuria, frequency, urgency. No chest pains or shortness of breath. No fever or chills. No other complaints at this time. - Related Data Home Medications Medication Instructions Recorded Confirmed Albuterol Inhaler [Ventolin Hfa 1 - 2 puff INHALATION RT-Q4H PRN 12/30/19 04/28/22 Inhaler] Acetaminophen Tab [Tylenol] 1,000 mg PO TID PRN 04/28/22 04/28/22 Previous Rx's Medication Instructions Recorded Atorvastatin [Lipitor] 10 mg PO HS@2100 30 Days tab 05/18/22 Benztropine Mesylate [Cogentin] 0.5 mg PO HS 30 Days tab 05/18/22 Diclofenac Sodium Gel [Voltaren 1% 4 gm TOPICAL QID #1 gm 05/18/22 Gel] Divalproex [Depakote] 500 mg PO BID@0800,2100 30 Days 05/18/22 tab Ergocalciferol (Vitamin D2) 1,250 mcg PO WE 30 Days cap 05/18/22 [Drisdol (50,000 Iu)] Famotidine [Pepcid] 20 mg PO BID@0800,1999 30 Days tab 05/18/22 HYDROcodone/APAP 5-325MG [[place] 1 tab PO TID PRN 3 Days #9 tab 05/18/22 5-325] Ibuprofen [Motrin] 600 mg PO Q8H PRN tab 05/18/22 Magnesium Oxide [Mag-Ox] 400 mg PO HS@2099 30 Days tab 05/18/22 Melatonin 6 mg PO HS 30 Days tab 05/18/22 Montelukast [Singulair] 10 mg PO DAILY@2100 30 Days tab 05/18/22 Paliperidone IM [Invega Sustenna] 156 mg IM ONCE #1 ml 05/18/22 Paliperidone IM [Invega Sustenna] 156 mg IM QMONTHLY #1 each 05/18/22 Paliperidone [Invega] 3 mg PO DAILY 3 Days tab 05/18/22 Primidone [Mysoline] 25 mg PO HS 30 Days tab 05/18/22 lisinopriL [Zestril] 20 mg PO DAILY@0800 30 Days tab 05/18/22 traZODone HCL [Desyrel] 150 mg PO HS 30 Days tab 05/18/22 Baclofen [Lioresal] 10 mg PO BID #10 tablet 09/02/23 Loperamide [Imodium] 2 mg PO QID #10 capsule 09/02/23 Ondansetron Odt [Zofran Odt] 4 mg PO Q8HR PRN #10 tab 09/02/23 Dicyclomine [Bentyl] 20 mg PO TID #30 tablet 10/21/23 Ketorolac [Toradol] 10 mg PO Q8HR #15 tab 10/21/23 Ondansetron Odt [Zofran Odt] 4 mg PO Q8HR PRN #10 tab 10/21/23 Allergies Allergy/AdvReac Type Severity Reaction Status Date / Time amoxicillin Allergy Unknown Verified 10/21/23 16:26 brompheniramine maleate Allergy Unknown Verified 10/21/23 16:26 [From Dimetapp Cold-Allergy (PE)] codeine Allergy Rash/Hives Verified 10/21/23 16:26 fluoxetine HCl [From Prozac] Allergy Unknown Verified 10/21/23 16:26 latex Allergy Unknown Verified 10/21/23 16:26 morphine Allergy Rash/Hives Verified 10/21/23 16:26 peanut oil Allergy Unknown Verified 10/21/23 16:26 phenylephrine HCl Allergy Unknown Verified 10/21/23 16:26 [From Dimetapp Cold-Allergy (PE)] shellfish derived [Shellfish] Allergy Rash/Hives Verified 10/21/23 16:26 Review of Systems ROS Statement: Those systems with pertinent positive or pertinent negative responses have been documented in the HPI. ROS Other: All systems not noted in ROS Statement are negative. Past Medical History Past Medical History: COPD, Hyperlipidemia, Hypertension, Osteoarthritis (OA), Seizure Disorder Additional Past Medical History / Comment(s): prostate cancer, possible seizure disorder-last known seizure 01/05/2020 .tinnitus, bipolar depression, ptsd, schizophrenia. History of Any Multi-Drug Resistant Organisms: None Reported Past Surgical History: Joint Replacement, Prostate Surgery Additional Past Surgical History / Comment(s): protatectomy, "eye surgery to correct lazy eyes" and back surgery, lt hip Past Anesthesia/Blood Transfusion Reactions: Blood Transfusion Reaction Additional Past Anesthesia/Blood Transfusion Reaction / Comment(s): pt stated received blood in past and had a reaction to it-caused hives. Past Psychological History: Bipolar, Depression, PTSD, Schizophrenia Smoking Status: Never smoker Past Alcohol Use History: None Reported Past Drug Use History: None Reported - Past Family History Father Family Medical History: Cancer Additional Family Medical History / Comment(s): Father is alive at age 82 with history of prostate cancer. Mother Family Medical History: Cancer Additional Family Medical History / Comment(s): Mother at age 53 from bladder cancer Brother(s) Additional Family Medical History / Comment(s): Patient has 4 brothers and 2 sisters that are healthy with no major medical problems. Patient does not have any children. General Exam Limitations: no limitations General appearance: alert, in no apparent distress Eye exam: Present: normal appearance Respiratory exam: Present: normal lung sounds bilaterally Cardiovascular Exam: Present: regular rate GI/Abdominal exam: Present: soft (No significant tenderness to palpation. No rebound guarding or rigidity.), normal bowel sounds, other (No CVA tenderness to percussion bilaterally.) Neurological exam: Present: alert Skin exam: Present: warm, dry Course Vital Signs 10/21/23 10/21/23 10/21/23 16:24 17:03 19:59 Temperature 98.3 F Pulse Rate 123 H 73 78 Respiratory 24 20 20 Rate Blood Pressure 114/78 115/77 115/77 O2 Sat by Pulse 98 99 96 Oximetry Medical Decision Making - Medical Decision Making Was pt. sent in by a medical professional or institution (, PHILIPP, IT ANALYST, urgent care, hospital, or retirement...) When possible be specific @ -No Did you speak to anyone other than the patient for history (EMS, parent, family, police, friend...)? What history was obtained from this source @ -No Did you review nursing and triage notes (agree or disagree)? Why? @ -I reviewed and agree with nursing and triage notes Were old charts reviewed (outside hosp., previous admission, EMS record, old EKG, old radiological studies, urgent care reports/EKG's, retirement records)? Report findings @ -Reviewed prior visit on 05/16 at this time patient reported right lower abdominal pain which he states today is similar to pain he experienced at that time and also reports that this has been going on for "a while". Differential Diagnosis (chest pain, altered mental status, abdominal pain women, abdominal pain men, vaginal bleeding, weakness, fever, dyspnea, syncope, headache, dizziness, GI bleed, back pain, seizure, CVA, palpatations, mental health, musculoskeletal)? @ -Differential Abdominal Pain Men: Appendicitis, cholecystitis, diverticulosis, ischemic bowel, pancreatitis, hepatitis, UTI, gastroenteritis, AAA, incarcerated hernia, bowel obstruction, constipation, inflammatory bowel, hepatitis, peptic ulcer disease, splenic infarction, perforated viscus, testicular torsion, this is not meant to be an all-inclusive list EKG interpreted by me (3pts min.). @ -None X-rays interpreted by me (1pt min.). @ -None done CT interpreted by me (1pt min.). @ -CT abdomen pelvis interpreted me which revealed no evidence of acute finding. U/S interpreted by me (1pt. min.). @ -None done What testing was considered but not performed or refused? (CT, X-rays, U/S, labs)? Why? @ -None What meds were considered but not given or refused? Why? @ -None Did you discuss the management of the patient with other professionals (professionals i.e. Dr., PA, IT ANALYST, lab, RT, psych nurse, social media marketing specialist, laborer laboratory, teacher, commercial loan collection officer, porter sample case)? Give summary @ -No Was smoking cessation discussed for >3mins.? @ -No Was critical care preformed (if so, how long)? @ -No Were there social determinants of health that impacted care today? How? (Homelessness, low income, unemployed, alcoholism, drug addiction, transportation, low edu. Level, literacy, decrease access to med. care, alf, rehab)? @ -No Was there de-escalation of care discussed even if they declined (Discuss DNR or withdrawal of care, Hospice)? DNR status @ -No What co-morbidities impacted this encounter? (DM, HTN, Smoking, COPD, CAD, Cancer, CVA, ARF, Chemo, Hep., AIDS, mental health diagnosis, sleep apnea, morbid obesity)? @ -None Was patient admitted / discharged? Hospital course, mention meds given and route, prescriptions, significant lab abnormalities, going to OR and other pertinent info. @ -Discharge 63-year-old male presented to the ED with complaints of right lower abdominal pain. Patient reports that this has been ongoing issue. However seems to be worse today. He was also concerned about possible blood in his stool today. He does note he has follow-up with gastroenterology early next month for a colonoscopy. Laboratory studies reviewed. Labs including CBC, CMP, UA unremarkable. Occult blood negative. CT abdomen pelvis revealed no evidence of acute finding. Discharged home with prescriptions for Zofran, Bentyl, Toradol. Advised to follow-up with gastroenterology as scheduled. Discussed return precautions with patient who verbalized agreement. Undiagnosed new problem with uncertain prognosis? @ -No Drug Therapy requiring intensive monitoring for toxicity (Heparin, Nitro, Insulin, Cardizem)? @ -No Were any procedures done? @ -No Diagnosis/symptom? @ -Abdominal pain Acute, or Chronic, or Acute on Chronic? @ -Acute on chronic Uncomplicated (without systemic symptoms) or Complicated (systemic symptoms)? @ -Uncomplicated Side effects of treatment? @ -No Exacerbation, Progression, or Severe Exacerbation? @ -No Poses a threat to life or bodily function? How? (Chest pain, [place], [place], pneumonia, PE, COPD, DKA, ARF, appy, cholecystitis, CVA, Diverticulitis, Homicidal, Suicidal, threat to staff... and all critical care pts) @ -No - Lab Data Result diagrams: 10/21/23 17:03 10/21/23 17:03 Lab Results 10/21/23 10/21/23 10/21/23 Range/Units 17:03 17:03 17:08 WBC 7.9 (3.8-10.6) k/uL RBC 4.36 (4.30-5.90) m/uL Hgb 13.1 (13.0-17.5) gm/dL Hct 40.1 (39.0-53.0) % MCV 91.9 (80.0-100.0) fL MCH 30.1 (25.0-35.0) pg MCHC 32.8 (31.0-37.0) g/dL RDW 12.9 (11.5-15.5) % Plt Count 280 (150-450) k/uL MPV 7.3 Neutrophils % 70 % Lymphocytes % 20 % Monocytes % 7 % Eosinophils % 1 % Basophils % 0 % Neutrophils # 5.5 (1.3-7.7) k/uL Lymphocytes # 1.6 (1.0-4.8) k/uL Monocytes # 0.5 (0-1.0) k/uL Eosinophils # 0.1 (0-0.7) k/uL Basophils # 0.0 (0-0.2) k/uL Sodium 138 (137-145) mmol/L Potassium 4.2 (3.5-5.1) mmol/L Chloride 105 (98-107) mmol/L Carbon Dioxide 24 (22-30) mmol/L Anion Gap 9 mmol/L BUN 18 (9-20) mg/dL Creatinine 0.87 (0.66-1.25) mg/dL Est GFR (CKD-EPI)AfAm >90 (>60 ml/min/1.73 sqM) Est GFR (CKD-EPI)NonAf >90 (>60 ml/min/1.73 sqM) Glucose 85 (74-99) mg/dL Calcium 9.7 (8.4-10.2) mg/dL Total Bilirubin 0.6 (0.2-1.3) mg/dL AST 26 (17-59) U/L ALT 41 (4-49) U/L Alkaline Phosphatase 85 (38-126) U/L Total Protein 7.3 (6.3-8.2) g/dL Albumin 4.5 (3.5-5.0) g/dL Amylase 70 (30-110) U/L Lipase 113 (23-300) U/L Urine Color Light Yellow Urine Appearance Clear (Clear) Urine pH 5.5 (5.0-8.0) Ur Specific [place] 1.022 (1.001-1.035) Urine Protein Negative (Negative) Urine Glucose (UA) Negative (Negative) Urine Ketones Negative (Negative) Urine Blood Negative (Negative) Urine Nitrite Negative (Negative) Urine Bilirubin Negative (Negative) Urine Urobilinogen <2.0 (<2.0) mg/dL Ur Leukocyte Esterase Negative (Negative) Stool Occult Blood (Negative) 10/21/23 Range/Units 17:49 WBC (3.8-10.6) k/uL RBC (4.30-5.90) m/uL Hgb (13.0-17.5) gm/dL Hct (39.0-53.0) % MCV (80.0-100.0) fL MCH (25.0-35.0) pg MCHC (31.0-37.0) g/dL RDW (11.5-15.5) % Plt Count (150-450) k/uL MPV Neutrophils % % Lymphocytes % % Monocytes % % Eosinophils % % Basophils % % Neutrophils # (1.3-7.7) k/uL Lymphocytes # (1.0-4.8) k/uL Monocytes # (0-1.0) k/uL Eosinophils # (0-0.7) k/uL Basophils # (0-0.2) k/uL Sodium (137-145) mmol/L Potassium (3.5-5.1) mmol/L Chloride (98-107) mmol/L Carbon Dioxide (22-30) mmol/L Anion Gap mmol/L BUN (9-20) mg/dL Creatinine (0.66-1.25) mg/dL Est GFR (CKD-EPI)AfAm (>60 ml/min/1.73 sqM) Est GFR (CKD-EPI)NonAf (>60 ml/min/1.73 sqM) Glucose (74-99) mg/dL Calcium (8.4-10.2) mg/dL Total Bilirubin (0.2-1.3) mg/dL AST (17-59) U/L ALT (4-49) U/L Alkaline Phosphatase (38-126) U/L Total Protein (6.3-8.2) g/dL Albumin (3.5-5.0) g/dL Amylase (30-110) U/L Lipase (23-300) U/L Urine Color Urine Appearance (Clear) Urine pH (5.0-8.0) Ur Specific [place] (1.001-1.035) Urine Protein (Negative) Urine Glucose (UA) (Negative) Urine Ketones (Negative) Urine Blood (Negative) Urine Nitrite (Negative) Urine Bilirubin (Negative) Urine Urobilinogen (<2.0) mg/dL Ur Leukocyte Esterase (Negative) Stool Occult Blood Negative (Negative) Disposition Clinical Impression: Abdominal pain Disposition: HOME SELF-CARE Condition: Good Instructions (If sedation given, give patient instructions): Abdominal Pain (ED) Additional Instructions: Please return to the Emergency Department if symptoms worsen or any other concerns. Please follow-up with GI as scheduled for your colonoscopy. Prescriptions: Dicyclomine [Bentyl] 20 mg PO TID #30 tablet Ketorolac [Toradol] 10 mg PO Q8HR #15 tab Ondansetron Odt [Zofran Odt] 4 mg PO Q8HR PRN #10 tab PRN Reason: Nausea Is patient prescribed a controlled substance at d/c from ED?: No Referrals: [facility] [Primary Care Provider] - 1-2 days Judith Cornelius MD [STAFF PHYSICIAN] - 1-2 days Time of Disposition: 20:37
[2023-10-21 17:17] LABS: Basophils % (A) 0 %; Eosinophils # (A) 0.1 k/uL (0-0.7); Eosinophils % (A) 1 %; HCT 40.1 % (39.0-53.0); HGB 13.1 gm/dL (13.0-17.5); Lymphocytes # (A) 1.6 k/uL (1.0-4.8); Lymphocytes % (A) 20 %; MCH 30.1 pg (25.0-35.0); MCHC 32.8 g/dL (31.0-37.0); MCV 91.9 fL (80.0-100.0); Mean Platelet Volume 7.3; Monocytes # (A) 0.5 k/uL (0-1.0); Monocytes % (A) 7 %; Neutrophils # (A) 5.5 k/uL (1.3-7.7); Neutrophils % (A) 70 %; Platelet Count 280 k/uL (150-450); RBC 4.36 m/uL (4.30-5.90); RDW 12.9 % (11.5-15.5); WBC 7.9 k/uL (3.8-10.6)
[2023-10-21] MEDS: ACETAMINOPHEN TAB 500 MG TAB PO STA (17:28)
[2023-10-21 17:29] LABS: ALT 41 U/L (4-49); AST 26 U/L (17-59); African American GFR (CKD) >90 (>60 ml/min/1.73 sqM); Albumin 4.5 g/dL (3.5-5.0); Alkaline Phosphatase 85 U/L (38-126); Amylase 70 U/L (30-110); Anion Gap 9 mmol/L; Blood Urea Nitrogen 18 mg/dL (9-20); Calcium 9.7 mg/dL (8.4-10.2); Carbon Dioxide 24 mmol/L (22-30); Chloride 105 mmol/L (98-107); Glucose 85 mg/dL (74-99); Lipase 113 U/L (23-300); Non-African American GFR(CKD) >90 (>60 ml/min/1.73 sqM); Potassium 4.2 mmol/L (3.5-5.1); Sodium 138 mmol/L (137-145); Total Bilirubin 0.6 mg/dL (0.2-1.3); Total Protein 7.3 g/dL (6.3-8.2)
[2023-10-21] MEDS: SODIUM CHLORIDE 0.9% 1,000 ML IV STA (17:29)
[2023-10-21 17:40] LABS: Appearance,Urine Clear (Clear); Bilirubin,Urine Negative (Negative); Blood,Urine Negative (Negative); Color,Urine Light Yellow; Glucose,Urine (UA) Negative (Negative); Ketones,Urine Negative (Negative); Leukocyte Esterase,Urine Negative (Negative); Nitrite,Urine Negative (Negative); PH, Urine 5.5 (5.0-8.0); Protein,Urine Negative (Negative); Specific Gravity,Urine 1.022 (1.001-1.035); Urobilinogen,Urine <2.0 mg/dL (<2.0)
--- NOTE | 2023-10-21 20:11 | CT ---
EXAMINATION TYPE: CT abdomen pelvis wo con DATE OF EXAM: 10/21/2023 COMPARISON: 01/12/2016 INDICATION: right flank pain, dysuria DLP: 1013.4 mGycm, Automated exposure control for dose reduction was used. CONTRAST: 0 mL of Isovue 300. Study performed without Oral Contrast TECHNIQUE: Axial images were obtained from above the diaphragm to the pubic rami in the axial plane a t 5 mm thick sections. Reconstructed images are reviewed on the computer in the coronal plane. FINDINGS: Limited CT sections are obtained the lung bases. The lung bases are clear. CT ABDOMEN: Liver: Normal Spleen: Normal Pancreas: Normal Adrenal glands: The adrenal glands are normal. Gallbladder: Normal Kidneys: No masses are evident. No hydronephrosis is present. No cysts are present. No renal stone s are identified. Aorta: Normal Inferior vena cava: Normal. CT PELVIS: Loops of bowel within the abdomen and pelvis are normal. Study is without oral contrast limiting bowel evaluation. Appendix: Normal as visualized. Urinary bladder: Normal. Genitourinary structures: Prostate appears normal Osseous structures: No suspicious lytic or sclerotic lesions. There is a left hip prosthesis causing beam hardening artifact. IMPRESSION: 1. No suspicious acute CT abdomen and pelvis changes
[2023-10-21] MEDS: KETOROLAC 15 MG/ML 1 ML VIAL IVP STA (20:51)
[2023-10-21 21:00] VITALS: BP 122/85; PULSE 76; RESP 18
== END 2023-10-21 21:05 | disposition home or self-care (01) ==
LOC: EC 16:22 → EEVIPCON 16:22 → EC 21:05
DX: R10.31 Right lower quadrant pain (principal); Z88.0 Allergy status to penicillin; Z88.8 Allergy status to other drugs, medicaments and biological substances; Z88.5 Allergy status to narcotic agent; Z91.040 Latex allergy status; Z91.013 Allergy to seafood; Z91.018 Allergy to other foods
CPT/HCPCS: 36415; 80053; 82150; 83690; 85025; 82272; 81003; 74176; 99285; 96374; 96361; J1885

== ENCOUNTER 2024-04-26 17:33 | Inpatient (IN) | payer MEDICAID, OTHER ==
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
[2024-04-26 18:08] LABS: Basophils % (A) 0 %; Eosinophils % (A) 0 %; HCT 42.1 % (39.0-53.0); HGB 13.6 gm/dL (13.0-17.5); Lymphocytes # (A) 0.8 k/uL (1.0-4.8); Lymphocytes % (A) 10 %; MCH 29.8 pg (25.0-35.0); MCHC 32.3 g/dL (31.0-37.0); MCV 92.3 fL (80.0-100.0); Mean Platelet Volume 7.2; Monocytes # (A) 0.4 k/uL (0-1.0); Monocytes % (A) 5 %; Neutrophils # (A) 6.6 k/uL (1.3-7.7); Neutrophils % (A) 82 %; Platelet Count 296 k/uL (150-450); RBC 4.56 m/uL (4.30-5.90); RDW 12.9 % (11.5-15.5); WBC 8.1 k/uL (3.8-10.6)
[2024-04-26 18:27] LABS: Amphetamine Screen,Urine Not Detected (NotDetected); Barbiturate Screen,Urine Detected (NotDetected); Benzodiazepines Screen,Urine Not Detected (NotDetected); Cocaine Screen,Urine Not Detected (NotDetected); Methadone Screen, Urine Not Detected (NotDetected); Opiate Screen,Urine Not Detected (NotDetected); Oxycodone Screen, Urine Not Detected (NotDetected); Phencyclidine Screen,Urine Not Detected (NotDetected); Tricyclic Antidepressant,Urine Not Detected (NotDetected); Urn Cannabinoid Scrn Not Detected (NotDetected)
[2024-04-26 18:29] LABS: ALT 57 U/L (4-49); AST 38 U/L (17-59); African American GFR (CKD) >90 (>60 ml/min/1.73 sqM); Albumin 4.8 g/dL (3.5-5.0); Alkaline Phosphatase 85 U/L (38-126); Anion Gap 12 mmol/L; Blood Urea Nitrogen 13 mg/dL (9-20); Carbon Dioxide 26 mmol/L (22-30); Chloride 101 mmol/L (98-107); Glucose 138 mg/dL (74-99); Non-African American GFR(CKD) 89 (>60 ml/min/1.73 sqM); Potassium 4.3 mmol/L (3.5-5.1); Sodium 139 mmol/L (137-145); Total Bilirubin 0.8 mg/dL (0.2-1.3); Total Protein 7.9 g/dL (6.3-8.2)
[2024-04-26] MEDS: KETOROLAC 15 MG/ML 1 ML VIAL IVP STA (19:19)
[2024-04-26] MEDS ORDERED: MAG HYDROX/AL HYDROX/SIMETH 355 ML BOTTLE PO PRN (23:34)
[2024-04-26] MEDS ORDERED: haloperidoL 5 MG TAB PO PRN (23:34)
[2024-04-26] MEDS ORDERED: LORazepam 2 MG/ML INJ IM PRN (23:34)
[2024-04-26] MEDS ORDERED: HALOPERIDOL LACTATE 5 MG/ML 1 ML VIAL IM PRN (23:34)
[2024-04-26] MEDS ORDERED: MAGNESIUM HYDROXIDE 2,400 MG/30 ML CUP PO PRN (23:34)
[2024-04-27] MEDS: traZODone HCL 50 MG TAB PO SCH (00:39)
--- NOTE | 2024-04-27 02:47 | P.PN ---
Progress Note - Text Progress Note Date: 04/27/24 notified by RN of new consult but also patient sleeping at this time and unable to evaluate
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
[2024-04-27] MEDS ORDERED: ALBUTEROL INHALER 60 PUFF/8 GM INHALER (MHU) INHALATION PRN (10:53)
[2024-04-27] MEDS: CARBAMIDE PEROXIDE 6.5% DROPS 15 ML BTL BOTH EARS SCH (11:26)
[2024-04-27] MEDS: BACLOFEN 10 MG TAB PO SCH (11:26)
[2024-04-27] MEDS: DIVALPROEX ER 250 MG TAB.ER.24H PO SCH (11:26)
[2024-04-27] MEDS: PALIPERIDONE 3 MG TAB.ER.24 PO SCH (11:27)
[2024-04-27] MEDS: DICYCLOMINE 20 MG TAB PO SCH (12:06)
[2024-04-27] MEDS: DICLOFENAC SODIUM GEL 50 GM TUBE TOPICAL SCH (12:06)
[2024-04-27] MEDS: LORazepam 1 MG TAB PO PRN (12:07)
[2024-04-27 18:15] LABS: Appearance,Urine Clear (Clear); Bilirubin,Urine Negative (Negative); Blood,Urine Negative (Negative); Color,Urine Yellow; Glucose,Urine (UA) Negative (Negative); Ketones,Urine 1+ (Negative); Leukocyte Esterase,Urine Trace (Negative); Mucus,Urine Moderate /hpf; Nitrite,Urine Negative (Negative); PH, Urine 5.5 (5.0-8.0); Protein,Urine Trace (Negative); RBC,Urine 2 /hpf (0-5); Specific Gravity,Urine 1.026 (1.001-1.035); Squamous Epithelial Cell,Urine <1 /hpf (0-4); Urobilinogen,Urine <2.0 mg/dL (<2.0); WBC,Urine 8 /hpf (0-5)
[2024-04-27] MEDS: BENZTROPINE MESYLATE 0.5 MG TAB PO SCH (22:06)
[2024-04-27] MEDS: FAMOTIDINE 20 MG TAB PO SCH (22:06)
[2024-04-27] MEDS: ATORVASTATIN 10 MG TAB PO SCH (22:06)
[2024-04-27] MEDS: GABAPENTIN 300 MG CAP PO SCH (22:08)
[2024-04-27] MEDS: MAGNESIUM OXIDE 400 MG TAB PO SCH (22:08)
[2024-04-27] MEDS: MELATONIN 3 MG TABLET PO SCH (22:08)
[2024-04-27] MEDS: metFORMIN 500 MG TAB PO SCH (22:27)
[2024-04-27] MEDS: PRIMIDONE 25 MG TAB PO SCH (22:27)
--- NOTE | 2024-04-28 06:54 | P.CONS ---
History of Present Illness - Reason for Consult Consult date: 04/27/24 - History of Present Illness The patient is a 63-year-old male with a PMH of type II DM, hypertension, hyperlipidemia, COPD, and seizure disorder who had presented to the emergency room for paranoid behavior. The patient was reportedly acting erratically and told the police that he could hear people in his attic. Patient was admitted to the [facility]HU where he was seen and evaluated. The patient was speaking incoherently with flight of ideas and disorganized thought process. History was thereby limited. He did however deny any active complaints at the time of interview. Denied experiencing chest discomfort, shortness of breath, fever, chills, cough, nausea, vomiting, abdominal pain, diarrhea. Review of systems: Pertinent positives and negatives as discussed in HPI, a complete review of systems was performed and all other systems are negative. Physical examination: General: non toxic, no distress, appears at stated age, obese Derm: no unusual rashes/lesions, no unusual ecchymoses, warm, dry Head: atraumatic, normocephalic, symmetric Eyes: EOMI, no lid lag, anicteric sclera ENT: Nose and ears atraumatic, no thrush, no pharyngeal erythema Neck: trachea midline, supple Mouth: no lip lesion, mucus membranes moist Cardiovascular: S1S2 reg, no murmur, no edema Lungs: CTA bilateral, no rhonchi, no rales , no accessory muscle use Abdominal: soft, nontender to palpation, no guarding Ext: no gross muscle atrophy, no contractures, Neuro: No gross focal neuro deficits noted Psych: Alert, oriented, disorganized thought process, Assessment: Chronic conditions: Type 2 DM, HTN, HLD, COPD, Seizure disorder Psychosis Data Review: Laboratory evaluation was reviewed and showed WBC count 8.1, Hgb 13.6, plt 296, Na 139, K 4.3, glucose 138, u tox positive for barbiturates Plan: Resume patient's home meds including Albuterol, Lipitor, Depakote, Gabapentin, Lisinopril, Metformin Defer management of psychosis to primary psychiatry service Thank you for allowing us to participate in the care of this patient. We will follow peripherally. Do not hesitate to contact us with questions. Someone can be reached from the [facility] hospitalist group at all hours of the day at [phone]. Past Medical History Past Medical History: COPD, Hyperlipidemia, Hypertension, Osteoarthritis (OA), Seizure Disorder Additional Past Medical History / Comment(s): prostate cancer, possible seizure disorder-last known seizure 01/05/2020 . History of Any Multi-Drug Resistant Organisms: None Reported Past Surgical History: Joint Replacement, Prostate Surgery Additional Past Surgical History / Comment(s): "eye surgery to correct lazy eyes" and back surgery, lt hip Past Anesthesia/Blood Transfusion Reactions: Blood Transfusion Reaction Additional Past Anesthesia/Blood Transfusion Reaction / Comm: pt stated received blood in past and had a reaction to it-caused hives. Smoking Status: Never smoker - Past Family History Father Family Medical History: Cancer Additional Family Medical History / Comment(s): Father is alive at age 82 with history of prostate cancer. Mother Family Medical History: Cancer Additional Family Medical History / Comment(s): Mother at age 53 from bladder cancer Brother(s) Additional Family Medical History / Comment(s): Patient has 4 brothers and 2 sisters that are healthy with no major medical problems. Patient does not have any children. Medications and Allergies Home Medications Medication Instructions Recorded Confirmed Type Albuterol Inhaler [Ventolin Hfa 1 - 2 puff INHALATION RT-Q4H PRN 12/30/19 04/28/22 History Inhaler] Acetaminophen Tab [Tylenol] 1,000 mg PO TID PRN 04/28/22 04/28/22 History Atorvastatin [Lipitor] 10 mg PO HS@2100 30 Days tab 05/18/22 04/27/24 Rx Benztropine Mesylate [Cogentin] 0.5 mg PO HS 30 Days tab 05/18/22 Rx Diclofenac Sodium Gel [Voltaren 1% 4 gm TOPICAL QID #1 gm 05/18/22 Rx Gel] Divalproex [Depakote] 500 mg PO BID@0800,2100 30 Days 05/18/22 Rx tab Ergocalciferol (Vitamin D2) 1,250 mcg PO WE 30 Days cap 05/18/22 04/27/24 Rx [Drisdol (50,000 Iu)] Famotidine [Pepcid] 20 mg PO BID@0800,2000 30 Days tab 05/18/22 04/27/24 Rx HYDROcodone/APAP 5-325MG [[place] 1 tab PO TID PRN 3 Days #9 tab 05/18/22 Rx 5-325] Ibuprofen [Motrin] 600 mg PO Q8H PRN tab 05/18/22 Rx Magnesium Oxide [Mag-Ox] 400 mg PO HS@2100 30 Days tab 05/18/22 04/27/24 Rx Melatonin 6 mg PO HS 30 Days tab 05/18/22 Rx Montelukast [Singulair] 10 mg PO DAILY@2100 30 Days tab 05/18/22 04/27/24 Rx Paliperidone IM [Invega Sustenna] 156 mg IM ONCE #1 ml 05/18/22 Rx Paliperidone IM [Invega Sustenna] 156 mg IM QMONTHLY #1 each 05/18/22 Rx Paliperidone [Invega] 3 mg PO DAILY 3 Days tab 05/18/22 Rx lisinopriL [Zestril] 20 mg PO DAILY@0800 30 Days tab 05/18/22 04/27/24 Rx Baclofen [Lioresal] 10 mg PO BID #10 tablet 09/02/23 Rx Loperamide [Imodium] 2 mg PO QID #10 capsule 09/02/23 Rx Ondansetron Odt [Zofran Odt] 4 mg PO Q8HR PRN #10 tab 09/02/23 Rx Dicyclomine [Bentyl] 20 mg PO TID #30 tablet 10/21/23 Rx Ketorolac [Toradol] 10 mg PO Q8HR #15 tab 10/21/23 Rx Ondansetron Odt [Zofran Odt] 4 mg PO Q8HR PRN #10 tab 10/21/23 Rx Carbamide Peroxide [Murine Ear 5 drop BOTH EARS BID 04/27/24 04/27/24 History Drops] Gabapentin 300 mg PO 04/27/24 History Olanzapine/Samidorphan Malate 1 each PO 04/27/24 History [Lybalvi 5-10 mg Tablet] Primidone [Mysoline] 50 mg PO HS 04/27/24 04/27/24 History metFORMIN HCL 500 mg PO BID 04/27/24 04/27/24 History traZODone HCL [Desyrel] 25 mg PO HS 04/27/24 04/27/24 History Allergies Allergy/AdvReac Type Severity Reaction Status Date / Time amoxicillin Allergy Unknown Verified 04/26/24 17:44 brompheniramine maleate Allergy Unknown Verified 04/26/24 17:44 [From Dimetapp Cold-Allergy (PE)] codeine Allergy Rash/Hives Verified 04/26/24 17:44 fluoxetine HCl [From Prozac] Allergy Unknown Verified 04/26/24 17:44 latex Allergy Unknown Verified 04/26/24 17:44 morphine Allergy Rash/Hives Verified 04/26/24 17:44 peanut oil Allergy Unknown Verified 04/26/24 17:44 phenylephrine HCl Allergy Unknown Verified 04/26/24 17:44 [From Dimetapp Cold-Allergy (PE)] shellfish derived [Shellfish] Allergy Rash/Hives Verified 04/26/24 17:44 Physical Exam Vitals: Vital Signs Pulse Resp BP 04/27/24 15:02 114/71 04/27/24 11:39 78 20 133/66 Results CBC & Chem 7: 04/26/24 17:55 04/26/24 17:55 Labs: Abnormal Lab Results - Last 24 Hours (Table) 04/26/24 04/27/24 Range/Units 17:55 17:50 Hemoglobin A1c 6.8 H (<=6.0) % Urine Protein Trace H (Negative) Urine Ketones 1+ H (Negative) Ur Leukocyte Esterase Trace H (Negative) Urine WBC 8 H (0-5) /hpf Urine Mucus Moderate H (None) /hpf
[2024-04-28] MEDS: lisinopriL 20 MG TAB PO SCH (08:27)
[2024-04-28] MEDS ORDERED: BENZOCAINE/MENTHOL LOZENG 1 EACH LOZENGE MUCOUS MEM PRN (12:10)
--- NOTE | 2024-04-28 12:19 | P.PN ---
Progress Note - Text Progress Note Date: 04/28/24 Interval history: Patient was seen wandering the hallways and was directable and agreeable to s peak with creative services writer. Patient claims that he is doing a bit better today, denies any side effects. claims that his mood is imrpoving. he was less irritable today with creative services writer. He was happy talking about sports teams. Claims that he was able to sleep last night. States that he does have a minor sore throat. Appears to be more future oriented. Thoughts are more organized, more logical today. At this time patient denies any suicidal or homicidal ideations intent or plan. Denies any Auditory or visual hallucinations. Patient denies any side effects from the medications and has been compliant with meds. Mental status exam: General Appearance: Patient appears to be mildly overweight, stated age is alert, directable, and cooperative. Behavior: No agitated behavior. Patient is calm and directable Speech: Patient's speech is fluent and nonpressured. Mood/Affect: Mood is improving mildly, affect is congruent and improving Suicidality/Homicidality: Patient denies having any suicidal or homicidal ideation intent or plan. Perceptions: Patient denies any auditory or visual hallucinations. Though content/process: There is no evidence of any delusional thought content and thought process is linear and goal-directed. Memory and concentration: AOX3, grossly intact for the purposes of this session Judgment and insight: improving mildly Assessment/Plan: Continue with current diagnosis. Patient continues to meet criteria for inpatient psychiatric admission for symptom stabilization and safety. Patient will be maintained on current psychotropic medication regimen. Monitor for medication compliance and for any psychotropic medication side effects. Will continue to monitor ongoing response to treatment. Encouraged participation in milieu.
[2024-04-28] MEDS: ACETAMINOPHEN TAB 325 MG TAB PO PRN (20:15)
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
[2024-04-29] MEDS: DIVALPROEX ER 500 MG TAB.ER.24H PO SCH (20:35)
--- NOTE | 2024-04-30 12:01 | P.PN ---
Progress Note - Text Progress Note Date: 04/30/24 Interval History: Patient was seen in group, and was directable and agreeable to speak with content writer in the office. The patient states he is doing good today. He does complain of a headache this morning, that was alleviated by tylenol and a cold pack. It has been coming and going today. He states that he does usually have headaches. Vocational Counselor told patient he would up the dosage of tylenol. Patient agreeable. He appears to be more cooperative today, more polite. Not endorsing irritability. Patient is attending groups. He is sleeping well at night, and his appetite is good. Vocational Counselor spoke with patient again about a STEVENS, patient still declining. At this time patient denies any suicidal or homicidal ideations, intent or plan. Patient denies any auditory, visual hallucinations and denies any paranoia or delusions. Patient denies any side effects from the medications and has been compliant with meds. MENTAL STATUS EXAM: General Appearance: Patient appears to be stated age is alert, pleasant and cooperative. Patient appears to have improving hygiene and grooming. Behavior: Patient is seated without any agitated behavior. improving. Mild resting tremor Speech: Patient's speech is fluent and nonpressured. Mood/Affect: Patient reports their mood is "very good", affect is congruent and improving affect Suicidality/Homicidality: Patient denies having any homicidal ideation intent or plan. Denies any suicidal ideations intent or plan Perceptions: Patient denies any visual hallucinations and denies any auditory hallucinations Though content/process: Logical. [place]. Poverty of content. Loosely formed delusions, improving Memory and concentration: Alert and oriented 3, fair attention span. Judgment and insight: Chronically poor, improving IMPRESSIONS: Schizoaffective disorder, bipolar type PLAN: -Patient is admitted under voluntary status to MHU for stabilization of psychiatric symptoms and safety. Patient had NOT signed medication consent form today and placed in patient's chart. -Medications : paliperidone po 3 mg bid at bedtime for psychosis/mood stabiliza tion, Depakote 500 mg twice daily for mood stabilization/aggression, trazodone 50 mg qhs for sleep. -Ativan and Haldol PRN for agitation/aggression -NRT -not needed as patient does not smoke. -SW on board for discharge planning. Encourage patient to participate in groups to work on coping skills. Will await deferral and court hearing. Hopeful for discharge Monday, if patient continues to improve Patient declining STEVENS.
[2024-04-30] MEDS: IBUPROFEN 600 MG TAB PO PRN (12:14)
[2024-04-30] MEDS: ACETAMINOPHEN TAB 500 MG TAB PO PRN (15:12)
[2024-05-01] MEDS: ERGOCALCIFEROL 1,250 MCG (50,000 IU) CAPSULE PO SCH (08:08)
--- NOTE | 2024-05-01 11:37 | P.PN ---
Progress Note - Text Progress Note Date: 05/01/24 Interval History: Patient was seen in group, and was directable and agreeable to speak with instructional writer in the office. The patient states he is doing good today. He does complain of loose stools, but he states that he is used to it, because it happens quite often. He does not think that it is a side effect of the medication. Patient is attending groups. He is sleeping well at night, and his appetite is good. At this time patient denies any suicidal or homicidal ideations, intent or plan. Patient denies any auditory, visual hallucinations and denies any paranoia or delusions. Patient denies any side effects from the medications and has been compliant with meds. MENTAL STATUS EXAM: General Appearance: Patient appears to be stated age is alert, pleasant and cooperative. Patient appears to have improving hygiene and grooming. Behavior: Patient is seated without any agitated behavior. improving. Mild resting tremor Speech: Patient's speech is fluent and nonpressured. Mood/Affect: Patient reports their mood is "pretty good", affect is congruent and improving affect Suicidality/Homicidality: Patient denies having any homicidal ideation intent or plan. Denies any suicidal ideations intent or plan Perceptions: Patient denies any visual hallucinations and denies any auditory hallucinations Though content/process: mildly improving Memory and concentration: Alert and oriented 3, fair attention span. Judgment and insight: Chronically poor, improving IMPRESSIONS: Schizoaffective disorder, bipolar type PLAN: -Patient is admitted under voluntary status to MHU for stabilization of psychiatric symptoms and safety. -Medications : paliperidone po 3 mg bid at bedtime for psychosis/mood stabilization, Depakote 500 mg twice daily for mood stabilization/aggression, trazodone 50 mg qhs for sleep. -Ativan and Haldol PRN for agitation/aggression -NRT -not needed as patient does not smoke. -SW on board for discharge planning. Encourage patient to participate in groups to work on coping skills. Hopeful for discharge Monday, if patient continues to improve, and [facility] finds placement. Patient declining STEVENS.
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
--- NOTE | 2024-05-03 12:51 | P.PN ---
Progress Note - Text Progress Note Date: 05/03/24 Interval History: Patient was seen in group, and was directable and agreeable to speak with check writer in the office. The patient states he did not sleep at all last night, however, nursing reported that the patient slept for 6 hours last night. He states his appetite is good. The patient states he is a bit tired today, but he is still attending groups. The patient is laughing and joking during the interview today. He states he is feeling happy. At this time patient denies any suicidal or homicidal ideations, intent or plan. Patient denies any auditory, visual hallucinations and denies any paranoia or delusions. Patient denies any side effects from the medications and has been compliant with meds. MENTAL STATUS EXAM: General Appearance: Patient appears to be stated age is alert, pleasant and cooperative. Patient appears to have improving hygiene and grooming. Behavior: Patient is seated without any agitated behavior. improving. Mild resting tremor Speech: Patient's speech is fluent and nonpressured. Mood/Affect: Patient reports their mood is "good", affect is congruent and improving affect Suicidality/Homicidality: Patient denies having any homicidal ideation intent or plan. Denies any suicidal ideations intent or plan Perceptions: Patient denies any visual hallucinations and denies any auditory hallucinations Though content/process: mildly improving Memory and concentration: Alert and oriented 3, fair attention span. Judgment and insight: Chronically poor, improving IMPRESSIONS: Schizoaffective disorder, bipolar type PLAN: -Patient is admitted under voluntary status to MHU for stabilization of psychiatric symptoms and safety. -Medications : paliperidone po 3 mg bid at bedtime for psychosis/mood stabilization, Depakote 500 mg twice daily for mood stabilization/aggression, trazodone 50 mg qhs for sleep. patient has been declining the STEVENS. -Ativan and Haldol PRN for agitation/aggression -NRT - not needed as patient does not smoke -SW on board for discharge planning. Encourage patient to participate in groups to work on coping skills. Hopeful for discharge Monday, if patient continues to improve, and [facility] gets him approved to return to [facility]. Patient declining STEVENS.
[2024-05-03] MEDS: MELATONIN 5 MG TABLET PO SCH (20:40)
[2024-05-03] MEDS: traZODone HCL 100 MG TAB PO SCH (20:41)
[2024-05-04 08:49] VITALS: RESP 20; TEMP 97
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
[2024-05-04] MEDS: GABAPENTIN 300 MG CAP PO SCH (17:46)
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
[2024-05-06 08:11] VITALS: BP 120/78; PULSE 78
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
== END 2024-05-06 13:41 | disposition home or self-care (01) | DRG 750 ==
LOC: EC 17:33 → 3MHU 23:30
PROVIDERS: ADMIT Psychiatry & Neurology Psychiatry; ATTEND Psychiatry & Neurology Psychiatry
DX: F25.0 Schizoaffective disorder, bipolar type (principal); E11.9 Type 2 diabetes mellitus without complications; E78.5 Hyperlipidemia, unspecified; F41.9 Anxiety disorder, unspecified; F43.10 Post-traumatic stress disorder, unspecified; G40.909 Epilepsy, unspecified, not intractable, without status epilepticus; I10 Essential (primary) hypertension; J44.9 Chronic obstructive pulmonary disease, unspecified; Z79.84 Long term (current) use of oral hypoglycemic drugs; Z79.899 Other long term (current) drug therapy; Z85.46 Personal history of malignant neoplasm of prostate; Z11.52 Encounter for screening for COVID-19
CPT/HCPCS: 36415; 80053; 80306; 81001; 82075; 83036; 84443; 85025; 87635; 99285

== ENCOUNTER 2024-05-16 08:00 | Inpatient (IN) | payer MEDICAID, OTHER ==
--- NOTE | 2024-05-16 10:11 | ED ---
General Adult HPI - General Chief complaint: Psychiatric Symptoms Stated complaint: Mental Health Time Seen by Provider: 05/16/24 08:07 Source: patient, RN notes reviewed, old records reviewed, Caregiver Mode of arrival: wheelchair Limitations: altered mental status - History of Present Illness Initial comments: 63-year-old male history of schizophrenia presenting with his community mental health worker for evaluation of delusion and paranoia. History is limited from the patient he keeps stating that he is being shot in the head and shot in the abdomen. He does have history of mental illness requiring inpatient psychiatric care in the past. No physical complaints at the time my evaluation. - Related Data Home Medications Medication Instructions Recorded Confirmed Albuterol Inhaler [Ventolin Hfa 1 - 2 puff INHALATION RT-Q4H PRN 12/30/19 04/28/22 Inhaler] Acetaminophen Tab [Tylenol] 1,000 mg PO TID PRN 04/28/22 04/28/22 Carbamide Peroxide [Murine Ear 5 drop BOTH EARS BID 04/27/24 04/27/24 Drops] Primidone [Mysoline] 50 mg PO HS 04/27/24 04/27/24 metFORMIN HCL 500 mg PO BID 04/27/24 04/27/24 Previous Rx's Medication Instructions Recorded Atorvastatin [Lipitor] 10 mg PO HS@2099 30 Days tab 05/18/22 Diclofenac Sodium Gel [Voltaren 1% 4 gm TOPICAL QID #1 gm 05/18/22 Gel] Ergocalciferol (Vitamin D2) 1,250 mcg PO WE 30 Days cap 05/18/22 [Drisdol (50,000 Iu)] Famotidine [Pepcid] 20 mg PO BID@0800,1999 30 Days tab 05/18/22 Ibuprofen [Motrin] 600 mg PO Q8H PRN tab 05/18/22 Magnesium Oxide [Mag-Ox] 400 mg PO HS@2099 30 Days tab 05/18/22 Montelukast [Singulair] 10 mg PO DAILY@2099 30 Days tab 05/18/22 lisinopriL [Zestril] 20 mg PO DAILY@0800 30 Days tab 05/18/22 Baclofen [Lioresal] 10 mg PO BID #10 tablet 09/02/23 Loperamide [Imodium] 2 mg PO QID #10 capsule 09/02/23 Dicyclomine [Bentyl] 20 mg PO TID #30 tablet 10/21/23 Ketorolac [Toradol] 10 mg PO Q8HR #15 tab 10/21/23 Ondansetron Odt [Zofran ODT] 4 mg PO Q8HR PRN #10 tab 10/21/23 Benztropine Mesylate [Cogentin] 0.5 mg PO HS 30 Days #30 tab 05/06/24 Divalproex ER [Depakote ER] 500 mg PO BID 30 Days #60 tab 05/06/24 Gabapentin [Neurontin] 600 mg PO QID cap 05/06/24 Melatonin 10 mg PO HS 30 Days #30 tab 05/06/24 Paliperidone [Invega] 3 mg PO BID 30 Days #60 tab 05/06/24 traZODone HCL [Desyrel] 100 mg PO HS 30 Days #30 tab 05/06/24 Allergies Allergy/AdvReac Type Severity Reaction Status Date / Time amoxicillin Allergy Unknown Verified 05/16/24 08:18 brompheniramine maleate Allergy Unknown Verified 05/16/24 08:18 [From Dimetapp Cold-Allergy (PE)] codeine Allergy Rash/Hives Verified 05/16/24 08:18 fluoxetine HCl [From Prozac] Allergy Unknown Verified 05/16/24 08:18 latex Allergy Unknown Verified 05/16/24 08:18 morphine Allergy Rash/Hives Verified 05/16/24 08:18 peanut oil Allergy Unknown Verified 05/16/24 08:18 phenylephrine HCl Allergy Unknown Verified 05/16/24 08:18 [From Dimetapp Cold-Allergy (PE)] shellfish derived [Shellfish] Allergy Rash/Hives Verified 05/16/24 08:18 Review of Systems ROS Statement: Those systems with pertinent positive or pertinent negative responses have been documented in the HPI. ROS Other: All systems not noted in ROS Statement are negative. Past Medical History Past Medical History: COPD, Hyperlipidemia, Hypertension, Osteoarthritis (OA), Seizure Disorder Additional Past Medical History / Comment(s): prostate cancer, possible seizure disorder-last known seizure 01/05/2020 . 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 Past Psychological History: Bipolar, Depression, PTSD, Schizophrenia Smoking Status: Never smoker Past Alcohol Use History: None Reported Past Drug Use History: None Reported - Past Family History Father Family Medical History: Cancer Additional Family Medical History / Comment(s): Father is alive at age 82 with history of prostate cancer. Mother Family Medical History: Cancer Additional Family Medical History / Comment(s): Mother at age 53 from bladder cancer Brother(s) Additional Family Medical History / Comment(s): Patient has 4 brothers and 2 sisters that are healthy with no major medical problems. Patient does not have any children. General Exam Limitations: altered mental status General appearance: alert, in no apparent distress Head exam: Present: atraumatic, normocephalic Eye exam: Present: normal appearance, PERRL ENT exam: Present: normal exam Neck exam: Present: normal inspection. Absent: tenderness, meningismus Respiratory exam: Present: normal lung sounds bilaterally. Absent: respiratory distress, wheezes Cardiovascular Exam: Present: regular rate, normal rhythm GI/Abdominal exam: Present: soft. Absent: distended, tenderness, guarding Extremities exam: Present: normal inspection Neurological exam: Present: alert. Absent: motor sensory deficit Psychiatric exam: Present: agitated Skin exam: Present: warm, dry, intact Course Vital Signs 05/16/24 05/16/24 08:12 10:10 Temperature 97.4 F L 98.6 F Pulse Rate 109 H 82 Respiratory 18 18 Rate Blood Pressure 131/84 119/84 O2 Sat by Pulse 98 95 Oximetry - Reevaluation(s) Reevaluation #1: 05/16/24 10:10 Cleared for EPS Medical Decision Making - Medical Decision Making Was pt. sent in by a medical professional or institution (, PA, [employer]IC, urgent care, hospital, or long-term...) When possible be specific @ -No Did you speak to anyone other than the patient for history (EMS, parent, family, police, friend...)? What history was obtained from this source @ -No Did you review nursing and triage notes (agree or disagree)? Why? @ -I reviewed and agree with nursing and triage notes Were old charts reviewed (outside hosp., previous admission, EMS record, old EKG, old radiological studies, urgent care reports/EKG's, long-term records)? Report findings @ -No old charts were reviewed Differential Mental Health Depression, anxiety, bipolar, psychosis, schizophrenia, borderline personality, situational depression, adjustment disorder, behavioral disorder, brain tumor, malingering, substance abuse, encephalopathy, medication reaction, dementia, hypothyroidism, degenerative neurologic disorder, lupus.... This is not meant to be all-inclusive list EKG interpreted by me (3pts min.). @ -As above X-rays interpreted by me (1pt min.). @ -None done CT interpreted by me (1pt min.). @ -None done U/S interpreted by me (1pt. min.). @ -None done What testing was considered but not performed or refused? (CT, X-rays, U/S, labs)? Why? @ -None What meds were considered but not given or refused? Why? @ -None Did you discuss the management of the patient with other professionals (professionals i.e. , PA, [employer]CHANIC, lab, RT, psych nurse, manager social services, manager hair, teacher, real estate utilization officer, director of casework services)? Give summary @ -EPS, recommends admission Was smoking cessation discussed for >3mins.? @ -No Was critical care preformed (if so, how long)? @ -No Were there social determinants of health that impacted care today? How? (Homelessness, low income, unemployed, alcoholism, drug addiction, transportation, low edu. Level, literacy, decrease access to med. care, senior care, rehab)? @ -No Was there de-escalation of care discussed even if they declined (Discuss DNR or withdrawal of care, Hospice)? DNR status @ -No What co-morbidities impacted this encounter? (DM, HTN, Smoking, COPD, CAD, Cancer, CVA, ARF, Chemo, Hep., AIDS, mental health diagnosis, sleep apnea, morbid obesity)? @ -None Was patient admitted / discharged? Hospital course, mention meds given and route, prescriptions, significant lab abnormalities, going to OR and other pertinent info. @ -63-year-old male admitted with acute psychosis, paranoid, delusional. I did complete a clinical certification on this patient. Undiagnosed new problem with uncertain prognosis? @ -No Drug Therapy requiring intensive monitoring for toxicity (Heparin, Nitro, Insulin, Cardizem)? @ -No Were any procedures done? @ -No Diagnosis/symptom? @Acute psychosis Acute, or Chronic, or Acute on Chronic? @ -Acute Uncomplicated (without systemic symptoms) or Complicated (systemic symptoms)? @ -Default Side effects of treatment? @ -No Exacerbation, Progression, or Severe Exacerbation? @ -No Poses a threat to life or bodily function? How? (Chest pain, [place], [place], pneumonia, PE, COPD, DKA, ARF, appy, cholecystitis, CVA, Diverticulitis, Homicidal, Suicidal, threat to staff... and all critical care pts) @ -No - Lab Data Result diagrams: 05/16/24 09:50 05/16/24 09:50 Lab Results 05/16/24 05/16/24 05/16/24 Range/Units 09:45 09:47 09:50 WBC 8.5 (3.8-10.6) k/uL RBC 4.33 (4.30-5.90) m/uL Hgb 13.5 (13.0-17.5) gm/dL Hct 39.7 (39.0-53.0) % MCV 91.7 (80.0-100.0) fL MCH 31.2 (25.0-35.0) pg MCHC 34.0 (31.0-37.0) g/dL RDW 13.2 (11.5-15.5) % Plt Count 263 (150-450) k/uL MPV 7.7 Sodium (137-145) mmol/L Potassium (3.5-5.1) mmol/L Chloride (98-107) mmol/L Carbon Dioxide (22-30) mmol/L Anion Gap mmol/L BUN (9-20) mg/dL Creatinine (0.66-1.25) mg/dL Est GFR (CKD-EPI)AfAm (>60 ml/min/1.73 sqM) Est GFR (CKD-EPI)NonAf (>60 ml/min/1.73 sqM) Glucose (74-99) mg/dL Calcium (8.4-10.2) mg/dL Total Bilirubin (0.2-1.3) mg/dL AST (17-59) U/L ALT (4-49) U/L Alkaline Phosphatase (38-126) U/L Total Protein (6.3-8.2) g/dL Albumin (3.5-5.0) g/dL Urine Color Yellow Urine Appearance Clear (Clear) Urine pH 5.5 (5.0-8.0) Ur Specific Bow 1.033 (1.001-1.035) Urine Protein Trace H (Negative) Urine Glucose (UA) Negative (Negative) Urine Ketones 2+ H (Negative) Urine Blood Negative (Negative) Urine Nitrite Negative (Negative) Urine Bilirubin Negative (Negative) Urine Urobilinogen <2.0 (<2.0) mg/dL Ur Leukocyte Esterase Negative (Negative) Urine Opiates Screen Not Detected (NotDetected) Ur Oxycodone Screen Not Detected (NotDetected) Urine Methadone Screen Not Detected (NotDetected) Ur Barbiturates Screen Detected H (NotDetected) U Tricyclic Antidepress Not Detected (NotDetected) Ur Phencyclidine Scrn Not Detected (NotDetected) Ur Amphetamines Screen Not Detected (NotDetected) U Methamphetamines Scrn Not Detected (NotDetected) U Benzodiazepines Scrn Not Detected (NotDetected) Urine Cocaine Screen Not Detected (NotDetected) U Marijuana (THC) Screen Not Detected (NotDetected) Serum Alcohol mg/dL 05/16/24 Range/Units 09:50 WBC (3.8-10.6) k/uL RBC (4.30-5.90) m/uL Hgb (13.0-17.5) gm/dL Hct (39.0-53.0) % MCV (80.0-100.0) fL MCH (25.0-35.0) pg MCHC (31.0-37.0) g/dL RDW (11.5-15.5) % Plt Count (150-450) k/uL MPV Sodium 138 (137-145) mmol/L Potassium 4.2 (3.5-5.1) mmol/L Chloride 104 (98-107) mmol/L Carbon Dioxide 27 (22-30) mmol/L Anion Gap 7 mmol/L BUN 26 H (9-20) mg/dL Creatinine 0.96 (0.66-1.25) mg/dL Est GFR (CKD-EPI)AfAm >90 (>60 ml/min/1.73 sqM) Est GFR (CKD-EPI)NonAf 86 (>60 ml/min/1.73 sqM) Glucose 118 H (74-99) mg/dL Calcium 9.3 (8.4-10.2) mg/dL Total Bilirubin 0.8 (0.2-1.3) mg/dL AST 31 (17-59) U/L ALT 49 (4-49) U/L Alkaline Phosphatase 85 (38-126) U/L Total Protein 7.4 (6.3-8.2) g/dL Albumin 4.6 (3.5-5.0) g/dL Urine Color Urine Appearance (Clear) Urine pH (5.0-8.0) Ur Specific Bow (1.001-1.035) Urine Protein (Negative) Urine Glucose (UA) (Negative) Urine Ketones (Negative) Urine Blood (Negative) Urine Nitrite (Negative) Urine Bilirubin (Negative) Urine Urobilinogen (<2.0) mg/dL Ur Leukocyte Esterase (Negative) Urine Opiates Screen (NotDetected) Ur Oxycodone Screen (NotDetected) Urine Methadone Screen (NotDetected) Ur Barbiturates Screen (NotDetected) U Tricyclic Antidepress (NotDetected) Ur Phencyclidine Scrn (NotDetected) Ur Amphetamines Screen (NotDetected) U Methamphetamines Scrn (NotDetected) U Benzodiazepines Scrn (NotDetected) Urine Cocaine Screen (NotDetected) U Marijuana (THC) Screen (NotDetected) Serum Alcohol <10 mg/dL Disposition Clinical Impression: Acute psychosis, Schizophrenia, Noncompliance by refusing service Disposition: ADMITTED IP TO THIS [facility] Condition: Stable Is patient prescribed a controlled substance at d/c from ED?: No Referrals: [facility] [Primary Care Provider] - 1-2 days Time of Disposition: 12:28
[2024-05-16 10:31] LABS: Amphetamine Screen,Urine Not Detected (NotDetected); Barbiturate Screen,Urine Detected (NotDetected); Benzodiazepines Screen,Urine Not Detected (NotDetected); Cocaine Screen,Urine Not Detected (NotDetected); Methadone Screen, Urine Not Detected (NotDetected); Opiate Screen,Urine Not Detected (NotDetected); Oxycodone Screen, Urine Not Detected (NotDetected); Phencyclidine Screen,Urine Not Detected (NotDetected); Tricyclic Antidepressant,Urine Not Detected (NotDetected); Urn Cannabinoid Scrn Not Detected (NotDetected)
[2024-05-16 10:34] LABS: ALT 49 U/L (4-49); AST 31 U/L (17-59); African American GFR (CKD) >90 (>60 ml/min/1.73 sqM); Albumin 4.6 g/dL (3.5-5.0); Alcohol <10 mg/dL; Alkaline Phosphatase 85 U/L (38-126); Anion Gap 7 mmol/L; Blood Urea Nitrogen 26 mg/dL (9-20); Calcium 9.3 mg/dL (8.4-10.2); Carbon Dioxide 27 mmol/L (22-30); Chloride 104 mmol/L (98-107); Glucose 118 mg/dL (74-99); Non-African American GFR(CKD) 86 (>60 ml/min/1.73 sqM); Potassium 4.2 mmol/L (3.5-5.1); Sodium 138 mmol/L (137-145); Total Bilirubin 0.8 mg/dL (0.2-1.3); Total Protein 7.4 g/dL (6.3-8.2)
[2024-05-16 10:45] LABS: HCT 39.7 % (39.0-53.0); HGB 13.5 gm/dL (13.0-17.5); MCH 31.2 pg (25.0-35.0); MCV 91.7 fL (80.0-100.0); Mean Platelet Volume 7.7; Platelet Count 263 k/uL (150-450); RBC 4.33 m/uL (4.30-5.90); RDW 13.2 % (11.5-15.5); WBC 8.5 k/uL (3.8-10.6)
[2024-05-16 10:59] LABS: Appearance,Urine Clear (Clear); Bilirubin,Urine Negative (Negative); Blood,Urine Negative (Negative); Color,Urine Yellow; Glucose,Urine (UA) Negative (Negative); Ketones,Urine 2+ (Negative); Leukocyte Esterase,Urine Negative (Negative); Nitrite,Urine Negative (Negative); PH, Urine 5.5 (5.0-8.0); Protein,Urine Trace (Negative); Specific Gravity,Urine 1.033 (1.001-1.035); Urobilinogen,Urine <2.0 mg/dL (<2.0)
[2024-05-16] MEDS ORDERED: MAG HYDROX/AL HYDROX/SIMETH 355 ML BOTTLE PO PRN (13:50)
[2024-05-16] MEDS ORDERED: OLANZapine 10 MG VIAL IM PRN (13:53)
[2024-05-16] MEDS ORDERED: KETOTIFEN 0.025% OPHTH DROPS 5 ML BTL BOTH EYES PRN (13:53)
[2024-05-16] MEDS ORDERED: DICYCLOMINE 20 MG TAB PO PRN (13:53)
[2024-05-16] MEDS: GABAPENTIN 300 MG CAP PO SCH (16:43)
[2024-05-16] MEDS: ACETAMINOPHEN TAB 325 MG TAB PO PRN (17:29)
--- NOTE | 2024-05-16 18:15 | P.MDCNMH ---
History of Present Illness H&P Date: 05/16/24 Patient is a 63-year-old male with history of hypertension, dyslipidemia, COPD/asthma, type 2 diabetes currently in mental health unit. [facility] physicians consulted for medical management. Patient denies any chest pain, shortness of breath, abdominal pain, nausea, vomiting, urinary or bowel complaints. Pertinent positives and negatives as discussed in HPI, a complete review of systems was performed and all other systems are negative. Patient seen and examined at bedside. Vital signs reviewed General: nontoxic, no distress, appears at stated age Derm: warm, dry Head: atraumatic, normocephalic, symmetric Eyes: EOMI, no lid lag, anicteric sclera, pupils equal round reactive to light, slight strabismus ENT: Nose and ears atraumatic Neck: No thyromegaly, supple Mouth: no lip lesion, mucus membranes moist Cardiovascular: S1S2 reg, no murmur, no edema Lungs: clear to auscultation bilateral, no rhonchi, no rales, no wheeze, no accessory muscle use Abdominal: soft, nontender to palpation, no guarding, no appreciable organomegaly Ext: no gross muscle atrophy, muscle strength muscle strength 5 out of 5 in all 4 extremities, no contractures Neuro: CN II-XII grossly intact Psych: Alert, oriented, appropriate affect Assessment/Plan: Hypertension-continue lisinopril 20 mg Dyslipidemia-continue atorvastatin 10 mg Type 2 diabetes, A1c 6.8-continue metformin 500 twice daily Asthma/COPD-continue albuterol as needed, singular 12 mg daily Constipation -Started on MiraLAX 17 g nightly Rest of the psychiatric problems being managed by psychiatrist Thank you for allowing us to participate in the care of this pleasant patient. Do not hesitate to contact us with questions. Someone can be reached from the [facility] hospitalist group all hours of the day at [phone] or via [employer]. Past Medical History Past Medical History: COPD, Hyperlipidemia, Hypertension, Osteoarthritis (OA), Seizure Disorder Additional Past Medical History / Comment(s): prostate cancer, possible seizure disorder-last known seizure 01/05/2020 . 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 Past Psychological History: Bipolar, Depression, PTSD, Schizophrenia Additional Psychological History / Comment(s): pt stated he is discabled. medical equipment-only a nebulizer. 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 Past Drug Use History: None Reported Additional Drug Use History / Comment(s): Pt. denies drug use. - Past Family History Father Family Medical History: Cancer Additional Family Medical History / Comment(s): Father is alive at age 82 with history of prostate cancer. Mother Family Medical History: Cancer Additional Family Medical History / Comment(s): Mother at age 53 from bladder cancer Brother(s) Additional Family Medical History / Comment(s): Patient has 4 brothers and 2 sisters that are healthy with no major medical problems. Patient does not have any children. Medications and Allergies Home Medications Medication Instructions Recorded Confirmed Type Albuterol Inhaler [Ventolin Hfa 1 - 2 puff INHALATION RT-Q4H PRN 12/30/19 05/16/24 History Inhaler] Acetaminophen Tab [Tylenol] 1,000 mg PO TID PRN 04/28/22 05/16/24 History Ergocalciferol (Vitamin D2) 1,250 mcg PO WE 30 Days cap 05/18/22 05/16/24 Rx [Drisdol (50,000 Iu)] Famotidine [Pepcid] 20 mg PO BID@ 30 Days tab 05/18/22 05/16/24 Rx lisinopriL [Zestril] 20 mg PO DAILY@0800 30 Days tab 05/18/22 05/16/24 Rx metFORMIN HCL 500 mg PO BID@799,199904/27/24 05/16/24 History Atorvastatin [Lipitor] 10 mg PO HS@199905/16/24 05/16/24 History Azelastine HCl [Optivar 0.05% 1 drop BOTH EYES BID PRN 05/16/24 05/16/24 History Ophth Soln] Baclofen [Lioresal] 10 mg PO TID PRN 05/16/24 05/16/24 History Benztropine Mesylate [Cogentin] 0.5 mg PO HS@199905/16/24 05/16/24 History Dicyclomine [Bentyl] 20 mg PO TID PRN 05/16/24 05/16/24 History Divalproex ER [Depakote ER] 1,000 mg PO HS@199905/16/24 05/16/24 History Gabapentin [Neurontin] 300 mg PO QID@08,12,16,20 05/16/24 05/16/24 History Magnesium Oxide [Mag-Ox] 400 mg PO DAILY@179905/16/24 05/16/24 History Melatonin 10 mg PO HS@199905/16/24 05/16/24 History Montelukast [Singulair] 10 mg PO DAILY@199905/16/24 05/16/24 History Paliperidone [Invega] 3 mg PO BID@0800,199905/16/24 05/16/24 History Primidone [Mysoline] 50 mg PO HS@199905/16/24 05/16/24 History Wheat Dextrin [Benefiber] 4 gm PO DAILY@0800 05/16/24 05/16/24 History traZODone HCL [Desyrel] 100 mg PO HS@199905/16/24 05/16/24 History Allergies Allergy/AdvReac Type Severity Reaction Status Date / Time amoxicillin Allergy Unknown Verified 05/16/24 15:53 brompheniramine maleate Allergy Unknown Verified 05/16/24 15:53 [From Dimetapp Cold-Allergy (PE)] codeine Allergy Rash/Hives Verified 05/16/24 15:53 fluoxetine HCl [From Prozac] Allergy Unknown Verified 05/16/24 15:53 latex Allergy Unknown Verified 05/16/24 15:53 morphine Allergy Rash/Hives Verified 05/16/24 15:53 peanut oil Allergy Unknown Verified 05/16/24 15:53 phenylephrine HCl Allergy Unknown Verified 05/16/24 15:53 [From Dimetapp Cold-Allergy (PE)] shellfish derived [Shellfish] Allergy Rash/Hives Verified 05/16/24 15:53 Physical Exam Vitals: Vital Signs Temp Pulse Pulse Resp BP BP Pulse Ox 05/16/24 15:25 97.5 F L 95 18 165/86 97 05/16/24 14:56 88 18 122/74 99 05/16/24 10:10 98.6 F 82 18 119/84 95 05/16/24 08:12 97.4 F L 109 H 18 131/84 98 Intake and Output 05/16/24 05/16/24 05/16/24 06:59 14:59 22:59 Other: Weight 105.8 kg 105.8 kg Cranial Nerve Examination - Cranial Nerves Cranial Nerve II- Optic: Intact Cranial Nerve III- Oculomotor: Intact Cranial Nerve IV- Trochlear: Intact Cranial Nerve V- Trigeminal: Intact Cranial Nerve - Abducens: Intact Cranial Nerve VII- Facial: Intact Cranial Nerve VIII- Auditory: Intact Cranial Nerve IX- Glossopharyngeal: Intact Cranial Nerve X- Vagus: Intact Cranial Nerve XI- Accessory: Intact Cranial Nerve XII- Hypoglossal: Intact Results CBC & Chem 7: 05/16/24 09:50 05/16/24 09:50 Labs: Abnormal Lab Results - Last 24 Hours (Table) 05/16/24 05/16/24 05/16/24 Range/Units 09:45 09:47 09:50 BUN 26 H (9-20) mg/dL Glucose 118 H (74-99) mg/dL Urine Protein Trace H (Negative) Urine Ketones 2+ H (Negative) Ur Barbiturates Screen Detected H (NotDetected)
[2024-05-16] MEDS: MAGNESIUM OXIDE 400 MG TAB PO SCH (18:28)
[2024-05-16] MEDS: ATORVASTATIN 10 MG TAB PO SCH (20:38)
[2024-05-16] MEDS: DIVALPROEX ER 500 MG TAB.ER.24H PO SCH (20:38)
[2024-05-16] MEDS: FAMOTIDINE 20 MG TAB PO SCH (20:39)
[2024-05-16] MEDS: traZODone HCL 100 MG TAB PO SCH (20:39)
[2024-05-16] MEDS: MELATONIN 5 MG TABLET PO SCH (20:39)
[2024-05-16] MEDS: MONTELUKAST 10 MG TAB PO SCH (20:39)
[2024-05-16] MEDS: BENZTROPINE MESYLATE 0.5 MG TAB PO SCH (20:39)
[2024-05-16] MEDS: PALIPERIDONE 3 MG TAB.ER.24 PO SCH (20:39)
[2024-05-16] MEDS: metFORMIN 500 MG TAB PO SCH (20:39)
[2024-05-16] MEDS: polyethylene glycoL 3350 17 GM POWD.PACK PO SCH (20:40)
[2024-05-16] MEDS: PRIMIDONE 50 MG TAB PO SCH (20:46)
[2024-05-17] MEDS: NICOTINE 14MG/24HR PATCH TRANSDERM SCH (08:14)
[2024-05-17] MEDS: lisinopriL 20 MG TAB PO SCH (08:17)
[2024-05-17 09:53] LABS: ALT 43 U/L (4-49); AST 29 U/L (17-59); Albumin 4.6 g/dL (3.5-5.0); Alkaline Phosphatase 75 U/L (38-126); Bilirubin, Delta 0.3 mg/dL (0.0-0.2); Bilirubin,Unconjugated 0.5 mg/dL (0.0-1.1); Total Bilirubin 0.8 mg/dL (0.2-1.3); Total Protein 7.3 g/dL (6.3-8.2)
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
[2024-05-17 15:19] LABS: Chol/HDL Ratio 2.26 Ratio; LDL Cholesterol,Calculated 47.7 mg/dL (0.0-131.0)
[2024-05-18] MEDS: OLANZapine 5 MG TAB PO PRN (08:49)
[2024-05-18] MEDS ORDERED: LORazepam 2 MG/ML INJ IM PRN (11:25)
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
--- NOTE | 2024-05-19 10:14 | P.PN ---
Progress Note - Text Interval history: Patient was seen in the hallway. On interview, he was very paranoid, and he terminated the interview. Mental status exam: General Appearance: [Patient appears to be older thanstated age is alert, not cooperative.] Behavior:evasive, uncooperative Speech: Patient's speech is fluent and nonpressured. Mood/Affect: could not assess as patient did not cooperate Suicidality/Homicidality: could not assess as patient did not cooperate Perceptions: could not assess as patient did not cooperate Though content/process: paranoid, suspicious, goal-directed Memory and concentration: could not assess as patient did not cooperate Judgment and insight: poor Assessment/Plan: Continue with current diagnosis. Patient continues to meet criteria for inpatient psychiatric admission for symptom stabilization and safety.[increase Invega to 6 mg twice a day, continue other medications] Monitor for medication compliance and for any psychotropic medication side effects. Will continue to monitor ongoing response to treatment. Encouraged participation in milieu.
[2024-05-19] MEDS: LORazepam 1 MG TAB PO PRN (11:32)
[2024-05-19] MEDS: PALIPERIDONE 6 MG TAB.ER.24 PO SCH (21:12)
[2024-05-20] MEDS: BACLOFEN 10 MG TAB PO PRN (08:17)
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
--- NOTE | 2024-05-20 21:32 | XR ---
EXAMINATION TYPE: XR chest 1V portable DATE OF EXAM: 05/20/2024 9:23 PM COMPARISON: Chest radiographs from 08/13/2021 CLINICAL INDICATION: Male, 63 years old with history of hypotensive tachy; [facility] TECHNIQUE: XR chest 1V portable Frontal view of the chest. FINDINGS: Lungs/Pleura: There is no evidence of pleural effusion, focal consolidation, or pneumothorax. Pulmonary vascularity: Pulmonary vascular congestion. Heart/mediastinum: Cardiomediastinal silhouette is enlarged. Musculoskeletal: No acute osseous pathology. IMPRESSION: Cardiomegaly and mild pulmonary vascular congestion. Correlate with BNP for congestive heart failure. [facility], , 05/20/2024 9:29 PM
[2024-05-20 21:45] LABS: Basophils % (A) 0 %; Eosinophils # (A) 0.1 k/uL (0-0.7); Eosinophils % (A) 1 %; HCT 36.7 % (39.0-53.0); HGB 11.8 gm/dL (13.0-17.5); Lymphocytes # (A) 1.7 k/uL (1.0-4.8); Lymphocytes % (A) 17 %; MCH 30.1 pg (25.0-35.0); MCHC 32.2 g/dL (31.0-37.0); MCV 93.5 fL (80.0-100.0); Mean Platelet Volume 7.4; Monocytes % (A) 10 %; Neutrophils # (A) 7.1 k/uL (1.3-7.7); Neutrophils % (A) 70 %; Platelet Count 239 k/uL (150-450); RBC 3.92 m/uL (4.30-5.90); RDW 12.9 % (11.5-15.5); WBC 10.1 k/uL (3.8-10.6)
[2024-05-20 21:58] LABS: ALT 150 U/L (4-49); AST 476 U/L (17-59); African American GFR (CKD) 30 (>60 ml/min/1.73 sqM); Albumin 4.1 g/dL (3.5-5.0); Alkaline Phosphatase 70 U/L (38-126); Anion Gap 8 mmol/L; Blood Urea Nitrogen 50 mg/dL (9-20); Calcium 8.9 mg/dL (8.4-10.2); Carbon Dioxide 22 mmol/L (22-30); Chloride 101 mmol/L (98-107); Glucose 110 mg/dL (74-99); Non-African American GFR(CKD) 26 (>60 ml/min/1.73 sqM); Potassium 4.7 mmol/L (3.5-5.1); Sodium 131 mmol/L (137-145); Total Bilirubin 0.7 mg/dL (0.2-1.3); Total Protein 6.6 g/dL (6.3-8.2)
[2024-05-20] MEDS: SODIUM CHLORIDE 0.9% 1,000 ML IV ONE (22:18)
--- NOTE | 2024-05-20 22:24 | P.PN ---
Progress Note - Text Progress Note Date: 05/20/24 Notified by nursing patient hypotensive has been tachycardic for few days Went to evaluate patient comfortable in bed had a good conversation with him he states he has for any question unreliable due to Acute psychosis. On exam patient looks slightly clammy otherwise seems to be comfortable warm to the touch no leg edema bilaterally belly soft lax no tenderness lungs good breath sounds except for left lower lobe with diminished breath sounds. Heart regular rate rhythm normal S1-S2 likely distant heart sounds Radial pulses equal brisk Patient making good eye contact follows commands. Pupils equal reactive to light Hypotension unknown amount of urine output Order some blood work CBC, CMP, lactic acid EKG This afternoon no acute ST changes, sinus tachycardia No leukocytosis no reported fever Persistent tachycardia now with hypotension Renal function showed acute kidney injury with creatinine of 2.5 Liver enzymes slightly elevated AST ALT 450 and 115 respectively However bilirubin and alk phos within normal limits Lactic acid unremarkable Chest x-ray showed some obliteration of the left diaphragmatic shadow concerning for possible infiltrate however patient denies any respiratory symptoms Follow-up blood cultures Chest x-ray also was suggestive of some pulmonary vascular congestion No history of CHF, unlikely CHF patient was laying down comfortably on bed without any orthopnea Check echocardiogram Transaminitis This could be secondary to renal toxicity from valproic acid Versus passive hepatic congestion from possible undiagnosed CHF Continue to monitor liver enzymes if continues to trend up consider discontinuing valproic acid and switching to different class of medication ROBERTO Check renal ultrasound rule out hydronephrosis Monitor urine output lactic acid 1.7 unremarkable Will do a trial of 1 L normal saline bolus will monitor for response including blood pressure and slowing down his heart rate, monitor serial lung exams avoid pulmonary edema and fluid overload Cardiac prognosis
[2024-05-21 08:21] LABS: ALT 135 U/L (4-49); AST 446 U/L (17-59); African American GFR (CKD) 56 (>60 ml/min/1.73 sqM); Albumin 4.2 g/dL (3.5-5.0); Alkaline Phosphatase 63 U/L (38-126); Anion Gap 10 mmol/L; Blood Urea Nitrogen 40 mg/dL (9-20); Calcium 9.1 mg/dL (8.4-10.2); Carbon Dioxide 24 mmol/L (22-30); Chloride 102 mmol/L (98-107); Glucose 148 mg/dL (74-99); Non-African American GFR(CKD) 48 (>60 ml/min/1.73 sqM); Potassium 4.7 mmol/L (3.5-5.1); Sodium 136 mmol/L (137-145); Total Bilirubin 0.6 mg/dL (0.2-1.3); Total Protein 6.6 g/dL (6.3-8.2)
[2024-05-21 08:28] LABS: NT-Pro-B-Type Natriuretic Pept <20 pg/mL
--- NOTE | 2024-05-21 08:47 | US ---
EXAMINATION TYPE: US kidneys/renal and bladder DATE OF EXAM: 05/21/2024 COMPARISON: CT 10/21/2023 CLINICAL INDICATION: Male, 63 years old with history of ROBERTO rule out hydronephrosis TECHNIQUE: Grayscale and color Doppler imaging of the bilateral kidneys and urinary bladder: FINDINGS: EXAM MEASUREMENTS: Right Kidney: 9.9 x 5.3 x 5.4 cm Left Kidney: 10.8 x 5.1 x 5.3 cm Right Kidney: No evidence of hydro Left Kidney: No evidence of hydro Bladder: Not visualized- pt agitated during exam Incidental echogenic hepatic parenchyma. IMPRESSION: 1. Patient was agitated. Unable to visualize the bladder. 2. There is no hydronephrosis. 3. Incidental hepatic steatosis. [facility], , 05/21/2024 8:45 AM
[2024-05-21 09:47] LABS: Valproic Acid (Depakene) 62.4 ug/mL
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
[2024-05-21] MEDS: DIVALPROEX ER 250 MG TAB.ER.24H PO SCH (20:44)
[2024-05-22] MEDS: ERGOCALCIFEROL 1,250 MCG (50,000 IU) CAPSULE PO SCH (08:34)
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
[2024-05-22 17:21] LABS: Albumin 4.5 g/dL (3.5-5.0); Bilirubin, Delta 0.1 mg/dL (0.0-0.2); Bilirubin,Unconjugated 0.6 mg/dL (0.0-1.1); Total Bilirubin 0.7 mg/dL (0.2-1.3); Total Protein 7.2 g/dL (6.3-8.2)
[2024-05-22 17:26] LABS: Valproic Acid (Depakene) 58.4 ug/mL
[2024-05-22] MEDS: IBUPROFEN 600 MG TAB PO PRN (20:32)
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
[2024-05-23 23:20] LABS: Appearance,Urine Clear (Clear); Bilirubin,Urine Negative (Negative); Blood,Urine Trace (Negative); Color,Urine Colorless; Glucose,Urine (UA) Negative (Negative); Ketones,Urine Negative (Negative); Leukocyte Esterase,Urine Negative (Negative); Mucus,Urine Rare /hpf; Nitrite,Urine Negative (Negative); PH, Urine 6.5 (5.0-8.0); Protein,Urine Negative (Negative); RBC,Urine <1 /hpf (0-5); Urobilinogen,Urine <2.0 mg/dL (<2.0); WBC,Urine <1 /hpf (0-5)
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
[2024-05-24] MEDS: CYANOCOBALAMIN 1,000 MCG/ML 1 ML VIAL IM ONE (13:07)
[2024-05-25] MEDS: KETOROLAC 15 MG/ML 1 ML VIAL IM STA (04:28)
--- NOTE | 2024-05-25 10:28 | CT ---
EXAMINATION TYPE: CT lumbar spine wo con DATE OF EXAM: 05/25/2024 10:03 AM COMPARISON: 10/21/2023. CLINICAL INDICATION: Male, 63 years old with history of new back pain; PHH, new low back pain TECHNIQUE: Multiple axial images were obtained from the midportion of T11 through the sacroiliac zohra nts. Soft tissue and bone windows in coronal and sagittal planes were obtained and reviewed. 3-D ref ormats of the bones were created on a separate workstation and submitted for review. Contrast used: mL of , (None, if empty). Oral contrast used: (None, if empty). CT DLP: 2004.50 mGycm, Automated exposure control for dose reduction was used. FINDINGS: Alignment: There are 5 lumbar type vertebral bodies within normal alignment. Bone: Multilevel degeneration changes throughout the spine with osteophyte formation and facet joint arthropathy. There is pseudoarthrosis of the spinous processes of the lower spine. No evidence of fr acture. There is pseudoarthrosis of the sacroiliac joint on the right with ankylosis. The left sacroi liac joint appears within normal limits. There is transitional vertebrae at L5. No evidence for endpl ate compression deformity. Discs: T12-L1: No spinal canal or neural foraminal stenosis is identified. L1-L2: Facet joint arthropathy and disc bulging result in moderate spinal canal stenosis and mild armani ateral neural foraminal stenosis. L2-L3: Facet joint arthropathy and disc bulging result in moderate spinal canal stenosis and mild armani ateral neural foraminal stenosis. L3-L4: No spinal canal or neural foraminal stenosis is identified. L4-L5: No spinal canal or neural foraminal stenosis is identified. L5-S1: No spinal canal or neural foraminal stenosis is identified. Other: Few scattered colonic diverticula are present. IMPRESSION: 1. No evidence for spinal fracture. 2. 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 3. 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 4. Moderate spinal canal stenosis at L1-L2 and L2-L3 secondary to degeneration change [facility], , 05/25/2024 10:25 AM
--- NOTE | 2024-05-25 20:23 | P.PN ---
Progress Note - Text Progress Note Date: 05/25/24 Interval history: Patient was called via the overhead intercom to come to the psychiatrist's office for assessment but did not respond. Nurse and I went to his room and he was found resting in his, wearing his nurys jeans backwards, he kept his eyes closed even though he appeared awake, had his left arm extended and appeared to exhibit a self-induced tremor. Several attempts were made by myself and nurse to get patient to engage in assessment but he ignored us, kept his eyes closed and didn't answer us. Normal respirations observed. It is also snack time and patient is not interested in joining peers for popcorn snack. Mental status exam: General Appearance: Disheveled, wearing pants backwards, laying in bed, eyes closed, eyeglasses off Behavior: No agitated behavior. Keeps eyes closed, laying in bed, ignores us. Speech: Unable to assess due to lack of cooperation today Mood/Affect: Unable to assess due to lack of cooperation today; keeps eyes closed and pretends to continue sleeping. Suicidality/Homicidality: Unable to assess due to lack of cooperation today Perceptions: Unable to assess due to lack of cooperation today Though content/process: Unable to assess due to lack of cooperation today Memory and concentration: Unable to assess due to lack of cooperation today Judgment and insight: chronically poor Assessment/Plan: Continue with current diagnosis. Patient continues to meet criteria for inpatient psychiatric admission for symptom stabilization and safety. Patient will be maintained on current psychotropic medication regimen. Monitor for medication compliance and for any psychotropic medication side effects. Will continue to monitor ongoing response to treatment. Encouraged participation in milieu.
--- NOTE | 2024-05-26 21:48 | P.PN ---
Progress Note - Text Progress Note Date: 05/26/24 Interval history: Patient is more willing to talk today. He reports he is doing "pretty well" and "needs water to drink" which was provided for him. He is focused on needing to shave. He denies SI/HI. He reports auditory hallucinations and anxiety this morning and was given Zyprexa 5 mg po x 1 and Ativan 1 mg po x 1. Mental status exam: General Appearance: Disheveled, unshaven. Behavior: No agitated behavior. Has intense right hand tremor, taps on table. Speech: Fluent, loud at times Mood/Affect: "Very well"/ odd, intense affect Suicidality/Homicidality: Denies SI/HI Perceptions: Endorses auditory hallucinations. Though content/process: Wants to shave/ concrete Memory and concentration: Alert and oriented to person, place; time not assessed Judgment and insight: chronically poor Assessment/Plan: Continue with current diagnosis. Patient continues to meet criteria for inpatient psychiatric admission for symptom stabilization and safety. Patient will be maintained on current psychotropic medication regimen. Repeat CMP ordered for tomorrow AM to monitor LFTs. Monitor for medication compliance and for any psychotropic medication side effects. Will continue to monitor ongoing response to treatment. Encouraged participation in milieu.
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
[2024-05-27 13:07] LABS: ALT 95 U/L (4-49); AST 59 U/L (17-59); African American GFR (CKD) 83 (>60 ml/min/1.73 sqM); Albumin 4.4 g/dL (3.5-5.0); Alkaline Phosphatase 61 U/L (38-126); Anion Gap 9 mmol/L; Blood Urea Nitrogen 17 mg/dL (9-20); Calcium 9.6 mg/dL (8.4-10.2); Carbon Dioxide 26 mmol/L (22-30); Chloride 98 mmol/L (98-107); Glucose 100 mg/dL (74-99); Non-African American GFR(CKD) 72 (>60 ml/min/1.73 sqM); Potassium 4.9 mmol/L (3.5-5.1); Sodium 133 mmol/L (137-145); Total Bilirubin 0.4 mg/dL (0.2-1.3); Total Protein 7.1 g/dL (6.3-8.2)
[2024-05-27] MEDS: PALIPERIDONE IM 234 MG/1.5 ML SYG IM STA (14:46)
[2024-05-27] MEDS: PALIPERIDONE 3 MG TAB.ER.24 PO SCH (20:30)
[2024-05-28] MEDS: MAGNESIUM HYDROXIDE 2,400 MG/30 ML CUP PO PRN (09:55)
--- NOTE | 2024-05-28 11:20 | P.PN ---
Progress Note - Text Progress Note Date: 05/28/24 Interval History: Patient was seen in his room, and was directable and agreeable to speak with tabitha crook at the bedside. The patient states that he is feeling better today, and wants to go home. The patient refused his depakote last night, a demand will be filed, due to the patient deferring on 05/20. continues to be focused on discharge and have poor insight and judgment. He states that he is lonely, and wants to go back to his nursing home to be around his peers. Councilperson encouraged patient to go to groups while here on the unit. His thought process in more linear today. He denies any AH/VH. He denied any suicidal ideations or homicidal ideations. He denies any problems with appetite or concentration. Patient denies any side effects from the medications. Mental Status Exam: General Appearance: Patient appears stated age, and cooperative during the interview. Dressed casually, Behavior: Patient laying in bed, and cooperative Speech: Patient's speech is fluent and nonpressured. Mood/Affect: Mood was better, affect is congruent and constricted Suicidality/Homicidality: Patient denies having any suicidal or homicidal ideation intent or plan. Perceptions: Patient denies any visual hallucinations and is denying auditory hallucinations Though content/process: Patient's thought content is mildly improving Memory and concentration: AOX3, grossly intact for the purposes of this session Judgment and insight: Improving mildly IMPRESSIONS: Schizoaffective disorder, bipolar type Non-adherence to medications PLAN: -Patient is admitted under involuntary status to MHU for stabilization of psychiatric symptoms and safety. currently on a deferral. -Medications : Invega Sustenna 234mg IM 05/27, then 117mg IM on 06/03, then monthly, 07/01 234mg IM Paliperidone po 3 mg bid for psychosis/mood stabilization, will titrate off tomorrow. Depakote 750 mg qhs daily for mood stabilization/aggression Cogentin 0.5mg qhs for EPS Trazodone 100 mg qhs for sleep Melatonin 10mg qhs for sleep, Gabapentin 300mg qid for nerve pain -Ativan and Haldol PRN for agitation/aggression -NRT - not needed as patient does not smoke. -SW on board for discharge planning. Encourage patient to participate in groups to work on coping skills. Patient deferred 05/20/24. Will have social work file a demand, due to patient refusing medication last night.
[2024-05-28 15:57] VITALS: BMI 31.6
--- NOTE | 2024-05-29 11:53 | P.PN ---
Progress Note - Text Progress Note Date: 05/29/24 Interval History: Patient was seen in his room, and was directable and agreeable to speak with tabitha crook at the bedside. The patient states that he is not feeling good today. He states that he does not want to take Depakote, because it is no good for him. Chef Head gave him the option to switch to [place], patient states he would rather stay on Depakote. He states he would like his door kept locked, consumer loan underwriter expressed the safety on the unit, and how the staff has to do q15m checks on all patients. Patient verbalized understanding, however, states that he does not need to be checked on. He also states he wants to hurt himself, but does not verbalize a plan. Chef Head encouraged patient to go to groups while here on the unit. His thought process in more linear today. He denies any AH/VH. He denied any suicidal ideations or homicidal ideations. He denies any problems with appetite. He claims to have not slept last night. Patient denies any side effects from the medications. Mental Status Exam: General Appearance: Patient appears stated age, and cooperative during the interview. Dressed casually, Behavior: Patient laying in bed, and cooperative Speech: Patient's speech is fluent and nonpressured. Mood/Affect: Mood was "not good" affect is congruent and constricted Suicidality/Homicidality: Patient denies having any suicidal or homicidal ideation intent or plan. Perceptions: Patient denies any visual hallucinations and is denying auditory hallucinations Though content/process: Patient's thought content is mildly improving Memory and concentration: AOX3, grossly intact for the purposes of this session Judgment and insight: Improving mildly IMPRESSIONS: Schizoaffective disorder, bipolar type Non-adherence to medications PLAN: -Patient is admitted under involuntary status to MHU for stabilization of psychiatric symptoms and safety. currently on a deferral. -Medications : Invega Sustenna 234mg IM 05/27, then 117mg IM on 06/03, then monthly, 07/01 234mg IM Depakote 750 mg qhs daily for mood stabilization/aggression Cogentin 0.5mg qhs for EPS Trazodone 100 mg qhs for sleep Melatonin 10mg qhs for sleep, Gabapentin 300mg qid for nerve pain -Ativan and Haldol PRN for agitation/aggression -NRT - not needed as patient does not smoke. -SW on board for discharge planning. Encourage patient to participate in groups to work on coping skills. Patient deferred 05/20/24. A demand was filed, 06/[address]
--- NOTE | 2024-05-30 10:30 | P.PN ---
Progress Note - Text Progress Note Date: 05/30/24 Interval History: Patient was seen in his room, and was directable and agreeable to speak with tabitha crook at the bedside. The patient states that he is still not feeling good . He is complaining of loose stools, and a pain in his side. He is verbalizing that he is experiencing AH, telling him to leave. The patient has not been up for meals in two days, encouraged patient to eat, even if it is something small. Public Relations Senior Associate will order ensure to be delivered with his meals. Public Relations Senior Associate encouraged patient to go to groups while here on the unit. The patient has been secluding to his room. He denies any VH. He denied any suicidal ideations or homicidal ideations. He claims to have not slept last night. Patient denies any side effects from the medications, and is being complaint with meds. Mental Status Exam: General Appearance: Patient appears stated age, and cooperative during the interview. Dressed casually, Behavior: Patient laying in bed, and cooperative Speech: Patient's speech is fluent and nonpressured. Mood/Affect: Mood was "not good" affect is congruent and constricted Suicidality/Homicidality: Patient denies having any suicidal or homicidal ideation intent or plan. Perceptions: Patient denies any visual hallucinations and is endorsing auditory hallucinations Though content/process: Patient's thought content is mildly improving Memory and concentration: AOX3, grossly intact for the purposes of this session Judgment and insight: Improving mildly IMPRESSIONS: Schizoaffective disorder, bipolar type Non-adherence to medications PLAN: -Patient is admitted under involuntary status to MHU for stabilization of psychiatric symptoms and safety. currently on a deferral. Demand filed. -Medications : Invega Sustenna 234mg IM 05/27, then 117mg IM on 06/03, then monthly, 07/01 234mg IM decrease Depakote 250 mg qhs for mood stabilization/aggression to see if this is the cause of patients side effects and GI upset. Cogentin 0.5 mg qhs for EPS Trazodone 100 mg qhs for sleep Melatonin 10mg qhs for sleep, Gabapentin 300mg qid for nerve pain -Ativan and Haldol PRN for agitation/aggression -NRT - not needed as patient does not smoke. -SW on board for discharge planning. Encourage patient to participate in groups to work on coping skills. Patient deferred 05/20/24. A demand was filed, 06/[address]
[2024-05-30] MEDS: DIVALPROEX ER 250 MG TAB.ER.24H PO SCH (20:54)
--- NOTE | 2024-05-31 11:53 | P.PN ---
Progress Note - Text Progress Note Date: 05/31/24 Interval History: Patient was seen in group, and was directable and agreeable to speak with conventional underwriter in the back sahni. The patient states that he is feeling a bit better. The patient has been more visible on the unit, and attending groups. The patient is more cooperative today. He is focused on discharge, conventional underwriter explained to the patient that he would have to have his second dose of Invega Sustenna IM, and have his demand hearing prior to discharge. Patient verbalized understanding. Encouraged patient to shower. He denies any AH/VH. He denied any suicidal ideations or homicidal ideations. He claims to have not slept last night. Patient denies any side effects from the medications, and is being complaint with meds. Mental Status Exam: General Appearance: Patient appears stated age, and cooperative during the interview. Dressed casually, Behavior: Patient is calmly seated, and cooperative, resting tremor Speech: Patient's speech is fluent and nonpressured. Mood/Affect: Mood was "better today" affect is congruent and constricted, mildly improving Suicidality/Homicidality: Patient denies having any suicidal or homicidal ideation intent or plan. Perceptions: Patient denies any visual hallucinations and is denying auditory hallucinations Though content/process: Patient's thought content is mildly improving Memory and concentration: AOX3, grossly intact for the purposes of this session Judgment and insight: Improving mildly IMPRESSIONS: Schizoaffective disorder, bipolar type Non-adherence to medications PLAN: -Patient is admitted under involuntary status to MHU for stabilization of psychiatric symptoms and safety. currently on a deferral. Demand filed. -Medications : Invega Sustenna 234mg IM 05/27, then 117mg IM on 06/03, then monthly, 07/01 234mg IM D/C Depakote due to GI problems Cogentin 0.5 mg qhs for EPS Increase Trazodone 150 mg qhs for sleep Melatonin 10mg qhs for sleep Gabapentin 300mg qid for nerve pain Inderal 20mg daily for tremor -Ativan and Haldol PRN for agitation/aggression -NRT - not needed as patient does not smoke. -SW on board for discharge planning. Encourage patient to participate in groups to work on coping skills. Patient deferred 05/20/24. A demand was filed, 06/[address]
[2024-05-31] MEDS: PROPRANOLOL 20 MG TAB PO SCH (12:46)
[2024-05-31] MEDS: traZODone HCL 50 MG TAB PO SCH (20:55)
[2024-06-01 07:18] VITALS: RESP 16
--- NOTE | 2024-06-01 15:11 | P.PN ---
Progress Note - Text Progress Note Date: 06/01/24 Interval History: Patient was seen bedside this morning. he repeatedly states "I need help " but is unable to elaborate further when asked. Patient continues to have disorganized thought process. He states that he would like therapy and would like to shave with a razorr. He continues to have tremor despite current treatment regimen and is agreeable with the increase in Inderal. Patient has not had any agitation in the past 24 hours. patient is unable to answer regarding his sleep and perseverates on "I need help. You understand?" when asked. Documentation indicates the patient was continuously sleeping last night. He denies concerns with current medications. He denies any AH/VH. He denied any suicidal ideation or homicidal ideation. Patient denies any side effects from the medications, including dizziness, and is being complaint with meds. Mental Status Exam: General Appearance: Patient appears stated age, and cooperative during the interview. Dressed casually, Behavior: Patient is calmly seated, and cooperative, resting tremor Speech: Patient's speech is fluent and nonpressured. Mood/Affect: Mood was "better today" affect is congruent and constricted, mildly improving Suicidality/Homicidality: Patient denies having any suicidal or homicidal ideation intent or plan. Perceptions: Patient denies any visual hallucinations and is denying auditory hallucinations Though content/process: Patient's thought content is mildly improving Memory and concentration: AOX3, grossly intact for the purposes of this session Judgment and insight: Improving mildly IMPRESSIONS: Schizoaffective disorder, bipolar type R/o Borderline intellectual functioning Non-adherence to medications PLAN: -Patient is admitted under involuntary status to [facility] for stabilization of psychiatric symptoms and safety. currently on a deferral. Demand filed. -Medications : Invega Sustenna 234mg IM 05/27, then 117mg IM on 06/03, then monthly, 07/01 234mg IM Cogentin 0.5 mg qhs for EPS Trazodone 150 mg qhs for sleep Melatonin 10mg qhs for sleep Gabapentin 300mg qid for nerve pain Increase Inderal 20mg to BID for tremor Will reorder CMP to monitor transaminitis and BUN/Cr -Ativan and Haldol PRN for agitation/aggression -NRT - not needed as patient does not smoke. -SW on board for discharge planning. Encourage patient to participate in groups to work on coping skills. Patient deferred 05/20/24. A demand was filed, 06/[address]
[2024-06-01] MEDS: PROPRANOLOL 20 MG TAB PO SCH (20:38)
[2024-06-02 09:25] LABS: ALT 65 U/L (4-49); AST 35 U/L (17-59); African American GFR (CKD) 83 (>60 ml/min/1.73 sqM); Albumin 4.6 g/dL (3.5-5.0); Alkaline Phosphatase 64 U/L (38-126); Anion Gap 9 mmol/L; Blood Urea Nitrogen 23 mg/dL (9-20); Calcium 9.5 mg/dL (8.4-10.2); Carbon Dioxide 23 mmol/L (22-30); Chloride 102 mmol/L (98-107); Glucose 170 mg/dL (74-99); Non-African American GFR(CKD) 72 (>60 ml/min/1.73 sqM); Potassium 5.1 mmol/L (3.5-5.1); Sodium 134 mmol/L (137-145); Total Bilirubin 0.5 mg/dL (0.2-1.3); Total Protein 7.3 g/dL (6.3-8.2)
--- NOTE | 2024-06-02 14:43 | P.PN ---
Progress Note - Text Progress Note Date: 06/02/24 Interval History: Patient was seen bedside this morning. He reports experiencing bothersome joya tory hallucinations that are of his neighbors. He says this has been ongoing for a long time. Patient continues to have disorganization in thought and perseverates on "do you think they will go away?" Documentation indicates the patient was continuously sleeping last night. He denies concerns with current medications but says he has noticed loose stool recently but pt is on polyethylene glycol for constipation. He denies any VH. He denied any suicidal ideation or homicidal ideation. Patient denies any side effects from the medications, including dizziness, and is complaint with meds. Mental Status Exam: General Appearance: Patient appears stated age, and cooperative during the interview. Dressed casually, Behavior: Patient is calmly seated, and cooperative, resting tremor Speech: Patient's speech is fluent and nonpressured. Mood/Affect: Mood was "not so good" affect is congruent and constricted, mildly improving Suicidality/Homicidality: Patient denies having any suicidal or homicidal ideation intent or plan. Perceptions: Patient denies any visual hallucinations and is denying auditory hallucinations Though content/process: Patient's thought content is mildly improving Memory and concentration: AOX3, grossly intact for the purposes of this session Judgment and insight: Improving mildly IMPRESSIONS: Schizoaffective disorder, bipolar type R/o Borderline intellectual functioning Non-adherence to medications PLAN: -Patient is admitted under involuntary status to [facility] for stabilization of psychiatric symptoms and safety. currently on a deferral. Demand filed. -Medications : Invega Sustenna 234mg IM 05/27, then 117mg IM on 06/03, then monthly, 07/01 234mg IM Cogentin 0.5 mg qhs for EPS Trazodone 150 mg qhs for sleep Melatonin 10mg qhs for sleep Gabapentin 300mg qid for nerve pain Inderal 20mg BID for tremor CMP - transaminitis improving and mildly elevated BUN -Ativan and Haldol PRN for agitation/aggression -NRT - not needed as patient does not smoke. -SW on board for discharge planning. Encourage patient to participate in groups to work on coping skills. Patient deferred 05/20/24. A demand was filed, 06/[address]
[2024-06-02 20:29] LABS: Glucose,Whole Blood 95 mg/dL (70-110)
[2024-06-02] MEDS: ALBUTEROL INHALER 60 PUFF/8 GM INHALER (MHU) INHALATION PRN (21:41)
[2024-06-03] MEDS: polyethylene glycoL 3350 17 GM POWD.PACK PO PRN (08:25)
--- NOTE | 2024-06-03 10:26 | P.PN ---
Progress Note - Text Progress Note Date: 06/03/24 Interval History: Patient was seen in his room, and was directable and agreeable to speak with tabitha crook at the bedside. The patient states that he is feeling so so. He complains of blurry vision and restlessness. He claims to not be sleeping at night. Nursing notes state the patient is sleeping at night. The patient has been more visible on the unit, and attending groups. He is focused on discharge, teletypewriter operator explained to the patient that he would have to have his second dose of Invega Sustenna IM, and have his demand hearing prior to discharge. Patient verbalized understanding. He denies any AH/VH. He denied any suicidal ideations or homicidal ideations. Patient is being complaint with meds. Mental Status Exam: General Appearance: Patient appears stated age, and cooperative during the interview. Dressed casually, Behavior: Patient is calmly seated, and cooperative, resting tremor Speech: Patient's speech is fluent and nonpressured. Mood/Affect: Mood was "better today" affect is congruent and constricted, mildly improving Suicidality/Homicidality: Patient denies having any suicidal or homicidal ideation intent or plan. Perceptions: Patient denies any visual hallucinations and is denying auditory hallucinations Though content/process: Patient's thought content is mildly improving Memory and concentration: AOX3, grossly intact for the purposes of this session Judgment and insight: poor, Improving mildly IMPRESSIONS: Schizoaffective disorder, bipolar type Non-adherence to medications PLAN: -Patient is admitted under involuntary status to [facility] for stabilization of psychiatric symptoms and safety. currently on a deferral. awaiting demand for hearing. -Medications : Invega Sustenna 234mg IM 05/27, then 156mg IM on 06/03, then monthly, then 234mg IM due on 07/01 increase Cogentin 0.5 mg BID for EPS Trazodone 150 mg qhs for sleep Melatonin 10mg qhs for sleep Gabapentin 300mg qid for nerve pain decrease Inderal 20mg daily for tremor -Ativan and Haldol PRN for agitation/aggression -NRT - not needed as patient does not smoke. -SW on board for discharge planning. Encourage patient to participate in groups to work on coping skills. Patient deferred 05/20/24. A demand was filed, 06/[address]. hopeful for discharge wed after court and after patient receives [facility].
[2024-06-03] MEDS: PALIPERIDONE IM 156 MG/ML SYG IM STA (11:55)
[2024-06-03] MEDS: BENZTROPINE MESYLATE 0.5 MG TAB PO SCH (13:14)
[2024-06-04 07:00] VITALS: TEMP 97.8
[2024-06-04] MEDS: PROPRANOLOL 20 MG TAB PO SCH (08:00)
--- NOTE | 2024-06-04 12:21 | P.PN ---
Progress Note - Text Progress Note Date: 06/04/24 Interval History: Patient was seen in his room, and was directable and agreeable to speak with tabitha crook at the bedside. Patient claims that he is feeling the same as yesterday today. Continues to focus on discharge planning. He spoke about court being held tomorrow morning. He did take the second injection yesterday tolerated it well. He is still having some minor resting tremors, was asking more questions about it and different treatments he can have. States that he has been sleeping at nighttime, has been going to some groups. He will be having his demand hearing prior to discharge. Patient verbalized understanding. He denies any AH/VH. He denied any suicidal ideations or homicidal ideations. Patient is being complaint with meds. Mental Status Exam: General Appearance: Patient appears stated age, and cooperative during the interview. Dressed casually, Behavior: Patient is calmly seated, and cooperative, resting tremor Speech: Patient's speech is fluent and nonpressured. Mood/Affect: Mood was "the same" affect is congruent and constricted, mildly improving Suicidality/Homicidality: Patient denies having any suicidal or homicidal ideation intent or plan. Perceptions: Patient denies any visual hallucinations and is denying auditory hallucinations Though content/process: Patient's thought content is mildly improving. Fairly concrete Memory and concentration: AOX3, grossly intact for the purposes of this session Judgment and insight: Chronically poor, Improving mildly IMPRESSIONS: Schizoaffective disorder, bipolar type Non-adherence to medications PLAN: -Patient is admitted under involuntary status to [facility] for stabilization of psychiatric symptoms and safety. currently on a deferral. awaiting demand for hearing. -Medications : Invega Sustenna 234mg IM 05/27, then 156mg IM on 06/03, then monthly, then 234mg IM due on 07/01 Increase Cogentin 1 mg BID for EPS Trazodone 150 mg qhs for sleep Melatonin 10mg qhs for sleep Gabapentin 300mg qid for nerve pain Inderal 20mg daily for tremor -Ativan and Haldol PRN for agitation/aggression -NRT - not needed as patient does not smoke. -SW on board for discharge planning. Encourage patient to participate in groups to work on coping skills. Patient deferred 05/20/24. A demand was filed, 06/[address] hopeful for discharge wed after court and after patient receives [facility].
[2024-06-04] MEDS: BENZTROPINE MESYLATE 1 MG TAB PO SCH (13:07)
[2024-06-04 18:43] VITALS: BP 143/81
[2024-06-05 07:30] VITALS: PULSE 81
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
== END 2024-06-05 14:17 | disposition home or self-care (01) | DRG 750 ==
LOC: EC 08:00 → 3MHU 13:46
PROVIDERS: ADMIT Psychiatry & Neurology Psychiatry; ATTEND Psychiatry & Neurology Psychiatry
DX: F25.0 Schizoaffective disorder, bipolar type (principal); E11.9 Type 2 diabetes mellitus without complications; E78.5 Hyperlipidemia, unspecified; F41.9 Anxiety disorder, unspecified; F43.10 Post-traumatic stress disorder, unspecified; G40.909 Epilepsy, unspecified, not intractable, without status epilepticus; I10 Essential (primary) hypertension; J44.89 Other specified chronic obstructive pulmonary disease; K59.00 Constipation, unspecified; N17.9 Acute kidney failure, unspecified; Z78.1 Physical restraint status; Z79.84 Long term (current) use of oral hypoglycemic drugs; Z79.899 Other long term (current) drug therapy; Z85.46 Personal history of malignant neoplasm of prostate; Z91.148 Patient's other noncompliance with medication regimen for other reason; Z91.199 Patient's noncompliance with other medical treatment and regimen due to unspecified reason; Z11.52 Encounter for screening for COVID-19
CPT/HCPCS: 36415; 71045; 72131; 76770; 80053; 80061; 80076; 80164; 80306; 80320; 81001; 81003; 82075; 82140; 83036; 83605; 83880; 84443; 85025; 85027; 87040; 87635; 93005; 99285

== ENCOUNTER 2024-08-02 15:06 | Emergency (ER) | payer OTHER ==
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
[2024-08-02 18:38] VITALS: BP 147/84; PULSE 85; RESP 16; TEMP 98
== END 2024-08-02 18:41 | disposition home or self-care (01) ==
LOC: EC 15:06
DX: F29 Unspecified psychosis not due to a substance or known physiological condition (principal); Z88.0 Allergy status to penicillin; Z88.5 Allergy status to narcotic agent; Z91.040 Latex allergy status; Z91.013 Allergy to seafood; Z91.010 Allergy to peanuts; Z88.8 Allergy status to other drugs, medicaments and biological substances
CPT/HCPCS: 82075; 99284

== ENCOUNTER 2024-08-19 18:22 | Emergency (ER) | payer OTHER ==
--- NOTE | 2024-08-19 19:02 | ED ---
ENT HPI - General Source: patient, RN notes reviewed Mode of arrival: ambulatory Limitations: no limitations - History of Present Illness MD complaint: sore throat, epistaxis Severity scale (1-10): 7 <Chip Drummond - Last Filed: 08/19/24 19:00> <Art Kim - Last Filed: 08/20/24 17:02> - General Stated complaint: sore throat Time Seen by Provider: 08/19/24 18:36 - History of Present Illness Initial comments: Quick note: This is a 64-year-old male presenting with sore throat (01/30) and epistaxis x 2 days ago. Patient states it feels like his throat is "closing". Endorses use of Benadryl with no relief. Denies other symptoms. (Chip Drummond) 64-year-old male presenting with chief complaint of throat. Patient states that earlier today he was blowing his nose when a blood clot came out and he had bleeding from the nose for about 2 minutes. This has since stopped and not returned. He was worried it was due to possible high blood pressure. Patient is also complaining of throat pain that started today. No new foods or med ications. No other new products. He took some Benadryl because felt a bit tight. This has since improved. He is able to eat and drink without difficulty. No difficulty breathing. He does have some pain with swallowing. No drooling or muffled voice. No fever. No headache or neck pain. (Art Kim) - Related Data Home Medications Medication Instructions Recorded Confirmed Albuterol Inhaler [Ventolin Hfa 1 - 2 puff INHALATION RT-Q4H PRN 12/30/19 05/16/24 Inhaler] metFORMIN HCL 500 mg PO BID@0800,199904/27/24 05/16/24 Atorvastatin [Lipitor] 10 mg PO HS@199905/16/24 05/16/24 Azelastine HCl [Optivar 0.05% 1 drop BOTH EYES BID PRN 05/16/24 05/16/24 Ophth Soln] Baclofen [Lioresal] 10 mg PO TID PRN 05/16/24 05/16/24 Dicyclomine [Bentyl] 20 mg PO TID PRN 05/16/24 05/16/24 Gabapentin [Neurontin] 300 mg PO QID@08,12,16,20 05/16/24 05/16/24 Magnesium Oxide [Mag-Ox] 400 mg PO DAILY@1800 05/16/24 05/16/24 Melatonin 10 mg PO HS@199905/16/24 05/16/24 Montelukast [Singulair] 10 mg PO DAILY@199905/16/24 05/16/24 Primidone [Mysoline] 50 mg PO HS@199905/16/24 05/16/24 Wheat Dextrin [Benefiber] 4 gm PO DAILY@0800 05/16/24 05/16/24 Previous Rx's Medication Instructions Recorded Ergocalciferol (Vitamin D2) 1,250 mcg PO WE 30 Days cap 05/18/22 [Drisdol (50,000 Iu)] Famotidine [Pepcid] 20 mg PO BID@0800,1999 30 Days tab 05/18/22 Acetaminophen Tab [Tylenol] 650 mg PO Q4HR PRN tab 06/05/24 Benztropine Mesylate [Cogentin] 1 mg PO BID 30 Days #60 tab 06/05/24 Ibuprofen [Motrin] 600 mg PO Q6HR PRN tab 06/05/24 Paliperidone IM [Invega Sustenna] 234 mg IM QMONTHLY #1 each 06/05/24 Propranolol [Inderal] 20 mg PO BID 14 Days #28 tab 06/05/24 traZODone HCL 150 mg PO HS 30 Days #30 tablet 06/05/24 Allergies Allergy/AdvReac Type Severity Reaction Status Date / Time amoxicillin Allergy Unknown Verified 08/19/24 19:05 brompheniramine maleate Allergy Unknown Verified 08/19/24 19:05 [From Dimetapp Cold-Allergy (PE)] codeine Allergy Rash/Hives Verified 08/19/24 19:05 diphenhydramine Allergy Rash/Hives Verified 08/19/24 19:05 [From Benadryl] fluoxetine HCl [From Prozac] Allergy Unknown Verified 08/19/24 19:05 latex Allergy Unknown Verified 08/19/24 19:05 morphine Allergy Rash/Hives Verified 08/19/24 19:05 peanut oil Allergy Unknown Verified 08/19/24 19:05 phenylephrine HCl Allergy Unknown Verified 08/19/24 19:05 [From Dimetapp Cold-Allergy (PE)] shellfish derived [Shellfish] Allergy Rash/Hives Verified 08/19/24 19:05 Review of Systems ROS Other: All systems not noted in ROS Statement are negative. <Chip Drummond - Last Filed: 08/19/24 19:00> ROS Other: All systems not noted in ROS Statement are negative. <Art Kim - Last Filed: 08/20/24 17:02> ROS Statement: Those systems with pertinent positive or pertinent negative responses have been documented in the HPI. Past Medical History Past Medical History: COPD, Hyperlipidemia, Hypertension, Osteoarthritis (OA), Seizure Disorder Additional Past Medical History / Comment(s): prostate cancer, possible seizure disorder-last known seizure 01/05/2020 . 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 Past Psychological History: Bipolar, Depression, PTSD, Schizophrenia Smoking Status: Never smoker Past Alcohol Use History: None Reported Past Drug Use History: None Reported - Past Family History Father Family Medical History: Cancer Additional Family Medical History / Comment(s): Father is alive at age 82 with history of prostate cancer. Mother Family Medical History: Cancer Additional Family Medical History / Comment(s): Mother at age 53 from bladder cancer Brother(s) Additional Family Medical History / Comment(s): Patient has 4 brothers and 2 sisters that are healthy with no major medical problems. Patient does not have any children. <Chip Drummond - Last Filed: 08/19/24 19:00> General Exam <Chip Drummond - Last Filed: 08/19/24 19:00> Limitations: no limitations General appearance: alert, in no apparent distress Head exam: Present: atraumatic, normocephalic, normal inspection Eye exam: Present: normal appearance, EOMI ENT exam: Present: normal exam, normal oropharynx, mucous membranes moist Neck exam: Present: normal inspection. Absent: meningismus Respiratory exam: Absent: respiratory distress Cardiovascular Exam: Present: regular rate Neurological exam: Present: alert, oriented X3 Psychiatric exam: Present: normal affect, normal mood Skin exam: Present: warm, dry <Art Kim - Last Filed: 08/20/24 17:02> - General Exam Comments Initial Comments: Visual Physical Exam Vital signs reviewed General: Well-appearing, nontoxic, no acute distress. Head: Normocephalic, atraumatic Eyes: PERRLA, EOMI ENT: Airway patent Chest: Nonlabored breathing Skin: No visual rash, normal skin tone Neuro: Alert and oriented 3 Musculoskeletal: No gross abnormalities (Chip Drummond) Course Vital Signs 08/19/24 08/19/24 19:01 22:33 Temperature 98.2 F Pulse Rate 63 97 Respiratory 18 18 Rate Blood Pressure 138/87 154/91 O2 Sat by Pulse 96 97 Oximetry Medical Decision Making <Chip Drummond - Last Filed: 08/19/24 19:00> <Art Kim - Last Filed: 08/20/24 17:02> - Medical Decision Making I completed the quick note portion of this chart signed BALDEV Smith (Chip rDummond) Was pt. sent in by a medical professional or institution ([facility], [employer]IE[employer], urgent care, hospital, or retirement...) When possible be specific @ -No Did you speak to anyone other than the patient for history (EMS, parent, family, police, friend...)? What history was obtained from this source @ -No Did you review nursing and triage notes (agree or disagree)? Why? @ -I reviewed and agree with nursing and triage notes Were old charts reviewed (outside hosp., previous admission, EMS record, old EKG, old radiological studies, urgent care reports/EKG's, retirement records)? Report findings @ -No old charts were reviewed Differential Diagnosis (chest pain, altered mental status, abdominal pain women, abdominal pain men, vaginal bleeding, weakness, fever, dyspnea, syncope, headache, dizziness, GI bleed, back pain, seizure, CVA, palpatations, mental health, musculoskeletal)? @ -Differential includes allergic reaction, strep pharyngitis, viral pharyngitis, not an all-inclusive list EKG interpreted by me (3pts min.). @ -As above X-rays interpreted by me (1pt min.). @ -None done CT interpreted by me (1pt min.). @ -None done U/S interpreted by me (1pt. min.). @ -None done What testing was considered but not performed or refused? (CT, X-rays, U/S, labs)? Why? @ -None What meds were considered but not given or refused? Why? @ -None Did you discuss the management of the patient with other professionals (professionals i.e. , PA, [employer] CHIEF, lab, RT, psych nurse, bilingual social worker, spring maker, teacher, information security officer, patient case coordinator)? Give summary @ -No Was smoking cessation discussed for >3mins.? @ -No Was critical care preformed (if so, how long)? @ -No Were there social determinants of health that impacted care today? How? (Homelessness, low income, unemployed, alcoholism, drug addiction, transportation, low edu. Level, literacy, decrease access to med. care, assisted, rehab)? @ -No Was there de-escalation of care discussed even if they declined (Discuss DNR or withdrawal of care, Hospice)? DNR status @ -No What co-morbidities impacted this encounter? (DM, HTN, Smoking, COPD, CAD, Cancer, CVA, ARF, Chemo, Hep., AIDS, mental health diagnosis, sleep apnea, morbid obesity)? @ -None Was patient admitted / discharged? Hospital course, mention meds given and route, prescriptions, significant lab abnormalities, going to OR and other pertinent info. @ -64-year-old male presenting with chief complaint of nosebleed and throat pain. Workup initiated by triage. He is negative for influenza, RSV, COVID, group A strep. Patient is later brought into the hallway and examined by myself. Normal posterior pharynx with no erythema or midline shift. Patient is having no muffled voice or drooling. No tripoding or stridor. He has had no nosebleed while he has been here in the ER. He is educated on today's findings and supportive management at home. Follow-up with PCP. Report back to ER with any new or worsening symptoms. Discussed return parameters and answered all questions. Patient conveyed verbal understanding and agreed to the plan. My attending is Dr. Wyman Undiagnosed new problem with uncertain prognosis? @ -No Drug Therapy requiring intensive monitoring for toxicity (Heparin, Nitro, Insulin, Cardizem)? @ -No Were any procedures done? @ -No Diagnosis/symptom? @ -Pharyngitis Acute, or Chronic, or Acute on Chronic? @ -Acute Uncomplicated (without systemic symptoms) or Complicated (systemic symptoms)? @ -Uncomplicated Side effects of treatment? @ -No Exacerbation, Progression, or Severe Exacerbation? @ -No Poses a threat to life or bodily function? How? (Chest pain, USA, [place], pneumonia, PE, COPD, DKA, ARF, appy, cholecystitis, CVA, Diverticulitis, Homicidal, Suicidal, threat to staff... and all critical care pts) @ -Unlikely (Art Kim) - Lab Data Lab Results 08/19/24 08/19/24 Range/Units 19:07 19:07 Influenza Type A (PCR) Not Detected (Not Detectd) Influenza Type B (PCR) Not Detected (Not Detectd) RSV (PCR) Not Detected (Not Detectd) SARS-CoV-2 (PCR) Not Detected (Not Detectd) Group A Strep (PCR) NOT DETECTED (Not Detectd) Disposition <Chip Drummond - Last Filed: 08/19/24 19:00> Is patient prescribed a controlled substance at d/c from ED?: No Time of Disposition: 21:45 <Art Kim - Last Filed: 08/20/24 17:02> Clinical Impression: Pharyngitis Disposition: HOME SELF-CARE Condition: Good Instructions (If sedation given, give patient instructions): Pharyngitis (ED) Additional Instructions: Follow-up with your PCP. Report back to ER with any new or worsening symptoms. Take Motrin and Tylenol as needed for pain control. Referrals: [facility] [Primary Care Provider] - 1-2 days
[2024-08-19 19:05] VITALS: RESP 18; TEMP 98.2
[2024-08-19 19:52] LABS: Influenza A Not Detected (Not Detectd); Influenza B Not Detected (Not Detectd); RSV Not Detected (Not Detectd)
[2024-08-19 22:35] VITALS: BP 154/91; PULSE 97
== END 2024-08-19 22:34 | disposition home or self-care (01) ==
LOC: EC 18:22
DX: J02.9 Acute pharyngitis, unspecified (principal); R04.0 Epistaxis; Z91.013 Allergy to seafood; Z91.010 Allergy to peanuts; Z88.8 Allergy status to other drugs, medicaments and biological substances; Z91.040 Latex allergy status; Z88.0 Allergy status to penicillin; Z88.5 Allergy status to narcotic agent
CPT/HCPCS: 87636; 87651; 99283